=== PATIENT | female | born 1935 | race Caucasian/White ===

== ENCOUNTER → 2016-04-09 | Outpatient (CLI) | payer BC ==
[~2016-04-09] MED LIST: ACET-1487 PO; CHOL1CAP67 PO; CLOP1TAB5 PO; CYAN10005 PO; FOLI1TAB7 PO; FURO20TA PO; INSPMPNVLG; LISI10TA PO; PRED1SUS3; SERT25TA PO
[2016-04-09 13:29] LABS: ESTIMATED AVERAGE GLUCOSE 160 mg/dl; HA1C FLAG Normal (Normal)
== END | disposition home or self-care (01) ==
LOC: C.LABOAKS 12:27
PROVIDERS: ATTEND Internal Medicine Critical Care Medicine
DX: E11.9 Type 2 diabetes mellitus without complications (principal)

== ENCOUNTER → 2016-08-06 | Outpatient (CLI) | payer BC ==
[2016-08-06 10:46] LABS: ESTIMATED AVERAGE GLUCOSE 166 mg/dl; HA1C FLAG Normal (Normal)
== END | disposition home or self-care (01) ==
LOC: C.LABOAKS 09:48
PROVIDERS: ATTEND Internal Medicine Critical Care Medicine
DX: E11.9 Type 2 diabetes mellitus without complications (principal)

== ENCOUNTER → 2016-08-30 | Outpatient (CLI) | payer BC ==
[2016-08-30 09:58] LABS: BASO % 0.5 %; BASO ABS # 0.03 K/uL (0-0.2); COMPLETE YES; EOS % 1.5 %; HEMATOCRIT 36.5 % (37-47); IG% 0.2 %; LYMPH ABS # 1.86 K/uL (1.2-3.4); MEAN CELL VOLUME 96.1 fL (80-100); MEAN CORPUSCULAR HEMOGLOBIN 31.3 pg (25-34); MEAN CORPUSCULAR HGB CONC 32.6 g/dl (32-36); MEAN PLATELET VOLUME 10.3 fL (7.4-10.4); NEUT % 60.8 %; PLATELET COUNT 186 K/uL (130-400)
[2016-08-30 10:31] LABS: BLOOD UREA NITROGEN 20 mg/dl (7-18); BUN/CREATININE RATIO 19.7 (10-20); CALCIUM 8.9 mg/dl (8.5-10.1); CARBON DIOXIDE 29 mmol/L (21-32); CHLORIDE 111 mmol/L (98-107); GLUCOSE 170 mg/dl (70-99); MAGNESIUM 2.1 mg/dl (1.8-2.4); PHOSPHORUS 3.1 mg/dl (2.5-4.9); POTASSIUM 4.4 mmol/L (3.5-5.1); SODIUM 144 mmol/L (136-145)
[2016-08-30 10:41] LABS: URINE APPEARANCE CLOUDY (CLEAR); URINE BILIRUBIN NEG (NEG); URINE COLOR YELLOW; URINE EPITHELIAL CELL AUTO >30 /lpf (0-5); URINE NITRITE NEG (NEG); URINE SPECIFIC GRAVITY 1.024 (1.000-1.030); UROBILINOGEN NEG (NEG); ZZUR CULT IF INDIC CLEAN CATCH YES
[2016-08-30 10:43] LABS: MANUAL MICROSCOPIC REQUIRED? NO; REVIEW REQ? NO
[2016-08-30 11:10] LABS: URINE PROTIEN/CREAT RATIO 0.3 (0-0.2); URINE TOTAL PROTEIN 48.7 mg/dl (0-11.9)
--- NOTE | 2016-09-06 06:54 | CODING QUERY MEDICAL NECESSITY ---
CQSUPPORTING DIAGNOSIS NEEDED A supporting diagnosis is required for the test/procedure performed on this patient in order for us to be reimbursed by the patient's insurance. Please provide a supporting diagnosis for the following test/procedure listed below next to the test name along with your signature. *If there is no additional diagnosis for this patient that would support the following test/procedure please document that below next to the test/procedure. Test(s)/Procedure(s) that require a supporting diagnosis: EMERY 08/30/16 URINE CULTURE Provider Signature: Date: Thank you Janie Belle [facility] Information Management Once completed, please kindly fax back to [phone] For questions please call [phone]
== END | disposition home or self-care (01) ==
LOC: C.LAB1850 08:45
PROVIDERS: ATTEND Internal Medicine Nephrology
DX: N18.3 Chronic kidney disease, stage 3 (moderate) (principal); N39.0 Urinary tract infection, site not specified

== ENCOUNTER → 2016-11-05 | Outpatient (CLI) | payer BC ==
[2016-11-05 13:21] LABS: ESTIMATED AVERAGE GLUCOSE 169 mg/dl; HA1C FLAG Normal (Normal)
== END | disposition home or self-care (01) ==
LOC: C.LABOAKS 10:35
PROVIDERS: ATTEND Nurse Practitioner
DX: E11.9 Type 2 diabetes mellitus without complications (principal)

== ENCOUNTER → 2017-03-11 | Outpatient (CLI) | payer BC ==
[2017-03-11 13:11] LABS: ESTIMATED AVERAGE GLUCOSE 183 mg/dl; HA1C FLAG Normal (Normal)
== END | disposition home or self-care (01) ==
LOC: C.LABOAKS 15:33
PROVIDERS: ATTEND Nurse Practitioner
DX: E11.9 Type 2 diabetes mellitus without complications (principal)

== ENCOUNTER → 2017-07-08 | Outpatient (CLI) | payer BC ==
[~2017-07-08] MED LIST changes: -FOLI1TAB7 PO; +FOLI1TAB8 PO
[2017-07-08 12:20] LABS: HEMOGLOBIN A1C 7.4 % (4.5-5.6)
== END | disposition home or self-care (01) ==
LOC: C.LAB1850 11:07
PROVIDERS: ATTEND Nurse Practitioner Adult Health
DX: E11.49 Type 2 diabetes mellitus with other diabetic neurological complication (principal); E11.29 Type 2 diabetes mellitus with other diabetic kidney complication; Z79.4 Long term (current) use of insulin

== ENCOUNTER → 2017-11-21 | Day surgery (SDC) | payer BC ==
[2017-11-13 13:54] VITALS: Ht 167.6 cm; Wt 92.7 kg
[~2017-11-21] VITALS: Ht 167.6 cm; Wt 92.7 kg
[~2017-11-21] MED LIST changes: +ASCO10003 PO; +BIOT1CAP8 PO; +CHOL1000 PO; -CHOL1CAP67 PO; +CLOP1TAB15 PO; -CLOP1TAB5 PO; +CYAN100020 PO; -CYAN10005 PO; +FURO-85 PO; -FURO20TA PO; -INSPMPNVLG; +LIDOCAINE HCL 1% 20 ML VIAL ONE; -LISI10TA PO; +MAGNESIUM CHLORIDE PO; +MULT-1092 PO; +NVLG SC; -PRED1SUS3; +SODIUM CHLORIDE 0.9% 1000ML 1,000 ML IV SCH; +TRAM-10 PO; +TRAMADOL HCL 50 MG TAB PO PRN; +TURM1CAP4 PO
--- NOTE | 2017-11-21 08:08 | History & Physical Bridge - SC ---
H&P Re-Evaluation Bridge Note: I have examined the patient, reviewed the History & Physical and in the interval since the performance of the History & Physical I have noted the following changes of clinical significance: No changes noted asa 2
--- NOTE | 2017-11-21 08:52 | [facility] Operative Report ---
Operative Report Operative Date Nov 21, 2017. Pre-Operative Diagnosis Epidermal inclusion cyst Post-Operative Diagnosis same Procedure(s) Performed excision 2 cm epidermoid cyst Surgeon Dr. Giles Monsivais Brush Painter Surgeon(s) None Estimated Blood Loss 5 cc Specimens cyst Drains None Anesthesia Type Local Complication(s) none Disposition Recovery Room / PACU I attest to the content of the Intraoperative Record and any orders documented therein. Any exceptions are noted below.
--- NOTE | 2017-11-21 08:56 | Discharge Instructions-SurgCtr ---
Discharge Instructions Date of Service Nov 21, 2017. Visit Reason for Visit: Epidermoid Cyst, Upper Back Discharge Discharge Diagnosis / Problem: epidermoid cyst Discharge Goals Goal(s): Decrease discomfort, Improve function, Improve disease control Medications Stopped Medications Name(s): Plavix November 14 2017 Activity Recommendations Activity Limitations: as noted below Lifting Limitations: no more than 10 pounds (for 2 weeks) Exercise/Sports Limitations: until after follow-up appointment May Resume Sexual Activity: when tolerated Shower/Bathe: tomorrow Driving or Machine Use: resume 1 day after discharge Anesthesia . Post Anesthesia Instructions: If you have had General Anesthesia or IV Sedation: * Do not drive today. * Resume driving when surgeon permits. * Do not make important decisions or sign legal documents today. * Call surgeon for: 1. Temperature elevations greater than 101 degrees F. 2. Uncontrollable pain. 3. Excessive bleeding. 4. Persistent nausea and vomiting. 5. Medication intolerance (nausea, vomiting or rash). * For nausea and vomiting use only clear liquids such as: tea, soda, bouillon until nausea subsides, then gradually increase diet as tolerated. * If you have any concerns or questions, call your surgeon's office. If physician is unavailable and it is an emergency, call 911 or go to the nearest emergency room. . Instructions / Follow-Up Instructions / Follow-Up SPECIAL CARE INSTRUCTIONS: * Cover incisions and change daily for comfort/drainage * Expect some swelling and bruising. Call your doctor if: * Temperature above 101 degrees * Pain not relieved by pain medicine ordered * There is increased drainage or redness from any incision * You have any unanswered questions or concerns [phone]. FOLLOW UP VISIT: If not already scheduled, please call the office for a follow-up visit. for next week- some suture removal OFFICE PHONE NUMBER: Dr. Monsivais Office Diet Recommendations Home Diet: resume previous diet Procedures Procedures Performed: excision 2 cm epidermoid cyst Pending Studies Studies pending at discharge: no Medical Emergencies . Who to Call and When: Medical Emergencies: If at any time you feel your situation is an emergency, please call 911 immediately. . Non-Emergent Contact Non-Emergency issues call your: Primary Care Provider, Surgeon . . "Provider Documentation" section prepared by Giles Monsivais. .
[2017-11-21 09:00] VITALS: TEMP 36.6
[2017-11-21 09:37] VITALS: BP 169/86; PULSE 64; O2SAT 99
--- NOTE | 2017-11-21 10:55 | OPERATIVE REPORT ---
DATE OF OPERATION: 11/21/2017 NAME OF OPERATION: Excision of 2-cm epidermoid cyst from the back. PREOPERATIVE DIAGNOSIS: Epidermoid cyst. POSTOPERATIVE DIAGNOSIS: Epidermoid cyst. STAFF SURGEON: Giles Monsviais MD ANESTHESIA: 1% plain lidocaine. PROCEDURE: The patient was brought in the operating room and placed on the operating room table in the prone position. Her upper back was prepped and draped in usual fashion. 1% plain lidocaine was used to anesthetize the skin over the cyst. Elliptical incision was made approximately 2-3 cm in length, carrying dissection down excising the 2 cm cyst from the surrounding tissue, sent for routine pathology. The deep tissue was reapproximated using 3-0 Vicryl suture, then the skin reapproximated using 4-0 nylon suture. Dressing applied and patient transferred to recovery room in stable condition. I attest to the content of the Intraoperative Record and any orders documented therein. Any exception s are noted below.
== END | disposition home or self-care (01) ==
LOC: X.SURG 07:01
PROVIDERS: ATTEND Surgery
DX: L72.0 Epidermal cyst (principal); I10 Essential (primary) hypertension; I35.0 Nonrheumatic aortic (valve) stenosis; E11.21 Type 2 diabetes mellitus with diabetic nephropathy; E11.42 Type 2 diabetes mellitus with diabetic polyneuropathy; E78.5 Hyperlipidemia, unspecified; F32.9 Major depressive disorder, single episode, unspecified; E66.9 Obesity, unspecified; Z68.33 Body mass index [BMI] 33.0-33.9, adult; Z88.5 Allergy status to narcotic agent; Z87.891 Personal history of nicotine dependence

== ENCOUNTER 2019-11-09 11:22 | Observation (INO) ==
[2019-11-09 12:46] LABS: Partial Thromboplastin Ratio 0.9; Partial Thromboplastin Time 26.5 Seconds (21.0-31.0); Prothrombin Time 10.7 Seconds (9.0-12.0)
[2019-11-09 12:48] LABS: Albumin Level 3.4 gm/dl (3.4-5.0); BUN Creatinine Ratio 18.4 (10-20); Calcium 9.3 mg/dl (8.5-10.1); Creatinine Clr Calc Pharmacy 45.8 ml/min; Est GFR (African American) 57.4; Est GFR (Non-African American) 49.5; Potassium 4.6 mmol/L (3.5-5.1)
[2019-11-09 12:50] LABS: Hematocrit (blood only) 31.9 % (37-47); Hemoglobin 10.3 g/dL (12.0-16.0); Mean Corpuscular Hgb Conc 32.3 g/dL (32-36); Mean Corpuscular Volume 96.1 fL (80-100); Mean Platelet Volume 10.1 fL (7.4-10.4); Platelet Count 203 K/uL (130-400); RDW Coefficient of Variation 13.4 % (11.5-14.5); RDW Standard Deviation 46.6 fL (36.4-46.3); Red Blood Count 3.32 M/uL (4.2-5.4); White Blood Count 7.58 K/uL (4.8-10.8)
[2019-11-09 12:51] LABS: Albumin Globulin Ratio 0.9 (0.9-2); Bilirubin,Total 0.2 mg/dl (0.2-1); Globulin 3.8 gm/dl (2.5-4.0); Total Protein 7.2 gm/dl (6.4-8.2)
--- NOTE | 2019-11-09 16:31 | History & Physical Report ---
Date of Service November 09, 2019 Assessment & Plan (1) Lower GI bleed: Sounds lower GI to me without any melena. Likely either diverticular vs. hemorrhoidal. Last colonoscopy was 15 years ago at [facility] and was without any issues that the patient recalls. - Monitor stools for further bleeding. - Hold ASA; otherwise not on any anticoagulation - GI consulted - Monitor hgb closely; transfuse for hgb < 7. - Clear liquid diet for now in case need for procedure (2) Controlled type 2 diabetes mellitus with kidney complication, with long-term current use of insulin: Last A1c was 6.9% in 06/2019. Uses insulin pump. - Continue home pump - Blood sugar checks ACHS - Diabetic diet (3) Hypertension: BP presently 195/75 in the ED without symptoms. - Continue home meds: Lasix, beta-isatu (On Lasix for general HTN and leg swelling; no known hx of CHF) (4) Stage 3 chronic kidney disease: Baseline Cr ~1.0; eGFR 45. - Presently at baseline - Monitor (5) DVT prophylaxis: SCDs - Low DVT risk per admission calculator as well as current concern for bleeding History of Present Illness Primary Care Provider: Ovi Schaefer MD 84yo F w/ hx of HTN, DM who presents with rectal bleeding. Started 2 weeks ago with only 2 episodes of light bleeding with passing a BM. Stool was soft and brown without any straining. Discussed with PCP who felt this was likely hemorrhoidal. She used some Preparation H which seemed to help. No further bright red blood, no dark/tarry stools. Never any abdominal pain, nausea, vomiting, or other GI symptoms. This morning (Friday) at 3am, she was woken up by urge to pass BM. She describes it as a "pressure" in the bottom. She passed a large amount of bright red blood and some purple clots without a significant amount of stool. This happened again at 8am, and she decided to present to the ER. She reports that she felt somewhat dizzy with the passing of blood; however, she also has occasional syncopal episodes at home. This time she did not pass out. She continues to deny any abdominal pain, nausea, vomiting. At present, she is not dizzy. No chest pain, no chest pressure, no shortness of breath. No fevers or chills at home during all of this. Allergies Allergy/AdvReac Type Severity Reaction Status Date / Time exenatide Allergy Unknown MYALGIA Verified 11/09/19 14:02 hydrocodone Allergy Unknown vomiting Verified 11/09/19 14:02 phenol Allergy Unknown MYALGIA Verified 11/09/19 14:02 codeine AdvReac Unknown VOMMITING Verified 11/09/19 14:02 Lmfwogg-Jwi-Pcb Reductase AdvReac Unknown MYALGIA Verified 11/09/19 14:02 Inhibitor NSAIDS (Non-Steroidal AdvReac Verified 11/09/19 14:02 Anti-Inflamma Home Medications Home Medications Medication Instructions Recorded Confirmed Type acetaminophen 650 mg 1,300 mg PO TID PRN tab 11/19/18 11/09/19 History tablet,extended release aspirin 81 mg tablet,delayed 81 mg PO DAILY 11/19/18 11/09/19 History release cholecalciferol (vitamin D3) 50 2,000 units PO DAILY tab 11/19/18 11/09/19 History mcg (2,000 unit) tablet cyanocobalamin (vitamin B-12) 500 500 mcg PO DAILY tab 11/19/18 11/09/19 History mcg tablet folic acid 1 mg tablet 1 mg PO DAILY tab 11/19/18 11/09/19 History furosemide 40 mg tablet 40 mg PO DAILY 11/19/18 11/09/19 History fogymvmtdckg-yxgwqdcx-bcewuy 1 tab PO DAILY 11/19/18 11/09/19 History insulin aspart U-100 100 unit/mL 70 units SQ DIRECTED ml 03/09/19 11/09/19 History subcutaneous solution potassium chloride 20 mEq 40 meq PO DAILY tab 03/09/19 11/09/19 History tablet,extended release(part/cryst) sertraline 25 mg tablet 25 mg PO DAILY #90 tab 03/18/19 11/09/19 Rx magnesium oxide 400 mg (241.3 mg 400 mg PO BID tab 09/10/19 11/09/19 History magnesium) tablet metoprolol succinate 25 mg 25 mg PO DAILY #90 tab 09/14/19 11/09/19 Rx tablet,extended release 24 hr biotin 1 mg PO DAILY 11/09/19 11/09/19 History Past Med/Surg History Medical History Bilateral cataracts (Acute) Calcific aortic stenosis CVA (cerebral vascular accident) Epidermal inclusion cyst Insulin dependent diabetes mellitus (Acute) Sensorineural hearing loss (SNHL) of both ears SVT (supraventricular tachycardia) (Acute) Surgical History History of bilateral knee replacement (Acute) History of bunionectomy (Acute) History of bunionectomy of both great toes (Acute) S/P TAVR (transcatheter aortic valve replacement) (Acute) Family History Mother Diabetes Stroke Father Diabetes Sister Cancer Unknown Hypertension Social History Smoking Status: Never smoker Second Hand Exposure: No; Hx Alcohol Use: No Hx Substance Use: No Preferred Language: East Timorese Communication Ability: Effective marital status: / Current Living Situation: Alone current occupation: Retired Feels Safe at Home: Yes Review of Systems Review of Systems: All systems reviewed & are unremarkable except as noted in HPI & below Physical Exam Constitutional: WD/WN, vitals as above Eyes: EOM intact bilaterally; no conjunctival abnormality ENMT: external ear and nose normal, oropharynx normal Neck: trachea midline, no thyromegaly normal visual inspection Respiratory: normal respiratory effort, lungs clear to auscultation no respiratory distress Cardiovascular: RRR, no murmur, no edema Gastrointestinal (Abdomen): Inspection/Auscultation: abdomen normal to inspection and normal bowel sounds; abdomen not distended Percussion/Palpation: abdomen soft; abdomen nontender, no guarding and abdomen not rigid Musculoskeletal: no cyanosis or clubbing, extremities motor strength 5/5 Skin: no rashes, warm and dry Neurologic: moves all extremities and awake Psychiatric: Orientation: alert, oriented to person and cooperative Results & Data Results & Data ([facility]) Vital Signs (Past 12 Hours) Vital Signs Temp Pulse Pulse Resp BP BP Pulse Ox 11/09/19 16:00 68 21 193/73 H 98 11/09/19 15:30 65 12 196/115 H 98 11/09/19 15:00 62 14 209/75 H 97 11/09/19 14:35 71 20 181/70 H 99 11/09/19 14:33 67 21 181/70 H 97 11/09/19 14:00 66 10 L 191/79 H 98 11/09/19 13:30 65 14 188/84 H 96 11/09/19 13:24 66 16 184/75 H 96 11/09/19 13:01 68 11 L 96 11/09/19 13:00 65 10 L 184/75 H 97 11/09/19 12:30 62 69 10 L 176/77 H 176/77 H 97 11/09/19 12:24 70 24 162/93 H 99 11/09/19 12:18 69 16 97 11/09/19 11:44 36.6 C 68 18 190/77 H 98 PG Care Time/CCT Total # of Minutes Spent Total Time Spent with Patient: Total time spent is greater than 50% in coordination of care (as documented) at patient's floor/unit and/or counseling patient: Coding Level of Care Code 66521 Initial Inpt Care Lvl 3 Diagnoses Lower GI bleed K92.2 Controlled type 2 diabetes mellitus with kidney complication, with long-term current use of insulin E11.29; Z79.4 Hypertension I10 Stage 3 chronic kidney disease N18.3 DVT prophylaxis Z29.9
--- NOTE | 2019-11-09 16:40 | Electrocardiogram Report ---
Test Reason : Blood Pressure : / mmHG Vent. Rate : 067 BPM Atrial Rate : 067 BPM P-R Int : 218 ms QRS Dur : 090 ms QT Int : 410 ms P-R-T Axes : 079 -03 057 degrees QTc Int : 433 ms Sinus rhythm with 1st degree A-V block with occasional Premature ventricular complexes Inferior infarct , age undetermined Abnormal ECG When compared with ECG of 21-DEC-2015 12:59, Premature ventricular complexes are now Present Premature atrial complexes are no longer Present Inferior infarct is now Present Confirmed by Guillaume Barrientos ([id number]) on 11/09/2019 4:40:36 PM Referred By: Ovi Schaefer Confirmed By:Moiz Barrientos
[2019-11-09] MEDS ORDERED: HydrALAZINE HCL 20 MG/ML VIAL IV ONE (16:45)
[2019-11-09] MEDS ORDERED: DEXTROSE 50% 50 ML SYRINGE IV PRN (17:46)
[2019-11-09] MEDS ORDERED: ONDANSETRON INJ 2 MG/ML 2 ML VIAL IV PRN (17:46)
[2019-11-09] MEDS ORDERED: HydrALAZINE HCL 20 MG/ML VIAL IV PRN (17:46)
[2019-11-09] MEDS ORDERED: GLUCAGON FOR INJ 1 MG VIAL SQ PRN (17:46)
[2019-11-09] MEDS ORDERED: GLUCOSE 40% GEL 15 GM TUBE PO PRN (17:46)
[2019-11-09] MEDS ORDERED: GLUCOSE 10 TABS/TUBE PO PRN (17:46)
[2019-11-09] MEDS ORDERED: CARBOHYDRATES FOR HYPOGLYCEMIA PO PRN (17:46)
[2019-11-09] MEDS: NovoLOG INSULIN PUMP SCH (22:36)
[2019-11-09] MEDS: MAGNESIUM OXIDE 400 MG TAB PO SCH (22:38)
[2019-11-09] MEDS: ACETAMINOPHEN 325 MG TAB PO PRN (22:41)
[2019-11-09] MEDS ORDERED: Nursing to Pharmacy Communication SCH (23:45)
[2019-11-10 05:39] LABS: Hematocrit (blood only) 31.4 % (37-47); Mean Corpuscular Hemoglobin 30.4 pg (25-34); Mean Corpuscular Hgb Conc 31.8 g/dL (32-36); Mean Corpuscular Volume 95.4 fL (80-100); Platelet Count 195 K/uL (130-400); RDW Coefficient of Variation 13.5 % (11.5-14.5); RDW Standard Deviation 46.7 fL (36.4-46.3); Red Blood Count 3.29 M/uL (4.2-5.4); White Blood Count 7.19 K/uL (4.8-10.8)
[2019-11-10 06:06] LABS: BUN Creatinine Ratio 20.2 (10-20); Calcium 8.8 mg/dl (8.5-10.1); Creatinine Clr Calc Pharmacy 56.4 ml/min; Est GFR (African American) 74.5; Est GFR (Non-African American) 64.3; Magnesium 2.1 mg/dl (1.8-2.4); Potassium 4.4 mmol/L (3.5-5.1)
[2019-11-10] MEDS: NovoLOG INSULIN PUMP SCH ×4 (08:30→21:15)
[2019-11-10] MEDS ORDERED: NON-FORMULARY MEDICATION (Biotin 1 MG) PO SCH (09:00)
[2019-11-10] MEDS ORDERED: METOPROLOL SUCC 25MG EXT REL TAB PO SCH (09:00)
--- NOTE | 2019-11-10 09:05 | Gastrointestinal Consultation ---
Date of Consultation November 10, 2019 Assessment & Plan (1) Lower GI bleed: Differential includes hemorrhoidal vs diverticular vs other. -Continue to monitor H/H -Treat hemorrhoids with Anusol BID -Metamucil 1 tablespoon daily in 8 oz noncarbonated beverage -Obtain CT to exclude any obvious masses/abnormalities -Monitor symptoms--if worsening, consider endoscopic evaluation at that time Thank you for allowing us to participate in the care of this patient. If you should have any further questions or concerns, do not hesitate to contact us at extension [phone] or [phone]. Supervising Physician Co-Signing Physician Notes I personally evaluated the patient and agree with the findings as documented by Angelita Durham, PAC Exam: abd: soft, nt, nd can consider colonoscopy with banding of hemorrhoids if symptoms/anemia persist or worsen. History of Present Illness Reason for Consultation: Rectal bleedig Attending Physician: Janusz Seaman MD History of Present Illness 84yo F w/ hx of HTN, DM who presents with rectal bleeding that began 2 weeks ago with bright red blood occurring with a bowel movement. She denied constipation at that time. She saw a PCP and reportedly it was felt to be hemorrhoidal. She had been using Preparation H which seemed to help her symptoms. The blood stopped at that time.She never experienced any abdominal pain, nausea, vomiting, or other GI symptoms. Early yesterday morning, she woke up feeling as though she needed to have a bowel movement. She described it as a pressure in the bottom. She passed a large amount of bright red blood and some purple clots without a significant amount of stool. This occurred once more in the geriatric nurse, and she decided to present to the ER. She reports that she felt somewhat dizzy with the passing of blood. She continues to deny any abdominal pain, nausea, vomiting. At present, she is not dizzy. No chest pain, no chest pressure, no shortness of breath. No fevers or chills at home during all of this. Current H/H is 10.0/31.4. Last colonoscopy was reportedly >15 years ago at [facility]. I do not have records, however it was reportedly unremarkable for acute issues. She is not having further symptoms. No family history of colon cancer. Allergies Allergy/AdvReac Type Severity Reaction Status Date / Time exenatide Allergy Unknown MYALGIA Verified 11/09/19 14:02 hydrocodone Allergy Unknown vomiting Verified 11/09/19 14:02 phenol Allergy Unknown MYALGIA Verified 11/09/19 14:02 codeine AdvReac Unknown VOMMITING Verified 11/09/19 14:02 Ukhnedh-Cem-Gwm Reductase AdvReac Unknown MYALGIA Verified 11/09/19 14:02 Inhibitor NSAIDS (Non-Steroidal AdvReac Verified 11/09/19 14:02 Anti-Inflamma Home Medications Home Medications Medication Instructions Recorded Confirmed Type acetaminophen 650 mg 1,300 mg PO TID PRN tab 11/19/18 11/09/19 History tablet,extended release aspirin 81 mg tablet,delayed 81 mg PO DAILY 11/19/18 11/09/19 History release cholecalciferol (vitamin D3) 50 2,000 units PO DAILY tab 11/19/18 11/09/19 History mcg (2,000 unit) tablet cyanocobalamin (vitamin B-12) 500 500 mcg PO DAILY tab 11/19/18 11/09/19 History mcg tablet folic acid 1 mg tablet 1 mg PO DAILY tab 11/19/18 11/09/19 History furosemide 40 mg tablet 40 mg PO DAILY 11/19/18 11/09/19 History kbldhbnisqvd-xohxgifz-zmxgeb 1 tab PO DAILY 11/19/18 11/09/19 History insulin aspart U-100 100 unit/mL 70 units SQ DIRECTED ml 03/09/19 11/09/19 History subcutaneous solution potassium chloride 20 mEq 40 meq PO DAILY tab 03/09/19 11/09/19 History tablet,extended release(part/cryst) sertraline 25 mg tablet 25 mg PO DAILY #90 tab 03/18/19 11/09/19 Rx magnesium oxide 400 mg (241.3 mg 400 mg PO BID tab 09/10/19 11/09/19 History magnesium) tablet metoprolol succinate 25 mg 25 mg PO DAILY #90 tab 09/14/19 11/09/19 Rx tablet,extended release 24 hr biotin 1 mg PO DAILY 11/09/19 11/09/19 History Patient History Medical History Bilateral cataracts (Acute) Calcific aortic stenosis CVA (cerebral vascular accident) Epidermal inclusion cyst Insulin dependent diabetes mellitus (Acute) Sensorineural hearing loss (SNHL) of both ears SVT (supraventricular tachycardia) (Acute) Surgical History History of bilateral knee replacement (Acute) History of bunionectomy (Acute) History of bunionectomy of both great toes (Acute) S/P TAVR (transcatheter aortic valve replacement) (Acute) Family History Mother Diabetes Stroke Father Diabetes Sister Cancer Unknown Hypertension Social History Smoking Status: Former smoker Second Hand Exposure: No; Hx Alcohol Use: No Hx Substance Use: No Preferred Language: Frisian Communication Ability: Effective Beliefs That Will Affect Care: None marital status: / Current Living Situation: Alone Current Living Situation Comment: [facility] current occupation: Retired Feels Safe at Home: Yes Safety Concerns: Feels Safe At This Time Review of Systems Constitutional: no problem reported Eyes: no problem reported Respiratory: no cough and no dyspnea Cardiovascular: no chest pain Gastrointestinal: + blood in stools; no abdominal pain and no change in bowel habits Musculoskeletal: no problem reported Integumentary: no rash Psychiatric: no problem reported Physical Exam Constitutional: WD/WN, vitals as above Eyes: PERRL, conjunctivae normal, anicteric sclerae Neck: normal visual inspection Respiratory: normal respiratory effort Cardiovascular: Rate/Rhythm: + abnormal rate and + abnormal rhythm Gastrointestinal (Abdomen): Inspection/Auscultation: abdomen normal to inspection and normal bowel sounds Percussion/Palpation: abdomen soft; abdomen nontender Musculoskeletal: no cyanosis or clubbing, extremities motor strength 5/5 Skin: no rashes Psychiatric: A+Ox3, euthymic affect Results & Data ([facility]) Vital Signs (Past 12 Hours) Vital Signs Temp Pulse Resp BP Pulse Ox 11/10/19 07:39 36.7 C 70 16 152/77 H 95 11/09/19 23:07 37.2 C 71 14 152/79 H 95 PG Care Time/CCT Total # of Minutes Spent Total Time Spent with Patient: Total time spent is greater than 50% in coordination of care (as documented) at patient's floor/unit and/or counseling patient: Coding Level of Care Code 73681 Initial Inpt Care Lvl 3 Diagnoses Lower GI bleed K92.2
[2019-11-10] MEDS: FOLIC ACID 1 MG TAB PO SCH (09:14)
[2019-11-10] MEDS: CYANOCOBALAMIN 500 MCG TABLET (VITAMIN B-12) PO SCH (09:15)
[2019-11-10] MEDS: MAGNESIUM OXIDE 400 MG TAB PO SCH ×2 (09:15→21:13)
[2019-11-10] MEDS: POTASSIUM CHLORIDE 20 MEQ TABCR PO SCH (09:15)
[2019-11-10] MEDS: CHOLECALCIFEROL 1,000 UNITS 25 MCG TAB PO SCH (09:16)
[2019-11-10] MEDS: SERTRALINE HCL 50 MG TABLET PO SCH (09:16)
[2019-11-10] MEDS: FUROSEMIDE 40 MG TAB PO SCH (09:16)
[2019-11-10] MEDS: CEROVITE ADV FORMULA TAB PO SCH (09:16)
[2019-11-10] MEDS ORDERED: IOVERSOL 100ml IV ONE (12:19)
--- NOTE | 2019-11-10 12:56 | CT Scan Report ---
CT SCAN OF THE ABDOMEN AND PELVIS WITH IV CONTRAST CLINICAL HISTORY: Rectal bleeding. Clinical concern for colonic mass. COMPARISON STUDY: No priors. TECHNIQUE: Following the IV administration of 94 cc of Optiray 320, CT scan of the abdomen and pelvi s is performed from the lung bases to the proximal femora. Images are reviewed in the axial, sagittal , and coronal planes. IV contrast was administered without complication. Oral contrast was utilized. A dose lowering technique was utilized adhering to the principles of ALARA. CT DOSE: 716.23 mGy.cm FINDINGS: Lung bases: The heart is mildly enlarged and without pericardial effusion. Postoperative change is no judi involving the aortic valve on the body stylist tomogram. The lung bases are clear. There is a small hiat al hernia. Liver: The contrast-enhanced liver is normal in size, contour, and attenuation. There is no intrahepa tic biliary ductal dilatation. The hepatic veins and portal veins are patent. Gallbladder: The gallbladder is contracted and there are small calcified gallstones. Spleen: Normal in size and attenuation. Pancreas: Unremarkable. Adrenal glands: Unremarkable. Kidneys: The contrast enhanced kidneys demonstrate cortical atrophy and are without hydronephrosis. T he kidneys enhance symmetrically. Abdominal vasculature: The abdominal aorta is normal in course and caliber noting moderate to advance d atherosclerotic calcification. Bowel: There is no bowel obstruction. Enteric contrast reaches the distal colon. There are scattered colonic diverticula without CT evidence of acute diverticulitis. There is no CT evidence of colonic m ass. The appendix is well-visualized and normal. Peritoneum: There is no intraperitoneal free air or abdominal ascites. There is a small fat-containin g umbilical hernia. Lymphadenopathy: None. Pelvic viscera: The bladder is normal as visualized. The uterus is surgically absent. No adnexal lesi on is seen. Skeletal structures: The skeletal structures are osteopenic. There is a superior endplate compression deformity of L1. Moderate lumbosacral spondylosis is observed. No lytic or blastic lesions are seen. IMPRESSION: 1. There are no acute infectious or inflammatory findings in the abdomen or pelvis. 2. There is no CT evidence of colonic mass. Note that this is not well evaluated by CT, and if there strong clinical concern for colonic mass then endoscopy should be considered. 3. Cholelithiasis. 4. Mild cardiomegaly. 5. Additional findings as above. ACT 112: Negative or not required by law. Electronically signed by: Andres Beckham M.D. 11/10/2019 12:55 PM
--- NOTE | 2019-11-10 14:31 | Hospitalist Progress Note ---
Date of Service November 10, 2019 Assessment & Plan (1) Lower GI bleed: Sounds lower GI to me without any melena. Likely either diverticular vs. hemorrhoidal. Last colonoscopy was 15 years ago at [facility] and was without any issues that the patient recalls. - Monitor stools for further bleeding. - Hold ASA; otherwise not on any anticoagulation - GI consulted -> Plan for CT a/p - Monitor hgb closely; transfuse for hgb < 7. - Advance diet (2) Controlled type 2 diabetes mellitus with kidney complication, with long-term current use of insulin: Last A1c was 6.9% in 06/2019. Uses insulin pump. - Continue home pump - Blood sugar checks ACHS - Diabetic diet (3) Hypertension: BP presently 155/75 without symptoms. - Continue home meds: Lasix, beta-isatu (On Lasix for general HTN and leg swelling; no known hx of CHF) (4) Stage 3 chronic kidney disease: Baseline Cr ~1.0; eGFR 45. - Presently at baseline - Monitor (5) DVT prophylaxis: SCDs - Low DVT risk per admission calculator as well as current concern for bleeding Admission and Anticipated Discharge Date Admission Date: November 09, 2019 Subjective No complaints. No further bloody BMs at this point today. Reports no fevers/chills, chest pain, shortness of breath, abdominal pain, nausea, or vomiting. Physical Exam Constitutional: WD/WN, vitals as above Eyes: EOM intact bilaterally; no conjunctival abnormality ENMT: external ear and nose normal, oropharynx normal Neck: trachea midline, no thyromegaly normal visual inspection Respiratory: normal respiratory effort, lungs clear to auscultation no respiratory distress Cardiovascular: RRR, no murmur, no edema Gastrointestinal (Abdomen): Inspection/Auscultation: abdomen normal to inspection and normal bowel sounds; abdomen not distended Percussion/Palpation: abdomen soft; abdomen nontender, no guarding and abdomen not rigid Musculoskeletal: no cyanosis or clubbing, extremities motor strength 5/5 Skin: no rashes, warm and dry Neurologic: moves all extremities and awake Psychiatric: Orientation: alert, oriented to person and cooperative Results & Data Results & Data ([facility]) Vital Signs (Past 12 Hours) Vital Signs Temp Pulse Resp BP Pulse Ox 11/10/19 07:39 36.7 C 70 16 152/77 H 95 PG Care Time/CCT Total # of Minutes Spent Total Time Spent with Patient: Total time spent is greater than 50% in coordination of care (as documented) at patient's floor/unit and/or counseling patient: Coding Level of Care Code 57486 Subseq Hosp Care Lvl 2 Diagnoses Lower GI bleed K92.2 Controlled type 2 diabetes mellitus with kidney complication, with long-term current use of insulin E11.29; Z79.4 Hypertension I10 Stage 3 chronic kidney disease N18.3 DVT prophylaxis Z29.9
[2019-11-10] MEDS: ANUSOL SUPP 1 EA PR SCH (21:14)
[2019-11-10] MEDS: METOPROLOL SUCC 25MG EXT REL TAB PO SCH (21:14)
[2019-11-10] MEDS: ACETAMINOPHEN 325 MG TAB PO PRN (21:14)
--- NOTE | 2019-11-11 05:47 | Discharge Summary ---
Date of Service November 12, 2019 Admission HPI Per Admitting Provider 84yo F w/ hx of HTN, DM who presents with rectal bleeding. Started 2 weeks ago with only 2 episodes of light bleeding with passing a BM. Stool was soft and brown without any straining. Discussed with PCP who felt this was likely hemorrhoidal. She used some Preparation H which seemed to help. No further bright red blood, no dark/tarry stools. Never any abdominal pain, nausea, vomiting, or other GI symptoms. This morning (Friday) at 3am, she was woken up by urge to pass BM. She describes it as a "pressure" in the bottom. She passed a large amount of bright red blood and some purple clots without a significant amount of stool. This happened again at 8am, and she decided to present to the ER. She reports that she felt somewhat dizzy with the passing of blood; however, she also has occasional syncopal episodes at home. This time she did not pass out. She continues to deny any abdominal pain, nausea, vomiting. At present, she is not dizzy. No chest pain, no chest pressure, no shortness of breath. No fevers or chills at home during all of this. Principal Diagnosis Lower GI bleed - Likely colon cancer Discharge Exam Constitutional WD/WN, vitals as above Eyes EOM intact bilaterally; no conjunctival abnormality ENMT external ear and nose normal, oropharynx normal Neck trachea midline, no thyromegaly normal visual inspection Respiratory normal respiratory effort, lungs clear to auscultation no respiratory distress Cardiovascular RRR, no murmur, no edema Gastrointestinal (Abdomen) Inspection/Auscultation: abdomen normal to inspection and normal bowel sounds; abdomen not distended Percussion/Palpation: abdomen soft; abdomen nontender, no guarding and abdomen not rigid Musculoskeletal no cyanosis or clubbing, extremities motor strength 5/5 Skin no rashes, warm and dry Neurologic moves all extremities and awake Psychiatric Orientation: alert, oriented to person and cooperative Discharge Data Allergies Allergy/AdvReac Type Severity Reaction Status Date / Time exenatide Allergy Unknown MYALGIA Verified 11/09/19 14:02 hydrocodone Allergy Unknown vomiting Verified 11/09/19 14:02 phenol Allergy Unknown MYALGIA Verified 11/09/19 14:02 codeine AdvReac Unknown VOMMITING Verified 11/09/19 14:02 Oxgqzde-See-Mnw Reductase AdvReac Unknown MYALGIA Verified 11/09/19 14:02 Inhibitor NSAIDS (Non-Steroidal AdvReac Verified 11/09/19 14:02 Anti-Inflamma Consultations 11/09/19 13:38 ED Decision to Admit Stat 11/09/19 17:46 Consult Gastroenterology Routine Ordered Studies 11/10/19 12:15 CT Abd and Pelvis [CT abd pelvis oral and IV con] Routine Hospital Course (1) Lower GI bleed: Sounds lower GI to me without any melena. Last colonoscopy was 15 years ago at [facility] and was without any issues that the patient recalls. - No further bleeding inpatient. - Hold ASA for now. - CT a/p showed no masses, but did show diverticulosis w/o diverticulitis. - Hemoglobin remained > 7. Given IV iron on 11/10. - Colonoscopy on 11/11 showed fungating mass; likely cancerous. Biopsies taken. - Follow up with colorectal surgeon for surgical evaluation. Also given name/number of Dr. España at [facility] for oncology follow up. (2) Controlled type 2 diabetes mellitus with kidney complication, with long-term current use of insulin: Last A1c was 6.9% in 06/2019. Uses insulin pump. - Continued home pump - Blood sugar checks ACHS - Diabetic diet (3) Hypertension: BP presently 155/75 without symptoms. - Continue home meds: Lasix, beta-isatu (On Lasix for general HTN and leg swelling; no known hx of CHF) (4) Stage 3 chronic kidney disease: Baseline Cr ~1.0; eGFR 45. - At baseline during hospital stay (5) DVT prophylaxis: SCDs - Low DVT risk per admission calculator as well as current concern for bleeding Total Time Total Time Spent Total Time Spent (In Minutes): 35 Discharge Plan Discharge Items Patient Disposition: Home - Self-Care Reason For Visit: RECTAL BLEEDING Discharge Diagnosis: Rectal bleeding; concern for colon cancer Activity: Resume your previous activity Non-emergency contact: Primary Care Provider and Surgeon Call non-emergency contact if: your symptoms worsen Follow-up/Referrals: Marcelo España DO [Physician] - (If biopsy results are positive for cancer & you would like to speak with the oncologist at [facility], please give this number a call.) Ovi Smith MD [Primary Care Provider] - (DR SMITH"S OFFICE WILL CALL WITH APPOINTMENT) Diet: Regular Addtl Attending Provider Instructions: Ms. Singleton, You were admitted to the hospital with bleeding from the rectum. We had thought this may be due to hemorrhoids; however, the colonoscopy today showed a rectal mass that we are concerned is cancer. The biopsy reports will hopefully be back early to mid next week. I would recommend following up with the [facility] Colorectal team at [phone]. I know that at least one surgeon sees patients in [place], so hopefully they can help you get set up. Fortunately, none of the CT scans (including today's chest CT and the prior abdomen and pelvis CT scans) showed any sign of distant (metastatic) disease which is good news. Hopefully (if this is cancer), it is localized and can be resolved only with surgery, but we will not know until after surgery is done as the surgery is needed to really stage cancer. And again, we are not even sure this is cancer at this point. Please hold your aspirin for now. Since we feel the mass was the cause of the bleeding, it may cause you to bleed again if you restart aspirin. If you have further bleeding, please call your PCP's office. Your hemoglobin (red blood cells) dropped a little bit as a result of the bleeding, but not significantly. We did give you a dose of IV iron to help restore your red blood cells. If you have further bleeding and feel lightheaded, dizzy, pass out, or have other concerning symptoms, please go to the hospital. Pending Studies at Discharge: No Stand-Alone Forms: My [facility], Smoking Cessation Medications and DC Order Prescriptions: Continued sertraline 25 mg tablet 25 mg PO DAILY Qty: 90 RF: 3 metoprolol succinate 25 mg tablet extended release 24 hr 25 mg PO DAILY Qty: 90 RF: 3 Novolog U-100 Insulin aspart 100 unit/mL solution 70 units SQ DIRECTED RF: 0 xtgrxgsplecw-asecgiad-ecjtyg tablet 1 tab PO DAILY RF: 0 folic acid 1 mg tablet 1 mg PO DAILY RF: 0 furosemide 40 mg tablet 40 mg PO DAILY RF: 0 acetaminophen 650 mg tablet extended release 1,300 mg PO TID PRN (Reason: pain) RF: 0 cyanocobalamin (vitamin B-12) 500 mcg tablet 500 mcg PO DAILY RF: 0 cholecalciferol (vitamin D3) 2,000 unit tablet 2,000 units PO DAILY RF: 0 potassium chloride 20 mEq tablet,ER particles/crystals 40 meq PO DAILY RF: 0 magnesium oxide 400 mg (241.3 mg magnesium) tablet 400 mg PO BID RF: 0 biotin 1 mg Capsule 1 mg PO DAILY RF: 0 Discontinued aspirin [Aspirin Low Dose] 81 mg tablet,delayed release (DR/EC) 81 mg PO DAILY RF: 0 Discharge Orders: Discharge Order (Routine); Ordered 11/12/19 Ordered By: Janusz Rey/Other Patient Handouts: Controlling High Blood Pressure Admission Data Admit Date/Time: 11/09/19 16:28 Attending Provider: Janusz Seaman Admit Provider: Janusz Seaman Primary Care Provider: Ovi Smith Other Providers: Mal Sue ; Sukhwinder Perez Other Interventions: Discharge Summary Assessment (RN) Last Done: 11/12/19 15:37 DC Date/Time DO NOT enter until pt leaves facility: 11/12/19 16:13 Coding Level of Care Code D/C Day Management >30 mins Diagnoses Lower GI bleed K92.2 Controlled type 2 diabetes mellitus with kidney complication, with long-term current use of insulin E11.29; Z79.4 Hypertension I10 Stage 3 chronic kidney disease N18.3 DVT prophylaxis Z29.9
[2019-11-11 06:18] LABS: Hematocrit (blood only) 30.1 % (37-47); Hemoglobin 9.7 g/dL (12.0-16.0); Mean Corpuscular Hemoglobin 31.1 pg (25-34); Mean Corpuscular Hgb Conc 32.2 g/dL (32-36); Mean Corpuscular Volume 96.5 fL (80-100); Platelet Count 180 K/uL (130-400); RDW Coefficient of Variation 13.4 % (11.5-14.5); RDW Standard Deviation 46.3 fL (36.4-46.3); Red Blood Count 3.12 M/uL (4.2-5.4); White Blood Count 6.08 K/uL (4.8-10.8)
[2019-11-11 06:49] LABS: BUN Creatinine Ratio 14.4 (10-20); Calcium 8.4 mg/dl (8.5-10.1); Est GFR (African American) 56.7; Potassium 4.4 mmol/L (3.5-5.1)
[2019-11-11] MEDS ORDERED: IRON SUCROSE 300 MG in SODIUM CHLORIDE 0.9% 250 ML IV ONE (08:00)
[2019-11-11] MEDS: SERTRALINE HCL 50 MG TABLET PO SCH (08:31)
[2019-11-11] MEDS: CEROVITE ADV FORMULA TAB PO SCH (08:31)
[2019-11-11] MEDS: PSYLLIUM 58.6% POWDER PACKET PO SCH (08:31)
[2019-11-11] MEDS: POTASSIUM CHLORIDE 20 MEQ TABCR PO SCH (08:31)
[2019-11-11] MEDS: CYANOCOBALAMIN 500 MCG TABLET (VITAMIN B-12) PO SCH (08:32)
[2019-11-11] MEDS: CHOLECALCIFEROL 1,000 UNITS 25 MCG TAB PO SCH (08:32)
[2019-11-11] MEDS: FOLIC ACID 1 MG TAB PO SCH (08:32)
[2019-11-11] MEDS: ANUSOL SUPP 1 EA PR SCH ×2 (08:33→20:39)
[2019-11-11] MEDS: MAGNESIUM OXIDE 400 MG TAB PO SCH ×2 (08:33→20:38)
[2019-11-11] MEDS: FUROSEMIDE 40 MG TAB PO SCH (08:33)
[2019-11-11] MEDS: NovoLOG INSULIN PUMP SCH ×4 (08:48→20:42)
--- NOTE | 2019-11-11 10:05 | Emergency Department Note ---
History of Present Illness General Chief complaint: Rectal Bleed Stated complaint: RECTAL BLEEDING Time Seen by Provider: 11/09/19 12:14 Source: patient, family (daughter), RN notes reviewed and old records reviewed Mode of arrival: ambulatory Limitations: no limitations History of Present Illness Provider complaint: Rectal bleed Onset (ago): week(s) Exacerbated By: + other (bowel movement) Associated symptoms: + other (dizziness) Treatments prior to arrival: none This is an 84-year-old female who presents emergency department over concerns that she has had a rectal bleed for the past week. The patient went to her primary care physician and was prescribed Anusol which she has been taking along with suppositories. She reports the rectal bleeding has been getting gradually worse. She has not had a colonoscopy in at least 15 years but reports she is never had a problem with one previously. In addition to the rectal bleeding the patient reports she is passing blood and then large clots. The started originally with bowel movements however it has progressed to the point that she feels like she has to go the bathroom and then passes a large amount of blood. Home Medications Home Medications Medication Instructions Recorded Confirmed Type acetaminophen 650 mg 1,300 mg PO TID PRN tab 11/19/18 11/09/19 History tablet,extended release aspirin 81 mg tablet,delayed 81 mg PO DAILY 11/19/18 11/09/19 History release cholecalciferol (vitamin D3) 50 2,000 units PO DAILY tab 11/19/18 11/09/19 History mcg (2,000 unit) tablet cyanocobalamin (vitamin B-12) 500 500 mcg PO DAILY tab 11/19/18 11/09/19 History mcg tablet folic acid 1 mg tablet 1 mg PO DAILY tab 11/19/18 11/09/19 History furosemide 40 mg tablet 40 mg PO DAILY 11/19/18 11/09/19 History [id number]-[id number]-[id number] 1 tab PO DAILY 11/19/18 11/09/19 History insulin aspart U-100 100 unit/mL 70 units SQ DIRECTED ml 03/09/19 11/09/19 History subcutaneous solution potassium chloride 20 mEq 40 meq PO DAILY tab 03/09/19 11/09/19 History tablet,extended release(part/cryst) sertraline 25 mg tablet 25 mg PO DAILY #90 tab 12/12/19 08/04/20 Rx magnesium oxide 400 mg (241.3 mg 400 mg PO BID tab 09/10/19 11/09/19 History magnesium) tablet metoprolol succinate 25 mg 25 mg PO DAILY #90 tab 09/14/19 11/09/19 Rx tablet,extended release 24 hr biotin 1 mg PO DAILY 11/09/19 11/09/19 History Allergies Allergy/AdvReac Type Severity Reaction Status Date / Time exenatide Allergy Unknown MYALGIA Verified 11/09/19 14:02 hydrocodone Allergy Unknown vomiting Verified 11/09/19 14:02 phenol Allergy Unknown MYALGIA Verified 11/09/19 14:02 codeine AdvReac Unknown VOMMITING Verified 11/09/19 14:02 Ebldtna-Stp-Qvv Reductase AdvReac Unknown MYALGIA Verified 11/09/19 14:02 Inhibitor NSAIDS (Non-Steroidal AdvReac Verified 11/09/19 14:02 Anti-Inflamma Past Med/Surg History Medical History Bilateral cataracts (Acute) Calcific aortic stenosis CVA (cerebral vascular accident) Epidermal inclusion cyst Insulin dependent diabetes mellitus (Acute) Sensorineural hearing loss (SNHL) of both ears SVT (supraventricular tachycardia) (Acute) Surgical History History of bilateral knee replacement (Acute) History of bunionectomy (Acute) History of bunionectomy of both great toes (Acute) S/P TAVR (transcatheter aortic valve replacement) (Acute) Family History Mother Diabetes Stroke Father Diabetes Sister Cancer Unknown Hypertension Social History Smoking Status: Former smoker Second Hand Exposure: No; Hx Alcohol Use: No Hx Substance Use: No Preferred Language: Amharic Communication Ability: Effective Beliefs That Will Affect Care: None marital status: / Current Living Situation: Alone Current Living Situation Comment: [facility] current occupation: Retired Feels Safe at Home: Yes Safety Concerns: Feels Safe At This Time Review of Systems A total of 10 systems reviewed and were otherwise negative Physical Exam VITAL SIGNS - Vital signs and nursing notes were reviewed. GENERAL - 84-year-old female appearing stated age who is in no acute distress. Communicates well with provider and answers questions appropriately. SKIN - Without rashes. HEAD - NC/AT. EYES - PERRL with EOMI bilaterally. Sclera anicteric. Palpebral conjunctiva pink and moist with no injection noted. EARS - No deformities of external structures noted on gross examination bilaterally. No pain elicited with palpation of the tragus bilaterally. External auditory canals without discharge or otorrhea. Tympanic membranes pearly feldman without retraction or bulging. No fluid or purulent material visualized behind the TM. Handle of malleus, umbo, cone of light, pars tensa/flaccid all easily v isualized. NOSE - Midline and without cyanosis. No epistaxis or purulent drainage noted. Septum midline without deviation or septal hematoma noted. MOUTH/OROPHARYNX - Without perioral cyanosis. Buccal mucosa pink and moist and without leukoplakia. Tongue midline with equal elevation of palate bilaterally. No tonsillar hypertrophy, erythema, or exudates noted. dentition noted. NECK - Neck with FROM. Supple to palpation. lymphadenopathy noted. No nuchal rigidity. LUNGS - Chest wall symmetric without accessory muscle use, intercostals retractions, or central cyanosis. Normal vesicular breath sounds CTA B/L. No wheezes, rales, or rhonchi appreciated. CARDIAC - RRR with S1/S2. No murmur, rubs, or gallops appreciated. ABDOMEN - Abdominal contour without pulsations or visible masses. BS normoactive all four quadrants. No tenderness, palpable masses, hepatosplenomegaly, or ascites noted. RECTAL: BRBPR, scant amount, no hemorrhoids noted EXTREMITIES - No clubbing or peripheral cyanosis. No pretibial edema present. +3/5 radial, posterior tibial, and dorsalis pedis pulses palpated throughout. +5/5 strength noted in UE/LE bilaterally. NEUROLOGIC - Cranial nerves II through XII grossly intact. Sensory intact to light touch throughout. Patellar reflexes +2/4. PSYCH - A&Ox3 and cooperates fully with examiner. Pt is very pleasant and interacts well with examiner. Course Administered Medications Acetaminophen (Tylenol) 650 mg PO Q4H PRN PRN Reason: Pain Stop: 12/09/19 17:55 Last Admin: 11/10/19 21:14 Dose: 650 mg Documented by: [id number] Admin: 11/09/19 22:41 Dose: 650 mg Documented by: [id number] Cyanocobalamin (Vitamin B-12) 500 mcg PO DAILY [facility] Stop: 12/10/19 08:59 Last Admin: 11/11/19 08:32 Dose: 500 mcg Documented by: [id number] Admin: 11/10/19 09:15 Dose: 500 mcg Documented by: [id number] Folic Acid (Folvite) 1 mg PO DAILY [facility] Stop: 12/10/19 08:59 Last Admin: 11/11/19 08:32 Dose: 1 mg Documented by: [id number] Admin: 11/10/19 09:14 Dose: 1 mg Documented by: [id number] Furosemide (Lasix) 40 mg PO DAILY [facility] Stop: 12/10/19 08:59 Last Admin: 11/11/19 08:33 Dose: 40 mg Documented by: [id number] Admin: 11/10/19 09:16 Dose: 40 mg Documented by: [id number] Insulin Aspart (Novolog Insulin Pump) 1 ea N/A [facility]; Protocol Stop: 12/09/19 20:59 Last Admin: 11/11/19 08:48 Dose: 1 ea Documented by: [id number] Admin: 11/10/19 21:15 Dose: 1 ea Documented by: [id number] Admin: 11/10/19 18:24 Dose: 1 ea Documented by: [id number] Admin: 11/10/19 12:43 Dose: 1 ea Documented by: [id number] Admin: 11/10/19 08:30 Dose: 1 ea Documented by: [id number] Admin: 11/09/19 22:36 Dose: 1 ea Documented by: [id number] Magnesium Oxide (Mag-Ox) 400 mg PO BID [facility] Stop: 12/09/19 20:59 Last Admin: 11/11/19 08:33 Dose: 400 mg Documented by: [id number] Admin: 11/10/19 21:13 Dose: 400 mg Documented by: [id number] Admin: 11/10/19 09:15 Dose: 400 mg Documented by: [id number] Admin: 11/09/19 22:38 Dose: 400 mg Documented by: [id number] Metoprolol Succinate (Toprol Xl) 25 mg PO HS [facility] Stop: 12/10/19 20:59 Last Admin: 11/10/19 21:14 Dose: 25 mg Documented by: [id number] Multivitamins/Minerals (Multivitamin W/ Minerals Tab) 1 tab PO DAILY [facility] Stop: 12/10/19 08:59 Last Admin: 11/11/19 08:31 Dose: 1 tab Documented by: [id number] Admin: 11/10/19 09:16 Dose: 1 tab Documented by: [id number] Phenylephrine HCl (Anusol) 1 ea MT BID [facility] Stop: 12/10/19 20:59 Last Admin: 11/11/19 08:33 Dose: 1 ea Documented by: [id number] Admin: 11/10/19 21:14 Dose: Not Given Documented by: [id number] Potassium Chloride (Klor-Con M20) 40 meq PO DAILY [facility] Stop: 12/10/19 08:59 Last Admin: 11/11/19 08:31 Dose: 40 meq Documented by: [id number] Admin: 11/10/19 09:15 Dose: 40 meq Documented by: [id number] Psyllium Hydrophilic Mucilloid (Metamucil) 1 pkt PO QAM [facility] Stop: 12/11/19 08:59 Last Admin: 11/11/19 08:31 Dose: 1 pkt Documented by: [id number] Sertraline HCl (Zoloft) 25 mg PO DAILY [facility] Stop: 12/10/19 08:59 Last Admin: 11/11/19 08:31 Dose: 25 mg Documented by: [id number] Admin: 11/10/19 09:16 Dose: 25 mg Documented by: [id number] Vitamin D (Vitamin D3) 2,000 units PO DAILY [facility] Stop: 12/10/19 08:59 Last Admin: 11/11/19 08:32 Dose: 2,000 units Documented by: [id number] Admin: 11/10/19 09:16 Dose: 2,000 units Documented by: [id number] Discontinued Medications Hydralazine HCl (Hydralazine Hcl) 5 mg IV ONE ONE Stop: 11/09/19 16:46 Last Admin: 11/09/19 22:36 Dose: Not Given Documented by: [id number] Iron Sucrose 300 mg/ Sodium (Chloride) 265 mls @ 176.667 mls/hr IV TODAY ONE Stop: 11/11/19 09:29 Last Admin: 11/11/19 08:28 Dose: 176.7 mls/hr Documented by: [id number] Ioversol (Optiray 320 100ml) 94 ml IV ONCE ONE Stop: 11/10/19 12:20 Last Admin: 11/10/19 12:20 Dose: 94 ml Documented by: [id number] Metoprolol Succinate (Toprol Xl) 25 mg PO DAILY [facility] Stop: 12/10/19 08:59 Last Admin: 11/09/19 22:38 Dose: 25 mg Documented by: [id number] Medical Decision Making Differential Diagnosis Diverticulosis, AVM, coagulopathy, colitis, inflammatory bowel disease, malignancy, Brook-Arreguin tear, esophagitis, peptic ulcer disease, variceal bleed, gastritis, epistaxis, fissure, hemorrhoids, as well as other pathologies. Medical Records Attestation: I reviewed the patient's medical records. Home Medications Current Medication List: was personally reviewed by me Laboratory Data Attestation: I reviewed the patient's lab results. Result diagrams: 11/11/19 05:48 11/11/19 05:48 Lab Results 11/09/19 11/09/19 11/09/19 Range/Units 12:18 12:18 12:18 WBC 7.58 (4.8-10.8) K/uL RBC 3.32 L (4.2-5.4) M/uL Hgb 10.3 L (12.0-16.0) g/dL Hct 31.9 L (37-47) % MCV 96.1 (80-100) fL MCH 31.0 (25-34) pg MCHC 32.3 (32-36) g/dL RDW Std Deviation 46.6 H (36.4-46.3) fL RDW Coeff of Abimael 13.4 (11.5-14.5) % Plt Count 203 (130-400) K/uL MPV 10.1 (7.4-10.4) fL PT 10.7 (9.0-12.0) Seconds INR 1.0 (0.9-1.1) APTT 26.5 (21.0-31.0) Seconds PTT Ratio 0.9 Sodium (136-145) mmol/L Potassium (3.5-5.1) mmol/L Chloride (98-107) mmol/L Carbon Dioxide (21-32) mmol/L Anion Gap (3-11) BUN (7-18) mg/dl Creatinine (0.6-1.2) mg/dl Est Cr Clr Drug Dosing ml/min Est GFR ( Amer) Est GFR (Non-Af Amer) BUN/Creatinine Ratio (10-20) Glucose (70-99) mg/dl Calcium (8.5-10.1) mg/dl Total Bilirubin (0.2-1) mg/dl AST (15-37) U/L ALT (12-78) U/L Alkaline Phosphatase (45-117) U/L Total Protein (6.4-8.2) gm/dl Albumin (3.4-5.0) gm/dl Globulin (2.5-4.0) gm/dl Albumin/Globulin Ratio (0.9-2) POC Stool Occult Blood (Negative) Blood Type A Positive Antibody Screen NEGATIVE 11/09/19 11/09/19 Range/Units 12:18 12:48 WBC (4.8-10.8) K/uL RBC (4.2-5.4) M/uL Hgb (12.0-16.0) g/dL Hct (37-47) % MCV (80-100) fL MCH (25-34) pg MCHC (32-36) g/dL RDW Std Deviation (36.4-46.3) fL RDW Coeff of Abimael (11.5-14.5) % Plt Count (130-400) K/uL MPV (7.4-10.4) fL PT (9.0-12.0) Seconds INR (0.9-1.1) APTT (21.0-31.0) Seconds PTT Ratio Sodium 139 (136-145) mmol/L Potassium 4.6 (3.5-5.1) mmol/L Chloride 106 (98-107) mmol/L Carbon Dioxide 29 (21-32) mmol/L Anion Gap 4.0 (3-11) BUN 19 H (7-18) mg/dl Creatinine 1.03 (0.6-1.2) mg/dl Est Cr Clr Drug Dosing 45.8 ml/min Est GFR ( Amer) 57.4 Est GFR (Non-Af Amer) 49.5 BUN/Creatinine Ratio 18.4 (10-20) Glucose 167 H (70-99) mg/dl Calcium 9.3 (8.5-10.1) mg/dl Total Bilirubin 0.2 (0.2-1) mg/dl AST 16 (15-37) U/L ALT 21 (12-78) U/L Alkaline Phosphatase 71 (45-117) U/L Total Protein 7.2 (6.4-8.2) gm/dl Albumin 3.4 (3.4-5.0) gm/dl Globulin 3.8 (2.5-4.0) gm/dl Albumin/Globulin Ratio 0.9 (0.9-2) POC Stool Occult Blood Positive A (Negative) Blood Type Antibody Screen ECG Data Attestation: I personally reviewed and interpreted this ECG as follows: Indication: + other (dizziness) Rate (beats per minute): 67 Rhythm: + normal sinus ECG Intervals/blocks: + First degree AV block ECG [place]: + Normal ECG ST segments: no ST depression and no ST elevation ECG Findings: + PVCs Comparison ECG Date: from (12/21/2015) Change: the following changes noted (PVCs now present) MDM Narrative This is an 84-year-old female who presents emergency department complaining of bright red blood per rectum. Her hemoglobin has dropped several units. I did give the patient the option of going home for close follow-up with gastroenterology however she would like to be admitted. I did discuss the case with the hospitalist service who did agree to omit the patient. Patient was seen and evaluated as above in room C10. Review was performed of nursing notes and vital signs. I did review pertinent previous visits and patient history. After obtaining a thorough history and physical examination the above work up was performed. An order was placed for continuous cardiac monitoring. The monitor shows a rate of 64 with Normal SInus rhythm. The patient was evaluated during the global COVID-19 pandemic, and that diagnosis was suspected/considered upon their initial presentation. Their eval uation, treatment and testing was consistent with current guidelines for patients who present with complaints or symptoms that may be related to COVID- 19. Impression & Plan Lower GI bleed Discharge Plan Visit Data *Final* Discharge Date/Time: 11/09/19 17:29 Chief Complaint: Rectal Bleed Stated Complaint: RECTAL BLEEDING ED Provider: Tuan Andres Discharge Problem: Lower GI bleed Patient Disposition: Admitted As Inpatient Discharge Instructions Interventions: ED Discharge Assessment Last Done: 11/09/19 17:29
--- NOTE | 2019-11-11 11:09 | Gastroenterology Progress Note ---
Date of Service November 11, 2019 Assessment & Plan (1) Lower GI bleed: Differential includes hemorrhoidal vs diverticular vs other. -Continue to monitor H/H -Prep ordered and clear liquid diet today; Colonoscopy tomorrow for further evaluation of symptoms/anemia. Thank you for allowing us to participate in the care of this patient. If you should have any further questions or concerns, do not hesitate to contact us at [phone] or [phone]. Admission and Anticipated Discharge Date Admission Date: November 09, 2019 Supervising Physician Co-Signing Physician Notes I personally evaluated the patient and agree with the findings as documented by Angelita Durham, PAC Exam: abd: soft, nt, nd colonoscopy to further evaluate tomorrow. Subjective Patient is an 84 yo female admitted with rectal bleeding. She underwent a CT scan yesterday that was unremarkable for acute issues. She denies further bleeding since admission, but her H/H is lower than previously at 9.7/30.1. She is agreeable to undergoing endoscopic evaluation at this time. She denies other symptoms. Review of Systems Constitutional: no fever and no chills Respiratory: no cough Cardiovascular: no chest pain Gastrointestinal: + blood in stools; no abdominal pain and no change in bowel habits Physical Exam Constitutional: WD/WN, vitals as above Respiratory: normal respiratory effort Cardiovascular: Rate/Rhythm: + abnormal rate and + abnormal rhythm Gastrointestinal (Abdomen): Inspection/Auscultation: abdomen normal to inspection and normal bowel sounds Percussion/Palpation: abdomen soft; abdomen nontender Musculoskeletal: no cyanosis or clubbing, extremities motor strength 5/5 Skin: no rashes Psychiatric: A+Ox3, euthymic affect Results & Data Results & Data ([facility]) Vital Signs (Past 12 Hours) Vital Signs Temp Pulse Pulse Pulse Resp BP Pulse Ox 11/11/19 10:14 37.1 C 71 64 71 16 147/71 H 95 11/11/19 07:36 37.1 C 64 16 147/71 H 95 11/10/19 23:52 151/79 H PG Care Time/CCT Total # of Minutes Spent Total Time Spent with Patient: Total time spent is greater than 50% in coordination of care (as documented) at patient's floor/unit and/or counseling patient: Coding Level of Care Code 65524 Subseq Hosp Care Lvl 3 Diagnoses Lower GI bleed K92.2
[2019-11-11] MEDS: ACETAMINOPHEN 325 MG TAB PO PRN (16:47)
[2019-11-11] MEDS: LAVAGE SOLUTION 4000ML PO SCH (17:55)
--- NOTE | 2019-11-11 18:10 | Hospitalist Progress Note ---
Date of Service November 11, 2019 Assessment & Plan (1) Lower GI bleed: Sounds lower GI to me without any melena. Likely either diverticular vs. hemorrhoidal. Last colonoscopy was 15 years ago at [facility] and was without any issues that the patient recalls. - No further bleeding inpatient. - CT a/p showed no masses, but did show diverticulosis w/o diverticulitis. - Hemoglobin remained > 7. Given IV iron on 11/10. - Plan for colonoscopy tomorrow. (2) Controlled type 2 diabetes mellitus with kidney complication, with long-term current use of insulin: Last A1c was 6.9% in 06/2019. Uses insulin pump. - Continued home pump - Blood sugar checks ACHS - Diabetic diet (3) Hypertension: BP presently 155/75 without symptoms. - Continue home meds: Lasix, beta-isatu (On Lasix for general HTN and leg swelling; no known hx of CHF) (4) Stage 3 chronic kidney disease: Baseline Cr ~1.0; eGFR 45. - At baseline during hospital stay (5) DVT prophylaxis: SCDs - Low DVT risk per admission calculator as well as current concern for bleeding Admission and Anticipated Discharge Date Admission Date: November 09, 2019 Subjective No further blood in the BMs. Reports no fevers/chills, chest pain, shortness of breath, abdominal pain, nausea, or vomiting. Physical Exam Constitutional: WD/WN, vitals as above Eyes: EOM intact bilaterally; no conjunctival abnormality ENMT: external ear and nose normal, oropharynx normal Neck: trachea midline, no thyromegaly normal visual inspection Respiratory: normal respiratory effort, lungs clear to auscultation no respiratory distress Cardiovascular: RRR, no murmur, no edema Gastrointestinal (Abdomen): Inspection/Auscultation: abdomen normal to inspection and normal bowel sounds; abdomen not distended Percussion/Palpation: abdomen soft; abdomen nontender, no guarding and abdomen not rigid Musculoskeletal: no cyanosis or clubbing, extremities motor strength 5/5 Skin: no rashes, warm and dry Neurologic: moves all extremities and awake Psychiatric: Orientation: alert, oriented to person and cooperative Results & Data Results & Data ([facility]) Vital Signs (Past 12 Hours) Vital Signs Temp Pulse Pulse Pulse Resp BP Pulse Ox 11/11/19 15:16 36.6 C 61 18 182/68 H 97 11/11/19 10:14 37.1 C 71 64 71 16 147/71 H 95 11/11/19 07:36 37.1 C 64 16 147/71 H 95 PG Care Time/CCT Total # of Minutes Spent Total Time Spent with Patient: Total time spent is greater than 50% in coordination of care (as documented) at patient's floor/unit and/or counseling patient: Coding Level of Care Code 92214 Subseq Hosp Care Lvl 2 Diagnoses Lower GI bleed K92.2 Controlled type 2 diabetes mellitus with kidney complication, with long-term current use of insulin E11.29; Z79.4 Hypertension I10 Stage 3 chronic kidney disease N18.3 DVT prophylaxis Z29.9
[2019-11-11] MEDS: METOPROLOL SUCC 25MG EXT REL TAB PO SCH (20:38)
[2019-11-12] MEDS: LAVAGE SOLUTION 4000ML PO SCH (03:18)
[2019-11-12 05:58] LABS: Hematocrit (blood only) 32.2 % (37-47); Mean Corpuscular Hgb Conc 31.1 g/dL (32-36); Mean Corpuscular Volume 96.7 fL (80-100); Mean Platelet Volume 10.2 fL (7.4-10.4); Platelet Count 240 K/uL (130-400); RDW Coefficient of Variation 13.3 % (11.5-14.5); RDW Standard Deviation 46.2 fL (36.4-46.3); Red Blood Count 3.33 M/uL (4.2-5.4); White Blood Count 7.36 K/uL (4.8-10.8)
[2019-11-12] MEDS: NovoLOG INSULIN PUMP SCH ×2 (06:23→13:50)
[2019-11-12 06:43] LABS: BUN Creatinine Ratio 12.1 (10-20); Calcium 8.6 mg/dl (8.5-10.1); Creatinine Clr Calc Pharmacy 47.8 ml/min; Est GFR (Non-African American) 52.6; Potassium 3.9 mmol/L (3.5-5.1)
[2019-11-12] MEDS: CYANOCOBALAMIN 500 MCG TABLET (VITAMIN B-12) PO SCH (07:12)
[2019-11-12] MEDS: CEROVITE ADV FORMULA TAB PO SCH (07:12)
[2019-11-12] MEDS: CHOLECALCIFEROL 1,000 UNITS 25 MCG TAB PO SCH (07:12)
[2019-11-12] MEDS: PSYLLIUM 58.6% POWDER PACKET PO SCH (07:12)
[2019-11-12] MEDS: FOLIC ACID 1 MG TAB PO SCH (07:13)
[2019-11-12] MEDS: ANUSOL SUPP 1 EA PR SCH (08:00)
[2019-11-12] MEDS: POTASSIUM CHLORIDE 20 MEQ TABCR PO SCH (08:01)
[2019-11-12] MEDS: MAGNESIUM OXIDE 400 MG TAB PO SCH (08:02)
[2019-11-12] MEDS: FUROSEMIDE 40 MG TAB PO SCH (08:02)
[2019-11-12] MEDS: SERTRALINE HCL 50 MG TABLET PO SCH (08:02)
--- NOTE | 2019-11-12 08:04 | Anesthesiology Consultation ---
Date of Service November 12, 2019 Assessment & Plan (1) Encounter for pre-operative examination: Chart Review Chart Review: Acceptable Risk for Surgery History Surgery Operation Date: 11/12/19 11:30 Proposed Procedures p Colonoscopy Dr. Ana Perez MD Height/Weight Height: 5 ft 6 in Weight: 91.4 kg Allergies Allergy/AdvReac Type Severity Reaction Status Date / Time exenatide Allergy Unknown MYALGIA Verified 11/09/19 14:02 hydrocodone Allergy Unknown vomiting Verified 11/09/19 14:02 phenol Allergy Unknown MYALGIA Verified 11/09/19 14:02 codeine AdvReac Unknown VOMMITING Verified 11/09/19 14:02 Oycuenl-Pyz-Wkk Reductase AdvReac Unknown MYALGIA Verified 11/09/19 14:02 Inhibitor NSAIDS (Non-Steroidal AdvReac Verified 11/09/19 14:02 Anti-Inflamma Medications Home Medications Medication Instructions Recorded Confirmed Last Taken acetaminophen 650 mg 1,300 mg PO TID PRN tab 11/19/18 11/09/19 Unknown tablet,extended release aspirin 81 mg tablet,delayed 81 mg PO DAILY 11/19/18 11/09/19 11/09/19 release cholecalciferol (vitamin D3) 50 2,000 units PO DAILY tab 11/19/18 11/09/19 11/09/19 mcg (2,000 unit) tablet cyanocobalamin (vitamin B-12) 500 500 mcg PO DAILY tab 11/19/18 11/09/19 11/09/19 mcg tablet folic acid 1 mg tablet 1 mg PO DAILY tab 11/19/18 11/09/19 11/09/19 furosemide 40 mg tablet 40 mg PO DAILY 11/19/18 11/09/19 11/09/19 [id number]-ncrfaqzh-rgnqtx 1 tab PO DAILY 11/19/18 11/09/19 11/09/19 insulin aspart U-100 100 unit/mL 70 units SQ DIRECTED ml 03/09/19 11/09/19 11/09/19 subcutaneous solution potassium chloride 20 mEq 40 meq PO DAILY tab 03/09/19 11/09/19 11/09/19 tablet,extended release(part/cryst) sertraline 25 mg tablet 25 mg PO DAILY #90 tab 03/18/19 11/09/19 11/09/19 magnesium oxide 400 mg (241.3 mg 400 mg PO BID tab 09/10/19 11/09/19 11/09/19 magnesium) tablet metoprolol succinate 25 mg 25 mg PO DAILY #90 tab 09/14/19 11/09/19 11/09/19 tablet,extended release 24 hr biotin 1 mg PO DAILY 11/09/19 11/09/19 Unknown Active Medications Generic Name Dose Route Start Last Admin Trade Name Marcos PRN Reason Stop Dose Admin Acetaminophen 650 mg 11/09/19 17:56 11/11/19 16:47 Tylenol PO 12/09/19 17:55 650 mg Q4H PRN Administration Pain Cyanocobalamin 500 mcg 11/10/19 09:00 11/12/19 07:12 Vitamin B-12 PO 12/10/19 08:59 Not Given DAILY SUKUMAR Folic Acid 1 mg 11/10/19 09:00 11/12/19 07:13 Folvite PO 12/10/19 08:59 Not Given DAILY SUKUMAR Furosemide 40 mg 11/10/19 09:00 11/12/19 08:02 Lasix PO 12/10/19 08:59 Not Given DAILY SUKUMAR Insulin Aspart 1 ea 11/12/19 06:00 11/12/19 06:23 Novolog Insulin Pump N/A 12/12/19 05:59 1 ea Q6 SUKUMAR Administration Protocol Magnesium Oxide 400 mg 11/09/19 21:00 11/12/19 08:02 Mag-Ox PO 12/09/19 20:59 Not Given BID SUKUMAR Metoprolol Succinate 25 mg 11/10/19 21:00 11/11/19 20:38 Toprol Xl PO 12/10/19 20:59 25 mg HS SUKUMAR Administration Multivitamins/Minerals 1 tab 11/10/19 09:00 11/12/19 07:12 Multivitamin W/ Minerals Tab PO 12/10/19 08:59 Not Given DAILY SUKUMAR Phenylephrine HCl 1 ea 11/10/19 21:00 11/12/19 08:00 Anusol MT 12/10/19 20:59 Not Given BID SUKUMAR Potassium Chloride 40 meq 11/10/19 09:00 11/12/19 08:01 Klor-Con M20 PO 12/10/19 08:59 Not Given DAILY [facility] Psyllium Hydrophilic Mucilloid 1 pkt 11/11/19 09:00 08/07/20 07:12 Metamucil PO 12/11/19 08:59 Not Given QAM SUKUMAR Sertraline HCl 25 mg 11/10/19 09:00 11/12/19 08:02 Zoloft PO 12/10/19 08:59 25 mg DAILY SUKUMAR Administration Vitamin D 2,000 units 11/10/19 09:00 11/12/19 07:12 Vitamin D3 PO 12/10/19 08:59 Not Given DAILY SUKUMAR NPO Date Last Intake of Fluids: 11/11/19 Time Last Intake of Fluids: 23:59 Date Last Intake of Solids: 11/11/19 Time Last Intake of Solids: 23:59 Past Medical History Medical History (Updated 11/12/19 @ 08:04 by Sonido Villa MD) Bilateral cataracts (Acute) Calcific aortic stenosis now s/p TAVR CVA (cerebral vascular accident) Epidermal inclusion cyst Insulin dependent diabetes mellitus (Acute) Sensorineural hearing loss (SNHL) of both ears Stage 3 chronic kidney disease (Acute) SVT (supraventricular tachycardia) (Acute) Past Family History Family History Mother Diabetes Stroke Father Diabetes Sister Cancer Unknown Hypertension Past Surgical History Surgical History History of bilateral knee replacement (Acute) History of bunionectomy (Acute) History of bunionectomy of both great toes (Acute) S/P TAVR (transcatheter aortic valve replacement) (Acute) Social History Smoking Status: Former smoker Hx Alcohol Use: No Hx Substance Use: No Physical Exam Vital Signs Last Vital Signs Temp 36.4 C L 11/12/19 07:31 Pulse 93 H 11/12/19 07:31 Resp 18 11/12/19 07:31 BP 145/83 H 11/12/19 07:31 Pulse Ox 100 11/12/19 07:31 Testing Laboratory Results 11/12/19 05:32 11/12/19 05:32 PT 10.7 Seconds (9.0-12.0) 11/09/19 12:18 INR 1.0 (0.9-1.1) 11/09/19 12:18 APTT 26.5 Seconds (21.0-31.0) 11/09/19 12:18 Blood Type A Positive 11/09/19 12:18 Antibody Screen NEGATIVE 11/09/19 12:18 11/12/19 11/11/19 06:22 20:41 POC Glucose 127 H 162 H
--- NOTE | 2019-11-12 09:30 | History & Physical Bridge Note ---
Date of Service November 12, 2019 History & Physical Bridge Note I have examined the patient, reviewed the History & Physical and in the interval since the performance of the History & Physical I have noted the following changes of clinical significance: no changes noted. Patient has completed every ounce of her prep in hopes for a great prep so as to only have to undergo a colonoscopy once. She had no bleeding throughout the prep, but notes that yesterday afternoon she experienced rectal bleeding in large quantity. Her H/H is 10/32.2. Proceed with colonoscopy today.
[2019-11-12] MEDS ORDERED: PROPOFOL IV EMULSION 10 MG/ML 20 ML VIAL IV ONE ×2 (11:12→12:16)
[2019-11-12] MEDS ORDERED: LIDOCAINE HCL 2% 2 ML VIAL/AMP(20MG/ML) INFIL ONE (11:12)
--- NOTE | 2019-11-12 12:24 | GI REPORT ---
Patient Name: Desire Singleton Procedure Date: 11/12/2019 11:13 AM Date of : 1935 Admit Type: Inpatient Age: 84 Gender: Female Attending MD: Sukhwinder Perez MD Procedure: Colonoscopy Providers: Sukhwinder Perez MD Referring MD: Ovi Schaefer Indications: Hematochezia Medicines: Monitored Anesthesia Care Complications: No immediate complications. Estimated blood loss: None. Estimated Blood Loss: Estimated blood loss: none. Procedure: Pre-Anesthesia Assessment: - Prior Anticoagulants: The patient has taken no previous anticoagulant or antiplatelet agents. - After reviewing the risks and benefits, the patient was deemed in satisfactory condition to undergo the procedure. - ASA Grade Assessment: III - A patient with severe systemic disease. After I obtained informed consent, the scope was passed under direct vision. Throughout the procedure, the patient's blood pressure, pulse, and oxygen saturations were monitored continuously. The scope was introduced through the anus and advanced to the cecum, identified by appendiceal orifice and ileocecal valve. The colonoscopy was performed without difficulty. The patient tolerated the procedure well. The quality of the bowel preparation was fair. Findings: A 9 mm polyp was found in the cecum. The polyp was sessile. The polyp was removed with a hot snare. Resection and retrieval were complete. To repair the defect, the tissue edges were approximated and one hemostatic clip was successfully placed. Closure of the defect was successful. There was no bleeding at the end of the procedure. A 6 mm polyp was found in the ascending colon. The polyp was sessile. The polyp was removed with a cold snare. Resection and retrieval were complete. To prevent bleeding after the polypectomy, one hemostatic clip was successfully placed. There was no bleeding at the end of the procedure. A frond-like/villous, fungating, infiltrative and ulcerated non-obstructing large mass was found in the rectum 1-2 cm proximal to the dentate line. The mass was partially circumferential (involving one-third of the lumen circumference). Oozing was present. Biopsies were taken with a cold forceps for histology. Estimated blood loss: none. Impression: - Preparation of the colon was fair. - One 9 mm polyp in the cecum, removed with a hot snare. Resected and retrieved. Clip was placed. - One 6 mm polyp in the ascending colon, removed with a cold snare. Resected and retrieved. Clip was placed. 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 Biopsied. Recommendation: - [facility]. - Resume previous diet today. - Await pathology results. -general surgery consult for further evaluation -obtain CT Chest/abdomen/pelvis with contrast for further evaluation Sukhwinder Perez MD 11/12/2019 12:23:59 PM This report has been signed electronically. Note Initiated On: 11/12/2019 11:13 AM Number of Addenda: 0 I attest to the content of the Intraoperative Record and orders documented therein, exceptions below {[id number]}
--- NOTE | 2019-11-12 12:40 | Anesthesia Procedure Note ---
Date of Service November 12, 2019 Anesthesia Post Epidural Note Vital Signs Vital Signs: Temp Pulse Resp BP Pulse Ox 36.8 C 79 18 183/91 H 98 11/12/19 10:56 11/12/19 12:31 11/12/19 12:31 11/12/19 12:31 11/12/19 12:31 Pain Intensity Head: Pain Intensity: 0 Notes Mental Status: alert / awake / arousable and participated in evaluation Nausea / Vomiting: adequately controlled Pain: adequately controlled Airway Patency, RR, SpO2: stable & adequate BP & HR: stable & adequate Hydration State: stable & adequate Neuraxial Anesthesia: was administered and sensory block is resolving Anesthetic Complications: no major complications apparent Epidural: Removed without complications and With tip intact
[2019-11-12] MEDS ORDERED: Nursing to Pharmacy Communication SCH (14:00)
--- NOTE | 2019-11-12 14:41 | CT Scan Report ---
CT SCAN OF THE CHEST WITHOUT IV CONTRAST CLINICAL HISTORY: Colon cancer. COMPARISON STUDY: No priors. TECHNIQUE: CT scan of the thorax was performed from the thoracic inlet to the upper abdomen. Images are reviewed in the axial, sagittal, and coronal planes. IV contrast was not administered for this ex amination as per the referring clinician. A dose lowering technique was utilized adhering to the tanner Johnson. CT DOSE: 510.52 mGy.cm FINDINGS: Thyroid: Imaged portions of the thyroid gland are normal in size and heterogeneous in attenuation. Thoracic aorta: There is atherosclerotic calcification of the thoracic aorta, which is normal in alireza nisa and demonstrates standard 3-vessel arch anatomy. Heart: The heart is enlarged and without pericardial effusion. There is evidence of previous aortic v alve surgery. The coronary arteries are densely calcified. The pulmonary trunk is dilated, measuring 3.4 cm in diameter. This suggests pulmonary artery hypertension. Lungs and pleural spaces: There is bibasilar scarring/atelectasis. No airspace consolidation or pleur al effusion is identified. The trachea and central airways are clear. No concerning pulmonary lesion is seen. Mediastinum: There is no mediastinal lymphadenopathy. Jory: Not well assessed without IV contrast. Axillae: There is no axillary lymphadenopathy. Upper abdomen: Small gallstones are noted. A small hiatal hernia is identified. Skeletal structures: The skeletal structures are osteopenic. A superior endplate compression deformit y is noted in L1. Degenerative change and mild kyphoscoliosis is seen in the thoracic spine. No lytic or blastic bony lesions are seen. IMPRESSION: 1. There is no evidence of intrathoracic metastatic disease. 2. There is no airspace consolidation or pleural effusion. 3. Cardiomegaly. 4. Additional findings as above. ACT 112: Negative or not required by law. Electronically signed by: Andres Beckham M.D. 11/12/2019 2:40 PM
[2019-11-12] MEDS ORDERED: NovoLOG INSULIN PUMP SCH (16:30)
== END 2019-11-12 16:13 | disposition home or self-care (01) ==
LOC: ED 11:22 → INTOOBSV 16:28 → 3W 16:28

== ENCOUNTER 2020-03-28 11:30 | Inpatient (IN) ==
[2020-03-28 12:39] LABS: Basophils # (auto) 0.04 K/uL (0-0.2); Basophils % (auto) 0.7 %; Eosinophils # (auto) 0.06 K/uL (0-0.5); Hematocrit (blood only) 34.9 % (37-47); Hemoglobin 11.3 g/dL (12.0-16.0); Immature Granulocytes # (auto) 0.02 K/uL (0.00-0.02); Immature Granulocytes % (auto) 0.3 %; Lymphocytes % (auto) 23.6 %; Mean Corpuscular Hemoglobin 33.2 pg (25-34); Mean Corpuscular Hgb Conc 32.4 g/dL (32-36); Mean Corpuscular Volume 102.6 fL (80-100); Monocytes # (auto) 0.52 K/uL (0.11-0.59); Monocytes % (auto) 8.8 %; Neutrophils # (auto) 3.89 K/uL (1.4-6.5); Neutrophils % (auto) 65.6 %; Platelet Count 196 K/uL (130-400); RDW Coefficient of Variation 16.9 % (11.5-14.5); RDW Standard Deviation 63.1 fL (36.4-46.3); White Blood Count 5.93 K/uL (4.8-10.8)
[2020-03-28] MEDS ORDERED: METOPROLOL TARTRATE 1 MG/ML VIAL IV PRN (12:42)
[2020-03-28 12:45] LABS: Alanine Aminotransferase 24 U/L (12-78); Albumin Level 3.5 gm/dl (3.4-5.0); Aspartate Aminotransferase 19 U/L (15-37); BUN Creatinine Ratio 23.3 (10-20); Blood Urea Nitrogen 24 mg/dl (7-18); Carbon Dioxide 26 mmol/L (21-32); Chloride 108 mmol/L (98-107); Creatinine Clr Calc Pharmacy 43.4 ml/min; Est GFR (African American) 58.1; Est GFR (Non-African American) 50.1; Glucose 133 mg/dl (70-99); Lipase 101 U/L (73-393); Potassium 4.1 mmol/L (3.5-5.1); Sodium 140 mmol/L (136-145)
--- NOTE | 2020-03-28 12:47 | Emergency Department Note ---
History of Present Illness General Chief complaint: Hypertension Stated complaint: HIGH BP Time Seen by Provider: 03/28/20 12:06 Source: patient, family (daughter), RN notes reviewed and old records reviewed Mode of arrival: ambulatory Limitations: no limitations History of Present Illness Provider complaint: rapid heart rate Onset (ago): unknown Radiation: non-radiation Maximum Pain Intensity: 0 Current Pain Intensity: 0 Relieved By: + none Exacerbated By: + none Associated symptoms: + denies other symptoms Treatments prior to arrival: none This is an 84-year-old female with a history of rectal cancer who finished chemoradiation in February. The patient was to have a follow-up CAT scan of the abdomen and pelvis tomorrow for her surgeon in [place]. In the meanwhile the patient was at her primary care physician's office today and was found to have a rapid heart rate of approximately 160. The patient herself is asymptomatic and does not realize her heart is beating so quickly. She denies any chest pain or shortness of breath or dizziness. She was sent to the emergency department by the primary care physician. Home Medications Medication Instructions Recorded Confirmed Type acetaminophen 650 mg 1,300 mg PO TID PRN tab 11/19/18 03/28/20 History tablet,extended release cholecalciferol (vitamin D3) 50 2,000 units PO DAILY tab 11/19/18 03/28/20 History mcg (2,000 unit) tablet cyanocobalamin (vitamin B-12) 500 500 mcg PO DAILY tab 11/19/18 03/28/20 History mcg tablet folic acid 1 mg tablet 1 mg PO DAILY tab 11/19/18 03/28/20 History furosemide 40 mg tablet 40 mg PO DAILY 11/19/18 03/28/20 History mpdifzxsjuih-hfhyyncm-fcfyoh tablet 1 tab PO DAILY 11/19/18 03/28/20 History insulin aspart U-100 100 unit/mL 70 units SQ ACHS ml 03/09/19 03/28/20 History subcutaneous solution potassium chloride 20 mEq 40 meq PO DAILY tab 03/09/19 03/28/20 History tablet,extended release(part/cryst) magnesium oxide 400 mg (241.3 mg 400 mg PO BID tab 09/10/19 03/28/20 History magnesium) tablet metoprolol succinate 25 mg 25 mg PO DAILY #90 tab 09/14/19 03/28/20 Rx tablet,extended release 24 hr biotin 1 mg PO DAILY 11/09/19 03/28/20 History acetone (urine) test #25 ea 12/31/19 03/09/20 Rx silver sulfadiazine 1 % topical 1 applic TOPICAL BID #85 g 02/07/20 03/28/20 Rx cream sertraline 25 mg PO DAILY 03/28/20 03/28/20 History Allergies Allergy/AdvReac Type Severity Reaction Status Date / Time exenatide Allergy Unknown MYALGIA Verified 03/28/20 13:43 hydrocodone Allergy Unknown vomiting Verified 03/28/20 13:43 phenol Allergy Unknown MYALGIA Verified 03/28/20 13:43 codeine AdvReac Unknown VOMMITING Verified 03/28/20 13:43 Jtiiujf-Kbg-Bgp Reductase AdvReac Unknown MYALGIA Verified 03/28/20 13:43 Inhibitor NSAIDS (Non-Steroidal AdvReac Verified 03/28/20 13:43 Anti-Inflamma Past Med/Surg History Medical History Adult situational stress disorder Bilateral cataracts 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, with 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, with long-term current use of insulin Counseling for insulin pump Diabetic nephropathy Diabetic peripheral neuropathy DVT prophylaxis Dysesthesia Dyslipidemia Encounter for pre-operative examination Epidermal inclusion cyst Hypertension Insulin dependent diabetes mellitus Lower GI bleed Rectal cancer (11/12/19) Sensorineural hearing loss (SNHL) of both ears Stage 3 chronic kidney disease Supraventricular tachycardia TIA (transient ischemic attack) Surgical History H/O vaginal hysterectomy History of bilateral knee replacement History of bunionectomy History of bunionectomy of both great toes Hx of cholecystectomy S/P TAVR (transcatheter aortic valve replacement) Family History Mother , age 78 CHF Diabetes iet controlled Stroke Heart disease Father , age 83 ID Diabetes Heart disease Cancer type of blood cancer Sister , age 79 liver cancer Cancer Diabetes type 2 Unknown Hypertension Sister , age 54 ovarian cancer Cancer Sister No problems noted. Sister No problems noted. Sister No problems noted. Brother Cancer, Onset Age: 76 testicular Brother , unknown No problems noted. Son No problems noted. Son No problems noted. Son No problems noted. Daughter No problems noted. Daughter No problems noted. Social History Smoking Status: Former smoker Tobacco Type: Cigarettes Age Started Using Tobacco: 20; Age Quit Using Tobacco: 53; packs per day: 0.25; Years Smoked: 33; Number of Years Since Quit: 31; Second Hand Exposure: No; Hx Alcohol Use: No Hx Substance Use: No Preferred Language: Citizen Of [place] Communication Ability: Effective Hearing Ability: Normal Beliefs That Will Affect Care: None marital status: / Current Living Situation: Alone Current Living Situation Comment: [facility] current occupation: Retired How many Children do You have: 5 Feels Safe at Home: Yes Childhood Exposure to Second-Hand Smoke: No Diet Comment: low carbs low salt caffeine: Yes (coffee one cup per day ) during the past year weight has: remained stable Dental Care, Regularly: Yes Physical Activity Frequency: 3-4 Times per Week Seatbelt Use: always Sunscreen Use: Yes Assistive Devices: None Review of Systems A total of 10 systems reviewed and were otherwise negative Physical Exam Vital Signs Vital Signs - 24 hr 03/28/20 11:55 03/28/20 12:17 03/28/20 12:25 Temperature 36.6 C Temperature Source Temporal Artery Scan Pulse Rate 151 H 115 H 157 H Pulse Rate from SpO2 Sensor 156 H Respiratory Rate 18 11 L 11 L Respiratory Effort / Characteristics Short of Breath Blood Pressure 112/74 147/87 H Blood Pressure Mean 86 99 Blood Pressure Position Sitting Pulse Oximetry 97 99 Oxygen Delivery Method Room Air Sepsis Recent Fever Within 48 Hours No Sepsis New/Unexplained Change in Mental Status N/A Sepsis Action Taken by Nursing No Action Required 03/28/20 12:30 03/28/20 12:40 03/28/20 12:53 Temperature Temperature Source Pulse Rate 156 H 155 H Pulse Rate from SpO2 Sensor 157 H Respiratory Rate 13 Respiratory Effort / Characteristics Blood Pressure Blood Pressure Mean Blood Pressure Position Pulse Oximetry 97 98 Oxygen Delivery Method Room Air Sepsis Recent Fever Within 48 Hours Sepsis New/Unexplained Change in Mental Status Sepsis Action Taken by Nursing 03/28/20 13:00 03/28/20 13:30 03/28/20 14:00 Temperature Temperature Source Pulse Rate 77 76 Pulse Rate from SpO2 Sensor 77 76 118 H Respiratory Rate 11 L 11 L Respiratory Effort / Characteristics Blood Pressure Blood Pressure Mean Blood Pressure Position Pulse Oximetry 99 99 97 Oxygen Delivery Method Sepsis Recent Fever Within 48 Hours Sepsis New/Unexplained Change in Mental Status Sepsis Action Taken by Nursing 03/28/20 14:42 03/28/20 15:00 03/28/20 15:30 Temperature Temperature Source Pulse Rate 105 H 82 72 Pulse Rate from SpO2 Sensor Respiratory Rate 16 14 12 Respiratory Effort / Characteristics Blood Pressure Blood Pressure Mean Blood Pressure Position Pulse Oximetry Oxygen Delivery Method Sepsis Recent Fever Within 48 Hours Sepsis New/Unexplained Change in Mental Status Sepsis Action Taken by Nursing 03/28/20 16:00 03/28/20 16:10 03/28/20 16:20 Temperature Temperature Source Pulse Rate 72 79 72 Pulse Rate from SpO2 Sensor Respiratory Rate 18 9 L 11 L Respiratory Effort / Characteristics Blood Pressure Blood Pressure Mean Blood Pressure Position Pulse Oximetry Oxygen Delivery Method Sepsis Recent Fever Within 48 Hours Sepsis New/Unexplained Change in Mental Status Sepsis Action Taken by Nursing VITAL SIGNS - Vital signs and nursing notes were reviewed. GENERAL - 84-year-old female appearing stated age who is in no acute distress. Communicates well with provider and answers questions appropriately. SKIN - Without rashes. HEAD - NC/AT. EYES - PERRL with EOMI bilaterally. Sclera anicteric. Palpebral conjunctiva pink and moist with no injection noted. EARS - No deformities of external structures noted on gross examination bilaterally. No pain elicited with palpation of the tragus bilaterally. External auditory canals without discharge or otorrhea. Tympanic membranes pearly feldman without retraction or bulging. No fluid or purulent material visualized behind the TM. Handle of malleus, umbo, cone of light, pars tensa/flaccid all easily vi sualized. NOSE - Midline and without cyanosis. No epistaxis or purulent drainage noted. Septum midline without deviation or septal hematoma noted. MOUTH/OROPHARYNX - Without perioral cyanosis. Buccal mucosa pink and moist and without leukoplakia. Tongue midline with equal elevation of palate bilaterally. No tonsillar hypertrophy, erythema, or exudates noted. dentition noted. NECK - Neck with FROM. Supple to palpation. lymphadenopathy noted. No nuchal rigidity. LUNGS - Chest wall symmetric without accessory muscle use, intercostals retractions, or central cyanosis. Normal vesicular breath sounds CTA B/L. No wheezes, rales, or rhonchi appreciated. CARDIAC - RRR with S1/S2. No murmur, rubs, or gallops appreciated. ABDOMEN - Abdominal contour without pulsations or visible masses. BS normoactive all four quadrants. No tenderness, palpable masses, hepatosplenomegaly, or ascites noted. EXTREMITIES - No clubbing or peripheral cyanosis. No pretibial edema present. +3/5 radial, posterior tibial, and dorsalis pedis pulses palpated throughout. +5/5 strength noted in UE/LE bilaterally. NEUROLOGIC - Cranial nerves II through XII grossly intact. Sensory intact to light touch throughout. Patellar reflexes +2/4. PSYCH - A&Ox3 and cooperates fully with examiner. Pt is very pleasant and interacts well with examiner. Course Administered Medications Metoprolol Tartrate (Metoprolol Tartrate 1 Mg/Ml Vial) 5 mg IV Q5M PRN PRN Reason: Tachycardia Stop: 04/27/20 12:41 Last Admin: 03/28/20 12:53 Dose: 5 mg Documented by: [id number] Discontinued Medications Apixaban (Apixaban 5 Mg Tablet) 5 mg PO NOW [facility] Stop: 03/28/20 14:29 Last Admin: 03/28/20 15:11 Dose: 5 mg Documented by: [id number] Magnesium Sulfate/Dextrose (Magnesium Sulfate / D5w) 1 gm in 100 mls @ 200 mls/hr IV Q30M [facility] Stop: 03/28/20 14:00 Last Infusion: 03/28/20 16:03 Dose: 0 mls/hr Documented by: [id number] Admin: 03/28/20 15:29 Dose: 200 mls/hr Documented by: [id number] Infusion: 03/28/20 13:58 Dose: 0 mls/hr Documented by: [id number] Admin: 03/28/20 13:21 Dose: 200 mls/hr Documented by: [id number] Magnesium Sulfate/Dextrose (Magnesium Sulfate / D5w) 1 gm in 100 mls @ 200 mls/hr IV Q30M [facility] Stop: 03/28/20 14:01 Last Infusion: 03/28/20 15:20 Dose: 0 mls/hr Documented by: [id number] Admin: 03/28/20 14:50 Dose: 200 mls/hr Documented by: [id number] Infusion: 03/28/20 14:50 Dose: 0 mls/hr Documented by: [id number] Admin: 03/28/20 13:58 Dose: 200 mls/hr Documented by: [id number] Ioversol (Optiray 320 125ml) 120 ml IV ONCE ONE Stop: 03/28/20 13:39 Last Admin: 03/28/20 13:38 Dose: 120 ml Documented by: [id number] Medical Decision Making Differential Diagnosis Reactive airway disease, pneumonia, pneumothorax, COPD, CHF, infections, cardiac ischemia, pulmonary embolism, musculoskeletal, gastrointestinal, as well as other pathologies. Medical Records Attestation: I reviewed the patient's medical records. Home Medications Current Medication List: was personally reviewed by me Laboratory Data Attestation: I reviewed the patient's lab results. Result diagrams: 03/28/20 12:17 03/28/20 12:17 Lab Results 03/28/20 03/28/20 03/28/20 Range/Units 12:17 12:17 12:17 WBC 5.93 (4.8-10.8) K/uL RBC 3.40 L (4.2-5.4) M/uL Hgb 11.3 L (12.0-16.0) g/dL Hct 34.9 L (37-47) % MCV 102.6 H (80-100) fL MCH 33.2 (25-34) pg MCHC 32.4 (32-36) g/dL RDW Std Deviation 63.1 H (36.4-46.3) fL RDW Coeff of Abimael 16.9 H (11.5-14.5) % Plt Count 196 (130-400) K/uL MPV 10.0 (7.4-10.4) fL Immature Gran % (Auto) 0.3 % Neut % (Auto) 65.6 % Lymph % (Auto) 23.6 % Pitkin % (Auto) 8.8 % Eos % (Auto) 1.0 % Baso % (Auto) 0.7 % Neut # (Auto) 3.89 (1.4-6.5) K/uL Lymph # (Auto) 1.40 (1.2-3.4) K/uL Pitkin # (Auto) 0.52 (0.11-0.59) K/uL Eos # (Auto) 0.06 (0-0.5) K/uL Baso # (Auto) 0.04 (0-0.2) K/uL Immature Gran # (Auto) 0.02 (0.00-0.02) K/uL ESR (0-21) mm/hr PT 10.9 (9.0-12.0) Seconds INR 1.0 (0.9-1.1) APTT 25.7 (21.0-31.0) Seconds PTT Ratio 0.9 Sodium 140 (136-145) mmol/L Potassium 4.1 (3.5-5.1) mmol/L Chloride 108 H (98-107) mmol/L Carbon Dioxide 26 (21-32) mmol/L Anion Gap 6.0 (3-11) BUN 24 H (7-18) mg/dl Creatinine 1.02 (0.6-1.2) mg/dl Est Cr Clr Drug Dosing 43.4 ml/min Est GFR ( Amer) 58.1 Est GFR (Non-Af Amer) 50.1 BUN/Creatinine Ratio 23.3 H (10-20) Glucose 133 H (70-99) mg/dl Calcium 9.0 (8.5-10.1) mg/dl Magnesium (1.8-2.4) mg/dl Ferritin (8-388) ng/ml Total Bilirubin 0.3 (0.2-1) mg/dl AST 19 (15-37) U/L ALT 24 (12-78) U/L Alkaline Phosphatase 81 (45-117) U/L Lactate Dehydrogenase (84-246) U/L Total Creatine Kinase 54 (26-192) U/L CK-MB (CK-2) 1.1 (0.5-3.6) ng/ml CK/CKMB % Calc 2.0 (0-3.0) Troponin I < 0.015 (0-0.045) ng/ml C-Reactive Protein (0-0.29) mg/dl Total Protein 7.6 (6.4-8.2) gm/dl Albumin 3.5 (3.4-5.0) gm/dl Globulin 4.1 H (2.5-4.0) gm/dl Albumin/Globulin Ratio 0.9 (0.9-2) Lipase 101 (73-393) U/L COVID-19 Eval Order SARS-CoV-2, RNA, NAAT (NEGATIVE) Blood Type Antibody Screen 03/28/20 03/28/20 03/28/20 Range/Units 12:17 12:17 12:17 WBC (4.8-10.8) K/uL RBC (4.2-5.4) M/uL Hgb (12.0-16.0) g/dL Hct (37-47) % MCV (80-100) fL MCH (25-34) pg MCHC (32-36) g/dL RDW Std Deviation (36.4-46.3) fL RDW Coeff of Abimael (11.5-14.5) % Plt Count (130-400) K/uL MPV (7.4-10.4) fL Immature Gran % (Auto) % Neut % (Auto) % Lymph % (Auto) % Pitkin % (Auto) % Eos % (Auto) % Baso % (Auto) % Neut # (Auto) (1.4-6.5) K/uL Lymph # (Auto) (1.2-3.4) K/uL Pitkin # (Auto) (0.11-0.59) K/uL Eos # (Auto) (0-0.5) K/uL Baso # (Auto) (0-0.2) K/uL Immature Gran # (Auto) (0.00-0.02) K/uL ESR 50 H (0-21) mm/hr PT (9.0-12.0) Seconds INR (0.9-1.1) APTT (21.0-31.0) Seconds PTT Ratio Sodium (136-145) mmol/L Potassium (3.5-5.1) mmol/L Chloride (98-107) mmol/L Carbon Dioxide (21-32) mmol/L Anion Gap (3-11) BUN (7-18) mg/dl Creatinine (0.6-1.2) mg/dl Est Cr Clr Drug Dosing ml/min Est GFR ( Amer) Est GFR (Non-Af Amer) BUN/Creatinine Ratio (10-20) Glucose (70-99) mg/dl Calcium (8.5-10.1) mg/dl Magnesium (1.8-2.4) mg/dl Ferritin 100.1 (8-388) ng/ml Total Bilirubin (0.2-1) mg/dl AST (15-37) U/L ALT (12-78) U/L Alkaline Phosphatase (45-117) U/L Lactate Dehydrogenase 215 (84-246) U/L Total Creatine Kinase (26-192) U/L CK-MB (CK-2) (0.5-3.6) ng/ml CK/CKMB % Calc (0-3.0) Troponin I (0-0.045) ng/ml C-Reactive Protein 0.69 H (0-0.29) mg/dl Total Protein (6.4-8.2) gm/dl Albumin (3.4-5.0) gm/dl Globulin (2.5-4.0) gm/dl Albumin/Globulin Ratio (0.9-2) Lipase (73-393) U/L COVID-19 Eval Order SARS-CoV-2, RNA, NAAT (NEGATIVE) Blood Type Antibody Screen 03/28/20 03/28/20 03/28/20 Range/Units 12:17 12:43 12:43 WBC (4.8-10.8) K/uL RBC (4.2-5.4) M/uL Hgb (12.0-16.0) g/dL Hct (37-47) % MCV (80-100) fL MCH (25-34) pg MCHC (32-36) g/dL RDW Std Deviation (36.4-46.3) fL RDW Coeff of Abimael (11.5-14.5) % Plt Count (130-400) K/uL MPV (7.4-10.4) fL Immature Gran % (Auto) % Neut % (Auto) % Lymph % (Auto) % Pitkin % (Auto) % Eos % (Auto) % Baso % (Auto) % Neut # (Auto) (1.4-6.5) K/uL Lymph # (Auto) (1.2-3.4) K/uL Pitkin # (Auto) (0.11-0.59) K/uL Eos # (Auto) (0-0.5) K/uL Baso # (Auto) (0-0.2) K/uL Immature Gran # (Auto) (0.00-0.02) K/uL ESR (0-21) mm/hr PT (9.0-12.0) Seconds INR (0.9-1.1) APTT (21.0-31.0) Seconds PTT Ratio Sodium (136-145) mmol/L Potassium (3.5-5.1) mmol/L Chloride (98-107) mmol/L Carbon Dioxide (21-32) mmol/L Anion Gap (3-11) BUN (7-18) mg/dl Creatinine (0.6-1.2) mg/dl Est Cr Clr Drug Dosing ml/min Est GFR ( Amer) Est GFR (Non-Af Amer) BUN/Creatinine Ratio (10-20) Glucose (70-99) mg/dl Calcium (8.5-10.1) mg/dl Magnesium 2.0 (1.8-2.4) mg/dl Ferritin (8-388) ng/ml Total Bilirubin (0.2-1) mg/dl AST (15-37) U/L ALT (12-78) U/L Alkaline Phosphatase (45-117) U/L Lactate Dehydrogenase (84-246) U/L Total Creatine Kinase (26-192) U/L CK-MB (CK-2) (0.5-3.6) ng/ml CK/CKMB % Calc (0-3.0) Troponin I (0-0.045) ng/ml C-Reactive Protein (0-0.29) mg/dl Total Protein (6.4-8.2) gm/dl Albumin (3.4-5.0) gm/dl Globulin (2.5-4.0) gm/dl Albumin/Globulin Ratio (0.9-2) Lipase (73-393) U/L COVID-19 Eval [facility] SARS-[facility]-2, RNA, NAAT NEGATIVE (NEGATIVE) Blood Type Antibody Screen 03/28/20 Range/Units 12:57 WBC (4.8-10.8) K/uL RBC (4.2-5.4) M/uL Hgb (12.0-16.0) g/dL Hct (37-47) % MCV (80-100) fL MCH (25-34) pg MCHC (32-36) g/dL RDW Std Deviation (36.4-46.3) fL RDW Coeff of Abimael (11.5-14.5) % Plt Count (130-400) K/uL MPV (7.4-10.4) fL Immature Gran % (Auto) % Neut % (Auto) % Lymph % (Auto) % Pitkin % (Auto) % Eos % (Auto) % Baso % (Auto) % Neut # (Auto) (1.4-6.5) K/uL Lymph # (Auto) (1.2-3.4) K/uL Pitkin # (Auto) (0.11-0.59) K/uL Eos # (Auto) (0-0.5) K/uL Baso # (Auto) (0-0.2) K/uL Immature Gran # (Auto) (0.00-0.02) K/uL ESR (0-21) mm/hr PT (9.0-12.0) Seconds INR (0.9-1.1) APTT (21.0-31.0) Seconds PTT Ratio Sodium (136-145) mmol/L Potassium (3.5-5.1) mmol/L Chloride (98-107) mmol/L Carbon Dioxide (21-32) mmol/L Anion Gap (3-11) BUN (7-18) mg/dl Creatinine (0.6-1.2) mg/dl Est Cr Clr Drug Dosing ml/min Est GFR ( Amer) Est GFR (Non-Af Amer) BUN/Creatinine Ratio (10-20) Glucose (70-99) mg/dl Calcium (8.5-10.1) mg/dl Magnesium (1.8-2.4) mg/dl Ferritin (8-388) ng/ml Total Bilirubin (0.2-1) mg/dl AST (15-37) U/L ALT (12-78) U/L Alkaline Phosphatase (45-117) U/L Lactate Dehydrogenase (84-246) U/L Total Creatine Kinase (26-192) U/L CK-MB (CK-2) (0.5-3.6) ng/ml CK/CKMB % Calc (0-3.0) Troponin I (0-0.045) ng/ml C-Reactive Protein (0-0.29) mg/dl Total Protein (6.4-8.2) gm/dl Albumin (3.4-5.0) gm/dl Globulin (2.5-4.0) gm/dl Albumin/Globulin Ratio (0.9-2) Lipase (73-393) U/L COVID-19 Eval Order SARS-CoV-2, RNA, NAAT (NEGATIVE) Blood Type A Positive Antibody Screen NEGATIVE Imaging Data Attestation: I personally reviewed and interpreted this imaging study as follows: Radiologist's Impression: [facility], [phone] CT Scan Report Patient: KADI SANTIAGO Date: 03/28/20MR#: [id number]: [facility] ID:[id number]: [address]: [facility] Zip: [place], [place] [address]Ybd: [id number]: EDSex: FRoom/Bed:Att Phy:Diagnosis: HIGH BPPri Phy: Ovi Schaefer M.D.Service Date: 03/28/20Fa Phy:Interpreting Phy: Andres Beckham MDAdmit Phy: Ordering Phy: Tuan Andres MD cc: ~ CT ANGIOGRAM OF THE CHEST; CT SCAN OF THE ABDOMEN AND PELVIS WITH IV CONTRAST CLINICAL HISTORY: Atypical chest pain. Rectal carcinoma. COMPARISON STUDY: Chest CT dated 11/12/2019. Abdominal CT dated 11/10/2019. TECHNIQUE: Following the IV administration of 120 of Optiray 320, CT angiogram of the chest is performed from the upper abdomen to the thoracic inlet utilizing the pulmonary embolus protocol. Images are reviewed in the axial, sagittal, coronal planes. 3-D MIPS images are created and assessed. Subsequently, CT scan of the abdomen and pelvis was performed from the lung bases to the proximal femora. Images are reviewed in the axial, sagittal, and coronal planes. IV contrast was administered without complication. A dose lowering technique was utilized adhering to the principles of ALARA. CT DOSE: 1098.00 mGy.cm FINDINGS: CHEST: Thyroid: Imaged portions of the thyroid gland are normal in size and attenuation. Thoracic aorta: There is atherosclerotic calcification of the thoracic aorta, which is normal in caliber and demonstrates standard 3-vessel arch anatomy. The thoracic aorta is not well opacified. Pulmonary vasculature: The pulmonary trunk is normal in caliber. There are no filling defects identified in the main, lobar, or segmental pulmonary arteries to indicate pulmonary embolus. Heart: The heart is enlarged and without pericardial effusion. Postoperative change is noted involving the aortic valve. Lungs and pleural spaces: Evaluation of the lung parenchyma is modestly degraded by motion artifact. There is no airspace consolidation or pleural effusion. The trachea and central airways are clear. Minimal atelectasis is seen at the lung bases. Mediastinum: There is no mediastinal lymphadenopathy. Jory: Clear. Axillae: There is no axillary lymphadenopathy. Bony thorax: The skeletal structures are osteopenic. Degenerative change is noted in the shoulders and thoracic spine. No lytic or blastic lesions are identified. ABDOMEN AND PELVIS: Liver: The contrast-enhanced liver is normal in size, contour, and attenuation. There is minimal central intrahepatic biliary ductal dilatation. The hepatic veins and portal veins are patent. Gallbladder: The gallbladder is surgically absent. A 5 mm stone is seen within a cystic duct remnant on image #117. Spleen: Normal in size and attenuation. Pancreas: The pancreas is moderately atrophic. There are 2 subcentimeter cystic lesions seen on image #92 measuring up to 7 mm. These likely represent small sidebranch IPMN's intra-abdominal significance. The pancreatic duct is normal in caliber. Adrenal glands: Unremarkable. Kidneys: The contrast enhanced kidneys demonstrate cortical atrophy and are without hydronephrosis. The kidneys enhance symmetrically. Abdominal vasculature: The abdominal aorta is normal in course and caliber noting moderate atherosclerotic calcification. Bowel: There is no bowel obstruction. There is mild wall thickening of the lower rectum with associated perirectal infiltration. The appendix is well-visualized and normal. Peritoneum: There is no intraperitoneal free air or abdominal ascites. Lymphadenopathy: None. Pelvic viscera: The bladder is normal as visualized. The uterus is surgically absent. No adnexal lesion is seen. Skeletal structures: The skeletal structures are osteopenic. A chronic superior endplate compression deformity of L1 is unchanged. There is moderate lumbosacral spondylosis. No lytic or blastic lesions are seen. IMPRESSION: 1. There is no evidence of pulmonary embolus in the main, lobar, or segmental pulmonary arteries. 2. Cardiomegaly. 3. There is no airspace consolidation or pleural effusion. 4. There are no acute infectious or inflammatory findings in the abdomen or pelvis. 5. Wall thickening of the lower rectum with associated perirectal inflammation is likely related to the reported history of rectal carcinoma. Correlation the patient's clinical findings and oncological history will be required. 6. There is no evidence of metastatic disease in the abdomen or pelvis. 7. Additional findings as above. ACT 112: Negative or not required by law. Electronically signed by: Andres Beckham M.D. 03/28/2020 1:58 PM Dictated: 03/28/20 1345Transcribed: 03/28/20 1345 [facility], [phone] CT Scan Report Patient: KADI SANTIAGO Date: 03/28/20MR#: [id number]: [id number]: [address]: [facility] Zip: [place], [place] [address]Hjt: [id number]: EDSex: FRoom/Bed:Att Phy:Diagnosis: HIGH BPPri Phy: Ovi Schaefer M.D.Service Date: 03/28/20Fam Phy:Interpreting Phy: Andres Beckham MDAdmit Phy: Ordering Phy: Tuan Andres MD cc: ~ CT ANGIOGRAM OF THE CHEST; CT SCAN OF THE ABDOMEN AND PELVIS WITH IV CONTRAST CLINICAL HISTORY: Atypical chest pain. Rectal carcinoma. COMPARISON STUDY: Chest CT dated 11/12/2019. Abdominal CT dated 11/10/2019. TECHNIQUE: Following the IV administration of 120 of Optiray 320, CT angiogram of the chest is performed from the upper abdomen to the thoracic inlet utilizing the pulmonary embolus protocol. Images are reviewed in the axial, sagittal, coronal planes. 3-D MIPS images are created and assessed. Subsequently, CT scan of the abdomen and pelvis was performed from the lung bases to the proximal femora. Images are reviewed in the axial, sagittal, and coronal planes. IV contrast was administered without complication. A dose lowering technique was utilized adhering to the principles of ALARA. CT DOSE: 1098.00 mGy.cm FINDINGS: CHEST: Thyroid: Imaged portions of the thyroid gland are normal in size and attenuation. Thoracic aorta: There is atherosclerotic calcification of the thoracic aorta, which is normal in caliber and demonstrates standard 3-vessel arch anatomy. The thoracic aorta is not well opacified. Pulmonary vasculature: The pulmonary trunk is normal in caliber. There are no filling defects identified in the main, lobar, or segmental pulmonary arteries to indicate pulmonary embolus. Heart: The heart is enlarged and without pericardial effusion. Postoperative change is noted involving the aortic valve. Lungs and pleural spaces: Evaluation of the lung parenchyma is modestly degraded by motion artifact. There is no airspace consolidation or pleural effusion. The trachea and central airways are clear. Minimal atelectasis is seen at the lung bases. Mediastinum: There is no mediastinal lymphadenopathy. Jory: Clear. Axillae: There is no axillary lymphadenopathy. Bony thorax: The skeletal structures are osteopenic. Degenerative change is noted in the shoulders and thoracic spine. No lytic or blastic lesions are identified. ABDOMEN AND PELVIS: Liver: The contrast-enhanced liver is normal in size, contour, and attenuation. There is minimal central intrahepatic biliary ductal dilatation. The hepatic veins and portal veins are patent. Gallbladder: The gallbladder is surgically absent. A 5 mm stone is seen within a cystic duct remnant on image #117. Spleen: Normal in size and attenuation. Pancreas: The pancreas is moderately atrophic. There are 2 subcentimeter cystic lesions seen on image #92 measuring up to 7 mm. These likely represent small sidebranch IPMN's intra-abdominal significance. The pancreatic duct is normal in caliber. Adrenal glands: Unremarkable. Kidneys: The contrast enhanced kidneys demonstrate cortical atrophy and are without hydronephrosis. The kidneys enhance symmetrically. Abdominal vasculature: The abdominal aorta is normal in course and caliber noting moderate atherosclerotic calcification. Bowel: There is no bowel obstruction. There is mild wall thickening of the lower rectum with associated perirectal infiltration. The appendix is well-visualized and normal. Peritoneum: There is no intraperitoneal free air or abdominal ascites. Lymphadenopathy: None. Pelvic viscera: The bladder is normal as visualized. The uterus is surgically absent. No adnexal lesion is seen. Skeletal structures: The skeletal structures are osteopenic. A chronic superior endplate compression deformity of L1 is unchanged. There is moderate lumbosacral spondylosis. No lytic or blastic lesions are seen. IMPRESSION: 1. There is no evidence of pulmonary embolus in the main, lobar, or segmental pulmonary arteries. 2. Cardiomegaly. 3. There is no airspace consolidation or pleural effusion. 4. There are no acute infectious or inflammatory findings in the abdomen or pelvis. 5. Wall thickening of the lower rectum with associated perirectal inflammation is likely related to the reported history of rectal carcinoma. Correlation the patient's clinical findings and oncological history will be required. 6. There is no evidence of metastatic disease in the abdomen or pelvis. 7. Additional findings as above. ACT 112: Negative or not required by law. Electronically signed by: Andres Beckham M.D. 03/28/2020 1:58 PM Dictated: 03/28/20 1345Transcribed: 03/28/20 134 ECG Data Attestation: I personally reviewed and interpreted this ECG as follows: Indication: + tachycardia Rate (beats per minute): 159 ECG Intervals/blocks: + Normal QT-c (527) ECG [place]: + Left axis deviation ECG ST segments: + ST depression, + ST elevation and + T-wave inversions (Lateral) ECG Findings: + Q waves (Inferior, anterior) Comparison ECG Date: from (11/09/2019) Change: the following changes noted (New Inferior and anterior infarct, new t wave inversion) Additional Comments: Repeat EKG at 1210 shows A. fib with RVR left axis deviation old anterior infarct T wave inversions in the lateral leads. Compared to the previous the rate has decreased by 58. Repeat EKG at 1307 shows atrial fibrillation left axis deviation left bundle branch block no ST elevation or depression QTC is 352 rate is 101 compared to previous EKG ventricular rate is in couplets Repeat EKG at 1441 shows atrial fibrillation with RVR left axis deviation left bundle branch block QTC is 510 ventricular rate is 105. MDM Narrative Patient was seen and evaluated as above in room B4. Review was performed of nursing notes and vital signs. I did review pertinent previous visits and patient history. After obtaining a thorough history and physical examination the above work up was performed. This is an 84-year-old female who presents emergency department complaining of rapid heart rate. Despite the rapid heart rate the patient is asymptomatic she denies being short of breath or has any chest pain. She was given 4 g of magnesium here in the emergency department. Due to the fact that the patient is on extended release beta-isatu she was given 5 mg of Lopressor here in the emergency department. Repeat examination revealed improvement in the patient's symptoms. I did discuss the case with the steam and power supervisor on-call. The patient was sent for CAT scan of the abdomen pelvis as well as a chest due to her previous cancer history. She does not show any evidence of a PE. We decided to place the patient on Eliquis 5 mg. I did discuss the case with the hospitalist who did agree to admit the patient. Patient and daughter in agreement with the treatment plan. An order was placed for continuous cardiac monitoring. The monitor shows a rate of 72 with afib rhythm. The patient was evaluated during a period of high volume and high acuity while the hospital was at overcapacity during the global COVID-19 pandemic, and that diagnosis was suspected/considered upon their initial presentation. Their evaluation, treatment and testing was consistent with current guidelines for patients who present with complaints or symptoms that may be related to COVID- 19. Impression & Plan Atrial flutter with rapid ventricular response, S/P TAVR (transcatheter aortic valve replacement), Rectal cancer, Hypertension, essential Discharge Plan Visit Data Chief Complaint: Hypertension Stated Complaint: HIGH BP ED Provider: Tuan Andres Discharge Problem: Atrial flutter with rapid ventricular response, S/P TAVR (transcatheter aortic valve replacement), Rectal cancer, Hypertension, essential Discharge Instructions Interventions: ED Discharge Assessment Last Done: 03/28/20 17:43 Forms Stand Alone Forms: My [employer] Prescriptions Prescriptions: No Action metoprolol succinate 25 mg tablet extended release 24 hr 25 mg PO DAILY Qty: 90 RF: 3 silver sulfadiazine [Silvadene] 1 % cream 1 applic topical BID Qty: 85 RF: 3 (DME) Ketostix Strip See Rx Instructions .ROUTE .MEDSUPPLY Qty: 25 RF: 3 Novolog U-100 Insulin aspart 100 unit/mL solution 70 units SQ ACHS RF: 0 uahxulvlgyyy-yvepwimg-onisza tablet 1 tab PO DAILY RF: 0 folic acid 1 mg tablet 1 mg PO DAILY RF: 0 furosemide 40 mg tablet 40 mg PO DAILY RF: 0 acetaminophen 650 mg tablet extended release 1,300 mg PO TID PRN (Reason: pain) RF: 0 cyanocobalamin (vitamin B-12) 500 mcg tablet 500 mcg PO DAILY RF: 0 cholecalciferol (vitamin D3) 2,000 unit tablet 2,000 units PO DAILY RF: 0 potassium chloride 20 mEq tablet,ER particles/crystals 40 meq PO DAILY RF: 0 magnesium oxide 400 mg (241.3 mg magnesium) tablet 400 mg PO BID RF: 0 biotin 1 mg Capsule 1 mg PO DAILY RF: 0 sertraline 25 mg tablet 25 mg PO DAILY RF: 0 Referrals Referrals: Ovi Schaefer MD [Primary Care Provider] -
[2020-03-28 12:50] LABS: Albumin Globulin Ratio 0.9 (0.9-2); Alkaline Phosphatase 81 U/L (45-117); Bilirubin,Total 0.3 mg/dl (0.2-1); Creatine Kinase 54 U/L (26-192); Creatine Kinase MB 1.1 ng/ml (0.5-3.6); Globulin 4.1 gm/dl (2.5-4.0); Total Protein 7.6 gm/dl (6.4-8.2); Troponin I < 0.015 ng/ml (0-0.045)
[2020-03-28 12:57] LABS: Partial Thromboplastin Ratio 0.9; Partial Thromboplastin Time 25.7 Seconds (21.0-31.0); Prothrombin Time 10.9 Seconds (9.0-12.0)
[2020-03-28 13:01] LABS: C Reactive Protein 0.69 mg/dl (0-0.29); Ferritin 100.1 ng/ml (8-388)
[2020-03-28] MEDS: MAGNESIUM SULFATE / D5W 1 GM/100 ML BAG IV SCH ×4 (13:21→15:29)
[2020-03-28] MEDS ORDERED: OPTIRAY 320 125ml IV ONE (13:38)
--- NOTE | 2020-03-28 14:00 | CT Scan Report ---
CT ANGIOGRAM OF THE CHEST; CT SCAN OF THE ABDOMEN AND PELVIS WITH IV CONTRAST CLINICAL HISTORY: Atypical chest pain. Rectal carcinoma. COMPARISON STUDY: Chest CT dated 11/12/2019. Abdominal CT dated 11/10/2019. TECHNIQUE: Following the IV administration of 120 of Optiray 320, CT angiogram of the chest is perfor med from the upper abdomen to the thoracic inlet utilizing the pulmonary embolus protocol. Images are reviewed in the axial, sagittal, coronal planes. 3-D MIPS images are created and assessed. Subsequen tly, CT scan of the abdomen and pelvis was performed from the lung bases to the proximal femora. Imag es are reviewed in the axial, sagittal, and coronal planes. IV contrast was administered without comp lication. A dose lowering technique was utilized adhering to the principles of ALARA. CT DOSE: 1098.00 mGy.cm FINDINGS: CHEST: Thyroid: Imaged portions of the thyroid gland are normal in size and attenuation. Thoracic aorta: There is atherosclerotic calcification of the thoracic aorta, which is normal in alireza nisa and demonstrates standard 3-vessel arch anatomy. The thoracic aorta is not well opacified. Pulmonary vasculature: The pulmonary trunk is normal in caliber. There are no filling defects identif ied in the main, lobar, or segmental pulmonary arteries to indicate pulmonary embolus. Heart: The heart is enlarged and without pericardial effusion. Postoperative change is noted involvin g the aortic valve. Lungs and pleural spaces: Evaluation of the lung parenchyma is modestly degraded by motion artifact. There is no airspace consolidation or pleural effusion. The trachea and central airways are clear. Mi nimal atelectasis is seen at the lung bases. Mediastinum: There is no mediastinal lymphadenopathy. Jory: Clear. Axillae: There is no axillary lymphadenopathy. Bony thorax: The skeletal structures are osteopenic. Degenerative change is noted in the shoulders an d thoracic spine. No lytic or blastic lesions are identified. ABDOMEN AND PELVIS: Liver: The contrast-enhanced liver is normal in size, contour, and attenuation. There is minimal cent ral intrahepatic biliary ductal dilatation. The hepatic veins and portal veins are patent. Gallbladder: The gallbladder is surgically absent. A 5 mm stone is seen within a cystic duct remnant on image #117. Spleen: Normal in size and attenuation. Pancreas: The pancreas is moderately atrophic. There are 2 subcentimeter cystic lesions seen on image #92 measuring up to 7 mm. These likely represent small sidebranch IPMN's intra-abdominal significanc e. The pancreatic duct is normal in caliber. Adrenal glands: Unremarkable. Kidneys: The contrast enhanced kidneys demonstrate cortical atrophy and are without hydronephrosis. T he kidneys enhance symmetrically. Abdominal vasculature: The abdominal aorta is normal in course and caliber noting moderate atheroscle rotic calcification. Bowel: There is no bowel obstruction. There is mild wall thickening of the lower rectum with associat ed perirectal infiltration. The appendix is well-visualized and normal. Peritoneum: There is no intraperitoneal free air or abdominal ascites. Lymphadenopathy: None. Pelvic viscera: The bladder is normal as visualized. The uterus is surgically absent. No adnexal lesi on is seen. Skeletal structures: The skeletal structures are osteopenic. A chronic superior endplate compression deformity of L1 is unchanged. There is moderate lumbosacral spondylosis. No lytic or blastic lesions are seen. IMPRESSION: 1. There is no evidence of pulmonary embolus in the main, lobar, or segmental pulmonary arteries. 2. Cardiomegaly. 3. There is no airspace consolidation or pleural effusion. 4. There are no acute infectious or inflammatory findings in the abdomen or pelvis. 5. Wall thickening of the lower rectum with associated perirectal inflammation is likely related to t he reported history of rectal carcinoma. Correlation the patient's clinical findings and oncological history will be required. 6. There is no evidence of metastatic disease in the abdomen or pelvis. 7. Additional findings as above. ACT 112: Negative or not required by law. Electronically signed by: Andres Beckham M.D. 03/28/2020 1:58 PM
[2020-03-28] MEDS ORDERED: APIXABAN 5 MG TABLET PO STA (14:28)
--- NOTE | 2020-03-28 15:44 | History & Physical Report ---
Date of Service March 28, 2020 History of Present Illness Primary Care Provider: Ovi Schaefer MD HISTORICAL BACKGROUND: Episode of Syncope in December 2015 after standing for 20 minutes. She developed sensation of diaphoresis and nausea. She then had a loss of consciousness for approximately 10 minutes. She denied any associated chest pain or dyspnea with the episode. She was able to sit down prior to losing consciousness. She did not fall to the floor or injure herself. She did not seek any medical attention for this at that time. She did subsequently tell Dr. Schaefer's staff about this episode. An EKG 12/21/2015 revealed sinus rhythm with PACs. Poor R-wave progression V1-V3. Minor nonspecific ST abnormalities. A Holter monitor performed the same day revealed sinus rhythm. Occasional non complex ventricular ectopy. Frequent premature supraventricular beats. Eight runs of supraventricular tachycardia. Longest episode 41 beats. Fastest episode was 161 beats per minute. That episode lasted 14 beats. No significant pauses or abnormal bradyarrhythmias. No symptoms were reported during the Holter recording. The patient states that she has a longstanding history of lightheadedness and prior episodes of syncope. Five years prior stated she had recurrent postural lightheadedness. She had a syncopal event and stated her blood pressure was low. In December and early January 2016 she had recurrent episodes of light headedness after prolonged standing. This occurred at least 3 times. She was usually standing for at least 10 minutes. She had no further syncope. Medical records show that she was admitted in July [address] [facility] in [facility] for syncope and chest pain. Her electrocardiogram did not reveal any acute changes. Cardiac enzymes were negative for myocardial injury. A nuclear myocardial exercise scan was negative for ischemia. 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 It was recommended by the network engineer that beta-blockers be held. Patient was originally seen by Dr. Mota 01/08/2016 for episodes of syncope and postural lightheadedness. These were felt to be related to postural hypotension. Improvement and resolution of her symptoms with decrease and then complete discontinuation of lisinopril therapy. History of dyslipidemia. Intolerant of statins. Severe myalgias on statins. Echocardiogram January 24, 2016 performed for episode of syncope and recurrent postural lightheadedness revealed normal biventricular systolic function, mild concentric LVH, left ventricular diastolic dysfunction, mild left atrial dilatation, moderate calcific aortic stenosis, trace to mild mitral regurgitation, trace tricuspid regurgitation. Calculated aortic valve area 1.1 square centimeters. Mean aortic valve gradient 19 millimeters Hg. Echocardiogram 03/2017 with normal left ventricular size. Low normal LV ejection fraction 50-55%. Mild LVH. Type 1 LV diastolic dysfunction. Mild mitral regurgitation. Mild to moderate aortic stenosis. Calculated aortic valve area 1.5 square centimeters. Mean gradient across the aortic valve 20.7 millimeters Hg. Patient was seen by Dr. Mota for an acute visit March 16, 2018. She complained of increasing dyspnea on exertion for the prior 2-3 months. This was occurring after walking only 50-70 feet. A repeat echocardiogram was performed on March 17, 2018 to assess for worsening of her aortic stenosis. It revealed low normal LV ejection fraction 50-55%. Mild concentric LVH. Grade 2 LV diastolic dysfunction. Trileaflet aortic valve. Moderate to severe aortic calcification. Moderate to severe valvular aortic stenosis. Calculated aortic valve area 0.94 cm sq. Mean gradient across aortic valve 38.2 mm Hg. Dimensionless valve index 0.25. Trace aortic and mild mitral regurgitation. Compared to an echocardiogram of March 18, 2017 the aortic valve velocity ratio and calculated aortic valve area had decreased. The mean gradient had increased. Based on her symptoms it was recommended to her that she be referred to a center which could perform a TAVR procedure. She chose the [facility]. The [facility] was contacted. The response from The [facility] was that she did not require a valve replacement. She was again referred back to the [facility] to be seen in Cardiology. She was evaluated there August 03, 2018. Her evaluation at that time agreed that valve replacement was indicated. She is underwent testing at the [facility] from October 28-October 30. S/P TAVR on 11/09/18 with #26 mm Velazquez Jorge S3. Echo post TAVR: LVEF 35%-45%, normal LV and RV size, normal RV systolic function, no AR, PG AV 13 mm Hg, mean gradient AV 7 mm Hg. No complications. Right femoral and right radial arteries used for access. Echo 03/17/2019 with normal biventricular systolic function, LVEF 50%-55%, mild LA dilatation, properly functioning bioprosthetic AV with PG 14.2 mmHg, PV 1.9 m/s, and MG 8.3 mm Hg. Admission November 09, 2019 with 2 week history of lower GI bleeding. Colonoscopy revealed rectal cancer. Allergies Allergy/AdvReac Type Severity Reaction Status Date / Time exenatide Allergy Unknown MYALGIA Verified 03/28/20 13:43 hydrocodone Allergy Unknown vomiting Verified 03/28/20 13:43 phenol Allergy Unknown MYALGIA Verified 03/28/20 13:43 codeine AdvReac Unknown VOMMITING Verified 03/28/20 13:43 Mymqkqe-Uoa-Vex Reductase AdvReac Unknown MYALGIA Verified 03/28/20 13:43 Inhibitor NSAIDS (Non-Steroidal AdvReac Verified 03/28/20 13:43 Anti-Inflamma Home Medications Medication Instructions Recorded Confirmed Type acetaminophen 650 mg 1,300 mg PO TID PRN tab 11/19/18 03/28/20 History tablet,extended release cholecalciferol (vitamin D3) 50 2,000 units PO DAILY tab 11/19/18 03/28/20 History mcg (2,000 unit) tablet cyanocobalamin (vitamin B-12) 500 500 mcg PO DAILY tab 11/19/18 03/28/20 History mcg tablet folic acid 1 mg tablet 1 mg PO DAILY tab 11/19/18 03/28/20 History furosemide 40 mg tablet 40 mg PO DAILY 11/19/18 03/28/20 History bzmtvaarxzrf-ifdkdcxu-fysatd tablet 1 tab PO DAILY 11/19/18 03/28/20 History insulin aspart U-100 100 unit/mL 70 units SQ ACHS ml 03/09/19 03/28/20 History subcutaneous solution potassium chloride 20 mEq 40 meq PO DAILY tab 03/09/19 03/28/20 History tablet,extended release(part/cryst) magnesium oxide 400 mg (241.3 mg 400 mg PO BID tab 09/10/19 03/28/20 History magnesium) tablet metoprolol succinate 25 mg 25 mg PO DAILY #90 tab 09/14/19 03/28/20 Rx tablet,extended release 24 hr biotin 1 mg PO DAILY 11/09/19 03/28/20 History acetone (urine) test #25 ea 12/31/19 03/09/20 Rx silver sulfadiazine 1 % topical 1 applic TOPICAL BID #85 g 02/07/20 03/28/20 Rx cream sertraline 25 mg PO DAILY 03/28/20 03/28/20 History Past Med/Surg History Medical History Adult situational stress disorder Bilateral cataracts Calcific aortic stenosis Controlled diabetes mellitus with neurologic complication, with 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, with long-term current use of insulin Counseling for insulin pump Diabetic nephropathy Diabetic peripheral neuropathy DVT prophylaxis Dysesthesia Dyslipidemia Encounter for pre-operative examination Epidermal inclusion cyst Hypertension Insulin dependent diabetes mellitus Lower GI bleed Rectal cancer (11/12/19) Sensorineural hearing loss (SNHL) of both ears Stage 3 chronic kidney disease Supraventricular tachycardia TIA (transient ischemic attack) Surgical History H/O vaginal hysterectomy History of bilateral knee replacement History of bunionectomy History of bunionectomy of both great toes Hx of cholecystectomy S/P TAVR (transcatheter aortic valve replacement) Family History Mother , age 78 CHF Diabetes iet controlled Stroke Heart disease Father , age 83 AL Diabetes Heart disease Cancer type of blood cancer Sister , age 79 liver cancer Cancer Diabetes type 2 Unknown Hypertension Sister , age 54 ovarian cancer Cancer Sister No problems noted. Sister No problems noted. Sister No problems noted. Brother Cancer, Onset Age: 76 testicular Brother , unknown No problems noted. Son No problems noted. Son No problems noted. Son No problems noted. Daughter No problems noted. Daughter No problems noted. Social History Smoking Status: Former smoker Tobacco Type: Cigarettes Age Started Using Tobacco: 20; Age Quit Using Tobacco: 53; packs per day: 0.25; Years Smoked: 33; Number of Years Since Quit: 31; Second Hand Exposure: No; Hx Alcohol Use: No Hx Substance Use: No Preferred Language: Upper Sorbian Communication Ability: Effective Hearing Ability: Normal Beliefs That Will Affect Care: None marital status: / Current Living Situation: Alone Current Living Situation Comment: [place] current occupation: Retired How many Children do You have: 5 Feels Safe at Home: Yes Childhood Exposure to Second-Hand Smoke: No Diet Comment: low carbs low salt caffeine: Yes (coffee one cup per day ) during the past year weight has: remained stable Dental Care, Regularly: Yes Physical Activity Frequency: 3-4 Times per Week Seatbelt Use: always Sunscreen Use: Yes Assistive Devices: None Results & Data Results & Data ([facility]) Vital Signs (Past 12 Hours) Vital Signs Temp Pulse Resp BP Pulse Ox 03/28/20 13:00 77 11 L 99 03/28/20 12:53 155 H 03/28/20 12:40 98 03/28/20 12:30 156 H 13 97 03/28/20 12:25 157 H 11 L 147/87 H 99 03/28/20 12:17 115 H 11 L 03/28/20 11:55 36.6 C 151 H 18 112/74 97 Supervising Physician Co-Signing Physician Notes Patient was seen and examined independently I discussed the case with Ruiz NICHOLS I reviewed pertinent past medical social family history and also the plan of care and agree with the plan of care. Patient presented from her primary care doctor's office with a heart rate of 160 it appears she was in atrial flutter. She is history of a TAVR and also recently finished her treatment for rectal carcinoma. Emergency department she was ruled out for pulmonary embolism and was given metoprolol and magnesium. She looks that she is trying to convert to sinus rhythm with runs of sinus versus runs of supraventricular tachycardia. She herself is in no distress from this and had no symptomatology. Physical exam finds her vital signs to be stable blood pressure 147/87 heart rate at my evaluation was 72 her cardiac exam is regular with a systolic murmur at the left upper sternal border her lungs are completely clear. New onset atrial flutter according to emergency room physician speaking with Dr. Ko he wishes her to be started on Eliquis continuing metoprolol medication at this time following and repeating her electrolytes as appropriate Of note her Covid test was negative Incidentally the patient had CT scan of her chest abdomen pelvis with no PE, cardiomegaly, wall thickening of the lower rectum associated perirectal inflammation is related to reportedly history of rectal carcinoma but no evidence of metastatic disease in the abdomen or pelvis. Any exceptions will be noted below PG Care Time/CCT Total # of Minutes Spent Total Time Spent with Patient: Total time spent is greater than 50% in coordination of care (as documented) at patient's floor/unit and/or counseling patient: Coding Level of Care Code 75663 Initial Inpt Care Lvl 3
--- NOTE | 2020-03-28 16:37 | Electrocardiogram Report ---
Test Reason : Blood Pressure : / mmHG Vent. Rate : 159 BPM Atrial Rate : 078 BPM P-R Int : 000 ms QRS Dur : 118 ms QT Int : 324 ms P-R-T Axes : 000 -44 099 degrees QTc Int : 527 ms Atrial flutter with 2 to 1 block Left axis deviation Inferior infarct (cited on or before 09-NOV-2019) Anterior infarct , age undetermined Abnormal ECG When compared with ECG of 09-NOV-2019 12:17, Atrial flutter is now Present Confirmed by Zaki Thakur ([id number]) on 03/28/2020 4:37:42 PM Referred By: REFERRED SELF Confirmed By:Zaki Thakur
--- NOTE | 2020-03-28 16:38 | Electrocardiogram Report ---
Test Reason : Blood Pressure : / mmHG Vent. Rate : 101 BPM Atrial Rate : 104 BPM P-R Int : 000 ms QRS Dur : 120 ms QT Int : 318 ms P-R-T Axes : 000 -35 100 degrees QTc Int : 412 ms Atrial flutter with variable A-V block Left axis deviation Anterior infarct (cited on or before 21-DEC-2015) Abnormal ECG When compared with ECG of 28-MAR-2020 12:08, (unconfirmed) Vent. rate has decreased BY 58 BPM Confirmed by Zaki Thakur ([id number]) on 03/28/2020 4:38:52 PM Referred By: REFERRED SELF Confirmed By:Zaki Thakur
--- NOTE | 2020-03-28 16:41 | Electrocardiogram Report ---
Test Reason : Blood Pressure : / mmHG Vent. Rate : 101 BPM Atrial Rate : 101 BPM P-R Int : 000 ms QRS Dur : 122 ms QT Int : 272 ms P-R-T Axes : 000 -41 113 degrees QTc Int : 352 ms Atrial flutter Left axis deviation Left bundle branch block Abnormal ECG When compared with ECG of 28-MAR-2020 12:10, (unconfirmed) HR has decreased Confirmed by Zaki Thakur ([id number]) on 03/28/2020 4:41:13 PM Referred By: REFERRED SELF Confirmed By:Zaki Thakur
--- NOTE | 2020-03-28 16:41 | History & Physical Report ---
Date of Service March 28, 2020 Assessment & Plan (1) Atrial flutter with rapid ventricular response: Mrs. Singleton is an 84-year-old female with a history of Severe Aortic Stenosis s/p TAVR #26 mm Velazquez Jorge S3 (11/09/[address] 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 Overall, the patient has been feeling well although she admits to occasionally experiencing exertional dyspnea which may related to A-Flutter -- as she has had some of this lately. Despite being quite tachycardic at times she is not particularly symptomatic with Rapid A-Flutter. Specifically, the patient does not have any sensation of palpitations, tachy-palpitations, or that her heart is racing. Patient has not experienced any angina pectoris or anginal equivalent symptoms, overt signs or symptoms of heart failure, nor has she had any signs or symptoms suggestive of stroke or mini stroke. Please note that the patient has not had any GI bleeding related to her rectal cancer following her chemo and radiation treatments. EKG's in the ER have shown A-Flutter with variable AV conduction and an IVCD, A- Flutter with 2-1 AV conduction and an IVCD. Initial Troponin I is undetectable. Electrolytes are within normal limits, and she is mildly anemic with a hemoglobin of 11.3 grams/deciliter with a normal platelet count. ESR is elevated at 50 mm/Hr. Patient has already been given 1 dose of Eliquis 5 mg, she received IV Lopressor, and IV magnesium sulfate. At this point, she is having brief periods of sinus rhythm and then converts back to atrial flutter -- strongly suspect that she will convert back to a normal sinus rhythm on her own. Recommend the followin. Admit to telemetry bed. 2. Increase Toprol XL to 50 mg b.i.d.. 3. Continue Eliquis 5 mg b.i.d.. -- her [id number] is 8. 4. Echocardiogram has been ordered. 5. Monitor daily labs. 6. Cardiology consultation has been ordered. 7. Continue Magnesium Oxide 400 mg b.i.d.. 8. Continue Potassium Chloride 40 mEq daily. (2) Hypertension, essential: -- Increase Toprol XL to 50 mg b.i.d.. -- Continue Lasix 40 mg daily. -- Low sodium diet. (3) Dyslipidemia: -- Severe statin intolerance. -- Heart healthy diet. -- Continue to control DM. (4) S/P TAVR (transcatheter aortic valve replacement): -- Echocardiogram 03/17/2019 with normal biventricular systolic function, LVEF 50%-55%, mild LA dilatation, properly functioning bioprosthetic AV with PG 14.2 mmHg, PV 1.9 m/s, and MG 8.3 mmHg. History of Present Illness Primary Care Provider: Ovi Schaefer MD Mrs. Singleton is an 84-year-old female with a history of Severe Aortic Stenosis s/p TAVR #26 mm Velazquez Jorge S3 (11/09/[address] 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 Overall, the patient has been feeling well although she admits to occasionally experiencing exertional dyspnea which may related to A-Flutter -- as she has had some of this lately. Patient was being seen by her PCP today for a wellness checkup, and was noted to be quite tachycardic but she was not particularly symptomatic with it. Specifically, the patient does not have any sensation of palpitations, tachy-palpitations, or that her heart is racing. Patient further denies any chest pain, heaviness, tightness, pressure, or discomfort. She has not noticed any neck, jaw, back, or arm pain. She has not had any diaphoresis, nausea, vomiting, or any shortness of breath at rest. She denies any orthopnea or PND. Patient has not had any signs or symptoms suggestive of stroke or mini stroke. EKG's in the ER have shown A-Flutter with variable AV conduction and an IVCD, A- Flutter with 2-1 AV conduction and an IVCD. Initial Troponin I is undetectable. Electrolytes are within normal limits, and she is mildly anemic with a hemoglobin of 11.3 grams/deciliter with a normal platelet count. ESR is elevated at 50 mm/Hr. Patient has already been given 1 dose of Eliquis 5 mg, she received IV Lopressor, and IV magnesium sulfate. At this point, she is having brief periods of sinus rhythm and then converts back to atrial flutter. Please note that the patient has not had any GI bleeding related to her rectal cancer following her chemo and radiation treatments. HISTORICAL BACKGROUND: Episode of Syncope in December 2015 after standing for 20 minutes. She developed sensation of diaphoresis and nausea. She then had a loss of consciousness for approximately 10 minutes. She denied any associated chest pain or dyspnea with the episode. She was able to sit down prior to losing consciousness. She did not fall to the floor or injure herself. She did not seek any medical attention for this at that time. She did subsequently tell Dr. Schaefer's staff about this episode. An EKG 12/21/2015 revealed sinus rhythm with PACs. Poor R-wave progression V1-V3. Minor nonspecific ST abnormalities. A Holter monitor performed the same day revealed sinus rhythm. Occasional non complex ventricular ectopy. Frequent premature supraventricular beats. Eight runs of supraventricular tachycardia. Longest episode 41 beats. Fastest episode was 161 beats per minute. That episode lasted 14 beats. No significant pauses or abnormal bradyarrhythmias. No symptoms were reported during the Holter recording. The patient states that she has a longstanding history of lightheadedness and prior episodes of syncope. Five years prior stated she had recurrent postural lightheadedness. She had a syncopal event and stated her blood pressure was low. In December and early January 2016 she had recurrent episodes of lightheadedness after prolonged standing. This occurred at least 3 times. She was usually standing for at least 10 minutes. She had no further syncope. Medical records show that she was admitted in July 2014 to [facility] in [facility] for syncope and chest pain. Her electrocardiogram did not reveal any acute changes. Cardiac enzymes were negative for myocardial injury. A nuclear myocardial exercise scan was negative for ischemia. 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 It was recommended by the spreader operator automatic that beta-blockers be held. Patient was originally seen by Dr. Mota 01/08/2016 for episodes of syncope and postural lightheadedness. These were felt to be related to postural hypotension. Improvement and resolution of her symptoms with decrease and then complete discontinuation of lisinopril therapy. History of dyslipidemia. Intolerant of statins. Severe myalgias on statins. Echocardiogram January 24, 2016 performed for episode of syncope and recurrent postural lightheadedness revealed normal biventricular systolic function, mild concentric LVH, left ventricular diastolic dysfunction, mild left atrial dilatation, moderate calcific aortic stenosis, trace to mild mitral regurgitation, trace tricuspid regurgitation. Calculated aortic valve area 1.1 square centimeters. Mean aortic valve gradient 19 millimeters Hg. Echocardiogram 03/2017 with normal left ventricular size. Low normal LV ejection fraction 50-55%. Mild LVH. Type 1 LV diastolic dysfunction. Mild mitral regurgitation. Mild to moderate aortic stenosis. Calculated aortic valve area 1.5 square centimeters. Mean gradient across the aortic valve 20.7 millimeters Hg. Patient was seen by Dr. Mota for an acute visit March 16, 2018. She complained of increasing dyspnea on exertion for the prior 2-3 months. This was occurring after walking only 50-70 feet. A repeat echocardiogram was performed on March 17, 2018 to assess for worsening of her aortic stenosis. It revealed low normal LV ejection fraction 50-55%. Mild concentric LVH. Grade 2 LV diastolic dysfunction. Trileaflet aortic valve. Moderate to severe aortic calcification. Moderate to severe valvular aortic stenosis. Calculated aortic valve area 0.94 cm sq. Mean gradient across aortic valve 38.2 mm Hg. Dimensionless valve index 0.25. Trace aortic and mild mitral regurgitation. Compared to an echocardiogram of March 18, 2017 the aortic valve velocity ratio and calculated aortic valve area had decreased. The mean gradient had increased. Based on her symptoms it was recommended to her that she be referred to a center which could perform a TAVR procedure. She chose the [facility]. The [facility] was contacted. The response from The [facility] was that she did not require a valve replacement. She was again referred back to the [facility] to be seen in Cardiology. She was evaluated there August 03, 2018. Her evaluation at that time agreed that valve replacement was indicated. She is underwent testing at the [facility] from October 28-October 30. S/P TAVR on 11/09/18 with #26 mm Velazquez Jorge S3. Echo post TAVR: LVEF 35%-45%, normal LV and RV size, normal RV systolic function, no AR, PG AV 13 mm Hg, mean gradient AV 7 mm Hg. No complications. Right femoral and right radial arteries used for access. Echo 03/17/2019 with normal biventricular systolic function, LVEF 50%-55%, mild LA dilatation, properly functioning bioprosthetic AV with PG 14.2 mmHg, PV 1.9 m/s, and MG 8.3 mm Hg. Admission November 09, 2019 with 2 week history of lower GI bleeding. Colonoscopy revealed rectal cancer. Allergies Allergy/AdvReac Type Severity Reaction Status Date / Time exenatide Allergy Unknown MYALGIA Verified 03/28/20 13:43 hydrocodone Allergy Unknown vomiting Verified 03/28/20 13:43 phenol Allergy Unknown MYALGIA Verified 03/28/20 13:43 codeine AdvReac Unknown VOMMITING Verified 03/28/20 13:43 Cfxqeza-Mrk-Imk Reductase AdvReac Unknown MYALGIA Verified 03/28/20 13:43 Inhibitor NSAIDS (Non-Steroidal AdvReac Verified 03/28/20 13:43 Anti-Inflamma Home Medications Medication Instructions Recorded Confirmed Type acetaminophen 650 mg 1,300 mg PO TID PRN tab 11/19/18 03/28/20 History tablet,extended release cholecalciferol (vitamin D3) 50 2,000 units PO DAILY tab 11/19/18 03/28/20 History mcg (2,000 unit) tablet cyanocobalamin (vitamin B-12) 500 500 mcg PO DAILY tab 11/19/18 03/28/20 History mcg tablet folic acid 1 mg tablet 1 mg PO DAILY tab 11/19/18 03/28/20 History furosemide 40 mg tablet 40 mg PO DAILY 11/19/18 03/28/20 History ewefuovweerj-yyzovrbi-knovea tablet 1 tab PO DAILY 11/19/18 03/28/20 History insulin aspart U-100 100 unit/mL 70 units SQ ACHS ml 03/09/19 03/28/20 History subcutaneous solution potassium chloride 20 mEq 40 meq PO DAILY tab 03/09/19 03/28/20 History tablet,extended release(part/cryst) magnesium oxide 400 mg (241.3 mg 400 mg PO BID tab 09/10/19 03/28/20 History magnesium) tablet metoprolol succinate 25 mg 25 mg PO DAILY #90 tab 09/14/19 03/28/20 Rx tablet,extended release 24 hr biotin 1 mg PO DAILY 11/09/19 03/28/20 History acetone (urine) test #25 ea 12/31/19 03/09/20 Rx silver sulfadiazine 1 % topical 1 applic TOPICAL BID #85 g 02/07/20 03/28/20 Rx cream sertraline 25 mg PO DAILY 03/28/20 03/28/20 History Past Med/Surg History Medical History Adult situational stress disorder Bilateral cataracts Calcific aortic stenosis Controlled diabetes mellitus with neurologic complication, with 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, with long-term current use of insulin Counseling for insulin pump Diabetic nephropathy Diabetic peripheral neuropathy DVT prophylaxis Dysesthesia Dyslipidemia Encounter for pre-operative examination Epidermal inclusion cyst Hypertension Insulin dependent diabetes mellitus Lower GI bleed Rectal cancer (11/12/19) Sensorineural hearing loss (SNHL) of both ears Stage 3 chronic kidney disease Supraventricular tachycardia TIA (transient ischemic attack) Surgical History H/O vaginal hysterectomy History of bilateral knee replacement History of bunionectomy History of bunionectomy of both great toes Hx of cholecystectomy S/P TAVR (transcatheter aortic valve replacement) Family History Mother , age 78 CHF Diabetes iet controlled Stroke Heart disease Father , age 83 DE Diabetes Heart disease Cancer type of blood cancer Sister , age 79 liver cancer Cancer Diabetes type 2 Unknown Hypertension Sister , age 54 ovarian cancer Cancer Sister No problems noted. Sister No problems noted. Sister No problems noted. Brother Cancer, Onset Age: 76 testicular Brother , unknown No problems noted. Son No problems noted. Son No problems noted. Son No problems noted. Daughter No problems noted. Daughter No problems noted. Social History Smoking Status: Former smoker Tobacco Type: Cigarettes Age Started Using Tobacco: 20; Age Quit Using Tobacco: 53; packs per day: 0.25; Years Smoked: 33; Number of Years Since Quit: 31; Second Hand Exposure: No; Hx Alcohol Use: No Hx Substance Use: No Preferred Language: Nepali Communication Ability: Effective Hearing Ability: Normal Beliefs That Will Affect Care: None marital status: / Current Living Situation: Alone Current Living Situation Comment: [place] [facility] current occupation: Retired How many Children do You have: 5 Feels Safe at Home: Yes Childhood Exposure to Second-Hand Smoke: No Diet Comment: low carbs low salt caffeine: Yes (coffee one cup per day ) during the past year weight has: remained stable Dental Care, Regularly: Yes Physical Activity Frequency: 3-4 Times per Week Seatbelt Use: always Sunscreen Use: Yes Assistive Devices: None Physical Exam Physical Exam: GENERAL: Patient in no acute distress. HEENT: Head is atraumatic, normocephalic. EOM's intact. Facies symmetric. No perioral cyanosis. NECK: No JVD. JVP is at the level of the clavicle sitting upright. Carotid upstrokes are + 2 bilaterally. No bruits are noted. CHEST/LUNGS: Clear to auscultation throughout all lung rowe. No wheezes, rales, or crackles. CVS: S1 and S2 are regular, borderline tachycardic with a grade 1/6 basal systolic murmur. No diastolic murmurs. No gallops or rubs. PMI is nondisplaced. No lifts, heaves, or thrills. No abdominal aortic or renal bruits. ABDOMINAL EXAM: Bowel sounds are present. No masses, organomegaly, or tenderness. EXTREMITIES: No clubbing or cyanosis. No edema. Intact posterior tibial and radial pulses bilaterally. NEUROLOGIC EXAM: Patient is awake, alert, and oriented. Pleasant and cooperative. Answers questions appropriately. Speech is clear. Normal movement in all 4 extremities. GARMENT FOLDER: -- A-Flutter with variable AV conduction, rates in the mid to upper 90s, also having brief periods of sinus rhythm. Results & Data Results & Data ([facility]) Vital Signs (Past 12 Hours) Vital Signs Temp Pulse Resp BP Pulse Ox 03/28/20 16:20 72 11 L 03/28/20 16:10 79 9 L 03/28/20 16:00 72 18 03/28/20 15:30 72 12 03/28/20 15:00 82 14 03/28/20 14:42 105 H 16 03/28/20 14:00 97 03/28/20 13:30 76 11 L 99 03/28/20 13:00 77 11 L 99 03/28/20 12:53 155 H 03/28/20 12:40 98 03/28/20 12:30 156 H 13 97 03/28/20 12:25 157 H 11 L 147/87 H 99 03/28/20 12:17 115 H 11 L 03/28/20 11:55 36.6 C 151 H 18 112/74 97 Laboratory Results Laboratory Results - last 24 hr 03/28/20 03/28/20 03/28/20 12:17 12:17 12:17 WBC 5.93 RBC 3.40 L Hgb 11.3 L Hct 34.9 L MCV 102.6 H MCH 33.2 MCHC 32.4 RDW Std Deviation 63.1 H RDW Coeff of Abimael 16.9 H Plt Count 196 MPV 10.0 Immature Gran % (Auto) 0.3 Neut % (Auto) 65.6 Lymph % (Auto) 23.6 Vermilion % (Auto) 8.8 Eos % (Auto) 1.0 Baso % (Auto) 0.7 Neut # (Auto) 3.89 Lymph # (Auto) 1.40 Vermilion # (Auto) 0.52 Eos # (Auto) 0.06 Baso # (Auto) 0.04 Immature Gran # (Auto) 0.02 ESR PT 10.9 INR 1.0 APTT 25.7 PTT Ratio 0.9 Sodium 140 Potassium 4.1 Chloride 108 H Carbon Dioxide 26 Anion Gap 6.0 BUN 24 H Creatinine 1.02 Est Cr Clr Drug Dosing 43.4 Est GFR ( Amer) 58.1 Est GFR (Non-Af Amer) 50.1 BUN/Creatinine Ratio 23.3 H Glucose 133 H Calcium 9.0 Magnesium Ferritin Total Bilirubin 0.3 AST 19 ALT 24 Alkaline Phosphatase 81 Lactate Dehydrogenase Total Creatine Kinase 54 CK-MB (CK-2) 1.1 CK/CKMB % Calc 2.0 Troponin I < 0.015 C-Reactive Protein Total Protein 7.6 Albumin 3.5 Globulin 4.1 H Albumin/Globulin Ratio 0.9 Lipase 101 COVID-19 Eval Order SARS-CoV-2, RNA, NAAT Blood Type Antibody Screen 12/03/28/20 03/28/20 12:17 12:17 12:17 WBC RBC Hgb Hct MCV MCH MCHC RDW Std Deviation RDW Coeff of Abimael Plt Count MPV Immature Gran % (Auto) Neut % (Auto) Lymph % (Auto) Vermilion % (Auto) Eos % (Auto) Baso % (Auto) Neut # (Auto) Lymph # (Auto) Vermilion # (Auto) Eos # (Auto) Baso # (Auto) Immature Gran # (Auto) ESR 50 H PT INR APTT PTT Ratio Sodium Potassium Chloride Carbon Dioxide Anion Gap BUN Creatinine Est Cr Clr Drug Dosing Est GFR ( Amer) Est GFR (Non-Af Amer) BUN/Creatinine Ratio Glucose Calcium Magnesium Ferritin 100.1 Total Bilirubin AST ALT Alkaline Phosphatase Lactate Dehydrogenase 215 Total Creatine Kinase CK-MB (CK-2) CK/CKMB % Calc Troponin I C-Reactive Protein 0.69 H Total Protein Albumin Globulin Albumin/Globulin Ratio Lipase COVID-19 Eval Order SARS-CoV-2, RNA, NAAT Blood Type Antibody Screen 03/28/20 03/28/20 03/28/20 12:17 12:43 12:43 WBC RBC Hgb Hct MCV MCH MCHC RDW Std Deviation RDW Coeff of Abimael Plt Count MPV Immature Gran % (Auto) Neut % (Auto) Lymph % (Auto) Vermilion % (Auto) Eos % (Auto) Baso % (Auto) Neut # (Auto) Lymph # (Auto) Vermilion # (Auto) Eos # (Auto) Baso # (Auto) Immature Gran # (Auto) ESR PT INR APTT PTT Ratio Sodium Potassium Chloride Carbon Dioxide Anion Gap BUN Creatinine Est Cr Clr Drug Dosing Est GFR ( Amer) Est GFR (Non-Af Amer) BUN/Creatinine Ratio Glucose Calcium Magnesium 2.0 Ferritin Total Bilirubin AST ALT Alkaline Phosphatase Lactate Dehydrogenase Total Creatine Kinase CK-MB (CK-2) CK/CKMB % Calc Troponin I C-Reactive Protein Total Protein Albumin Globulin Albumin/Globulin Ratio Lipase COVID-19 Eval [facility] SARS-CoV-2, RNA, NAAT NEGATIVE Blood Type Antibody Screen 03/28/20 12:57 WBC RBC Hgb Hct MCV MCH MCHC RDW Std Deviation RDW Coeff of Abimael Plt Count MPV Immature Gran % (Auto) Neut % (Auto) Lymph % (Auto) Vermilion % (Auto) Eos % (Auto) Baso % (Auto) Neut # (Auto) Lymph # (Auto) [place] # (Auto) Eos # (Auto) Baso # (Auto) Immature Gran # (Auto) ESR PT INR APTT PTT Ratio Sodium Potassium Chloride Carbon Dioxide Anion Gap BUN Creatinine Est Cr Clr Drug Dosing Est GFR ( Amer) Est GFR (Non-Af Amer) BUN/Creatinine Ratio Glucose Calcium Magnesium Ferritin Total Bilirubin AST ALT Alkaline Phosphatase Lactate Dehydrogenase Total Creatine Kinase CK-MB (CK-2) CK/CKMB % Calc Troponin I C-Reactive Protein Total Protein Albumin Globulin Albumin/Globulin Ratio Lipase COVID-19 Eval Order SARS-CoV-2, RNA, NAAT Blood Type A Positive Antibody Screen NEGATIVE Medications Administered Active Medications Generic Name Dose Route Start Last Admin Trade Name Freq PRN Reason Stop Dose Admin Apixaban 5 mg 03/28/20 21:00 Apixaban 5 Mg Tablet PO 04/27/20 20:59 BID SUKUMAR Metoprolol Succinate 50 mg 03/28/20 21:00 Metoprolol Succ 50mg Ext Rel Tab PO 04/27/20 20:59 BID SUKUMAR Metoprolol Tartrate 5 mg 03/28/20 12:42 03/28/20 12:53 Metoprolol Tartrate 1 Mg/Ml Vial IV 04/27/20 12:41 5 mg Q5M PRN Administration Tachycardia Code Status & VTE Plan VTE Prophylaxis Plan VTE Prophylaxis will be ordered: Yes Supervising Physician Co-Signing Physician Notes Patient was seen and examined independently I discussed the case with Ruiz NICHOLS I reviewed pertinent past medical social family history and also the plan of care and agree with the plan of care. I saw the patient after she achieved rate control and possible almost conversion to sinus rhythm after extra beta-isatu and magnesium. Patient's heart was irregularly irregular but rate controlled her lungs were clear Patient was started on Eliquis in the ER Any exceptions will be noted below PG Care Time/CCT Total # of Minutes Spent Total Time Spent with Patient: Total time spent is greater than 50% in coordination of care (as documented) at patient's floor/unit and/or counseling patient: 40 Coding Level of Care Code 33357 Initial Inpt Care Lvl 3 Diagnoses Atrial flutter with rapid ventricular response I48.92 Hypertension, essential I10 Dyslipidemia E78.5 S/P TAVR (transcatheter aortic valve replacement) Z95.2 Time Spent (min) 55
--- NOTE | 2020-03-28 16:48 | Electrocardiogram Report ---
Test Reason : Blood Pressure : / mmHG Vent. Rate : 105 BPM Atrial Rate : 050 BPM P-R Int : 000 ms QRS Dur : 124 ms QT Int : 386 ms P-R-T Axes : 000 -35 100 degrees QTc Int : 510 ms Atrial flutter with rapid ventricular response Left axis deviation Left bundle branch block Abnormal ECG When compared with ECG of 28-MAR-2020 13:07, (unconfirmed) No significant change Confirmed by Zaki Thakur ([id number]) on 03/28/2020 4:48:12 PM Referred By: REFERRED SELF Confirmed By:Zaki Thakur
[2020-03-28] MEDS ORDERED: INSULIN ASPART PER UNIT SQ SCH (18:20)
[2020-03-28] MEDS ORDERED: GLUCOSE 40% GEL 15 GM TUBE PO PRN (19:15)
[2020-03-28] MEDS ORDERED: INSULIN ASPART 100 UNITS/ML VIAL SC PRN (19:15)
[2020-03-28] MEDS ORDERED: GLUCOSE 10 TABS/TUBE PO PRN (19:15)
[2020-03-28] MEDS ORDERED: CARBOHYDRATES FOR HYPOGLYCEMIA PO PRN (19:15)
[2020-03-28] MEDS ORDERED: GLUCAGON FOR INJ 1 MG VIAL SQ PRN (19:15)
[2020-03-28] MEDS ORDERED: DEXTROSE 50% 50 ML SYRINGE IV PRN (19:15)
[2020-03-28 19:46] LABS: Basophils # (auto) 0.03 K/uL (0-0.2); Basophils % (auto) 0.5 %; Eosinophils # (auto) 0.07 K/uL (0-0.5); Eosinophils % (auto) 1.2 %; Hematocrit (blood only) 35.1 % (37-47); Hemoglobin 11.5 g/dL (12.0-16.0); Immature Granulocytes # (auto) 0.02 K/uL (0.00-0.02); Immature Granulocytes % (auto) 0.3 %; Lymphocytes # (auto) 1.39 K/uL (1.2-3.4); Lymphocytes % (auto) 22.9 %; Mean Corpuscular Hemoglobin 33.2 pg (25-34); Mean Corpuscular Hgb Conc 32.8 g/dL (32-36); Mean Corpuscular Volume 101.4 fL (80-100); Mean Platelet Volume 9.8 fL (7.4-10.4); Monocytes # (auto) 0.52 K/uL (0.11-0.59); Monocytes % (auto) 8.6 %; Neutrophils # (auto) 4.03 K/uL (1.4-6.5); Neutrophils % (auto) 66.5 %; Platelet Count 185 K/uL (130-400); RDW Coefficient of Variation 16.9 % (11.5-14.5); RDW Standard Deviation 62.9 fL (36.4-46.3); Red Blood Count 3.46 M/uL (4.2-5.4); White Blood Count 6.06 K/uL (4.8-10.8)
[2020-03-28] MEDS: APIXABAN 5 MG TABLET PO SCH (19:58)
[2020-03-28] MEDS: MAGNESIUM OXIDE 400 MG TAB PO SCH (19:58)
[2020-03-28] MEDS: METOPROLOL SUCC 50MG EXT REL TAB PO SCH (19:58)
[2020-03-28] MEDS: SILVER SULFADIAZINE 1% CR 50 GM JAR TOP SCH (19:59)
[2020-03-28 20:02] LABS: BUN Creatinine Ratio 18.3 (10-20); Creatinine Clr Calc Pharmacy 36.9 ml/min; Est GFR (African American) 47.7; Est GFR (Non-African American) 41.2; Magnesium 2.9 mg/dl (1.8-2.4); Potassium 4.1 mmol/L (3.5-5.1)
[2020-03-28] MEDS: NovoLOG INSULIN PUMP SCH (21:05)
[2020-03-28 22:44] LABS: Appearance Urine Clear (Clear); Bacteria Urine Automated Negative (Negative); Bilirubin Urine Negative (Negative); Blood Urine Negative (Negative); Color Urine Yellow; Epithelial Cell Urine Auto 20-30 /lpf (0-5); Glucose Urine UA Negative (Negative); Ketones Urine Negative (Negative); Leukocyte Esterase Urine 2+ (Negative); Nitrite Urine Negative (Negative); Protein Urine Negative (Negative); RBC Urine Automated 0-4 /hpf (0-4); Specific Gravity Urine 1.031 (1.000-1.030); Urobilinogen Urine Negative (Negative)
[2020-03-28] MEDS: ACETAMINOPHEN 325 MG TAB PO PRN (23:31)
[2020-03-29 06:39] LABS: Basophils # (auto) 0.01 K/uL (0-0.2); Basophils % (auto) 0.2 %; Eosinophils # (auto) 0.04 K/uL (0-0.5); Eosinophils % (auto) 0.6 %; Hematocrit (blood only) 34.8 % (37-47); Hemoglobin 11.4 g/dL (12.0-16.0); Immature Granulocytes # (auto) 0.02 K/uL (0.00-0.02); Immature Granulocytes % (auto) 0.3 %; Lymphocytes # (auto) 1.07 K/uL (1.2-3.4); Lymphocytes % (auto) 16.4 %; Mean Corpuscular Hemoglobin 33.5 pg (25-34); Mean Corpuscular Hgb Conc 32.8 g/dL (32-36); Mean Corpuscular Volume 102.4 fL (80-100); Mean Platelet Volume 10.5 fL (7.4-10.4); Monocytes # (auto) 0.43 K/uL (0.11-0.59); Monocytes % (auto) 6.6 %; Neutrophils # (auto) 4.96 K/uL (1.4-6.5); Neutrophils % (auto) 75.9 %; Platelet Count 192 K/uL (130-400); RDW Coefficient of Variation 16.8 % (11.5-14.5); RDW Standard Deviation 63.1 fL (36.4-46.3); White Blood Count 6.53 K/uL (4.8-10.8)
[2020-03-29 07:14] LABS: BUN Creatinine Ratio 20.1 (10-20); Est GFR (African American) 57.4; Est GFR (Non-African American) 49.5
[2020-03-29] MEDS: CHOLECALCIFEROL 1,000 UNITS 25 MCG TAB PO SCH (07:53)
[2020-03-29] MEDS: SILVER SULFADIAZINE 1% CR 50 GM JAR TOP SCH ×2 (07:53→20:28)
[2020-03-29] MEDS: SERTRALINE HCL 50 MG TABLET PO SCH (07:53)
[2020-03-29] MEDS: CEROVITE ADV FORMULA TAB PO SCH (07:54)
[2020-03-29] MEDS: POTASSIUM CHLORIDE CRTAB 20 MEQ TABCR PO SCH (07:54)
[2020-03-29] MEDS: APIXABAN 5 MG TABLET PO SCH ×2 (07:54→20:26)
[2020-03-29] MEDS: CYANOCOBALAMIN 500 MCG TABLET (VITAMIN B-12) PO SCH (07:54)
[2020-03-29] MEDS: FOLIC ACID 1 MG TAB PO SCH (07:54)
[2020-03-29] MEDS: FUROSEMIDE 40 MG TAB PO SCH (07:54)
[2020-03-29] MEDS: METOPROLOL SUCC 50MG EXT REL TAB PO SCH ×2 (07:54→20:28)
[2020-03-29] MEDS: MAGNESIUM OXIDE 400 MG TAB PO SCH ×2 (07:54→20:26)
[2020-03-29] MEDS: NovoLOG INSULIN PUMP SCH ×2 (07:55→11:40)
[2020-03-29 08:14] LABS: Potassium 3.9 mmol/L (3.5-5.1)
[2020-03-29 08:15] LABS: Magnesium 2.4 mg/dl (1.8-2.4)
[2020-03-29] MEDS ORDERED: NON-FORMULARY MEDICATION (Biotin 1 mg Capsule) PO SCH (09:00)
[2020-03-29] MEDS: METOPROLOL TARTRATE 1 MG/ML VIAL IV SCH ×5 (10:04→23:56)
--- NOTE | 2020-03-29 10:42 | Cardiology Consultation ---
Date of Consultation March 29, 2020 Assessment & Plan (1) Atrial flutter with rapid ventricular response: Patient with longstanding history of PSVT now with atrial flutter with suboptimally controlled ventricular response and variable BP with orthostatic symptoms and signs. Due to her orthostasis, unlikely she will tolerate adequate dose of negative chronotropic vasoactive medications such as metoprolol or calcium channel isatu. Also, she apparently had brief periods of sinus rhythm noted on monitor (although these are questionable since her atrial flutter can be similar in appearance). Given low likelihood rate control will be achieved without excess hypotension with the usual agents, recommend initiation of amiodarone. Initial dose 200 mg 3 times daily, upon discharge decreased to 200 mg twice daily for 2 weeks, then 200 mg daily. Would discontinue metoprolol once amiodarone initiated. She was appropriately placed on full dose apixaban for anticoagulation. (2) Orthostatic hypotension: As noted above. (3) S/P TAVR (transcatheter aortic valve replacement): TAVR functioning appropriately on echocardiogram last year and on exam currently. (4) Hypertension, essential: Although she has a history of hypertension, currently she has borderline low BP with orthostasis. Recorded blood pressures were variable as well, with mild hypertension at times and borderline hypotension also noted (112 mmHg yesterday). As noted, would discontinue beta-isatu and amiodarone initiated. She appears euvolemic on furosemide 40 mg daily, but if she has persistent orthostasis could reduce this to 40 mg every other day while monitoring weight and volume status. (5) Rectal cancer: Despite her recent recent treatment for rectal cancer with radiation and chemotherapy, her hemoglobin and platelet counts are both adequate for her to tolerate anticoagulation. (6) Controlled type 2 diabetes mellitus with kidney complication, with long-term current use of insulin: History of Present Illness Reason for Consultation: Atrial flutter with rapid ventricular response Requesting Physician: Tuan Andres MD Attending Physician: Mal Sue MD History of Present Illness 85-year-old woman with history of TAVR, diabetes mellitus (on insulin), PSVT, prior TIA, and chronic kidney disease (mild, creatinine 1.01.5 range) who recently completed a course of chemotherapy and radiation therapy for rectal cancer, admitted after incidentally discovered by PCP to have atrial flutter with rapid ventricular response (150 bpm). She denies any subjective palpitations, chest pain, or dyspnea on exertion, but does note orthostatic lightheadedness upon standing and generalized feelings of weakness (particularly hips and legs). She denies any orthopnea, PND, or current leg edema (she has had leg edema in the past and is on a chronic diuretic). She denies any focal neurologic symptoms recently. ECGs since admission and cleaner overnight have shown atrial flutter with variable ventricular response (ranging from 75 bpm to 150 bpm). Her only complaint this morning was lightheadedness when she stood up. Allergies Allergy/AdvReac Type Severity Reaction Status Date / Time exenatide Allergy Unknown MYALGIA Verified 03/28/20 13:43 hydrocodone Allergy Unknown vomiting Verified 03/28/20 13:43 phenol Allergy Unknown MYALGIA Verified 03/28/20 13:43 codeine AdvReac Unknown VOMMITING Verified 03/28/20 13:43 Grnadjp-Wbx-Awe Reductase AdvReac Unknown MYALGIA Verified 03/28/20 13:43 Inhibitor NSAIDS (Non-Steroidal AdvReac Verified 03/28/20 13:43 Anti-Inflamma Home Medications Medication Instructions Recorded Confirmed Type acetaminophen 650 mg 1,300 mg PO TID PRN tab 11/19/18 03/28/20 History tablet,extended release cholecalciferol (vitamin D3) 50 2,000 units PO DAILY tab 11/19/18 03/28/20 History mcg (2,000 unit) tablet cyanocobalamin (vitamin B-12) 500 500 mcg PO DAILY tab 11/19/18 03/28/20 History mcg tablet folic acid 1 mg tablet 1 mg PO DAILY tab 11/19/18 03/28/20 History furosemide 40 mg tablet 40 mg PO DAILY 11/19/18 03/28/20 History wlysnzsqytyp-cfeakoiv-gvirmj tablet 1 tab PO DAILY 11/19/18 03/28/20 History insulin aspart U-100 100 unit/mL 70 units SQ ACHS ml 03/09/19 03/28/20 History subcutaneous solution potassium chloride 20 mEq 40 meq PO DAILY tab 03/09/19 03/28/20 History tablet,extended release(part/cryst) magnesium oxide 400 mg (241.3 mg 400 mg PO BID tab 09/10/19 03/28/20 History magnesium) tablet metoprolol succinate 25 mg 25 mg PO DAILY #90 tab 09/14/19 03/28/20 Rx tablet,extended release 24 hr biotin 1 mg PO DAILY 11/09/19 03/28/20 History acetone (urine) test #25 ea 12/31/19 03/09/20 Rx silver sulfadiazine 1 % topical 1 applic TOPICAL BID #85 g 02/07/20 03/28/20 Rx cream sertraline 25 mg PO DAILY 03/28/20 03/28/20 History Patient History Medical History (Updated 03/29/20 @ 10:56 by Braden Olsen MD) Adult situational stress disorder Anemia Arthritis Bilateral cataracts Controlled diabetes mellitus with neurologic complication, with 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, with long-term current use of insulin Counseling for insulin pump Depression Diabetic nephropathy Diabetic peripheral neuropathy Dysesthesia Dyslipidemia Encounter for pre-operative examination Epidermal inclusion cyst Hypertension Insulin dependent diabetes mellitus Lower GI bleed (11/2019) Rectal cancer (11/12/19) Sensorineural hearing loss (SNHL) of both ears Stage 3 chronic kidney disease Supraventricular tachycardia TIA (transient ischemic attack) Surgical History (Updated 03/29/20 @ 10:50 by Braden Olsen MD) H/O vaginal hysterectomy History of bilateral knee replacement History of bunionectomy History of bunionectomy of both great toes Hx of cholecystectomy S/P TAVR (transcatheter aortic valve replacement) (2018) Family History Brother, unknown Father, age 83 [place] Mother, age 78 CHF Sister, age 54 ovarian cancer Sister, age 79 liver cancer Diabetes Mother iet controlled Father Sister type 2 Heart disease Mother Father Cancer Father type of blood cancer Sister Sister Brother, Onset Age: 76 testicular Hypertension Unknown Stroke Mother Social History Smoking Status: Never smoker Tobacco Type: Cigarettes Age Started Using Tobacco: 20; Age Quit Using Tobacco: 53; packs per day: 0.25; Years Smoked: 33; Number of Years Since Quit: 31; Second Hand Exposure: No; Do You Dip or Chew Tobacco: No; Tobacco Cessation Education Requested by Patient: No Hx Alcohol Use: No Hx Substance Use: No Preferred Language: Argentine Communication Ability: Effective Hearing Ability: Normal Beliefs That Will Affect Care: None marital status: / Current Living Situation: Alone Current Living Situation Comment: [facility] current occupation: Retired How many Children do You have: 5 Other Information That Helps Us Care for You: No Feels Safe at Home: Yes Safety Concerns: Feels Safe At This Time Childhood Exposure to Second-Hand Smoke: No Diet Comment: low carbs low salt caffeine: Yes (coffee one cup per day ) during the past year weight has: remained stable Dental Care, Regularly: Yes Physical Activity Frequency: 3-4 Times per Week Seatbelt Use: always Sunscreen Use: Yes Assistive Devices: Glasses Review of Systems Constitutional: + fatigue; no fever, no chills, no weight loss and no weight gain Eyes: no problem reported Ear, Nose, Mouth, Throat: no problem reported Respiratory: no cough and no dyspnea Cardiovascular: as per Subjective / HPI Gastrointestinal: no abdominal pain and no change in stools Genitourinary: no problem reported Musculoskeletal: no myalgia Integumentary: no rash and no new lesions Neurologic: no falls and no syncope Psychiatric: no problem reported Hematologic / Lymphatic: no easy bleeding and no easy bruising Physical Exam Physical Exam: Elderly white female sitting comfortably, no distress. BP by MD 120/60 mmHg seated, dropped to 100/60 mmHg upon standing (patient felt lightheaded). Recorded pulse 72-104 bpm, monitor shows rates 70-150 bpm Skin: no ecchymoses or generalized lesions. HEENT: unremarkable. Neck: Jugular venous pulse at the clavicle at 90 degrees, no carotid bruits. Lungs: clear. Cardiac: irregular tachycardic rhythm, intact aortic closure sound, no obvious murmur (difficult exam due to tachycardia) Abdomen: benign. Extremities: no edema, pulses intact. Neurologic: normal affect, nonfocal. Results & Data ([facility]) Vital Signs (Past 12 Hours) Vital Signs Temp Pulse Resp BP Pulse Ox 03/29/20 08:00 98.2 F 104 H 18 164/97 H 94 03/29/20 04:15 97.9 F 85 20 165/82 H 96 Diagnostic Findings 2019 echocardiogram showed normal systolic function, appropriately functioning bioprosthetic aortic valve, mild mitral regurgitation. Compared to 2018 study, bioprosthetic valve replaced aortic stenosis. PG Care Time/CCT Total # of Minutes Spent Total Time Spent with Patient: Total time spent is greater than 50% in coordination of care (as documented) at patient's floor/unit and/or counseling patient: Coding Level of Care Code 10443 Initial Inpt Care Lvl 3 Diagnoses Atrial flutter with rapid ventricular response I48.92 Orthostatic hypotension I95.1 S/P TAVR (transcatheter aortic valve replacement) Z95.2 Hypertension, essential I10 Rectal cancer C20 Controlled type 2 diabetes mellitus with kidney complication, with long-term current use of insulin E11.29; Z79.4
--- NOTE | 2020-03-29 12:12 | XCELERA ---
[id number] \\[id number]}___[id number]
[2020-03-29] MEDS ORDERED: GLUCOSE 40% GEL 15 GM TUBE PO PRN (12:39)
[2020-03-29] MEDS ORDERED: CARBOHYDRATES FOR HYPOGLYCEMIA PO PRN (12:39)
[2020-03-29] MEDS ORDERED: GLUCAGON FOR INJ 1 MG VIAL SQ PRN (12:39)
[2020-03-29] MEDS ORDERED: DEXTROSE 50% 50 ML SYRINGE IV PRN (12:39)
[2020-03-29] MEDS ORDERED: GLUCOSE 10 TABS/TUBE PO PRN (12:39)
[2020-03-29] MEDS: INSULIN GLARGINE SOLOSTAR 100 UNITS/ML 3 ML PEN SC SCH ×2 (13:45→20:26)
--- NOTE | 2020-03-29 13:49 | Hospitalist Progress Note ---
Date of Service March 29, 2020 Assessment & Plan (1) Atrial flutter with rapid ventricular response: Appreciate management per cardiology with starting on amiodarone. Continue on increased Toprol XL to 50 mg b.i.d.. Continue Eliquis 5 mg b.i.d.. -- her [id number] is 8. TTE pending Continue Magnesium Oxide 400 mg b.i.d.. Continue Potassium Chloride 40 mEq daily. (2) Hypertension, essential: Continue metoprolol lasix. Monitor closely with orthostatics with addition of amiodarone. (3) Dyslipidemia: Severe statin intolerance. Heart healthy diet. (4) S/P TAVR (transcatheter aortic valve replacement): Echocardiogram 03/17/2019 with normal biventricular systolic function, LVEF 50%-55%, mild LA dilatation, properly functioning bioprosthetic AV with PG 14.2 mmHg, PV 1.9 m/s, and MG 8.3 mmHg. Admission and Anticipated Discharge Date Admission Date: March 28, 2020 Subjective No chest pain, shortness of breath, leg swelling, palpitations, orthopnea or paroxysmal nocturnal dyspnea. She notes ongoing lightheadedness on standing up but this is longstanding. She is most concerned regarding her insulin pump has run out of insulin. Reveals Dr. Olsen which she has had to stay overnight with initiation of amiodarone to make sure she is not overly orthostatic with the addition of this. Review of Systems Review of Systems: All systems reviewed & are unremarkable except as noted in HPI & below Physical Exam Constitutional: well developed and well nourished; no acute distress Eyes: PERRL, conjunctivae normal, anicteric sclerae ENMT: external ear and nose normal, oropharynx normal Neck: trachea midline, no thyromegaly Respiratory: normal respiratory effort, lungs clear to auscultation Cardiovascular: Rate/Rhythm: + tachycardic and + irregularly irregular Heart Sounds: no murmur Extremities: normal capillary refill and + pedal edema (1+ to mid shins bilaterally equal); no calf tenderness Gastrointestinal (Abdomen): normal bowel sounds, soft, nontender, no hepa tosplenomegaly Musculoskeletal: no cyanosis or clubbing, extremities motor strength 5/5 Skin: no rashes, warm and dry Neurologic: moves all extremities and awake; not confused Psychiatric: A+Ox3, euthymic affect Results & Data Results & Data ([facility]) Vital Signs (Past 12 Hours) Vital Signs Temp Pulse Resp BP Pulse Ox 03/29/20 12:00 36.8 C 147 H 18 128/87 97 03/29/20 08:00 36.8 C 104 H 18 164/97 H 94 03/29/20 04:15 36.6 C 85 20 165/82 H 96 PG Care Time/CCT Total # of Minutes Spent Total Time Spent with Patient: Total time spent is greater than 50% in coordination of care (as documented) at patient's floor/unit and/or counseling patient: Coding Level of Care Code 19263 Subseq Hosp Care Lvl 2 Diagnoses Atrial flutter with rapid ventricular response I48.92 Hypertension, essential I10 Dyslipidemia E78.5 S/P TAVR (transcatheter aortic valve replacement) Z95.2
[2020-03-29] MEDS: ACETAMINOPHEN 325 MG TAB PO PRN (13:50)
[2020-03-29] MEDS ORDERED: AMIODARONE 200 MG TAB PO STA (13:50)
[2020-03-29] MEDS: INSULIN ASPART 100 UNITS/ML 3 ML PEN SC SCH ×2 (17:23→20:27)
[2020-03-29] MEDS: AMIODARONE 200 MG TAB PO SCH (17:26)
[2020-03-30] MEDS: METOPROLOL TARTRATE 1 MG/ML VIAL IV SCH ×6 (03:14→23:48)
[2020-03-30 06:31] LABS: Basophils # (auto) 0.01 K/uL (0-0.2); Basophils % (auto) 0.1 %; Eosinophils # (auto) 0.04 K/uL (0-0.5); Eosinophils % (auto) 0.6 %; Hematocrit (blood only) 33.4 % (37-47); Hemoglobin 10.9 g/dL (12.0-16.0); Immature Granulocytes # (auto) 0.02 K/uL (0.00-0.02); Immature Granulocytes % (auto) 0.3 %; Lymphocytes # (auto) 1.27 K/uL (1.2-3.4); Mean Corpuscular Hemoglobin 33.4 pg (25-34); Mean Corpuscular Hgb Conc 32.6 g/dL (32-36); Mean Corpuscular Volume 102.5 fL (80-100); Mean Platelet Volume 10.8 fL (7.4-10.4); Monocytes # (auto) 0.55 K/uL (0.11-0.59); Monocytes % (auto) 7.8 %; Neutrophils # (auto) 5.16 K/uL (1.4-6.5); Neutrophils % (auto) 73.2 %; Platelet Count 171 K/uL (130-400); RDW Coefficient of Variation 16.8 % (11.5-14.5); Red Blood Count 3.26 M/uL (4.2-5.4); White Blood Count 7.05 K/uL (4.8-10.8)
[2020-03-30 07:29] LABS: BUN Creatinine Ratio 24.5 (10-20); Calcium 8.7 mg/dl (8.5-10.1); Creatinine Clr Calc Pharmacy 41.6 ml/min; Est GFR (African American) 54.8; Est GFR (Non-African American) 47.3
[2020-03-30] MEDS: CEROVITE ADV FORMULA TAB PO SCH (08:02)
[2020-03-30] MEDS: FUROSEMIDE 40 MG TAB PO SCH (08:02)
[2020-03-30] MEDS: CYANOCOBALAMIN 500 MCG TABLET (VITAMIN B-12) PO SCH (08:02)
[2020-03-30] MEDS: METOPROLOL SUCC 50MG EXT REL TAB PO SCH ×2 (08:02→21:07)
[2020-03-30] MEDS: FOLIC ACID 1 MG TAB PO SCH (08:02)
[2020-03-30] MEDS: APIXABAN 5 MG TABLET PO SCH ×2 (08:02→20:34)
[2020-03-30] MEDS: CHOLECALCIFEROL 1,000 UNITS 25 MCG TAB PO SCH (08:02)
[2020-03-30] MEDS: MAGNESIUM OXIDE 400 MG TAB PO SCH ×2 (08:02→20:34)
[2020-03-30] MEDS: POTASSIUM CHLORIDE CRTAB 20 MEQ TABCR PO SCH (08:02)
[2020-03-30] MEDS: SERTRALINE HCL 50 MG TABLET PO SCH (08:02)
[2020-03-30] MEDS: AMIODARONE 200 MG TAB PO SCH ×3 (08:03→17:20)
[2020-03-30] MEDS: SILVER SULFADIAZINE 1% CR 50 GM JAR TOP SCH ×2 (08:03→21:07)
[2020-03-30] MEDS: INSULIN ASPART 100 UNITS/ML 3 ML PEN SC SCH ×4 (08:05→21:05)
[2020-03-30] MEDS: INSULIN GLARGINE SOLOSTAR 100 UNITS/ML 3 ML PEN SC SCH ×2 (08:06→21:04)
[2020-03-30 09:22] LABS: Magnesium 2.3 mg/dl (1.8-2.4)
--- NOTE | 2020-03-30 11:21 | Cardiology Progress Note ---
Date of Service March 30, 2020 Assessment & Plan (1) Atrial flutter with rapid ventricular response: Would continue with amiodarone 200 mg 3 times daily until heart rate consistently less than 100 bpm, upon discharge can decrease to 200 mg twice daily for 2 weeks, then 200 mg daily. Would discontinue metoprolol if she tends toward bradycardia. She was appropriately placed on full dose apixaban for anticoagulation. Since she is currently asymptomatic, reasonable for discharge once her heart rate is consistently in the 100 bpm range or lower. (2) Orthostatic hypotension: As noted above. (3) S/P TAVR (transcatheter aortic valve replacement): TAVR functioning appropriately on current echocardiogram. (4) Hypertension, essential: She appears euvolemic on furosemide 40 mg daily, but if she notes recurrent orthostasis or hypotension could reduce dose to 40 mg every other day while monitoring weight and volume status. (5) Rectal cancer: Despite her recent recent treatment for rectal cancer with radiation and chemotherapy, her hemoglobin and platelet counts are both adequate for her to tolerate anticoagulation. (6) Controlled type 2 diabetes mellitus with kidney complication, with long-term current use of insulin: Admission and Anticipated Discharge Date Admission Date: March 28, 2020 Subjective Uneventful night. Patient denies chest pain, dyspnea, presyncope, or syncope. She does note some subjective palpitations, particularly overnight. Monitor shows some improvement in ventricular response, currently 90-100 bpm range. Physical Exam Physical Exam: Elderly white female sitting comfortably, no distress. BP normotensive to mildly hypertensive today. Pulse currently in the 100 bpm range. Skin: no ecchymoses or generalized lesions. HEENT: unremarkable. Neck: Jugular venous pulse at the clavicle at 90 degrees, no carotid bruits. Lungs: clear. Cardiac: irregular tachycardic rhythm, intact aortic closure sound, no obvious murmur Abdomen: benign. Extremities: no edema, pulses intact. Neurologic: normal affect, nonfocal. Results & Data ([facility]) Vital Signs (Past 12 Hours) Vital Signs Temp Pulse Pulse Resp BP BP Pulse Ox 03/30/20 07:28 97.7 F 120 H 18 131/78 97 03/30/20 03:58 98.2 F 76 18 124/76 97 03/30/20 03:14 140 H 167/106 H 03/29/20 23:56 79 03/29/20 23:49 97.9 F 73 18 125/77 94 Diagnostic Findings Echocardiogram showed EF 45 to 50%, septal motion consistent with conduction abnormality (left bundle branch block), bioprosthetic aortic valve functioning appropriately, moderate mitral regurgitation, moderate tricuspid vegetation with mild pulmonary hypertension. Compared to 2019 study, mild decline in LV systolic function (possibly rate related, tachycardic at the time of echo), moderate mitral and tricuspid regurgitation mild pulmonary hypertension now seen. PG Care Time/CCT Total # of Minutes Spent Total Time Spent with Patient: Total time spent is greater than 50% in coordination of care (as documented) at patient's floor/unit and/or counseling patient: Coding Level of Care Code 43899 Subseq Hosp Care Lvl 3 Diagnoses Atrial flutter with rapid ventricular response I48.92 Orthostatic hypotension I95.1 S/P TAVR (transcatheter aortic valve replacement) Z95.2 Hypertension, essential I10 Rectal cancer C20 Controlled type 2 diabetes mellitus with kidney complication, with long-term current use of insulin E11.29; Z79.4
[2020-03-30 11:57] LABS: Potassium 4.5 mmol/L (3.5-5.1)
--- NOTE | 2020-03-30 17:36 | Hospitalist Progress Note ---
Date of Service March 30, 2020 Assessment & Plan (1) Atrial flutter with rapid ventricular response: New onset Appreciate management per cardiology with starting on amiodarone - no change in rates currently Continue on increased Toprol XL to 50 mg b.i.d.. Continue Eliquis 5 mg b.i.d.. -- her [id number] is 8. TTE - LVEF 45-50%, moderate mitral regurgitation, moderate tricuspid regurgitation Continue Magnesium Oxide 400 mg b.i.d.. Continue Potassium Chloride 40 mEq daily. (2) Hypertension, essential: Continue metoprolol lasix. Ongoing longstanding dizziness, will need orthostatics prior to discharge. (3) Dyslipidemia: Severe statin intolerance. Heart healthy diet. (4) S/P TAVR (transcatheter aortic valve replacement): Echocardiogram 03/17/2019 with normal biventricular systolic function, LVEF 50%-55%, mild LA dilatation, properly functioning bioprosthetic AV with PG 14.2 mmHg, PV 1.9 m/s, and MG 8.3 mmHg. (5) Controlled type 2 diabetes mellitus with kidney complication, with long-term current use of insulin: HbA1C 6.9 in June Usual well controlled with insuin pump however ran out of insulin. Switched to her usual settings with basal 15 units/day and bolus correction 120- 140, correction 35 and carb coverage 1:7.5. Admission and Anticipated Discharge Date Admission Date: March 28, 2020 Subjective Patient remains asymptomatic. No lightheadedness on standing. No change in a. flutter rates on telemetry with starting amiodarone. Review of Systems Review of Systems: All systems reviewed & are unremarkable except as noted in HPI & below Physical Exam Constitutional: well developed and well nourished; no acute distress Eyes: PERRL, conjunctivae normal, anicteric sclerae ENMT: external ear and nose normal, oropharynx normal Neck: trachea midline, no thyromegaly Respiratory: normal respiratory effort, lungs clear to auscultation Cardiovascular: Rate/Rhythm: regular rhythm and + tachycardic Heart Sounds: no murmur Extremities: normal capillary refill and + pedal edema (trace to mid shins bilaterally equal); no calf tenderness Gastrointestinal (Abdomen): normal bowel sounds, soft, nontender, no hepatosp lenomegaly Musculoskeletal: no cyanosis or clubbing, extremities motor strength 5/5 Skin: no rashes, warm and dry Neurologic: moves all extremities and awake; not confused Psychiatric: A+Ox3, euthymic affect Results & Data Results & Data ([facility]) Vital Signs (Past 12 Hours) Vital Signs Temp Pulse Pulse Resp BP BP Pulse Ox 03/30/20 16:00 111 H 133/89 03/30/20 15:59 111 H 133/89 03/30/20 15:56 36.9 C 109 H 18 133/89 96 03/30/20 14:20 141 H 03/30/20 11:21 36.6 C 97 H 18 158/86 H 97 03/30/20 07:28 36.5 C 120 H 18 131/78 97 PG Care Time/CCT Total # of Minutes Spent Total Time Spent with Patient: Total time spent is greater than 50% in coordination of care (as documented) at patient's floor/unit and/or counseling patient: Coding Level of Care Code 86647 Subseq Hosp Care Lvl 2 Diagnoses Atrial flutter with rapid ventricular response I48.92 Hypertension, essential I10 Dyslipidemia E78.5 S/P TAVR (transcatheter aortic valve replacement) Z95.2 Controlled type 2 diabetes mellitus with kidney complication, with long-term current use of insulin E11.29; Z79.4
[2020-03-30] MEDS: ACETAMINOPHEN 325 MG TAB PO PRN (18:56)
[2020-03-31] MEDS: ACETAMINOPHEN 325 MG TAB PO PRN (02:14)
[2020-03-31] MEDS: METOPROLOL TARTRATE 1 MG/ML VIAL IV SCH ×5 (03:56→21:15)
[2020-03-31 05:52] LABS: Mean Corpuscular Hgb Conc 32.3 g/dL (32-36); Mean Platelet Volume 10.6 fL (7.4-10.4); Platelet Count 192 K/uL (130-400)
[2020-03-31 06:16] LABS: Hematocrit (blood only) 32.8 % (37-47); Hemoglobin 10.6 g/dL (12.0-16.0); Mean Corpuscular Hemoglobin 33.2 pg (25-34); Mean Corpuscular Volume 102.8 fL (80-100); RDW Coefficient of Variation 16.3 % (11.5-14.5); Red Blood Count 3.19 M/uL (4.2-5.4); White Blood Count 7.83 K/uL (4.8-10.8)
[2020-03-31 06:17] LABS: Basophils # (auto) 0.02 K/uL (0-0.2); Basophils % (auto) 0.3 %; Eosinophils # (auto) 0.01 K/uL (0-0.5); Eosinophils % (auto) 0.1 %; Immature Granulocytes # (auto) 0.02 K/uL (0.00-0.02); Immature Granulocytes % (auto) 0.3 %; Lymphocytes # (auto) 1.08 K/uL (1.2-3.4); Lymphocytes % (auto) 13.8 %; Monocytes # (auto) 0.53 K/uL (0.11-0.59); Monocytes % (auto) 6.8 %; Neutrophils # (auto) 6.17 K/uL (1.4-6.5); Neutrophils % (auto) 78.7 %; Polychromasia 1+
[2020-03-31 06:37] LABS: BUN Creatinine Ratio 23.5 (10-20); Calcium 8.9 mg/dl (8.5-10.1); Creatinine Clr Calc Pharmacy 38.4 ml/min; Est GFR (African American) 49.7; Est GFR (Non-African American) 42.9; Magnesium 2.1 mg/dl (1.8-2.4); Potassium 4.7 mmol/L (3.5-5.1)
[2020-03-31] MEDS: INSULIN ASPART 100 UNITS/ML 3 ML PEN SC SCH ×4 (08:29→21:13)
[2020-03-31] MEDS: INSULIN GLARGINE SOLOSTAR 100 UNITS/ML 3 ML PEN SC SCH ×2 (08:29→21:12)
[2020-03-31] MEDS: FUROSEMIDE 40 MG TAB PO SCH (08:30)
[2020-03-31] MEDS: CYANOCOBALAMIN 500 MCG TABLET (VITAMIN B-12) PO SCH (08:30)
[2020-03-31] MEDS: SERTRALINE HCL 50 MG TABLET PO SCH (08:30)
[2020-03-31] MEDS: CEROVITE ADV FORMULA TAB PO SCH (08:30)
[2020-03-31] MEDS: FOLIC ACID 1 MG TAB PO SCH (08:30)
[2020-03-31] MEDS: METOPROLOL SUCC 50MG EXT REL TAB PO SCH ×2 (08:30→21:16)
[2020-03-31] MEDS: CHOLECALCIFEROL 1,000 UNITS 25 MCG TAB PO SCH (08:30)
[2020-03-31] MEDS: POTASSIUM CHLORIDE CRTAB 20 MEQ TABCR PO SCH (08:30)
[2020-03-31] MEDS: APIXABAN 5 MG TABLET PO SCH ×2 (08:31→21:14)
[2020-03-31] MEDS: MAGNESIUM OXIDE 400 MG TAB PO SCH ×2 (08:31→21:15)
[2020-03-31] MEDS: AMIODARONE 200 MG TAB PO SCH (08:31)
[2020-03-31] MEDS: SILVER SULFADIAZINE 1% CR 50 GM JAR TOP SCH ×2 (08:31→21:16)
--- NOTE | 2020-03-31 12:00 | Cardiology Progress Note ---
Date of Service She did have some palpitations last evening from midnight to 3 AM. It was also associated with some chest discomfort. She has no chest discomfort currently s he is unaware of any palpitations. She has no lightheadedness or dizziness. She has no shortness of breath currently. She has a lower extremity edema. She is not short of breath talking in sentences. March 31, 2020 Assessment & Plan Admission and Anticipated Discharge Date Admission Date: March 28, 2020 Results & Data ([facility]) Vital Signs (Past 12 Hours) Vital Signs Temp Pulse Pulse Resp BP BP Pulse Ox 03/31/20 07:41 36.6 C 91 H 18 124/80 98 03/31/20 03:56 108 H 140/87 03/31/20 02:49 37.1 C 114 H 18 154/97 H 93 03/31/20 02:17 36.6 C 117 H 20 140/92 92 03/31/20 00:33 36.6 C 109 H 15 145/88 H 95 Assessment & Plan (1) Atrial flutter with rapid ventricular response: Oral amiodarone does not appear to be controlling her rates. She is relatively asymptomatic unless her heart rates are fast. I therefore would add digoxin 0.25 mg x 3 doses today and then 0.125 mg daily. Her renal function during this admission is stable.She should remain on beta-blockers.She does have a left bundle branch block we will have to watch for evidence of high degree AV block with 2 AV tu blockers. I believe the risk of Needing a pacemaker Is not significantly different with the use of digoxin versus amiodarone. She should remain on full dose anticoagulation. She also has a history of mild LV dysfunction. At this point there is no indication for defibrillator or pacemaker as I discussed with her All this was discussed with Dr. Sue at the bedside (2) Orthostatic hypotension: (3) S/P TAVR (transcatheter aortic valve replacement): TAVR functioning appropriately on current echocardiogram. (4) Hypertension, essential: She appears euvolemic on furosemide 40 mg daily, but if she notes recurrent orthostasis or hypotension could reduce dose to 40 mg every other day while monitoring weight and volume status. (5) Rectal cancer: Despite her recent recent treatment for rectal cancer with radiation and chemotherapy, her hemoglobin and platelet counts are both adequate for her to tolerate anticoagulation. (6) Controlled type 2 diabetes mellitus with kidney complication, with long-term current use of insulin: Physical Exam: Elderly white female sitting comfortably, no distress. Lungs: clear.No rales rhonchi or wheezing Cardiac: irregular tachycardic rhythm, intact aortic closure sound, no obvious murmur Abdomen: benign.Soft nontender nondistended positive bowel sounds Extremities: no edema, pulses intact. Neurologic: normal affect, nonfocal. Psychiatric: Her affect appeared appropriate
--- NOTE | 2020-03-31 13:23 | Hospitalist Progress Note ---
Date of Service March 31, 2020 Assessment & Plan (1) Atrial flutter with rapid ventricular response: New onset Appreciate management per cardiology. Dr Saul planning on loading with digoxin today. TSH with AM labs Continue on increased Toprol XL to 50 mg b.i.d. Continue Eliquis 5 mg b.i.d.. -- her [id number] is 8 (started this admission) TTE - LVEF 45-50%, moderate mitral regurgitation, moderate tricuspid regurgitation Continue Magnesium Oxide 400 mg b.i.d.. Continue Potassium Chloride 40 mEq daily. (2) Hypertension, essential: Continue metoprolol lasix. Ongoing longstanding dizziness, will need orthostatics prior to discharge. (3) Dyslipidemia: Severe statin intolerance. Heart healthy diet. (4) S/P TAVR (transcatheter aortic valve replacement): Echocardiogram 03/17/2019 with normal biventricular systolic function, LVEF 50%-55%, mild LA dilatation, properly functioning bioprosthetic AV with PG 14.2 mmHg, PV 1.9 m/s, and MG 8.3 mmHg. (5) Controlled type 2 diabetes mellitus with kidney complication, with long-term current use of insulin: HbA1C 6.9 in June Usual well controlled with insuin pump however ran out of insulin. Switched to her usual settings with basal 15 units/day and bolus correction 120- 140, correction 35 and carb coverage 1:7.5. Given elevated glucose measurements will increase lantus to 10 units BID and decrease carb ratio to 1:6 and correction 18. Resume her usual insulin on discharge. Admission and Anticipated Discharge Date Admission Date: March 28, 2020 Subjective Patient remains asymptomatic. No lightheadedness on standing. No change in a. flutter rates on telemetry with starting amiodarone. Elevated glucose after converting from her pump to basal bolus regimen with same parameters Amiodarone appears to not be making a difference - discussed with Dr Saul who will review patient. Review of Systems Review of Systems: All systems reviewed & are unremarkable except as noted in HPI & below Physical Exam Constitutional: well developed and well nourished; no acute distress Respiratory: normal respiratory effort, lungs clear to auscultation Cardiovascular: Rate/Rhythm: regular rhythm and + tachycardic Heart Sounds: no murmur Extremities: normal capillary refill and + pedal edema (trace to mid shins bilaterally equal); no calf tenderness Neurologic: moves all extremities and awake; not confused Psychiatric: A+Ox3, euthymic affect Results & Data Results & Data ([facility]) Vital Signs (Past 12 Hours) Vital Signs Temp Pulse Pulse Resp BP BP Pulse Ox 03/31/20 07:41 36.6 C 91 H 18 124/80 98 03/31/20 03:56 108 H 140/87 03/31/20 02:49 37.1 C 114 H 18 154/97 H 93 03/31/20 02:17 36.6 C 117 H 20 140/92 92 PG Care Time/CCT Total # of Minutes Spent Total Time Spent with Patient: Total time spent is greater than 50% in coordination of care (as documented) at patient's floor/unit and/or counseling patient: Coding Level of Care Code 93553 Subseq Hosp Care Lvl 2 Diagnoses Atrial flutter with rapid ventricular response I48.92 Hypertension, essential I10 Dyslipidemia E78.5 S/P TAVR (transcatheter aortic valve replacement) Z95.2 Controlled type 2 diabetes mellitus with kidney complication, with long-term current use of insulin E11.29; Z79.4
[2020-03-31] MEDS: DIGOXIN 0.25 MG TAB PO SCH ×2 (13:27→21:14)
[2020-03-31] MEDS ORDERED: ACETAMINOPHEN 500 MG TAB PO PRN (21:25)
[2020-04-01] MEDS: METOPROLOL TARTRATE 1 MG/ML VIAL IV SCH ×6 (00:11→20:38)
[2020-04-01 08:41] LABS: Hematocrit (blood only) 33.4 % (37-47); Hemoglobin 10.8 g/dL (12.0-16.0); Mean Corpuscular Hemoglobin 33.4 pg (25-34); Mean Corpuscular Hgb Conc 32.3 g/dL (32-36); Mean Corpuscular Volume 103.4 fL (80-100); Mean Platelet Volume 10.7 fL (7.4-10.4); Platelet Count 218 K/uL (130-400); RDW Standard Deviation 61.4 fL (36.4-46.3); Red Blood Count 3.23 M/uL (4.2-5.4); White Blood Count 6.02 K/uL (4.8-10.8)
[2020-04-01] MEDS: DIGOXIN 0.25 MG TAB PO SCH (09:05)
[2020-04-01] MEDS: SERTRALINE HCL 50 MG TABLET PO SCH (09:05)
[2020-04-01] MEDS: MAGNESIUM OXIDE 400 MG TAB PO SCH ×2 (09:07→20:37)
[2020-04-01] MEDS: METOPROLOL SUCC 50MG EXT REL TAB PO SCH (09:08)
[2020-04-01] MEDS: FUROSEMIDE 40 MG TAB PO SCH (09:08)
[2020-04-01] MEDS: CEROVITE ADV FORMULA TAB PO SCH (09:08)
[2020-04-01] MEDS: FOLIC ACID 1 MG TAB PO SCH (09:08)
[2020-04-01] MEDS: POTASSIUM CHLORIDE CRTAB 20 MEQ TABCR PO SCH (09:09)
[2020-04-01] MEDS: CYANOCOBALAMIN 500 MCG TABLET (VITAMIN B-12) PO SCH (09:09)
[2020-04-01] MEDS: INSULIN GLARGINE SOLOSTAR 100 UNITS/ML 3 ML PEN SC SCH ×2 (09:09→20:39)
[2020-04-01] MEDS: APIXABAN 5 MG TABLET PO SCH ×2 (09:09→20:37)
[2020-04-01 09:10] LABS: BUN Creatinine Ratio 21.9 (10-20); Calcium 8.8 mg/dl (8.5-10.1); Creatinine Clr Calc Pharmacy 39.1 ml/min; Est GFR (African American) 48.7
[2020-04-01] MEDS: INSULIN ASPART 100 UNITS/ML 3 ML PEN SC SCH ×4 (09:10→20:17)
[2020-04-01 09:21] LABS: Thyroid Stimulating Hormone 2.41 uIu/ml (0.300-4.500)
[2020-04-01] MEDS: CHOLECALCIFEROL 1,000 UNITS 25 MCG TAB PO SCH (09:24)
[2020-04-01] MEDS: SILVER SULFADIAZINE 1% CR 50 GM JAR TOP SCH ×2 (09:24→20:38)
[2020-04-01 09:25] LABS: Folate (Folic Acid) > 20.00 ng/ml (>5.38); Vitamin B12 845 pg/ml (193-986)
--- NOTE | 2020-04-01 09:34 | Hospitalist Progress Note ---
Date of Service April 01, 2020 Assessment & Plan (1) Atrial flutter with rapid ventricular response: New onset * Appreciate management per cardiology with starting on amiodarone - no change in rates currently * Continue on increased Toprol XL to 50 mg b.i.d.. * Continue Eliquis 5 mg b.i.d.. -- her [id number] is 8. * TTE - LVEF 45-50%, moderate mitral regurgitation, moderate tricuspid regurgitation * Continue Magnesium Oxide 400 mg b.i.d.. * Continue Potassium Chloride 40 mEq daily. * Switched from amiodarone to digoxin on 03/31 -- to get third dose loading today, then .125mcg daily * --> Will discuss with cardiology about increasing metoprolol further to gain better control as HR up to 150s today, improved to 90s with Lopressor push. BPs stable 118/84 * TSH wnl. Will obtain trop given reported CP -- trend if elevated although suspect would be due to demand. No EKG changes noted (2) Hypertension, essential: * BP stable 118/84 * Continue metoprolol, lasix, potassium * Ongoing longstanding dizziness, will need orthostatics prior to discharge -- POSITIVE. Will give NSS @ 80cc/hr x 500cc. Repeat in AM (3) Dyslipidemia: * Severe statin intolerance. * Heart healthy diet. (4) S/P TAVR (transcatheter aortic valve replacement): * Echocardiogram 03/17/2019 with normal biventricular systolic function, LVEF 50%-55%, mild LA dilatation, properly functioning bioprosthetic AV with PG 14.2 mmHg, PV 1.9 m/s, and MG 8.3 mmHg. (5) Controlled type 2 diabetes mellitus with kidney complication, with long-term current use of insulin: * HbA1C 6.9 in June * Usual well controlled with insulin pump however ran out of insulin. * Switched to her usual settings with basal 15 units/day and bolus correction 120-140, correction 35 and carb coverage 1:7.5. * BSGs acceptable Depression * Continue sertraline daily Dispo: continued inpatient stay for HR control. possible d/c tomorrow on increased metoprolol, digoxin, and Eliquis given CHADsVASc Admission and Anticipated Discharge Date Admission Date: March 28, 2020 Subjective Patient evaluated this morning. Heart rates had been up to the 150s, aflutter rvr, and nursing administered Lopressor push, with resulting HR in the 90s. She states she had some palpitations and chest tightness, but no nausea, vomiting, shortness of breath reported. She notes they don't get better or worse with activity, but that they actually seem to occur right after medication administration. No fever, chills, although did wake up last night with wet gown/sheets. Blood sugar elevated at that time per her account. Plans to discuss with cardiology about altering her beta isatu if digoxin unsuccessful at keeping rates controlled throughout the day and possible d/c tomorrow if these are obtained. Patient conveys she would like to remain inpatient until issues are resolved. Review of Systems Review of Systems: All systems reviewed & are unremarkable except as noted in HPI & below Physical Exam Constitutional: well developed, well nourished and + obese; no acute distress Eyes: + anicteric sclerae and PERRL ENMT: hearing impairment b/l Neck: normal visual inspection and trachea midline Respiratory: normal respiratory effort, lungs clear to auscultation Cardiovascular: Rate/Rhythm: + tachycardic and + irregularly irregular Vessels: no JVD Extremities: + edema (trace non-pitting) Gastrointestinal (Abdomen): normal bowel sounds, soft, nontender, no hepatosplenomegaly Musculoskeletal: no cyanosis or clubbing, extremities motor strength 5/5 Skin: warm, dry Neurologic: PERRL, EOMI, accommodation nl, no face palsy, no dysarthria Psychiatric: A+Ox3, euthymic affect Lymphatic: no cervical or axillary lymphadenopathy Results & Data Results & Data ([facility]) Vital Signs (Past 12 Hours) Vital Signs Temp Pulse Pulse Resp BP BP Pulse Ox 04/01/20 09:12 128 H 118/84 04/01/20 09:05 128 H 04/01/20 08:09 36.4 C L 153 H 17 118/84 96 04/01/20 07:29 90 04/01/20 03:54 93 H 115/75 04/01/20 03:05 36.3 C L 93 H 18 115/75 98 04/01/20 00:34 120 H 04/01/20 00:11 120 H 132/87 03/31/20 23:14 36.6 C 72 16 132/87 95 Laboratory Results 04/01/20 04/01/2004/01/20 Range/Units 08:03 08:03 08:03 WBC 6.02 (4.8-10.8) K/uL RBC 3.23 L (4.2-5.4) M/uL Hgb 10.8 L (12.0-16.0) g/dL Hct 33.4 L (37-47) % MCV 103.4 H (80-100) fL MCH 33.4 (25-34) pg MCHC 32.3 (32-36) g/dL RDW Std Deviation 61.4 H (36.4-46.3) fL RDW Coeff of Abimael 16.0 H (11.5-14.5) % Plt Count 218 (130-400) K/uL MPV 10.7 H (7.4-10.4) fL Sodium 138 (136-145) mmol/L Potassium 4.0 (3.5-5.1) mmol/L Chloride 103 (98-107) mmol/L Carbon Dioxide 27 (21-32) mmol/L Anion Gap 8.0 (3-11) BUN 26 H (7-18) mg/dl Creatinine 1.18 (0.6-1.2) mg/dl Est Cr Clr Drug Dosing 39.1 ml/min Est GFR ( Amer) 48.7 Est GFR (Non-Af Amer) 42.0 BUN/Creatinine Ratio 21.9 H (10-20) Glucose 154 H (70-99) mg/dl POC Glucose (70-99) mg/dl Calcium 8.8 (8.5-10.1) mg/dl Vitamin B12 845 (193-986) pg/ml Folate > 20.00 (>5.38) ng/ml TSH 2.410 (0.300-4.500) uIu/ml 04/01/20 03/31/20 03/31/20 Range/Units 07:39 21:00 16:35 WBC (4.8-10.8) K/uL RBC (4.2-5.4) M/uL Hgb (12.0-16.0) g/dL Hct (37-47) % MCV (80-100) fL MCH (25-34) pg MCHC (32-36) g/dL RDW Std Deviation (36.4-46.3) fL RDW Coeff of Abimael (11.5-14.5) % Plt Count (130-400) K/uL MPV (7.4-10.4) fL Sodium (136-145) mmol/L Potassium (3.5-5.1) mmol/L Chloride (98-107) mmol/L Carbon Dioxide (21-32) mmol/L Anion Gap (3-11) BUN (7-18) mg/dl Creatinine (0.6-1.2) mg/dl Est Cr Clr Drug Dosing ml/min Est GFR ( Amer) Est GFR (Non-Af Amer) BUN/Creatinine Ratio (10-20) Glucose (70-99) mg/dl POC Glucose 168 H 165 H 132 H (70-99) mg/dl Calcium (8.5-10.1) mg/dl Vitamin B12 (193-986) pg/ml Folate (>5.38) ng/ml TSH (0.300-4.500) uIu/ml 03/31/ Range/Units 11:31 WBC (4.8-10.8) K/uL RBC (4.2-5.4) M/uL Hgb (12.0-16.0) g/dL Hct (37-47) % MCV (80-100) fL MCH (25-34) pg MCHC (32-36) g/dL RDW Std Deviation (36.4-46.3) fL RDW Coeff of Abimael (11.5-14.5) % Plt Count (130-400) K/uL MPV (7.4-10.4) fL Sodium (136-145) mmol/L Potassium (3.5-5.1) mmol/L Chloride (98-107) mmol/L Carbon Dioxide (21-32) mmol/L Anion Gap (3-11) BUN (7-18) mg/dl Creatinine (0.6-1.2) mg/dl Est Cr Clr Drug Dosing ml/min Est GFR ( Amer) Est GFR (Non-Af Amer) BUN/Creatinine Ratio (10-20) Glucose (70-99) mg/dl POC Glucose 249 H (70-99) mg/dl Calcium (8.5-10.1) mg/dl Vitamin B12 (193-986) pg/ml Folate (>5.38) ng/ml TSH (0.300-4.500) uIu/ml PG Care Time/CCT Total # of Minutes Spent Total Time Spent with Patient: Total time spent is greater than 50% in coordination of care (as documented) at patient's floor/unit and/or counseling patient: Coding Level of Care Code 60944 Subseq Hosp Care Lvl 2 Diagnoses Atrial flutter with rapid ventricular response I48.92 Hypertension, essential I10 Dyslipidemia E78.5 S/P TAVR (transcatheter aortic valve replacement) Z95.2 Controlled type 2 diabetes mellitus with kidney complication, with long-term current use of insulin E11.29; Z79.4
[2020-04-01] MEDS ORDERED: SODIUM CHLORIDE 0.9% 500 ML IV SCH (11:00)
[2020-04-01] MEDS ORDERED: METOPROLOL TARTRATE 25 MG TAB PO ONE (11:41)
[2020-04-01] MEDS ORDERED: DIGOXIN 0.125 MG TAB PO SCH (16:00)
[2020-04-01] MEDS: METOPROLOL SUCC 25MG EXT REL TAB PO SCH (20:37)
[2020-04-02] MEDS: METOPROLOL TARTRATE 1 MG/ML VIAL IV SCH ×4 (00:17→12:27)
[2020-04-02 07:15] VITALS: O2SAT 96
[2020-04-02 08:58] LABS: Basophils # (auto) 0.03 K/uL (0-0.2); Basophils % (auto) 0.5 %; Eosinophils # (auto) 0.08 K/uL (0-0.5); Eosinophils % (auto) 1.3 %; Hematocrit (blood only) 33.3 % (37-47); Hemoglobin 10.8 g/dL (12.0-16.0); Immature Granulocytes # (auto) 0.03 K/uL (0.00-0.02); Immature Granulocytes % (auto) 0.5 %; Lymphocytes # (auto) 1.07 K/uL (1.2-3.4); Lymphocytes % (auto) 16.9 %; Mean Corpuscular Hemoglobin 33.6 pg (25-34); Mean Corpuscular Hgb Conc 32.4 g/dL (32-36); Mean Corpuscular Volume 103.7 fL (80-100); Mean Platelet Volume 10.6 fL (7.4-10.4); Monocytes # (auto) 0.38 K/uL (0.11-0.59); Neutrophils # (auto) 4.76 K/uL (1.4-6.5); Neutrophils % (auto) 74.8 %; Platelet Count 224 K/uL (130-400); RDW Coefficient of Variation 15.8 % (11.5-14.5); RDW Standard Deviation 59.6 fL (36.4-46.3); Red Blood Count 3.21 M/uL (4.2-5.4); White Blood Count 6.35 K/uL (4.8-10.8)
[2020-04-02] MEDS: METOPROLOL SUCC 25MG EXT REL TAB PO SCH (09:07)
[2020-04-02] MEDS: MAGNESIUM OXIDE 400 MG TAB PO SCH (09:07)
[2020-04-02] MEDS: APIXABAN 5 MG TABLET PO SCH (09:07)
[2020-04-02] MEDS: FOLIC ACID 1 MG TAB PO SCH (09:08)
[2020-04-02] MEDS: CEROVITE ADV FORMULA TAB PO SCH (09:08)
[2020-04-02] MEDS: SERTRALINE HCL 50 MG TABLET PO SCH (09:09)
[2020-04-02] MEDS: CHOLECALCIFEROL 1,000 UNITS 25 MCG TAB PO SCH (09:09)
[2020-04-02] MEDS: CYANOCOBALAMIN 500 MCG TABLET (VITAMIN B-12) PO SCH (09:09)
[2020-04-02] MEDS: FUROSEMIDE 40 MG TAB PO SCH (09:09)
[2020-04-02] MEDS: POTASSIUM CHLORIDE CRTAB 20 MEQ TABCR PO SCH (09:10)
[2020-04-02] MEDS: INSULIN ASPART 100 UNITS/ML 3 ML PEN SC SCH ×2 (09:10→13:16)
[2020-04-02] MEDS: SILVER SULFADIAZINE 1% CR 50 GM JAR TOP SCH (09:11)
[2020-04-02] MEDS: INSULIN GLARGINE SOLOSTAR 100 UNITS/ML 3 ML PEN SC SCH (09:11)
[2020-04-02 09:17] LABS: BUN Creatinine Ratio 25.6 (10-20); Calcium 9.1 mg/dl (8.5-10.1); Creatinine Clr Calc Pharmacy 38.4 ml/min; Est GFR (African American) 47.7; Est GFR (Non-African American) 41.2; Potassium 4.5 mmol/L (3.5-5.1)
[2020-04-02 09:28] LABS: Thyroid Stimulating Hormone 2.25 uIu/ml (0.300-4.500)
[2020-04-02 12:03] VITALS: BP 147/86; TEMP 98.1
[2020-04-02] MEDS ORDERED: LOPERAMIDE HCL 2 MG CAP PO STA (13:01)
--- NOTE | 2020-04-02 13:01 | Discharge Summary ---
Date of Service April 02, 2020 Admission HPI Per Admitting Provider Mrs. 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 Overall, the patient has been feeling well although she admits to occasionally experiencing exertional dyspnea which may related to A-Flutter -- as she has had some of this lately. Patient was being seen by her PCP today for a wellness checkup, and was noted to be quite tachycardic but she was not particularly symptomatic with it. Specifically, the patient does not have any sensation of palpitations, tachy-palpitations, or that her heart is racing. Patient further denies any chest pain, heaviness, tightness, pressure, or discomfort. She has not noticed any neck, jaw, back, or arm pain. She has not had any diaphoresis, nausea, vomiting, or any shortness of breath at rest. She denies any orthopnea or PND. Patient has not had any signs or symptoms suggestive of stroke or mini stroke. EKG's in the ER have shown A-Flutter with variable AV conduction and an IVCD, A- Flutter with 2-1 AV conduction and an IVCD. Initial Troponin I is undetectable. Electrolytes are within normal limits, and she is mildly anemic with a hemoglobin of 11.3 grams/deciliter with a normal platelet count. ESR is elevated at 50 mm/Hr. Patient has already been given 1 dose of Eliquis 5 mg, she received IV Lopressor, and IV magnesium sulfate. At this point, she is having brief periods of sinus rhythm and then converts back to atrial flutter. Please note that the patient has not had any GI bleeding related to her rectal cancer following her chemo and radiation treatments. HISTORICAL BACKGROUND: Episode of Syncope in December 2015 after standing for 20 minutes. She developed sensation of diaphoresis and nausea. She then had a loss of consciousness for approximately 10 minutes. She denied any associated chest pain or dyspnea with the episode. She was able to sit down prior to losing consciousness. She did not fall to the floor or injure herself. She did not seek any medical attention for this at that time. She did subsequently tell Dr. Schaefer's staff about this episode. An EKG 12/21/2015 revealed sinus rhythm with PACs. Poor R-wave progression V1-V3. Minor nonspecific ST abnormalities. A Holter monitor performed the same day revealed sinus rhythm. Occasional non complex ventricular ectopy. Frequent premature supraventricular beats. Eight runs of supraventricular tachycardia. Longest episode 41 beats. Fastest episode was 161 beats per minute. That episode lasted 14 beats. No significant pauses or abnormal bradyarrhythmias. No symptoms were reported during the Holter recording. The patient states that she has a longstanding history of lightheadedness and prior episodes of syncope. Five years prior stated she had recurrent postural lightheadedness. She had a syncopal event and stated her blood pressure was low. In December and early January 2016 she had recurrent episodes of lightheadedness after prolonged standing. This occurred at least 3 times. She was usually standing for at least 10 minutes. She had no further syncope. Medical records show that she was admitted in July 2014 to [facility] in [facility] for syncope and chest pain. Her electrocardiogram did not reveal any acute changes. Cardiac enzymes were negative for myocardial injury. A nuclear myocardial exercise scan was negative for ischemia. 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 It was recommended by the extender that beta-blockers be held. Patient was originally seen by Dr. Mota 01/08/2016 for episodes of syncope and postural lightheadedness. These were felt to be related to postural hypotension. Improvement and resolution of her symptoms with decrease and then complete discontinuation of lisinopril therapy. History of dyslipidemia. Intolerant of statins. Severe myalgias on statins. Echocardiogram January 24, 2016 performed for episode of syncope and recurrent postural lightheadedness revealed normal biventricular systolic function, mild concentric LVH, left ventricular diastolic dysfunction, mild left atrial dilatation, moderate calcific aortic stenosis, trace to mild mitral regurgitation, trace tricuspid regurgitation. Calculated aortic valve area 1.1 square centimeters. Mean aortic valve gradient 19 millimeters Hg. Echocardiogram 03/2017 with normal left ventricular size. Low normal LV ejection fraction 50-55%. Mild LVH. Type 1 LV diastolic dysfunction. Mild mitral regurgitation. Mild to moderate aortic stenosis. Calculated aortic valve area 1.5 square centimeters. Mean gradient across the aortic valve 20.7 millimeters Hg. Patient was seen by Dr. Mota for an acute visit March 16, 2018. She complained of increasing dyspnea on exertion for the prior 2-3 months. This was occurring after walking only 50-70 feet. A repeat echocardiogram was performed on March 17, 2018 to assess for worsening of her aortic stenosis. It revealed low normal LV ejection fraction 50-55%. Mild concentric LVH. Grade 2 LV diastolic dysfunction. Trileaflet aortic valve. Moderate to severe aortic calcification. Moderate to severe valvular aortic stenosis. Calculated aortic valve area 0.94 cm sq. Mean gradient across aortic valve 38.2 mm Hg. Dimensionless valve index 0.25. Trace aortic and mild mitral regurgitation. Compared to an echocardiogram of March 18, 2017 the aortic valve velocity ratio and calculated aortic valve area had decreased. The mean gradient had increased. Based on her symptoms it was recommended to her that she be referred to a center which could perform a TAVR procedure. She chose the [facility]. The [facility] was contacted. The response from [facility] was that she did not require a valve replacement. She was again referred back to the [facility] to be seen in Cardiology. She was evaluated there August 03, 2018. Her evaluation at that time agreed that valve replacement was indicated. She is underwent testing at the [facility] from October 28-October 30. S/P TAVR on 11/09/18 with #26 mm Velazquez Jorge S3. Echo post TAVR: LVEF 35%-45%, normal LV and RV size, normal RV systolic function, no AR, PG AV 13 mm Hg, mean gradient AV 7 mm Hg. No complications. Right femoral and right radial arteries used for access. Echo 03/17/2019 with normal biventricular systolic function, LVEF 50%-55%, mild LA dilatation, properly functioning bioprosthetic AV with PG 14.2 mmHg, PV 1.9 m/s, and MG 8.3 mm Hg. Admission November 09, 2019 with 2 week history of lower GI bleeding. Colonoscopy revealed rectal cancer. Admission Exam Per Admitting Provider Constitutional: WD/WN, vitals as above Eyes: EOM intact bilaterally; no conjunctival abnormality ENMT: external ear and nose normal, oropharynx normal Neck: trachea midline, no thyromegaly normal visual inspection Respiratory: normal respiratory effort, lungs clear to auscultation no respiratory distress Cardiovascular: RRR, no murmur, no edema Gastrointestinal (Abdomen): Inspection/Auscultation: abdomen normal to inspection and normal bowel sounds; abdomen not distended Percussion/Palpation: abdomen soft; abdomen nontender, no guarding and abdomen not rigid Musculoskeletal: no cyanosis or clubbing, extremities motor strength 5/5 Skin: no rashes, warm and dry Neurologic: moves all extremities and awake Psychiatric: Orientation: alert, oriented to person and cooperative Principal Diagnosis Atrial Flutter with RVR Discharge Exam Temp Pulse Resp BP Pulse Ox 36.7 C 94 H 16 147/86 H 96 04/02/20 12:02 04/02/20 12:27 04/02/20 12:02 04/02/20 12:02 04/02/20 12:02 Patient is afebrile. BP elevated at 147/86, but the patient is asymptomatic. Pulse averaging in the 70s today, but has been as high as 102. Last was 94. Constitutional + overweight; no acute distress ENMT Ears: no hearing impairment Neck normal visual inspection Respiratory normal respiratory effort, lungs clear to auscultation Cardiovascular Rate/Rhythm: regular rate and + irregularly irregular Vessels: no JVD Extremities: + edema (non-pitting ) Gastrointestinal (Abdomen) Inspection/Auscultation: normal bowel sounds Percussion/Palpation: abdomen soft; abdomen nontender Psychiatric A+Ox3, euthymic affect Discharge Data Allergies Allergy/AdvReac Type Severity Reaction Status Date / Time exenatide Allergy Unknown MYALGIA Verified 03/28/20 13:43 hydrocodone Allergy Unknown vomiting Verified 03/28/20 13:43 phenol Allergy Unknown MYALGIA Verified 03/28/20 13:43 codeine AdvReac Unknown VOMMITING Verified 03/28/20 13:43 Yxwygvv-Ifb-Hwi Reductase AdvReac Unknown MYALGIA Verified 03/28/20 13:43 Inhibitor NSAIDS (Non-Steroidal AdvReac Verified 03/28/20 13:43 Anti-Inflamma Consultations 03/28/20 14:26 Consult Cardiology Stat 03/28/20 15:30 ED Decision to Admit Stat Ordered Studies 03/28/20 12:25 CT angio chest PE protocol Stat 03/28/20 12:41 CT abd pelvis IV con only Stat Hospital Course (1) Atrial flutter with rapid ventricular response: New onset * Rate improved on Metoprolol 75mg BID. * Continue Eliquis 5 mg b.i.d.. -- her [id number] is 8. * TTE - LVEF 45-50%, moderate mitral regurgitation, moderate tricuspid regurgitation * Continue Magnesium Oxide 400 mg b.i.d.. * Continue Potassium Chloride 40 mEq daily. * Switched from amiodarone to digoxin on 03/31 -- Had 3rd loading dose and now on 125mcg daily * TSH wnl. Normal troponin. No EKG changes noted * No cardiac interventions planned at this time. OK for d/c home from cardiac standpoint. (2) Hypertension, essential: * BP stable at 147/86 * Continue metoprolol, lasix, potassium * Ongoing longstanding dizziness secondary to orthostatic hypotension. NSS @ 80cc/hr x 500cc given. (3) Dyslipidemia: * Severe statin intolerance. * Heart healthy diet. (4) S/P TAVR (transcatheter aortic valve replacement): * Echocardiogram 03/17/2019 with normal biventricular systolic function, LVEF 50%-55%, mild LA dilatation, properly functioning bioprosthetic AV with PG 14.2 mmHg, PV 1.9 m/s, and MG 8.3 mmHg. (5) Controlled type 2 diabetes mellitus with kidney complication, with long-term current use of insulin: * HbA1C 6.9 in June * Usual well controlled with insulin pump however ran out of insulin. * Switched to her usual settings with basal 15 units/day and bolus correction 120-140, correction 35 and carb coverage 1:7.5. * BSGs acceptable Depression * Continue sertraline daily Dispo: D/c home today on increased metoprolol, digoxin, and Eliquis given CHADsVASc. Patient lives in an independent apartment at the [place]. Follow-up with cardiology in 1-2 weeks. PCP in 1 week. Total Time Total Time Spent Total Time Spent (In Minutes): 45 Total Time Includes: Examination of the Patient, Discharge Planning, Medication Reconciliation and Communication With Other Providers Discharge Plan Discharge Items Patient Disposition: Home - Self-Care Reason For Visit: NEW ONSET RAPID A-FLUTTER Discharge Diagnosis: A-flutter with RVR. Activity: As commented below Activity Comment: Gradually increase as tolerated. Lifting: Gradually increase as tolerated Bathing: No limitations Sexual Activity: Wait until after follow-up appointment Exercise/Sports: Gradually increase as tolerated Driving/Machine Use: Resume 3 days after discharge Weightbearing: Full weightbearing Non-emergency contact: Primary Care Provider and Manager Medical Call non-emergency contact if: you have any medication questions, your symptoms worsen and you have a fever Follow-up/Referrals: Ovi Schaefer MD [Primary Care Provider] - Diet: Carb Consistent or DM2 and Heart Healthy Addtl Attending Provider Instructions: Follow-up with cardiology in 1-2 weeks. Follow-up with primary care in 1 week. Pending Studies at Discharge: No Stand-Alone Forms: My [facility] Medications and DC Order Prescriptions: New digoxin [Digitek] 125 mcg (0.125 mg) Tablet 125 mcg PO DAILY@1600 30 Days Qty: 30 RF: 0 metoprolol succinate 25 mg Tablet Extended Release 24 Hr 75 mg PO BID 30 Days Qty: 180 RF: 0 Eliquis 5 mg Tablet 5 mg PO BID 30 Days Qty: 60 RF: 0 Continued (DME) Ketostix Strip See Rx Instructions .ROUTE .MEDSUPPLY Qty: 25 RF: 3 Novolog U-100 Insulin aspart 100 unit/mL solution 70 units SQ ACHS RF: 0 czqiseuhcqms-rghpumic-otrzmg tablet 1 tab PO DAILY RF: 0 folic acid 1 mg tablet 1 mg PO DAILY RF: 0 furosemide 40 mg tablet 40 mg PO DAILY RF: 0 acetaminophen 650 mg tablet extended release 1,300 mg PO TID PRN (Reason: pain) RF: 0 cyanocobalamin (vitamin B-12) 500 mcg tablet 500 mcg PO DAILY RF: 0 cholecalciferol (vitamin D3) 2,000 unit tablet 2,000 units PO DAILY RF: 0 potassium chloride 20 mEq tablet,ER particles/crystals 40 meq PO DAILY RF: 0 magnesium oxide 400 mg (241.3 mg magnesium) tablet 400 mg PO BID RF: 0 biotin 1 mg Capsule 1 mg PO DAILY RF: 0 sertraline 25 mg tablet 25 mg PO DAILY RF: 0 Discontinued metoprolol succinate 25 mg tablet extended release 24 hr 25 mg PO DAILY Qty: 90 RF: 3 silver sulfadiazine [Silvadene] 1 % cream 1 applic topical BID Qty: 85 RF: 3 Discharge Orders: Discharge Order (Routine); Ordered 04/02/20 Ordered By: Trinity Darby Admission Data Admit Date/Time: 03/28/20 16:17 Attending Provider: Danis Meyer Admit Provider: Danis Meyer Primary Care Provider: Ovi Schaefer Other Providers: Zaki Thakur ; Danis Meyer Coding Level of Care Code D/C Day Management >30 mins Diagnoses Atrial flutter with rapid ventricular response I48.92 Hypertension, essential I10 Dyslipidemia E78.5 S/P TAVR (transcatheter aortic valve replacement) Z95.2 Controlled type 2 diabetes mellitus with kidney complication, with long-term current use of insulin E11.29; Z79.4
[2020-04-02 13:46] VITALS: PULSE 75
[2020-04-03 06:06] LABS: Estimated Average Glucose 134 mg/dl; Hemoglobin A1C 6.3 % (4.5-5.6)
== END 2020-04-02 14:40 | disposition home or self-care (01) | DRG 309 ==
LOC: ED 11:30 → 2N 16:17 → SUATTDRO 16:17 → 2N 17:43

== ENCOUNTER 2021-06-29 15:49 | Observation (INO) ==
--- NOTE | 2021-06-29 16:14 | Emergency Department Note ---
History of Present Illness General Chief complaint: Shortness of Breath/Dyspnea Stated complaint: POSSIBLE ALLERGIC REATION, VOMITING Time Seen by Provider: 06/29/21 15:57 Source: patient Mode of arrival: ambulatory Limitations: no limitations History of Present Illness Provider complaint: possible allergic reaction Onset (ago): hour(s) This is an 85-year-old female presents emergency department via EMS due to concern for possible allergic reaction while receiving an iron transfusion at an outpatient clinic. Patient received Benadryl, Solu-Medrol, and IM epi prior to arrival. She was also given a 500 mL fluid bolus. Patient states when she started the infusion she began feeling weak, cold, and slightly dizzy. She states then she began to feel short of breath. Patient denies any prior similar reactions with any medications. Patient is uncertain if she was receiving this treatment because of anemia. She denies noting any blood with her bowel movements recently. Patient states she still feels cold but her breathing feels improved. She denies any sense of itching or rash. She denies chest pain, abdominal pain, nausea or vomiting. Patient states she also recently started a new antibiotic for a UTI. The [employer] was able to confirm that patient was recently started on cephalexin 500 mg twice daily which was started on June 25, 2021. Patient just finished a course of nitrofurantoin for 7 days also. Home Medications Medication Instructions Recorded Confirmed Type folic acid 1 mg tablet 1 mg PO DAILY tab 11/19/18 06/29/21 History wczeflrtehry-xbaidyof-jpxovw tablet 1 tab PO DAILY 11/19/18 06/29/21 History acetone (urine) test (Ketostix) #25 ea 12/31/19 06/23/21 Rx furosemide 40 mg tablet 40 mg PO BID 06/09/20 06/29/21 History cholecalciferol (vitamin D3) 50 2,000 unit PO DAILY tab 01/15/21 06/29/21 History mcg (2,000 unit) tablet digoxin 125 mcg (0.125 mg) tablet 125 mcg PO DAILY@1600 90 Days #90 04/15/21 06/29/21 Rx (Digitek) tab potassium chloride 20 mEq 40 meq PO QAM 04/27/21 06/29/21 History tablet,extended release(part/cryst) sertraline 25 mg tablet 25 mg PO QAM 04/27/21 06/29/21 History apixaban 5 mg tablet (Eliquis) 5 mg PO BID #180 tab 05/02/21 06/29/21 Rx metoprolol succinate 25 mg 75 mg PO Q12H #540 tab 06/19/21 06/29/21 Rx tablet,extended release 24 hr gabapentin 300 mg capsule 300 mg PO TID 06/23/21 06/29/21 History acetaminophen 650 mg 1,300 mg PO TID 06/29/21 06/29/21 History tablet,extended release ascorbic acid (vitamin C) 500 mg 1,000 mg PO DAILY 06/29/21 06/29/21 History tablet (Vitamin C) biotin 5,000 mcg sublingual tablet 5,000 mcg SUBLINGUAL DAILY 06/29/21 06/29/21 History cephalexin 500 mg capsule 500 mg PO BID 06/29/21 06/29/21 History cyanocobalamin (vitamin B-12) 1,000 mcg PO DAILY 06/29/21 06/29/21 History 1,000 mcg tablet (Vitamin B-12) insulin aspart U-100 100 unit/mL 80 unit CONTINUOUS SUBCUTANEOUS 06/29/21 06/29/21 History subcutaneous solution (Novolog INFUSION CONTINOUS U-100 Insulin aspart) magnesium chloride 64 mg 64 mg PO DAILY 06/29/21 06/29/21 History tablet,extended release tramadol 50 mg tablet 50 mg PO Q6H PRN 06/29/21 06/29/21 History Allergies Allergy/AdvReac Type Severity Reaction Status Date / Time exenatide Allergy Intermediate MYALGIA Verified 06/29/21 16:28 phenol Allergy Intermediate MYALGIA Verified 06/29/21 16:28 Qwqyqjk-IEL-TqE Reductase Allergy Intermediate MYALGIA Verified 06/29/21 16:28 Inhibitor [Ixzdnex-Qzb-Hii Reductase Inhibitor] codeine AdvReac Mild Vomiting Verified 06/29/21 16:28 hydrocodone AdvReac Mild vomiting Verified 06/29/21 16:28 NSAIDS (Non-Steroidal AdvReac Mild TOLD NOT Verified 06/29/21 16:28 Anti-Inflamma TO TAKE Past Med/Surg History Medical History Adult situational stress disorder Anemia FOLLOWS WITH DR. MORA Arthritis Atrial flutter with rapid ventricular response Controlled type 2 diabetes mellitus with kidney complication, with long-term current use of insulin Depression Diabetic peripheral neuropathy Dysesthesia Dyslipidemia Epidermal inclusion cyst Hypertension Insulin dependent diabetes mellitus Insulin pump in place Rectal cancer CURRENT DX (RADIATION AND CHEMO>LAST CHEMO SEPTEMBER 2020) Sensorineural hearing loss (SNHL) of both ears Spinal stenosis Stage 3 chronic kidney disease Supraventricular tachycardia TIA (transient ischemic attack) OVER 10 YEARS AGO>NO CURRENT PROBLEMS Surgical History H/O blepharoplasty H/O vaginal hysterectomy History of bilateral knee replacement History of bunionectomy RT/LEFT FOOT History of cardiac cath BEFORE HEART SURGERY/NO STENTS History of cataract surgery RT/LEFT History of surgical procedure on eye proper using laser History of tooth extraction Hx of cholecystectomy S/P TAVR (transcatheter aortic valve replacement) (2018) 2017 AT [facility]>FOLLOWS WITH DR. MADSEN Family History Mother , age 78 CHF Diabetes iet controlled Heart disease Stroke Father , age 83 PR Diabetes Heart disease Cancer type of blood cancer Sister , age 79 liver cancer Diabetes type 2 Cancer Unknown Hypertension Sister , age 54 ovarian cancer Cancer Sister No problems noted. Sister No problems noted. Sister No problems noted. Brother Cancer, Onset Age: 76 testicular Brother , unknown No problems noted. Son No problems noted. Son No problems noted. Son No problems noted. Daughter No problems noted. Daughter No problems noted. Other No family history of adverse response to anesthesia Social History Smoking Status: Never smoker Tobacco Type: Cigarettes Age Started Using Tobacco: 20; Age Quit Using Tobacco: 53; packs per day: 0.25; Years Smoked: 33; Number of Years Since Quit: 31; Second Hand Exposure: Yes ( A CHILD/FATHER SMOKED); Hx Alcohol Use: No Hx Substance Use: No Preferred Language: Romanian Communication Ability: Effective Hearing Ability: Normal Software Validation Technician Required: No Beliefs That Will Affect Care: None marital status: / Current Living Situation: Other Current Living Situation Comment: LIVES INDEPENDENTLY AT [facility] current occupation: Retired How many Children do You have: 5 Feels Safe at Home: Yes Childhood Exposure to Second-Hand Smoke: No Diet Comment: low carbs low salt caffeine: Yes (coffee one cup per day ) during the past year weight has: remained stable Dental Care, Regularly: Yes Physical Activity Frequency: 3-4 Times per Week Seatbelt Use: always Sunscreen Use: Yes Assistive Devices: Glasses, Hearing Aid - Bilateral and Walker Review of Systems A total of 10 systems reviewed and were otherwise negative All systems reviewed & are unremarkable except as noted in HPI & below Physical Exam Vital Signs Vital Signs - 24 hr 06/29/21 16:00 06/29/21 16:58 06/29/21 17:00 Temperature 36.5 C Temperature Source Oral Pulse Rate 115 H 100 H 110 H Pulse Rate [Apical] Pulse Rate from SpO2 Sensor Pulse Rhythm Regular Pulse Strength Normal Respiratory Rate 22 20 20 Respiratory Effort / Characteristics Labored Respiratory Depth Normal Respiratory Pattern Regular Blood Pressure 139/102 H 122/72 143/111 H Blood Pressure [Left Arm] Blood Pressure Mean 114 88 121 Blood Pressure Mean [Left Arm] Blood Pressure Position Lying Blood Pressure Position [Left Arm] Pulse Oximetry 98 96 98 Oxygen Delivery Method Room Air Sepsis Recent Fever Within 48 Hours No Sepsis New/Unexplained Change in Mental Status No Sepsis Action Taken by Nursing No Action Required 06/29/21 17:12 06/29/21 17:30 06/29/21 18:00 Temperature Temperature Source Pulse Rate 125 H 100 H 100 H Pulse Rate [Apical] Pulse Rate from SpO2 Sensor 125 H Pulse Rhythm Pulse Strength Respiratory Rate 17 16 22 Respiratory Effort / Characteristics Respiratory Depth Respiratory Pattern Blood Pressure 131/81 143/102 H Blood Pressure [Left Arm] Blood Pressure Mean 97 115 Blood Pressure Mean [Left Arm] Blood Pressure Position Blood Pressure Position [Left Arm] Pulse Oximetry 96 94 96 Oxygen Delivery Method Sepsis Recent Fever Within 48 Hours Sepsis New/Unexplained Change in Mental Status Sepsis Action Taken by Nursing 06/29/21 18:24 06/29/21 18:40 06/29/21 19:00 Temperature Temperature Source Pulse Rate 88 113 H Pulse Rate [Apical] 95 H Pulse Rate from SpO2 Sensor 100 H Pulse Rhythm Pulse Strength Respiratory Rate 20 20 Respiratory Effort / Characteristics Non-Labored Spontaneous Respiratory Depth Normal Respiratory Pattern Regular Blood Pressure 134/78 Blood Pressure [Left Arm] 142/62 H Blood Pressure Mean Blood Pressure Mean [Left Arm] 88 Blood Pressure Position Blood Pressure Position [Left Arm] Semi-fowlers Pulse Oximetry 93 94 Oxygen Delivery Method Room Air Sepsis Recent Fever Within 48 Hours Sepsis New/Unexplained Change in Mental Status Sepsis Action Taken by Nursing GENERAL: alert, unwell appearing, well nourished, no distress, non-toxic EYE EXAM: normal conjunctiva, PERRL and EOM's grossly intact OROPHARYNX: no exudate, no erythema, lips, buccal mucosa, and tongue normal and mucous membranes are moist, no facial or lip swelling, no mucocutaneous lesions NECK: supple, no nuchal rigidity, no adenopathy, non-tender, no stridor LUNGS: Clear to auscultation. Normal chest wall mechanics, no w/r/r, no tachypnea, no retractions HEART: no murmurs, S1 normal and S2 normal ABDOMEN: abdomen soft, non-tender, normo-active bowel sounds, no masses, no rebound or guarding. BACK: Back is symmetrical on inspection and there is no deformity, no midline tenderness, no CVA tenderness. SKIN: no bruising, no urticaria or diffuse erythroderma, no petechiae UPPER EXTREMITIES: upper extremities are grossly normal. FROM, nml pulses b/l. LOWER EXTREMITIES: No pitting edema. FROM, nml pulses b/l. NEURO EXAM: Normal sensorium, cranial nerves II-XII grossly intact, normal speech, no gross weakness of arms, no gross weakness of legs. Gross sensation intact. Course Course 1699: Discussed events today with daughter now bedside. Patient has had prior iron infusions however this was a different type as it was only supposed to be given once instead of weekly infusions. Daughter states her atrial fibrillation is typically well controlled. Patient just had a resection of her rectal cancer on May 24 and is still adjusting to the colostomy bag and some of the discomfort in the area of her surgery. They did have their follow-up/postop appointment this morning with the surgeon who thought everything was well- appearing. Administered Medications Sodium Chloride (Nss 1000ml) 1,000 mls @ 125 mls/hr IV .Q8H SUKUMAR Stop: 07/29/21 16:29 Last Infusion: 06/29/21 21:16 Dose: 0 mls/hr Documented by: [id number] Admin: 06/29/21 16:29 Dose: 125 mls/hr Documented by: [id number] Magnesium Sulfate/Dextrose (Magnesium Sulfate / D5w) 1 gm in 100 mls @ 50 mls/hr IV Q2H SUKUMAR Stop: 06/29/21 23:42 Last Admin: 06/29/21 20:20 Dose: 50 mls/hr Documented by: [id number] Lactated Ringer's (Lr) 1,000 mls @ 100 mls/hr IV .Q10H SUKUMAR Stop: 07/29/21 21:02 Last Admin: 06/29/21 21:23 Dose: 100 mls/hr Documented by: [id number] Discontinued Medications Magnesium Sulfate/Dextrose (Magnesium Sulfate / D5w) 1 gm in 100 mls @ 100 mls/hr IV Q1H SUKUMAR Stop: 06/29/21 19:38 Last Infusion: 06/29/21 20:04 Dose: 0 mls/hr Documented by: [id number] Admin: 06/29/21 19:04 Dose: 100 mls/hr Documented by: [id number] Infusion: 06/29/21 18:52 Dose: 0 mls/hr Documented by: [id number] Admin: 06/29/21 17:52 Dose: 100 mls/hr Documented by: [id number] Metoprolol Tartrate (Metoprolol Tartrate 1 Mg/Ml Vial) 5 mg IV NOW STA; Pr otocol Stop: 06/29/21 18:23 Last Admin: 06/29/21 18:40 Dose: 5 mg Documented by: [id number] Medical Decision Making Differential Diagnosis Differential diagnoses includes but is not limited to pneumonia, bronchitis, COPD/Asthma exacerbation, pneumothorax, pulmonary embolism, congestive heart failure, acute coronary syndrome Medical Records Attestation: I reviewed the patient's medical records. Home Medications Current Medication List: was personally reviewed by [place] Laboratory Data Attestation: I reviewed the patient's lab results. Result diagrams: 06/29/21 16:19 06/29/21 16:19 Lab Results 06/29/21 06/29/21 06/29/21 Range/Units 16:10 16:19 16:19 WBC 14.33 H (4.8-10.8) K/uL RBC 3.85 L (4.2-5.4) M/uL Hgb 11.6 L (12.0-16.0) g/dL Hct 37.9 (37-47) % MCV 98.4 (80-100) fL MCH 30.1 (25-34) pg MCHC 30.6 L (32-36) g/dL RDW Std Deviation 52.6 H (36.4-46.3) fL RDW Coeff of Abimael 14.7 H (11.5-14.5) % Plt Count 315 (130-400) K/uL MPV 10.0 (7.4-10.4) fL Absolute Nucleated RBC 0.07 H (0-0) K/uL Nucleated RBC % (auto) 0.5 % Neutrophils % (Manual) 70.1 % Lymphocytes % (Manual) 5.1 % Eosinophils % (Manual) 0.9 % Metamyelocytes % (Man) 6.8 % Myelocytes % (Man) 1.7 % Neutrophils # (Manual) 10.05 H (1.4-6.5) K/uL Total Absolute Neuts 10.05 H (1.4-6.5) K/uL Lymphocytes # (Manual) 0.73 L (1.2-3.4) K/uL Total Abs Lymphocytes 2.94 (1.2-3.4) K/uL Eosinophils # (Manual) 0.13 (0-0.5) K/uL Metamyelocytes # (Man) 0.97 H (0-0) K/uL Myelocytes # (Manual) 0.24 H (0-0) K/uL Large Granular Lymphs 15.4 % # Lrg Granular Lymphs 2.21 K/uL RBC Morphology Unremarkable Sodium 139 (136-145) mmol/L Potassium 4.2 (3.5-5.1) mmol/L Chloride 104 (98-107) mmol/L Carbon Dioxide 21 (21-32) mmol/L Anion Gap 14 H (3-11) BUN 27 H (6-23) mg/dl Creatinine 1.24 H (0.6-1.2) mg/dl Est Cr Clr Drug Dosing 35.0 ml/min Est GFR ( Amer) 45.5 ml/min Est GFR (Non-Af Amer) 39.3 ml/min BUN/Creatinine Ratio 21.8 H (10-20) Glucose 122 H (70-99(Fasting)) mg/dl POC Glucose 135 H (70-99) mg/dl Calcium 8.8 (8.5-10.1) mg/dl Phosphorus (2.5-4.9) mg/dl Magnesium 1.5 L (1.7-2.4) mg/dl Total Bilirubin 0.3 (0.2-1.0) mg/dl AST 24 (13-39) U/L ALT 12 (7-52) U/L Alkaline Phosphatase 76 (34-104) U/L Troponin I 0.04 (0-0.04) ng/ml Total Protein 6.6 (6.0-8.3) gm/dl Albumin 3.4 (3.4-5.0) gm/dl Globulin 3.2 (2.5-4.0) gm/dl Albumin/Globulin Ratio 1.1 (0.9-2) Lipase 33 (11-82) U/L // Range/Units 16:19 WBC (4.8-10.8) K/uL RBC (4.2-5.4) M/uL Hgb (12.0-16.0) g/dL Hct (37-47) % MCV (80-100) fL MCH (25-34) pg MCHC (32-36) g/dL RDW Std Deviation (36.4-46.3) fL RDW Coeff of Abimael (11.5-14.5) % Plt Count (130-400) K/uL MPV (7.4-10.4) fL Absolute Nucleated RBC (0-0) K/uL Nucleated RBC % (auto) % Neutrophils % (Manual) % Lymphocytes % (Manual) % Eosinophils % (Manual) % Metamyelocytes % (Man) % Myelocytes % (Man) % Neutrophils # (Manual) (1.4-6.5) K/uL Total Absolute Neuts (1.4-6.5) K/uL Lymphocytes # (Manual) (1.2-3.4) K/uL Total Abs Lymphocytes (1.2-3.4) K/uL Eosinophils # (Manual) (0-0.5) K/uL Metamyelocytes # (Man) (0-0) K/uL Myelocytes # (Manual) (0-0) K/uL Large Granular Lymphs % # Lrg Granular Lymphs K/uL RBC Morphology Sodium (136-145) mmol/L Potassium (3.5-5.1) mmol/L Chloride (98-107) mmol/L Carbon Dioxide (21-32) mmol/L Anion Gap (3-11) BUN (6-23) mg/dl Creatinine (0.6-1.2) mg/dl Est Cr Clr Drug Dosing ml/min Est GFR ( Amer) ml/min Est GFR (Non-Af Amer) ml/min BUN/Creatinine Ratio (10-20) Glucose (70-99(Fasting)) mg/dl POC Glucose (70-99) mg/dl Calcium (8.5-10.1) mg/dl Phosphorus 5.2 H (2.5-4.9) mg/dl Magnesium (1.7-2.4) mg/dl Total Bilirubin (0.2-1.0) mg/dl AST (13-39) U/L ALT (7-52) U/L Alkaline Phosphatase (34-104) U/L Troponin I (0-0.04) ng/ml Total Protein (6.0-8.3) gm/dl Albumin (3.4-5.0) gm/dl Globulin (2.5-4.0) gm/dl Albumin/Globulin Ratio (0.9-2) Lipase (11-82) U/L Imaging Data Radiologist's Impression: Chest X-Ray 06/29/21 16:52 XR chest 1V portable CLINICAL HISTORY: sob TECHNIQUE: Single frontal radiograph of the chest was obtained. Comparison: Comparison is made to chest one view 06/23/2021 FINDINGS: No lines and tubes are seen. Calcified aortic knob is seen. The lungs are clear. No evidence of pleural effusion or pneumothorax. IMPRESSION: No acute chest disease. ACT 112: Negative or not required by law. Electronically signed by: Josue Stuart M.D. 06/29/2021 5:25 PM MDM Narrative This is an 85-year-old female presents the emergency department with concern for allergic reaction after receiving an outpatient iron infusion. Patient received IV Benadryl, Solu-Medrol, and epi IM prior to arrival. Patient did have improvement in her work of breathing prior to arrival and she was not hypoxic. Vital signs otherwise stable although patient was tachycardic in a atrial fibrillation which she does have history of. Patient's heart rate did slowly improve with additional IV fluids and treatment here. Labs were drawn and sent and chest x-ray performed as a precaution. No evidence of diffuse urticaria or angioedema. Patient given additional metoprolol which she does typically take for her atrial fibrillation in addition to digoxin. Patient is chronically anticoagulated. Patient has previously had iron infusions although they were of a different kind. Patient continued to have generalized weakness and was unable to ambulate here without significant assistance which is unusual for her. Given she resides in a personal care facility, I have concerns about her safety in returning home. Case discussed with hospitalist for additional evaluation and monitoring. Hypomagnesemia was repleted while in the ER. An order was placed for continuous cardiac monitoring. The monitor shows a rate of _114_ with _a.fib_ rhythm. Impression & Plan Generalized weakness, Leukocytosis, Allergic reaction Discharge Plan Visit Data Chief Complaint: Shortness of Breath/Dyspnea Stated Complaint: POSSIBLE ALLERGIC REATION, VOMITING ED Provider: Lakesha Black Discharge Problem: Generalized weakness, Leukocytosis, Allergic reaction Patient Disposition: Admitted As Inpatient Discharge Instructions Interventions: ED Discharge Assessment Last Done: 06/29/21 21:45 Discharge Problem: Leukocytosis Qualifiers: Leukocytosis type: unspecified Qualified Code(s): D72.829 - Elevated white blood cell count, unspecified Allergic reaction Qualifiers: Encounter type: initial encounter Qualified Code(s): T78.40XA - Allergy, unspecified, initial encounter
[2021-06-29] MEDS ORDERED: SODIUM CHLORIDE 0.9% 1000ML 1,000 ML IV SCH (16:30)
[2021-06-29 17:17] LABS: Mean Corpuscular Hgb Conc 30.6 g/dL (32-36); Nucleated RBC # (auto) 0.07 K/uL (0-0); Nucleated RBC % (auto) 0.5 %; Platelet Count 315 K/uL (130-400)
--- NOTE | 2021-06-29 17:27 | XRay Report ---
XR chest 1V portable CLINICAL HISTORY: sob TECHNIQUE: Single frontal radiograph of the chest was obtained. Comparison: Comparison is made to chest one view 06/23/2021 FINDINGS: No lines and tubes are seen. Calcified aortic knob is seen. The lungs are clear. No evidence of pleur al effusion or pneumothorax. IMPRESSION: No acute chest disease. ACT 112: Negative or not required by law. Electronically signed by: Josue Stuart M.D. 06/29/2021 5:25 PM
[2021-06-29 17:37] LABS: Albumin Globulin Ratio 1.1 (0.9-2); Albumin Level 3.4 gm/dl (3.4-5.0); BUN Creatinine Ratio 21.8 (10-20); Bilirubin,Total 0.3 mg/dl (0.2-1.0); Calcium 8.8 mg/dl (8.5-10.1); Est GFR (African American) 45.5 ml/min; Est GFR (Non-African American) 39.3 ml/min; Globulin 3.2 gm/dl (2.5-4.0); Magnesium 1.5 mg/dl (1.7-2.4); Potassium 4.2 mmol/L (3.5-5.1); Total Protein 6.6 gm/dl (6.0-8.3)
[2021-06-29 17:38] LABS: Troponin I 0.04 ng/ml (0-0.04)
[2021-06-29 17:51] LABS: Hematocrit (blood only) 37.9 % (37-47); Hemoglobin 11.6 g/dL (12.0-16.0); Mean Corpuscular Hemoglobin 30.1 pg (25-34); Mean Corpuscular Volume 98.4 fL (80-100); RDW Coefficient of Variation 14.7 % (11.5-14.5); RDW Standard Deviation 52.6 fL (36.4-46.3); Red Blood Count 3.85 M/uL (4.2-5.4); White Blood Count 14.33 K/uL (4.8-10.8)
[2021-06-29 17:52] LABS: ALC (manual) 2.94 K/uL (1.2-3.4); ANC (manual) 10.05 K/uL (1.4-6.5); Eosinophils # (manual) 0.13 K/uL (0-0.5); Eosinophils % (manual) 0.9 %; Large Granular Lymph # (manua 2.21 K/uL; Large Granular Lymph % (manual) 15.4 %; Lymphocytes # (manual) 0.73 K/uL (1.2-3.4); Lymphocytes % (manual) 5.1 %; Metamyelocytes # (manual) 0.97 K/uL (0-0); Metamyelocytes % (manual) 6.8 %; Myelocytes # (manual) 0.24 K/uL (0-0); Myelocytes % (manual) 1.7 %; Neutrophils # (manual) 10.05 K/uL (1.4-6.5); Neutrophils % (manual) 70.1 %; RBC Morphology Unremarkable
[2021-06-29] MEDS: MAGNESIUM SULFATE / D5W 1 GM/100 ML BAG IV SCH ×3 (17:52→20:20)
[2021-06-29] MEDS ORDERED: METOPROLOL TARTRATE 1 MG/ML VIAL IV STA (18:22)
--- NOTE | 2021-06-29 20:21 | History & Physical Report ---
Date of Service June 29, 2021 Assessment & Plan (1) Anaphylactic reaction: Plan: Consistent with reaction to her iron- FERRIC DERSOMALTOSE - Nausea vomiting, dyspnea- hemodynamic stability demonstrated at this time - Continue with IVF for supportive PO intake - T1/2 of ferric dersomaltose 27 hours - Check phos- 5.2 follow in am - lungs without wheezing and on room air (2) Hypomagnesemia: Plan: liley secondary to vomiting and loss- patient does not report any increase output from her ostomy - she is on mag replacement as outpatient as well - mag 1.5--- replete 5 GM MG (3) Leukocytosis: Plan: WBC 14 with NLR 5:1- likley related to stress response from events of today - follow CBC in morning - does not appear toxic at this time- CXR clear and on ABX for UTI that is appropriate (4) S/P TAVR (transcatheter aortic valve replacement): Plan: Done at 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 - No acute needs at this time, follow output (8) Hypertension, essential: Plan: As above- controlled (9) Dyslipidemia: Plan: Continue statin (10) Cardiomyopathy: Plan: Chronic issue not acute - ECHO- 03/26 with EF 45-50%, with elevated RVSP normal aortic gradient reported, mild MR - Hold oral Lasix for now- restart in morning once Euvolemia achieved (11) Stage 3 chronic kidney disease: Plan: CKD III stable - DRY ROASTER 1.24 - baseline 1.0-1.2 (12) Controlled type 2 diabetes mellitus with kidney complication, with long- term current use of insulin: Plan: With insulin pump- she is able to use this and is comfortable with her glucose - will continue her home insulin pump with AC/HS checks - 80 unit basal with CF 35 and 1:8 carb ratio- her normal carb ratio appears to be 7- follow with her oral intake - If sugars become uncontrolled or low- discontinue pump and transition to basal bolus insulin subq dosing (13) UTI (urinary tract infection): Plan: As per HPI - Continue Cephalexin 500mg PO BID- Klebsiella pneumonia from urine culture 06/23- sensitive to ancef History of Present Illness Primary Care Provider: KHOI aLne 85 YOF with past medical history of: CVA, Afib (Apixaban), HTN, Cardiomyopathy, TAVR, CKD, chronic fatigue, rectal adenocarcinoma [id number] s/p colostomy, DM II (with insulin pump), HLD. Patient was brought into the EMD today via EMS from her [employer]/Oncologist office where the patient was undergoing iron transfusion with FERRIC DERSOMALTOSE, patient is unsure if she has ever gotten this before. It is believed that she had an allergic response to this as she had dyspnea, nausea with vomiting, and alteration in her mentation. She was given 0.3mg of Epinephrine and Solumedrol. In the EMD the patient remains fatigued and tachycardic. She had routine labs drawn to include Troponin I. She received 1 liter of crystalloid, magnesium 3 gram for a magnesium level of 1.5, ECG was performed without dynamic changes. Patient will be brought in to continue to monitor her HR and rythm, supportive care for fatigue, and continued hydration with electrolyte replacements. Will check Digoxin level as well and will add PO4 level as this iron combination reaction is noted to cause hypophosphatemia. Patient is on Cephalexin 500mg PO BID for Klebsiella pneumoniae this was started on , will continue her Insulin pump and follow her glucose levels with her basal rate of 80 and bolus dosing based off CF 35 and ration 1:8. Allergies Allergy/AdvReac Type Severity Reaction Status Date / Time exenatide Allergy Intermediate MYALGIA Verified 06/29/21 16:28 phenol Allergy Intermediate MYALGIA Verified 06/29/21 16:28 Ejzdtaf-KXK-AiS Reductase Allergy Intermediate MYALGIA Verified 06/29/21 16:28 Inhibitor [Ypijlfg-Syc-Ivo Reductase Inhibitor] codeine AdvReac Mild Vomiting Verified 06/29/21 16:28 hydrocodone AdvReac Mild vomiting Verified 06/29/21 16:28 NSAIDS (Non-Steroidal AdvReac Mild TOLD NOT Verified 06/29/21 16:28 Anti-Inflamma TO TAKE Home Medications Medication Instructions Recorded Confirmed Type folic acid 1 mg tablet 1 mg PO DAILY tab 11/19/18 06/29/21 History ghqrabvoyejy-dvngdnlu-twzevg tablet 1 tab PO DAILY 11/19/18 06/29/21 History acetone (urine) test (Ketostix) #25 ea 12/31/19 06/23/21 Rx furosemide 40 mg tablet 40 mg PO BID 06/09/20 06/29/21 History cholecalciferol (vitamin D3) 50 2,000 unit PO DAILY tab 01/15/21 06/29/21 History mcg (2,000 unit) tablet digoxin 125 mcg (0.125 mg) tablet 125 mcg PO DAILY@1600 90 Days #90 04/15/21 06/29/21 Rx (Digitek) tab potassium chloride 20 mEq 40 meq PO QAM 04/27/21 06/29/21 History tablet,extended release(part/cryst) sertraline 25 mg tablet 25 mg PO QAM 04/27/21 06/29/21 History apixaban 5 mg tablet (Eliquis) 5 mg PO BID #180 tab 05/02/21 06/29/21 Rx metoprolol succinate 25 mg 75 mg PO Q12H #540 tab 06/19/21 06/29/21 Rx tablet,extended release 24 hr gabapentin 300 mg capsule 300 mg PO TID 06/23/21 06/29/21 History acetaminophen 650 mg 1,300 mg PO TID 06/29/21 06/29/21 History tablet,extended release ascorbic acid (vitamin C) 500 mg 1,000 mg PO DAILY 06/29/21 06/29/21 History tablet (Vitamin C) biotin 5,000 mcg sublingual tablet 5,000 mcg SUBLINGUAL DAILY 06/29/21 06/29/21 History cephalexin 500 mg capsule 500 mg PO BID 06/29/21 06/29/21 History cyanocobalamin (vitamin B-12) 1,000 mcg PO DAILY 06/29/21 06/29/21 History 1,000 mcg tablet (Vitamin B-12) insulin aspart U-100 100 unit/mL 80 unit CONTINUOUS SUBCUTANEOUS 06/29/21 06/29/21 History subcutaneous solution (Novolog INFUSION CONTINOUS U-100 Insulin aspart) magnesium chloride 64 mg 64 mg PO DAILY 06/29/21 06/29/21 History tablet,extended release tramadol 50 mg tablet 50 mg PO Q6H PRN 06/29/21 06/29/21 History Past Med/Surg History Medical History Adult situational stress disorder Anemia FOLLOWS WITH DR. MORA Arthritis Atrial flutter with rapid ventricular response Controlled type 2 diabetes mellitus with kidney complication, with long-term current use of insulin Depression Diabetic peripheral neuropathy Dysesthesia Dyslipidemia Epidermal inclusion cyst Hypertension Insulin dependent diabetes mellitus Insulin pump in place Rectal cancer CURRENT DX (RADIATION AND CHEMO>LAST CHEMO SEPTEMBER 2020) Sensorineural hearing loss (SNHL) of both ears Spinal stenosis Stage 3 chronic kidney disease Supraventricular tachycardia TIA (transient ischemic attack) OVER 10 YEARS AGO>NO CURRENT PROBLEMS Surgical History H/O blepharoplasty H/O vaginal hysterectomy History of bilateral knee replacement History of bunionectomy RT/LEFT FOOT History of cardiac cath BEFORE HEART SURGERY/NO STENTS History of cataract surgery RT/LEFT History of surgical procedure on eye proper using laser History of tooth extraction Hx of cholecystectomy S/P TAVR (transcatheter aortic valve replacement) (2018) 2018 AT [facility]>FOLLOWS WITH DR. MADSEN Family History Mother , age 78 CHF Diabetes iet controlled Heart disease Stroke Father , age 83 NM Diabetes Heart disease Cancer type of blood cancer Sister , age 79 liver cancer Diabetes type 2 Cancer Unknown Hypertension Sister , age 54 ovarian cancer Cancer Sister No problems noted. Sister No problems noted. Sister No problems noted. Brother Cancer, Onset Age: 76 testicular Brother , unknown No problems noted. Son No problems noted. Son No problems noted. Son No problems noted. Daughter No problems noted. Daughter No problems noted. Other No family history of adverse response to anesthesia Social History Smoking Status: Former smoker Tobacco Type: Cigarettes Age Started Using Tobacco: 20; Age Quit Using Tobacco: 53; packs per day: 0.25; Years Smoked: 33; Number of Years Since Quit: 31; Second Hand Exposure: Yes ( A CHILD/FATHER SMOKED); Hx Alcohol Use: No Hx Substance Use: No Preferred Language: Cypriot Communication Ability: Effective Hearing Ability: Normal Cork Insulator Required: No Beliefs That Will Affect Care: None marital status: / Current Living Situation: Other Current Living Situation Comment: Assisted living at [facility]. current occupation: Retired How many Children do You have: 5 Feels Safe at Home: Yes Safety Concerns: Feels Safe At This Time Childhood Exposure to Second-Hand Smoke: No Diet Comment: low carbs low salt caffeine: Yes (coffee one cup per day ) during the past year weight has: remained stable Dental Care, Regularly: Yes Physical Activity Frequency: 3-4 Times per Week Seatbelt Use: always Sunscreen Use: Yes Assistive Devices: Hearing Aid - Bilateral and Walker Review of Systems Review of Systems: REVIEW OF SYSTEMS: Constitutional: No fever, sweats or chills Eyes: No diplopia, no worsening or blurred vision ENT: normal hearing, no trouble swallowing Respiratory: No cough, sputum, dyspnea at rest or on exertion Cardiovascular: No chest pain, tightness or palpitations Abdomen: (+) N/V, colostomy, No pain, nausea, vomiting, diarrhea or constipation Musculoskeletal: (+) joint pain, calf pain, swelling Neurologic: (+) fatigue weakness, numbness/tingling, or balance problems Psychiatric: No anxiety or depression Skin: No rash or itch Physical Exam Physical Exam: PHYSICAL EXAM: General: tired appearing, awakens to voice, no apparent distress Head: Normocephalic, atraumatic ENT: PERRL, EOMI, no pharyngeal exudate, mucous membranes moist Neuro: AAO x 3, speech clear and appropriate, strength intact bilaterally 5/5, sensation intact and equal all extremities and dermatomes, no pronator drift Chest: equal rise and fall of the chest, no accessory muscle use, no heaves or thrills, Clear to auscultation, on room air, Cardiac: Irreg rate and rhythm, skin warm dry, cap refill <3 seconds, peripheral pulses +2 no JVD, no murmur, no edema GI: Colostomy, NABS x 4 quadrants, soft, nontender to palpation, no rebound, guarding or tenderness : Spontaneously voiding, no pain, no CVA tenderness, Extremities: Normal inspection, no peripheral edema or erythema, calfs nontender to palpation Skin: no rash or erythema Results & Data Results & Data ([facility]) Vital Signs (Past 12 Hours) Vital Signs Temp Pulse Pulse Resp BP BP Pulse Ox 06/29/21 19:00 95 H 20 142/62 H 94 06/29/21 18:40 113 H 134/78 06/29/21 18:24 88 20 93 06/29/21 18:00 100 H 22 143/102 H 96 06/29/21 17:30 100 H 16 131/81 94 06/29/21 17:12 125 H 17 96 06/29/21 17:00 110 H 20 143/111 H 98 06/29/21 16:58 100 H 20 122/72 96 06/29/21 16:00 36.5 C 115 H 22 139/102 H 98 Laboratory Results Abnormal lab results 06/29/21 06/29/21 06/29/21 Range/Units 16:10 16:19 16:19 WBC 14.33 H (4.8-10.8) K/uL RBC 3.85 L (4.2-5.4) M/uL Hgb 11.6 L (12.0-16.0) g/dL MCHC 30.6 L (32-36) g/dL RDW Std Deviation 52.6 H (36.4-46.3) fL RDW Coeff of Abimael 14.7 H (11.5-14.5) % Absolute Nucleated RBC 0.07 H (0-0) K/uL Neutrophils # (Manual) 10.05 H (1.4-6.5) K/uL Total Absolute Neuts 10.05 H (1.4-6.5) K/uL Lymphocytes # (Manual) 0.73 L (1.2-3.4) K/uL Metamyelocytes # (Man) 0.97 H (0-0) K/uL Myelocytes # (Manual) 0.24 H (0-0) K/uL Anion Gap 14 H (3-11) BUN 27 H (6-23) mg/dl Creatinine 1.24 H (0.6-1.2) mg/dl BUN/Creatinine Ratio 21.8 H (10-20) Glucose 122 H (70-99(Fasting)) mg/dl POC Glucose 135 H (70-99) mg/dl Magnesium 1.5 L (1.7-2.4) mg/dl Diagnostic Findings Chest X-Ray 06/29/21 16:52 XR chest 1V portable CLINICAL HISTORY: sob TECHNIQUE: Single frontal radiograph of the chest was obtained. Comparison: Comparison is made to chest one view 06/23/2021 FINDINGS: No lines and tubes are seen. Calcified aortic knob is seen. The lungs are clear. No evidence of pleural effusion or pneumothorax. IMPRESSION: No acute chest disease. ACT 112: Negative or not required by law. Electronically signed by: Josue Stuart M.D. 06/29/2021 5:25 PM Medications Administered Sodium Chloride (Nss 1000ml) 1,000 mls @ 125 mls/hr IV .Q8H SUKUMAR Stop: 07/29/21 16:29 Last Admin: 06/29/21 16:29 Dose: 125 mls/hr Documented by: [id number] Magnesium Sulfate/Dextrose (Magnesium Sulfate / D5w) 1 gm in 100 mls @ 50 mls/hr IV Q2H SUKUMAR Stop: 06/29/21 23:42 Last Admin: 06/29/21 20:20 Dose: 50 mls/hr Documented by: [id number] Discontinued Medications Magnesium Sulfate/Dextrose (Magnesium Sulfate / D5w) 1 gm in 100 mls @ 100 mls/hr IV Q1H SUKUMAR Stop: 06/29/21 19:38 Last Admin: 06/29/21 19:04 Dose: 100 mls/hr Documented by: [id number] Infusion: 06/29/21 18:52 Dose: 0 mls/hr Documented by: [id number] Admin: 06/29/21 17:52 Dose: 100 mls/hr Documented by: [id number] Metoprolol Tartrate (Metoprolol Tartrate 1 Mg/Ml Vial) 5 mg IV NOW STA; Protocol Stop: 06/29/21 18:23 Last Admin: 06/29/21 18:40 Dose: 5 mg Documented by: [id number] ECG Additional Comments: Atrial fibrillation with premature ventricular or aberrantly conducted complexes Left axis deviation Inferior infarct , age undetermined Anterior infarct , age undetermined Abnormal ECG When compared with ECG of 29-JUN-2021 16:01, (unconfirmed) QRS duration has increased Anterior infarct is now Present ST no longer depressed in Inferior leads ST no longer depressed in Anterolateral leads Code Status & VTE Plan Code Status CODE: FULL VTE: SCDS, Apixaban 5 VTE Prophylaxis Plan VTE Prophylaxis will be ordered: Yes Supervising Physician Co-Signing Physician Notes Patient seen and examined, chart reviewed, case discussed with KHOI Dawn and I agree with the assessment and plan as documented above. In brief, patient is an 85yo female with history of anemia, AF, DM with insulin pump in place, HTN, Rectal CA and CKD-III. Patient was receiving an infusion of ferric dersomaltose today when she developed nausea/vomiting, dyspnea and AMS. Concern for allergic reaction. Patient was administered Epinephrine and Solumerol and transferred to the ER. Prsently with no complaints. She is sleepy but arousable. Answers questions appropriately and follows commands Received IVF x 1L Mg On exam she is hard of hearing, sleepy but arousable. Answers questions appropriately and follows commands Skin - intact HEENT - MMM, Neck supple, no oropharyngeal edema Heart - +S1/S2, regular, 3/6 VANNESSA at LUSB Lungs - CTA, no stridor, no wheeze Abd - +BS, soft, NT/ND Ext - no edema Labs and images reviewed. Significant for WBC=14.33, Hg=11.6 BUN=27, Cr=1.24 - mildly increased from 1 Mg=1.5 PO4=5.2 Assessment/Plan Presumed reaction to ferric dersmaltose infusion - nausea/vomiting/dyspnea occurring with infusion. Afebrile, HD stable, NAD. No oropharyngeal swelling. No stridor or wheeze. Patient continues to be somnolent - uncertain if this is secondary to medication infusion, stress response. Elevated WBC - ?acute stress response, consider infection. Patient presently being treated for UTI with Keflex -Continue supportive care with IVF -Mg repletion -Remainder as above PG Care Time/CCT Total # of Minutes Spent Total Time Spent with Patient: Total time spent is greater than 50% in coordination of care (as documented) at patient's floor/unit and/or counseling patient: Coding Level of Care Code INT OBSERVATION CARE 70M LVL 3 Diagnoses Anaphylactic reaction T78.2XXA Anemia D64.9 Anemia type: unspecified type Rectal cancer C20 Hypertension, essential I10 Dyslipidemia E78.5 S/P TAVR (transcatheter aortic valve replacement) Z95.2 Atrial fibrillation, persistent I48.19 Cardiomyopathy I42.9 Stage 3 chronic kidney disease N18.3 Controlled type 2 diabetes mellitus with kidney complication, with long-term current use of insulin E11.29; Z79.4 Hypomagnesemia E83.42 UTI (urinary tract infection) N39.0 Leukocytosis D72.829 (1) Anemia Anemia type: unspecified type Qualified Code(s): D64.9 - Anemia, unspecified
[2021-06-29] MEDS: LACTATED RINGER'S 1,000 ML IV SCH (21:23)
[2021-06-29] MEDS ORDERED: ONDANSETRON INJ 2 MG/ML 2 ML VIAL IV PRN (22:33)
[2021-06-29] MEDS ORDERED: INSULIN ASPART PER UNIT SQ SCH (22:33)
[2021-06-29] MEDS ORDERED: GLUCOSE 10 TABS/TUBE PO PRN (22:33)
[2021-06-29] MEDS ORDERED: GLUCOSE 40% GEL 15 GM TUBE PO PRN (22:33)
[2021-06-29] MEDS ORDERED: Nursing to Pharmacy Communication SCH (22:33)
[2021-06-29] MEDS ORDERED: DEXTROSE 50% 50 ML SYRINGE IV PRN (22:33)
[2021-06-29] MEDS ORDERED: GLUCAGON FOR INJ 1 MG VIAL SQ PRN (22:33)
[2021-06-29] MEDS ORDERED: CARBOHYDRATES FOR HYPOGLYCEMIA PO PRN (22:33)
[2021-06-29] MEDS ORDERED: INSULIN ASPART 100 UNITS/ML VIAL SC PRN (23:00)
[2021-06-29] MEDS ORDERED: PHARMACY GLYCEMIC MGMT CONSULT PRN (23:28)
[2021-06-29] MEDS: GABAPENTIN 300 MG CAP PO SCH (23:39)
[2021-06-29] MEDS: METOPROLOL SUCC 25MG EXT REL TAB PO SCH (23:39)
[2021-06-29] MEDS: ACETAMINOPHEN 500 MG TAB PO SCH (23:39)
[2021-06-29] MEDS: cephALEXin 500 MG CAP PO SCH (23:40)
[2021-06-29] MEDS: APIXABAN 5 MG TABLET PO SCH (23:40)
[2021-06-30] MEDS ORDERED: INSULIN GLARGINE SOLOSTAR 100 UNITS/ML 3 ML PEN SC ONE (00:15)
[2021-06-30] MEDS: MAGNESIUM SULFATE / D5W 1 GM/100 ML BAG IV SCH (00:34)
[2021-06-30] MEDS: INSULIN ASPART PER UNIT SC SCH ×6 (00:38→21:15)
[2021-06-30 05:51] LABS: Hematocrit (blood only) 30.3 % (37-47); Hemoglobin 9.2 g/dL (12.0-16.0); Mean Corpuscular Hgb Conc 30.4 g/dL (32-36); Mean Corpuscular Volume 95.6 fL (80-100); Mean Platelet Volume 9.4 fL (7.4-10.4); Platelet Count 253 K/uL (130-400); RDW Coefficient of Variation 14.6 % (11.5-14.5); RDW Standard Deviation 51.6 fL (36.4-46.3); Red Blood Count 3.17 M/uL (4.2-5.4)
[2021-06-30 06:13] LABS: BUN Creatinine Ratio 28.9 (10-20); Calcium 8.2 mg/dl (8.5-10.1); Creatinine Clr Calc Pharmacy 34.2 ml/min; Est GFR (African American) 43.8 ml/min; Est GFR (Non-African American) 37.8 ml/min; Magnesium 2.6 mg/dl (1.7-2.4); Phosphorus 4.7 mg/dl (2.5-4.9); Potassium 5.3 mmol/L (3.5-5.1)
[2021-06-30 06:27] LABS: Immature Granulocytes # (auto) 0.06 K/uL (0.00-0.02); Immature Granulocytes % (auto) 0.4 %; Lymphocytes # (auto) 0.86 K/uL (1.2-3.4); Lymphocytes % (auto) 5.3 %; Monocytes # (auto) 0.63 K/uL (0.11-0.59); Monocytes % (auto) 3.9 %; Neutrophils # (auto) 14.65 K/uL (1.4-6.5); Neutrophils % (auto) 90.4 %
[2021-06-30] MEDS: LACTATED RINGER'S 1,000 ML IV SCH (06:36)
[2021-06-30] MEDS ORDERED: NovoLOG INSULIN PUMP SCH (07:30)
[2021-06-30] MEDS: ACETAMINOPHEN 500 MG TAB PO SCH ×3 (08:05→21:08)
[2021-06-30] MEDS: cephALEXin 500 MG CAP PO SCH ×2 (08:07→21:08)
[2021-06-30] MEDS: APIXABAN 5 MG TABLET PO SCH ×2 (08:07→21:10)
[2021-06-30] MEDS: CYANOCOBALAMIN (B-12) 500 MCG TABLET PO SCH (08:07)
[2021-06-30] MEDS: ASCORBIC ACID 500 MG TAB PO SCH (08:07)
[2021-06-30] MEDS: CHOLECALCIFEROL 1,000 UNITS 25 MCG TAB PO SCH (08:07)
[2021-06-30] MEDS: FOLIC ACID 1 MG TAB PO SCH (08:07)
[2021-06-30] MEDS: SERTRALINE HCL 50 MG TABLET PO SCH (08:08)
[2021-06-30] MEDS: CEROVITE ADV FORMULA TAB PO SCH (08:08)
[2021-06-30] MEDS: METOPROLOL SUCC 25MG EXT REL TAB PO SCH ×2 (08:08→21:10)
[2021-06-30] MEDS: GABAPENTIN 300 MG CAP PO SCH ×3 (08:08→21:10)
[2021-06-30] MEDS ORDERED: POTASSIUM CHLORIDE CRTAB 20 MEQ TABCR PO SCH (09:00)
--- NOTE | 2021-06-30 09:52 | Pharmacy Report ---
Pharmacy Glycemic Short Note 2 - Date of Service June 30, 2021 - Glycemic Short BSG Results (Last 24 hours): 06/29/21 06/29/21 06/29/21 16:10 16:19 20:29 Glucose 122 H POC Glucose 135 H 232 H 06/29/21 06/30/21 06/30/21 22:30 04:57 04:58 Glucose POC Glucose 284 H 307 H* 335 H* 06/30/21 06/30/21 05:33 07:40 Glucose 308 H* POC Glucose 262 H OUTPATIENT ANTIDIABETIC REGIMEN: * Novolog insulin pump, per last Endocrine note Apr 2021 * TDD ~41 units insulin * Basal 16 u/day * CF 30mg/dl/unit * CR 1: 5.5-6.5 ASSESSMENT: * 85 yo female, admitted after anaphylactic rxn to IV iron at outpt clinic, received IV Solu-Medrol + SQ Epi UNDER CUTTER * PMH colon cancer, colostomy 05/29, HTN, HL, Anemia, Afib, CKD stage III, on Keflex for UTI * Hyperglycemic, managed on insulin pump as above, managed by daughter, using SQ to manage inpatient * Pt given Basal of 16 units last night and correctional insulin overnight, BSG down to 262mg/dl today, continue to titrate doses to goal BSG PLAN FOR INPATIENT GLYCEMIC CONTROL: * Hold outpatient insulin pump * Basal insulin * Lantus 16 units SQ HS * Bolus insulin * NovoLog per scale ACHS or Q6hrs while NPO * Goal Range: Low 110 mg/dL - High 140 mg/dL * Correction Factor: 20 mg/dL/unit * Nutritional / Prandial insulin per carb ratio of 1 unit per 5 grams CHO consumed
[2021-06-30] MEDS ORDERED: traMADol HCL 50 MG TABLET PO PRN (10:44)
--- NOTE | 2021-06-30 10:46 | Hospitalist Progress Note ---
Date of Service June 30, 2021 Assessment & Plan (1) Anaphylactic reaction: Plan: Consistent with reaction to her iron- FERRIC DERISOMALTOSE - Nausea vomiting, dyspnea and shortness of breath as presenting symptoms along with severe fatigue -Received epinephrine, Solu-Medrol prior to arrival in the ER Much improved today, no further symptoms except some fatigue Need to have PT/OT see her Otherwise stable, no further steroids given here Continue to monitor through tomorrow as half-life of this type of IV iron is 27 hours (2) Hypomagnesemia: Plan: secondary to vomiting and GI losses- patient does not report any increase output from her ostomy Was replaced with IV magnesium now normalized - she is on mag replacement as outpatient as well-restart this for tomorrow Follow level in the morning (3) Leukocytosis: Plan: WBC 14 upon arrival related to stress response plus received IV steroids Now increased further from the steroids likely No further steroids being given - does not appear toxic at this time- CXR clear and on ABX for UTI that is appropriate (4) S/P TAVR (transcatheter aortic valve replacement): Plan: Done at [facility]- -11/09/18 with #26 mm (5) Atrial fibrillation, persistent: Plan: Rate controlled Digoxin level normal - Continue Apixaban - Continue with Metoprolol Continue on telemetry (6) Anemia: Plan: HGB 9.3 06/23--- was 11.6 on arrival likely hemoconcentrated from events on the day of admission-now hemoglobin back down to baseline at 9.2 - Avoid further iron replacement with ferric derisomaltose-added this to her list of allergies Follow-up with oncology after discharge (7) 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 twice daily (9) Dyslipidemia: Plan: Continue statin (10) Cardiomyopathy: Plan: Chronic issue not acute - ECHO- 03/26 with EF 45-50%, with elevated RVSP normal aortic gradient reported, mild MR Restart home Lasix which should also help her mild hyperkalemia Blood pressure control (11) Stage 3 chronic kidney disease: Plan: CKD III stable - LAST REPAIRER 1.24 - baseline 1.0-1.2 (12) Controlled type 2 diabetes mellitus with kidney complication, with long- term current use of insulin: Plan: With insulin pump-removed here With significant hyperglycemia here in the 300s Pharmacy is managing and has increased her basal bolus insulin (13) UTI (urinary tract infection): Plan: As per HPI - Continue Cephalexin 500mg PO BID- Klebsiella pneumonia from urine culture 06/23- sensitive to ancef Would complete 7-day course Plan: ordered PT/OT Disposition-continued stay but hopeful for discharge back to the [facility] tomorrow Full code Admission and Anticipated Discharge Date Admission Date: June 29, 2021 Subjective Patient feeling better today but still fatigued. No further nausea and is tolerating breakfast. No chest pains or shortness of breath, no abdominal pains. Has not yet been out of bed. Telemetry with atrial fibrillation with rates in the 80s. Review of Systems Review of Systems: All systems reviewed & are unremarkable except as noted in HPI & below Physical Exam Constitutional: WD/WN, vitals as above Eyes: + anicteric sclerae ENMT: external ear and nose normal, oropharynx normal Neck: trachea midline, no thyromegaly Respiratory: normal respiratory effort; no cough Auscultation: + crackles (bibasilar); no wheezes Cardiovascular: Rate/Rhythm: regular rate and + irregularly irregular Heart Sounds: no murmur Extremities: no edema Chest (Breasts): Chest: normal inspection of chest Gastrointestinal (Abdomen): normal bowel sounds, soft, nontender, no hepatosplenomegaly Musculoskeletal: Extremities: extremities normal to inspection; no cyanosis and no clubbing Skin: no rashes, warm and dry Neurologic: moves all extremities and awake; no focal motor deficits Psychiatric: A+Ox3, euthymic affect Lymphatic: no lymphedema Results & Data Results & Data ([facility]) Vital Signs (Past 12 Hours) Vital Signs Temp Pulse Pulse Resp BP Pulse Ox 06/30/21 07:30 36.3 C L 66 16 123/71 97 06/30/21 06:16 80 06/30/21 04:01 36.5 C 84 16 145/76 H 96 Laboratory Results 06/30/21 06/30/21 06/30/21 Range/Units 07:40 05:33 05:33 WBC 16.20 H (4.8-10.8) K/uL RBC 3.17 L (4.2-5.4) M/uL Hgb 9.2 L (12.0-16.0) g/dL Hct 30.3 L (37-47) % MCV 95.6 (80-100) fL MCH 29.0 (25-34) pg MCHC 30.4 L (32-36) g/dL RDW Std Deviation 51.6 H (36.4-46.3) fL RDW Coeff of Abimael 14.6 H (11.5-14.5) % Plt Count 253 (130-400) K/uL MPV 9.4 (7.4-10.4) fL Immature Gran % (Auto) 0.4 % Neut % (Auto) 90.4 % Lymph % (Auto) 5.3 % Henry % (Auto) 3.9 % Eos % (Auto) 0.0 % Baso % (Auto) 0.0 % Neut # (Auto) 14.65 H (1.4-6.5) K/uL Lymph # (Auto) 0.86 L (1.2-3.4) K/uL Henry # (Auto) 0.63 H (0.11-0.59) K/uL Eos # (Auto) 0.00 (0-0.5) K/uL Baso # (Auto) 0.00 (0-0.2) K/uL Immature Gran # (Auto) 0.06 H (0.00-0.02) K/uL Absolute Nucleated RBC (0-0) K/uL Nucleated RBC % (auto) % Neutrophils % (Manual) % Lymphocytes % (Manual) % Eosinophils % (Manual) % Metamyelocytes % (Man) % Myelocytes % (Man) % Neutrophils # (Manual) (1.4-6.5) K/uL Total Absolute Neuts (1.4-6.5) K/uL Lymphocytes # (Manual) (1.2-3.4) K/uL Total Abs Lymphocytes (1.2-3.4) K/uL Eosinophils # (Manual) (0-0.5) K/uL Metamyelocytes # (Man) (0-0) K/uL Myelocytes # (Manual) (0-0) K/uL Large Granular Lymphs % # Lrg Granular Lymphs K/uL RBC Morphology Sodium 133 L (136-145) mmol/L Potassium 5.3 H D (3.5-5.1) mmol/L Chloride 102 (98-107) mmol/L Carbon Dioxide 22 (21-32) mmol/L Anion Gap 9 (3-11) BUN 37 H (6-23) mg/dl Creatinine 1.28 H (0.6-1.2) mg/dl Est Cr Clr Drug Dosing 34.2 ml/min Est GFR ( Amer) 43.8 ml/min Est GFR (Non-Af Amer) 37.8 ml/min BUN/Creatinine Ratio 28.9 H (10-20) Glucose 308 H* (70-99(Fasting)) mg/dl POC Glucose 262 H (70-99) mg/dl Calcium 8.2 L (8.5-10.1) mg/dl Phosphorus 4.7 (2.5-4.9) mg/dl Magnesium 2.6 H (1.7-2.4) mg/dl Total Bilirubin (0.2-1.0) mg/dl AST (13-39) U/L ALT (7-52) U/L Alkaline Phosphatase (34-104) U/L Troponin I (0-0.04) ng/ml Total Protein (6.0-8.3) gm/dl Albumin (3.4-5.0) gm/dl Globulin (2.5-4.0) gm/dl Albumin/Globulin Ratio (0.9-2) Lipase (11-82) U/L Digoxin (0.8-2.0) ng/ml SARS-CoV-2, RNA, NAAT (NEGATIVE) 06/30/21 06/30/21 06/29/21 Range/Units 04:58 04:57 22:50 WBC (4.8-10.8) K/uL RBC (4.2-5.4) M/uL Hgb (12.0-16.0) g/dL Hct (37-47) % MCV (80-100) fL MCH (25-34) pg MCHC (32-36) g/dL RDW Std Deviation (36.4-46.3) fL RDW Coeff of Abimael (11.5-14.5) % Plt Count (130-400) K/uL MPV (7.4-10.4) fL Immature Gran % (Auto) % Neut % (Auto) % Lymph % (Auto) % Henry % (Auto) % Eos % (Auto) % Baso % (Auto) % Neut # (Auto) (1.4-6.5) K/uL Lymph # (Auto) (1.2-3.4) K/uL Henry # (Auto) (0.11-0.59) K/uL Eos # (Auto) (0-0.5) K/uL Baso # (Auto) (0-0.2) K/uL Immature Gran # (Auto) (0.00-0.02) K/uL Absolute Nucleated RBC (0-0) K/uL Nucleated RBC % (auto) % Neutrophils % (Manual) % Lymphocytes % (Manual) % Eosinophils % (Manual) % Metamyelocytes % (Man) % Myelocytes % (Man) % Neutrophils # (Manual) (1.4-6.5) K/uL Total Absolute Neuts (1.4-6.5) K/uL Lymphocytes # (Manual) (1.2-3.4) K/uL Total Abs Lymphocytes (1.2-3.4) K/uL Eosinophils # (Manual) (0-0.5) K/uL Metamyelocytes # (Man) (0-0) K/uL Myelocytes # (Manual) (0-0) K/uL Large Granular Lymphs % # Lrg Granular Lymphs K/uL RBC Morphology Sodium (136-145) mmol/L Potassium (3.5-5.1) mmol/L Chloride (98-107) mmol/L Carbon Dioxide (21-32) mmol/L Anion Gap (3-11) BUN (6-23) mg/dl Creatinine (0.6-1.2) mg/dl Est Cr Clr Drug Dosing ml/min Est GFR ( Amer) ml/min Est GFR (Non-Af Amer) ml/min BUN/Creatinine Ratio (10-20) Glucose (70-99(Fasting)) mg/dl POC Glucose 335 H* 307 H* (70-99) mg/dl Calcium (8.5-10.1) mg/dl Phosphorus (2.5-4.9) mg/dl Magnesium (1.7-2.4) mg/dl Total Bilirubin (0.2-1.0) mg/dl AST (13-39) U/L ALT (7-52) U/L Alkaline Phosphatase (34-104) U/L Troponin I (0-0.04) ng/ml Total Protein (6.0-8.3) gm/dl Albumin (3.4-5.0) gm/dl Globulin (2.5-4.0) gm/dl Albumin/Globulin Ratio (0.9-2) Lipase (11-82) U/L Digoxin 0.8 (0.8-2.0) ng/ml SARS-CoV-2, RNA, NAAT (NEGATIVE) 06/29/21 06/29/21 06/29/21 Range/Units 22:30 20:29 20:27 WBC (4.8-10.8) K/uL RBC (4.2-5.4) M/uL Hgb (12.0-16.0) g/dL Hct (37-47) % MCV (80-100) fL MCH (25-34) pg MCHC (32-36) g/dL RDW Std Deviation (36.4-46.3) fL RDW Coeff of Abimael (11.5-14.5) % Plt Count (130-400) K/uL MPV (7.4-10.4) fL Immature Gran % (Auto) % Neut % (Auto) % Lymph % (Auto) % Henry % (Auto) % Eos % (Auto) % Baso % (Auto) % Neut # (Auto) (1.4-6.5) K/uL Lymph # (Auto) (1.2-3.4) K/uL Henry # (Auto) (0.11-0.59) K/uL Eos # (Auto) (0-0.5) K/uL Baso # (Auto) (0-0.2) K/uL Immature Gran # (Auto) (0.00-0.02) K/uL Absolute Nucleated RBC (0-0) K/uL Nucleated RBC % (auto) % Neutrophils % (Manual) % Lymphocytes % (Manual) % Eosinophils % (Manual) % Metamyelocytes % (Man) % Myelocytes % (Man) % Neutrophils # (Manual) (1.4-6.5) K/uL Total Absolute Neuts (1.4-6.5) K/uL Lymphocytes # (Manual) (1.2-3.4) K/uL Total Abs Lymphocytes (1.2-3.4) K/uL Eosinophils # (Manual) (0-0.5) K/uL Metamyelocytes # (Man) (0-0) K/uL Myelocytes # (Manual) (0-0) K/uL Large Granular Lymphs % # Lrg Granular Lymphs K/uL RBC Morphology Sodium (136-145) mmol/L Potassium (3.5-5.1) mmol/L Chloride (98-107) mmol/L Carbon Dioxide (21-32) mmol/L Anion Gap (3-11) BUN (6-23) mg/dl Creatinine (0.6-1.2) mg/dl Est Cr Clr Drug Dosing ml/min Est GFR ( Amer) ml/min Est GFR (Non-Af Amer) ml/min BUN/Creatinine Ratio (10-20) Glucose (70-99(Fasting)) mg/dl POC Glucose 284 H 232 H (70-99) mg/dl Calcium (8.5-10.1) mg/dl Phosphorus (2.5-4.9) mg/dl Magnesium (1.7-2.4) mg/dl Total Bilirubin (0.2-1.0) mg/dl AST (13-39) U/L ALT (7-52) U/L Alkaline Phosphatase (34-104) U/L Troponin I (0-0.04) ng/ml Total Protein (6.0-8.3) gm/dl Albumin (3.4-5.0) gm/dl Globulin (2.5-4.0) gm/dl Albumin/Globulin Ratio (0.9-2) Lipase (11-82) U/L Digoxin (0.8-2.0) ng/ml SARS-CoV-2, RNA, NAAT NEGATIVE (NEGATIVE) 06/29/21 06/29/21 06/29/21 Range/Units 16:19 16:19 16:19 WBC 14.33 H (4.8-10.8) K/uL RBC 3.85 L (4.2-5.4) M/uL Hgb 11.6 L (12.0-16.0) g/dL Hct 37.9 (37-47) % MCV 98.4 (80-100) fL MCH 30.1 (25-34) pg MCHC 30.6 L (32-36) g/dL RDW Std Deviation 52.6 H (36.4-46.3) fL RDW Coeff of Abimael 14.7 H (11.5-14.5) % Plt Count 315 (130-400) K/uL MPV 10.0 (7.4-10.4) fL Immature Gran % (Auto) % Neut % (Auto) % Lymph % (Auto) % Henry % (Auto) % Eos % (Auto) % Baso % (Auto) % Neut # (Auto) (1.4-6.5) K/uL Lymph # (Auto) (1.2-3.4) K/uL Henry # (Auto) (0.11-0.59) K/uL Eos # (Auto) (0-0.5) K/uL Baso # (Auto) (0-0.2) K/uL Immature Gran # (Auto) (0.00-0.02) K/uL Absolute Nucleated RBC 0.07 H (0-0) K/uL Nucleated RBC % (auto) 0.5 % Neutrophils % (Manual) 70.1 % Lymphocytes % (Manual) 5.1 % Eosinophils % (Manual) 0.9 % Metamyelocytes % (Man) 6.8 % Myelocytes % (Man) 1.7 % Neutrophils # (Manual) 10.05 H (1.4-6.5) K/uL Total Absolute Neuts 10.05 H (1.4-6.5) K/uL Lymphocytes # (Manual) 0.73 L (1.2-3.4) K/uL Total Abs Lymphocytes 2.94 (1.2-3.4) K/uL Eosinophils # (Manual) 0.13 (0-0.5) K/uL Metamyelocytes # (Man) 0.97 H (0-0) K/uL Myelocytes # (Manual) 0.24 H (0-0) K/uL Large Granular Lymphs 15.4 % # Lrg Granular Lymphs 2.21 K/uL RBC Morphology Unremarkable Sodium 139 (136-145) mmol/L Potassium 4.2 (3.5-5.1) mmol/L Chloride 104 (98-107) mmol/L Carbon Dioxide 21 (21-32) mmol/L Anion Gap 14 H (3-11) BUN 27 H (6-23) mg/dl Creatinine 1.24 H (0.6-1.2) mg/dl Est Cr Clr Drug Dosing 35.0 ml/min Est GFR ( Amer) 45.5 ml/min Est GFR (Non-Af Amer) 39.3 ml/min BUN/Creatinine Ratio 21.8 H (10-20) Glucose 122 H (70-99(Fasting)) mg/dl POC Glucose (70-99) mg/dl Calcium 8.8 (8.5-10.1) mg/dl Phosphorus 5.2 H (2.5-4.9) mg/dl Magnesium 1.5 L (1.7-2.4) mg/dl Total Bilirubin 0.3 (0.2-1.0) mg/dl AST 24 (13-39) U/L ALT 12 (7-52) U/L Alkaline Phosphatase 76 (34-104) U/L Troponin I 0.04 (0-0.04) ng/ml Total Protein 6.6 (6.0-8.3) gm/dl Albumin 3.4 (3.4-5.0) gm/dl Globulin 3.2 (2.5-4.0) gm/dl Albumin/Globulin Ratio 1.1 (0.9-2) Lipase 33 (11-82) U/L Digoxin (0.8-2.0) ng/ml SARS-CoV-2, RNA, NAAT (NEGATIVE) 06/29/21 Range/Units 16:10 WBC (4.8-10.8) K/uL RBC (4.2-5.4) M/uL Hgb (12.0-16.0) g/dL Hct (37-47) % MCV (80-100) fL MCH (25-34) pg MCHC (32-36) g/dL RDW Std Deviation (36.4-46.3) fL RDW Coeff of Abimael (11.5-14.5) % Plt Count (130-400) K/uL MPV (7.4-10.4) fL Immature Gran % (Auto) % Neut % (Auto) % Lymph % (Auto) % Henry % (Auto) % Eos % (Auto) % Baso % (Auto) % Neut # (Auto) (1.4-6.5) K/uL Lymph # (Auto) (1.2-3.4) K/uL Henry # (Auto) (0.11-0.59) K/uL Eos # (Auto) (0-0.5) K/uL Baso # (Auto) (0-0.2) K/uL Immature Gran # (Auto) (0.00-0.02) K/uL Absolute Nucleated RBC (0-0) K/uL Nucleated RBC % (auto) % Neutrophils % (Manual) % Lymphocytes % (Manual) % Eosinophils % (Manual) % Metamyelocytes % (Man) % Myelocytes % (Man) % Neutrophils # (Manual) (1.4-6.5) K/uL Total Absolute Neuts (1.4-6.5) K/uL Lymphocytes # (Manual) (1.2-3.4) K/uL Total Abs Lymphocytes (1.2-3.4) K/uL Eosinophils # (Manual) (0-0.5) K/uL Metamyelocytes # (Man) (0-0) K/uL Myelocytes # (Manual) (0-0) K/uL Large Granular Lymphs % # Lrg Granular Lymphs K/uL RBC Morphology Sodium (136-145) mmol/L Potassium (3.5-5.1) mmol/L Chloride (98-107) mmol/L Carbon Dioxide (21-32) mmol/L Anion Gap (3-11) BUN (6-23) mg/dl Creatinine (0.6-1.2) mg/dl Est Cr Clr Drug Dosing ml/min Est GFR ( Amer) ml/min Est GFR (Non-Af Amer) ml/min BUN/Creatinine Ratio (10-20) Glucose (70-99(Fasting)) mg/dl POC Glucose 135 H (70-99) mg/dl Calcium (8.5-10.1) mg/dl Phosphorus (2.5-4.9) mg/dl Magnesium (1.7-2.4) mg/dl Total Bilirubin (0.2-1.0) mg/dl AST (13-39) U/L ALT (7-52) U/L Alkaline Phosphatase (34-104) U/L Troponin I (0-0.04) ng/ml Total Protein (6.0-8.3) gm/dl Albumin (3.4-5.0) gm/dl Globulin (2.5-4.0) gm/dl Albumin/Globulin Ratio (0.9-2) Lipase (11-82) U/L Digoxin (0.8-2.0) ng/ml SARS-CoV-2, RNA, NAAT (NEGATIVE) PG Care Time/CCT Total # of Minutes Spent Total Time Spent with Patient: Total time spent is greater than 50% in coordination of care (as documented) at patient's floor/unit and/or counseling patient: Coding Level of Care Code 80997 Subseq Hosp Care Lvl 2 Diagnoses Anaphylactic reaction T78.2XXA Hypomagnesemia E83.42 Leukocytosis D72.829 S/P TAVR (transcatheter aortic valve replacement) Z95.2 Atrial fibrillation, persistent I48.19 Anemia D64.9 Anemia type: unspecified type Rectal cancer C20 Hypertension, essential I10 Dyslipidemia E78.5 Cardiomyopathy I42.9 Stage 3 chronic kidney disease N18.3 Controlled type 2 diabetes mellitus with kidney complication, with long-term current use of insulin E11.29; Z79.4 UTI (urinary tract infection) N39.0 (1) Anemia Anemia type: unspecified type Qualified Code(s): D64.9 - Anemia, unspecified
[2021-06-30] MEDS: FUROSEMIDE 40 MG TAB PO SCH (12:01)
--- NOTE | 2021-06-30 12:10 | Electrocardiogram Report ---
Test Reason : Blood Pressure : / mmHG Vent. Rate : 133 BPM Atrial Rate : 129 BPM P-R Int : 000 ms QRS Dur : 100 ms QT Int : 332 ms P-R-T Axes : 000 -74 098 degrees QTc Int : 494 ms Poor data quality, interpretation may be adversely affected Atrial fibrillation with rapid ventricular response with premature ventricular or aberrantly conducte d complexes Left axis deviation Abnormal ECG When compared with ECG of 23-JUN-2021 16:54, Significant changes have occurred Confirmed by Ignacio Fu ([id number]) on 06/30/2021 12:10:29 PM Referred By: Provider Outside Confirmed By:Ignacio Fu
--- NOTE | 2021-06-30 12:15 | Electrocardiogram Report ---
Test Reason : Blood Pressure : / mmHG Vent. Rate : 096 BPM Atrial Rate : 119 BPM P-R Int : 000 ms QRS Dur : 118 ms QT Int : 356 ms P-R-T Axes : 000 -39 089 degrees QTc Int : 449 ms Atrial fibrillation with premature ventricular or aberrantly conducted complexes Left axis deviation Inferior infarct , age undetermined Poor R wave progression, consider anterior KS vs. lead placement vs. LVH Abnormal ECG When compared with ECG of 29-JUN-2021 16:01, (unconfirmed) QRS duration has increased ST no longer depressed in Inferior leads ST no longer depressed in Anterolateral leads Confirmed by Ignacio Fu ([id number]) on 06/30/2021 12:15:12 PM Referred By: Provider Outside Confirmed By:Ignacio Fu
[2021-06-30] MEDS ORDERED: DIGOXIN 0.125 MG TAB PO SCH (16:00)
[2021-06-30] MEDS ORDERED: INSULIN GLARGINE SOLOSTAR 100 UNITS/ML 3 ML PEN SC SCH (21:00)
[2021-07-01 03:25] VITALS: O2SAT 95
[2021-07-01 05:54] LABS: Basophils # (auto) 0.01 K/uL (0-0.2); Basophils % (auto) 0.1 %; Eosinophils # (auto) 0.14 K/uL (0-0.5); Hematocrit (blood only) 29.2 % (37-47); Hemoglobin 8.8 g/dL (12.0-16.0); Immature Granulocytes # (auto) 0.07 K/uL (0.00-0.02); Immature Granulocytes % (auto) 0.5 %; Lymphocytes % (auto) 11.8 %; Mean Corpuscular Hgb Conc 30.1 g/dL (32-36); Mean Corpuscular Volume 96.4 fL (80-100); Mean Platelet Volume 9.5 fL (7.4-10.4); Monocytes # (auto) 1.03 K/uL (0.11-0.59); Monocytes % (auto) 7.6 %; Neutrophils # (auto) 10.68 K/uL (1.4-6.5); Platelet Count 248 K/uL (130-400); RDW Coefficient of Variation 14.9 % (11.5-14.5); RDW Standard Deviation 52.6 fL (36.4-46.3); Red Blood Count 3.03 M/uL (4.2-5.4); White Blood Count 13.53 K/uL (4.8-10.8)
[2021-07-01 06:31] LABS: BUN Creatinine Ratio 44.4 (10-20); Calcium 8.6 mg/dl (8.5-10.1); Creatinine Clr Calc Pharmacy 35.5 ml/min; Est GFR (African American) 45.5 ml/min; Est GFR (Non-African American) 39.3 ml/min; Magnesium 2.4 mg/dl (1.7-2.4); Potassium 5.2 mmol/L (3.5-5.1)
[2021-07-01 07:26] VITALS: PULSE 84; TEMP 98.6
[2021-07-01] MEDS: ACETAMINOPHEN 500 MG TAB PO SCH (08:16)
[2021-07-01] MEDS: FUROSEMIDE 40 MG TAB PO SCH (08:17)
[2021-07-01] MEDS: cephALEXin 500 MG CAP PO SCH (08:17)
[2021-07-01] MEDS: METOPROLOL SUCC 25MG EXT REL TAB PO SCH (08:17)
[2021-07-01] MEDS: GABAPENTIN 300 MG CAP PO SCH (08:17)
[2021-07-01] MEDS: APIXABAN 5 MG TABLET PO SCH (08:18)
[2021-07-01] MEDS: CEROVITE ADV FORMULA TAB PO SCH (08:18)
[2021-07-01] MEDS: SERTRALINE HCL 50 MG TABLET PO SCH (08:18)
[2021-07-01] MEDS: CYANOCOBALAMIN (B-12) 500 MCG TABLET PO SCH (08:26)
[2021-07-01] MEDS: CHOLECALCIFEROL 1,000 UNITS 25 MCG TAB PO SCH (08:26)
[2021-07-01] MEDS: ASCORBIC ACID 500 MG TAB PO SCH (08:26)
[2021-07-01] MEDS: FOLIC ACID 1 MG TAB PO SCH (08:28)
[2021-07-01] MEDS: INSULIN ASPART PER UNIT SC SCH ×2 (08:31→12:31)
[2021-07-01] MEDS ORDERED: MAGNESIUM CHLORIDE 64MG DELAYED REL TAB PO SCH (09:00)
--- NOTE | 2021-07-01 09:16 | Pharmacy Report ---
Pharmacy Glycemic Short Note 2 - Date of Service July 01, 2021 - Glycemic Short BSG Results (Last 24 hours): 06/30/21 06/30/21 06/30/21 11:37 16:34 20:10 Glucose POC Glucose 241 H 178 H 194 H 07/01/21 07/01/21 07/01/21 00:52 01:20 05:34 Glucose 195 H POC Glucose 159 H 157 H 07/01/21 07:27 Glucose POC Glucose 201 H OUTPATIENT ANTIDIABETIC REGIMEN: * Novolog insulin pump, per last Endocrine note Apr 2021 * TDD ~41 units insulin * Basal 16 u/day * CF 30mg/dl/unit * CR 1: 5.5-6.5 ASSESSMENT: 07/01/21 * Blood sugars better controlled after changes yesterday, fasting elevated this morning but likely due to snack pt had at 0200 when her Dexcom alerted her that BSG was 81mg/dl and dropping. Pt asymptomatic, BSG 156mg/dl on our meter, was treated w/ 10g PO crackers and PB. * Pt not using CGM in hospital but does still have it attached. * No changes in insulin orders at this time. 06/30/21 * 85 yo female, admitted after anaphylactic rxn to IV iron at outpt clinic, received IV Solu-Medrol + SQ Epi LIVE IN C[facility]GIVER * PMH colon cancer, colostomy 05/29, HTN, HL, Anemia, Afib, CKD stage III, on Keflex for UTI * Hyperglycemic, managed on insulin pump as above, managed by daughter, using SQ to manage inpatient * Pt given Basal of 16 units last night and correctional insulin overnight, BSG down to 262mg/dl today, continue to titrate doses to goal BSG PLAN FOR INPATIENT GLYCEMIC CONTROL: * Hold outpatient insulin pump * Basal insulin * Lantus 16 units SQ HS * Bolus insulin * NovoLog per scale ACHS or Q6hrs while NPO * Goal Range: Low 110 mg/dL - High 140 mg/dL * Correction Factor: 15 mg/dL/unit * Nutritional / Prandial insulin per carb ratio of 1 unit per 4.5 grams CHO consumed
--- NOTE | 2021-07-01 10:31 | Discharge Summary ---
Date of Service July 01, 2021 Admission HPI Per Admitting Provider [id number] YOF with past medical history of: CVA, Afib (Apixaban), HTN, Cardiomyopathy, TAVR, CKD, chronic fatigue, rectal adenocarcinoma [id number] s/p colostomy, DM II (with insulin pump), HLD. 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 It is believed that she had an allergic response to this as she had dyspnea, nausea with vomiting, and alteration in her mentation. She was given 0.3mg of Epinephrine and Solumedrol. In the EMD the patient remains fatigued and tachycardic. She had routine labs drawn to include Troponin I. She received 1 liter of crystalloid, magnesium 3 gram for a magnesium level of 1.5, ECG was performed without dynamic changes. Patient will be brought in to continue to monitor her HR and rythm, supportive care for fatigue, and continued hydration with electrolyte replacements. Will check Digoxin level as well and will add PO4 level as this iron combination reaction is noted to cause hypophosphatemia. Patient is on Cephalexin 500mg PO BID for Klebsiella pneumoniae this was started on , will continue her Insulin pump and follow her glucose levels with her basal rate of 80 and bolus dosing based off CF 35 and ration 1:8. Discharge Exam Constitutional WD/WN, vitals as above Eyes PERRL, conjunctivae normal, anicteric sclerae + anicteric sclerae ENMT external ear and nose normal, oropharynx normal Neck trachea midline, no thyromegaly Respiratory normal respiratory effort; no cough Auscultation: + crackles (bibasilar); no wheezes Cardiovascular Rate/Rhythm: regular rate and + irregularly irregular Heart Sounds: no murmur Extremities: no edema Chest (Breasts) Chest: normal inspection of chest Gastrointestinal (Abdomen) normal bowel sounds, soft, nontender, no hepatosplenomegaly Musculoskeletal Extremities: extremities normal to inspection; no cyanosis and no clubbing Skin no rashes, warm and dry Neurologic moves all extremities and awake; no focal motor deficits Psychiatric A+Ox3, euthymic affect Lymphatic no lymphedema Discharge Data Allergies Allergy/AdvReac Type Severity Reaction Status Date / Time ferric derisomaltose Allergy Severe Shortness Verified 06/30/21 14:18 [From Monoferric] of breath,Nausea/vomiting,Fatigue exenatide Allergy Intermediate MYALGIA Verified 06/29/21 16:28 phenol Allergy Intermediate MYALGIA Verified 06/29/21 16:28 Bcsdkfs-CKY-GtH Reductase Allergy Intermediate MYALGIA Verified 06/29/21 16:28 Inhibitor [Zspbmfy-Ldv-Bab Reductase Inhibitor] codeine AdvReac Mild Vomiting Verified 06/29/21 16:28 hydrocodone AdvReac Mild vomiting Verified 06/29/21 16:28 NSAIDS (Non-Steroidal AdvReac Mild TOLD NOT Verified 06/29/21 16:28 Anti-Inflamma TO TAKE Consultations 06/29/21 19:27 ED Decision to Admit Stat Hospital Course (1) Anaphylactic reaction: Consistent with reaction to her iron- FERRIC DERISOMALTOSE - Nausea vomiting, dyspnea and shortness of breath as presenting symptoms along with severe fatigue -Received epinephrine, Solu-Medrol prior to arrival in the ER Much improved today, no further symptoms except some fatigue Need to have PT/OT see her Otherwise stable, no further steroids given here Continue to monitor through tomorrow as half-life of this type of IV iron is 27 hours (2) Hypomagnesemia: secondary to vomiting and GI losses- patient does not report any increase output from her ostomy Was replaced with IV magnesium now normalized - she is on mag replacement as outpatient as well-restart this for tomorrow Follow level in the morning (3) Leukocytosis: WBC 14 upon arrival related to stress response plus received IV steroids Now increased further from the steroids likely No further steroids being given - does not appear toxic at this time- CXR clear and on ABX for UTI that is appropriate (4) S/P TAVR (transcatheter aortic valve replacement): Done at [facility]- -11/09/18 with #26 mm (5) Atrial fibrillation, persistent: Rate controlled Digoxin level normal - Continue Apixaban - Continue with Metoprolol Continue on telemetry (6) Anemia: HGB 9.3 06/23--- was 11.6 on arrival likely hemoconcentrated from events on the day of admission-now hemoglobin back down to baseline at 9.2 - Avoid further iron replacement with ferric derisomaltose-added this to her list of allergies Follow-up with oncology after discharge (7) Rectal cancer: Adenocarcionma of the rectum- with colostomy 05/29 - No acute needs at this time, follow output (8) Hypertension, essential: As above- controlled Restart home Lasix and stop IV fluids Continue metoprolol 75 mg p.o. 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 - baseline 1.0-1.2 (12) Controlled type 2 diabetes mellitus with kidney complication, with long- term current use of insulin: With insulin pump-removed here With significant hyperglycemia here in the 300s Pharmacy is managing and has increased her basal bolus insulin (13) UTI (urinary tract infection): As per HPI - Continue Cephalexin 500mg PO BID- Klebsiella pneumonia from urine culture 06/23- sensitive to ancef Would complete 7-day course ordered PT/OT Disposition-continued stay but hopeful for discharge back to the [facility] tomorrow Full code Discharge Plan Discharge Items Patient Disposition: Personal [facility] Reason For Visit: ANAPHYLAXIS REACTION - TACHYCARDIA FATIGUE Discharge Diagnosis: Anaphylaxis Condition on Discharge: Good Activity: As commented below Lifting: Gradually increase as tolerated Bathing: No limitations Exercise/Sports: Gradually increase as tolerated Non-emergency contact: Primary Care Provider and Oncologist Call non-emergency contact if: you have any medication questions and your symptoms worsen Follow-up/Referrals: Katja Clarke CRNP [Primary Care Provider] - (Follow up within 1 week.) Vito Ramirez MD [Surgeon] - (Follow up within 2 weeks) Diet: Carb Consistent or DM2 Addtl Attending Provider Instructions: You were admitted after having an allergic reaction to the IV iron you received. You recovered and are well enough to return home. Your potassium levels remained mildly elevated and you should HOLD on taking your home potassium tablet for now. Please have your PCP check your potassium levels with blood work in the next 2-3 days. Follow up with Dr. Ramirez regarding your anemia and iron deficiency. When you return home, please replace your insulin pump and DEXCOM right away. Pending Studies at Discharge: No Stand-Alone Forms: My [facility] Skilled Items Patient informed of condition?: Yes DNR: No Discharge Level of Care: Other Communicable Disease: No Discharge Prognosis: Improving Lines: None Urinary Catheter: No Medications and DC Order Prescriptions: Continued digoxin [Digitek] 125 mcg (0.125 mg) tablet 125 mcg PO DAILY@1600 90 Days Qty: 90 RF: 3 Eliquis 5 mg tablet 5 mg PO BID Qty: 180 RF: 3 metoprolol succinate 25 mg tablet extended release 24 hr 75 mg PO Q12H Qty: 540 RF: 3 (DME) Ketostix Strip See Rx Instructions .ROUTE .MEDSUPPLY Qty: 25 RF: 3 gxmtkwezwuuw-rdnbfrzo-ujifhn tablet 1 tab PO DAILY RF: 0 folic acid 1 mg tablet 1 mg PO DAILY RF: 0 cholecalciferol (vitamin D3) 50 mcg (2,000 unit) tablet 2,000 unit PO DAILY RF: 0 sertraline 25 mg tablet 25 mg PO QAM RF: 0 gabapentin 300 mg capsule 300 mg PO TID RF: 0 cyanocobalamin (vitamin B-12) [Vitamin B-12] 1,000 mcg Tablet 1,000 mcg PO DAILY RF: 0 tramadol 50 mg Tablet 50 mg PO Q6H PRN (Reason: Pain) RF: 0 magnesium chloride 64 mg Tablet Extended Release 64 mg PO DAILY RF: 0 acetaminophen [Tylenol Arthritis] 650 mg Tablet Extended Release 1,300 mg PO TID RF: 0 ascorbic acid (vitamin C) [Vitamin C] 500 mg Tablet 1,000 mg PO DAILY RF: 0 biotin 5,000 mcg Tablet, Sublingual 5,000 mcg SUBLINGUAL DAILY RF: 0 insulin aspart U-100 [Novolog U-100 Insulin aspart] 100 unit/mL solution 80 unit continuous subcutaneous infusion CONTINOUS RF: 0 furosemide 40 mg tablet 40 mg PO BID Qty: 0 RF: 0 Discontinued potassium chloride 20 mEq tablet,ER particles/crystals 40 meq PO QAM RF: 0 cephalexin 500 mg Capsule 500 mg PO BID RF: 0 Admission Data Admit Date/Time: 06/29/21 19:59 Attending Provider: Yamile Méndez Admit Provider: Shara Wilson Primary Care Provider: Katja Clarke Other Providers: Shara Wilson Coding Diagnoses Anaphylactic reaction T78.2XXA Hypomagnesemia E83.42 Leukocytosis D72.829 S/P TAVR (transcatheter aortic valve replacement) Z95.2 Atrial fibrillation, persistent I48.19 Anemia D64.9 Anemia type: unspecified type Rectal cancer C20 Hypertension, essential I10 Dyslipidemia E78.5 Cardiomyopathy I42.9 Stage 3 chronic kidney disease N18.3 Controlled type 2 diabetes mellitus with kidney complication, with long-term current use of insulin E11.29; Z79.4 UTI (urinary tract infection) N39.0
[2021-07-01 12:35] LABS: BUN Creatinine Ratio 45.2 (10-20); Calcium 8.7 mg/dl (8.5-10.1); Creatinine Clr Calc Pharmacy 38.3 ml/min; Est GFR (African American) 49.9 ml/min; Potassium 4.9 mmol/L (3.5-5.1)
[2021-07-01 13:06] VITALS: BP 151/77
== END 2021-07-01 14:45 | disposition home or self-care (01) ==
LOC: ED 15:49 → 2N 15:49 → SUATTDRO 19:59 → 2N 21:45

== ENCOUNTER 2021-07-13 21:06 | Inpatient (IN) ==
[2021-07-13] MEDS ORDERED: ONDANSETRON INJ 2 MG/ML 2 ML VIAL IV STA (21:32)
[2021-07-13 21:44] LABS: Basophils # (auto) 0.02 K/uL (0-0.2); Basophils % (auto) 0.2 %; Eosinophils # (auto) 0.13 K/uL (0-0.5); Eosinophils % (auto) 1.3 %; Hematocrit (blood only) 27.7 % (37-47); Hemoglobin 8.5 g/dL (12.0-16.0); Immature Granulocytes # (auto) 0.02 K/uL (0.00-0.02); Immature Granulocytes % (auto) 0.2 %; Lymphocytes # (auto) 1.48 K/uL (1.2-3.4); Lymphocytes % (auto) 15.2 %; Mean Corpuscular Hemoglobin 29.2 pg (25-34); Mean Corpuscular Hgb Conc 30.7 g/dL (32-36); Mean Corpuscular Volume 95.2 fL (80-100); Monocytes # (auto) 0.79 K/uL (0.11-0.59); Monocytes % (auto) 8.1 %; Neutrophils # (auto) 7.29 K/uL (1.4-6.5); Platelet Count 292 K/uL (130-400); RDW Standard Deviation 54.9 fL (36.4-46.3); Red Blood Count 2.91 M/uL (4.2-5.4); White Blood Count 9.73 K/uL (4.8-10.8)
[2021-07-13 22:06] LABS: Troponin I < 0.03 ng/ml (0-0.04)
--- NOTE | 2021-07-13 22:07 | Emergency Department Note ---
Impression & Plan Abdominal pain, Rectal cancer, Constipation, Abdominal ascites ED Provider Note Provider: Merrill Chery MD DATE OF SERVICE: 07/13/2021 CHIEF COMPLAINT: Nausea, abdominal pain, no ostomy output HISTORY OF PRESENT ILLNESS: Patient is a 85-year-old female history of atrial fibrillation, CKD, TAVR, UTIs, and rectal cancer status post ostomy placement in the middle of May this year at [facility] presenting today from her facility with no ostomy output for 3 days with some increased abdominal distention and abdominal pain with some mild nausea. Patient denies any fever or chills. Patient has been eating today and states she now has just minimal nausea. No vomiting reported. Patient states that she has had no significant ostomy output or gas and feels distended and some lower abdominal discomfort is noted. Patient denies a history of similar. Not currently on chemotherapy. Patient states her pain is fairly well-controlled with her home oxycodone and tramadol which are chronic. Patient reports she just finished antibiotic yesterday for a urinary infection. REVIEW OF SYSTEMS: A total of 10 review of systems was obtained and negative except as stated above in the HPI. PAST MEDICAL HISTORY: As noted above MEDICATIONS: Reviewed home medication list SOCIAL HISTORY: Resides at [facility] PHYSICAL EXAM: GENERAL: alert and oriented in no acute distress on stretcher however fatigued in appearance Head: normocephalic and atraumatic EYES: No injection, discharge or icterus. NECK: Trachea midline. Supple. ENT: Mucous membranes pink and moist. LUNGS: Airway patent. No retractions. Breath sounds clear HEART: Irregular rate and rhythm. No chest wall tenderness ABDOMEN: Soft mildly distended with some diffuse abdominal tenderness during the lower quadrant with the left lower quadrant ostomy (pink in color) SKIN: Acyanotic, warm, dry, without rashes EXTREMITIES: Without swelling, tenderness or deformity NEUROLOGICAL: No focal deficits. No aphasia. No facial droop or slurred speech. EK bpm atrial fibrillation. No acute ST segment elevation is noted. QTc 389. Normal axis. CONTINUOUS CARDIAC MONITORING: was ordered and showed a heart rate of 70s-90s bpm in atrial fibrillation Patient's laboratory studies and imaging reviewed. Differential includes Appendicitis, ovarian cyst, ovarian torsion, ectopic , TOA, PID, infections, diverticulitis, UTI, obstruction, mesenteric ischemia, aortic pathology, inflammatory bowel disease, renal colic, PUD, pancreatitis, biliary pathology, hernia, volvulus, constipation, as well as other pathologies. IMPRESSION/MEDICAL DECISION MAKING: Patient with history of abdominal surgery and rectal cancer with no ostomy output for 3 days with some abdominal pain and mild nausea. Question possible obstruction. CT scan abd/pelvis was ordered. Basic laboratory studies were ordered. EKG and troponin sent although lower likelihood this is cardiac in relation. Given some Zofran for nausea. Patient initially declined pain medication. Blood without significant leukocytosis and stable mild anemia. Some slightly worsened hyponatremia of 134 is noted. Renal function appears stable. No concerning findings for acute hepatitis or pancreatitis with a normal bilirubin. Negative Covid test. Urinalysis not indicative of infection. CT report per radiology withOUT evidence obstruction and only noted mild fecal retention. There is a note of ascites questioning possible development of peritoneal carcinomatosis and new lesion on the liver as well as a new right inguinal lymph node. Informed the patient and daughter at bedside of these findings and question if there may be worsening of her oncological process. Urinalysis again without concerning findings for infection at this point. Patient with prior radiation more than a year ago with some nonspecific inflamma tory findings were noted small bowel as well as around the vaginal and bladder areas. Does see any acute indication for surgical intervention at this time or treatment for this. Patient and daughter states she is scheduled for PET scan on Friday. They have informed there were not other chemotherapeutic options available previously. Do believe a bowel regimen to promote stooling would help with her situation. Believe further observation here to help with her nausea and symptoms and for institution of the bowel regimen believe given her complicated case would be safer observed here than at her facility. Daughter and patient were in agreement. Hospitalist was contacted. Will defer bowel regimen choice to the inpatient team. DIAGNOSIS: Abdominal pain, constipation, abdominal ascites, rectal cancer DISPOSITION: Hospitalist will evaluate Patient was agreeable with this plan. Past Med/Surg History Medical History Adult situational stress disorder Anemia FOLLOWS WITH DR. MORA Arthritis Atrial flutter with rapid ventricular response Controlled type 2 diabetes mellitus with kidney complication, with long-term current use of insulin Depression Diabetic peripheral neuropathy Dysesthesia Dyslipidemia Epidermal inclusion cyst Hypertension Insulin dependent diabetes mellitus Insulin pump in place Rectal cancer CURRENT DX (RADIATION AND CHEMO>LAST CHEMO SEPTEMBER 2020) Sensorineural hearing loss (SNHL) of both ears Spinal stenosis Stage 3 chronic kidney disease Supraventricular tachycardia TIA (transient ischemic attack) OVER 10 YEARS AGO>NO CURRENT PROBLEMS Surgical History H/O blepharoplasty H/O vaginal hysterectomy History of bilateral knee replacement History of bunionectomy RT/LEFT FOOT History of cardiac cath BEFORE HEART SURGERY/NO STENTS History of cataract surgery RT/LEFT History of surgical procedure on eye proper using laser History of tooth extraction Hx of cholecystectomy S/P TAVR (transcatheter aortic valve replacement) (2018) 2018 AT [facility]>FOLLOWS WITH DR. MADSEN Family History Mother , age 78 CHF Diabetes iet controlled Heart disease Stroke Father , age 83 NH Diabetes Heart disease Cancer type of blood cancer Sister , age 79 liver cancer Diabetes type 2 Cancer Unknown Hypertension Sister , age 54 ovarian cancer Cancer Sister No problems noted. Sister No problems noted. Sister No problems noted. Brother Cancer, Onset Age: 76 testicular Brother , unknown No problems noted. Son No problems noted. Son No problems noted. Son No problems noted. Daughter No problems noted. Daughter No problems noted. Other No family history of adverse response to anesthesia Social History Smoking Status: Never smoker Tobacco Type: Cigarettes Age Started Using Tobacco: 20; Age Quit Using Tobacco: 53; packs per day: 0.25; Years Smoked: 33; Number of Years Since Quit: 31; Second Hand Exposure: Yes ( A CHILD/FATHER SMOKED); Hx Alcohol Use: No Hx Substance Use: No Preferred Language: Spanish Communication Ability: Effective Hearing Ability: Normal [employer] Required: No Beliefs That Will Affect Care: None marital status: / Current Living Situation: Other Current Living Situation Comment: Assisted living at [facility]. current occupation: Retired How many Children do You have: 5 Feels Safe at Home: Yes Childhood Exposure to Second-Hand Smoke: No Diet Comment: low carbs low salt caffeine: Yes (coffee one cup per day ) during the past year weight has: remained stable Dental Care, Regularly: Yes Physical Activity Frequency: 3-4 Times per Week Seatbelt Use: always Sunscreen Use: Yes Assistive Devices: Walker Allergies Allergies Allergy/AdvReac Type Severity Reaction Status Date / Time ferric derisomaltose Allergy Severe Shortness Verified 06/30/21 14:18 [From Monoferric] of breath,Nausea/vomiting,Fatigue exenatide Allergy Intermediate MYALGIA Verified 06/29/21 16:28 phenol Allergy Intermediate MYALGIA Verified 06/29/21 16:28 Zetkmfe-XPE-KtT Reductase Allergy Intermediate MYALGIA Verified 06/29/21 16:28 Inhibitor [Icfyibd-Bix-Dzc Reductase Inhibitor] codeine AdvReac Mild Vomiting Verified 06/29/21 16:28 hydrocodone AdvReac Mild vomiting Verified 06/29/21 16:28 NSAIDS (Non-Steroidal AdvReac Mild TOLD NOT Verified 06/29/21 16:28 Anti-Inflamma TO TAKE Home Meds Home Medications Medication Instructions Recorded Confirmed folic acid 1 mg tablet 1 mg PO DAILY tab 11/19/18 07/03/21 [id number] 1 tab PO DAILY 11/19/18 07/03/21 tablet (Multivitamin 50 Plus) cholecalciferol (vitamin D3) 50 2,000 unit PO DAILY tab 01/15/21 07/03/21 mcg (2,000 unit) tablet sertraline 25 mg tablet 25 mg PO QAM 04/27/21 07/03/21 gabapentin 300 mg capsule 300 mg PO TID 06/23/21 07/03/21 acetaminophen 650 mg 1,300 mg PO TID 06/29/21 07/03/21 tablet,extended release ascorbic acid (vitamin C) 500 mg 1,000 mg PO DAILY 06/29/21 07/03/21 tablet (Vitamin C) biotin 5,000 mcg sublingual tablet 5,000 mcg SUBLINGUAL DAILY 06/29/21 07/03/21 cyanocobalamin (vitamin B-12) 1,000 mcg PO DAILY 06/29/21 07/03/21 1,000 mcg tablet (Vitamin B-12) insulin aspart U-100 100 unit/mL 80 unit CONTINUOUS SUBCUTANEOUS 06/29/21 07/03/21 subcutaneous solution (Novolog INFUSION CONTINOUS U-100 Insulin aspart) tramadol 50 mg tablet 50 mg PO Q6H PRN 06/29/21 07/03/21 cholecalciferol (vitamin D3) 25 25 mcg PO DAILY 07/03/21 07/03/21 mcg (1,000 unit) tablet (Vitamin D3) magnesium chloride 64 mg 64 mg PO DAILY 07/03/21 07/03/21 (magnesium chloride) tablet,delayed release metoprolol succinate 25 mg 75 mg PO TID 07/03/21 07/03/21 tablet,extended release 24 hr Previous Rx's Medication Instructions Recorded acetone (urine) test (Ketostix) #25 ea 12/31/19 digoxin 125 mcg (0.125 mg) tablet 125 mcg PO DAILY@1600 90 Days #90 04/15/21 (Digitek) tab apixaban 5 mg tablet (Eliquis) 5 mg PO BID #180 tab 05/02/21 furosemide 40 mg tablet 40 mg PO BID #0 tab 07/01/21 Results & Data (ED) Vital Signs Vital Signs - 24 hr 07/13/21 21:08 07/13/21 21:54 07/13/21 22:11 Temperature 37.1 C Temperature Source Oral Pulse Rate 80 85 Pulse Rate [Finger] 81 Respiratory Rate 18 18 18 Respiratory Effort / Characteristics Non-Labored Respiratory Depth Normal Blood Pressure 145/66 H Blood Pressure [Left Arm] 136/63 Blood Pressure Mean 92 Blood Pressure Mean [Left Arm] 87 Blood Pressure Position [Left Arm] Lying Pulse Oximetry 95 94 94 Oxygen Delivery Method Room Air Room Air Room Air Sepsis Recent Fever Within 48 Hours No Sepsis New/Unexplained Change in Mental Status No Sepsis Action Taken by Nursing No Action Required 07/13/21 23:54 Temperature Temperature Source Pulse Rate Pulse Rate [Finger] 89 Respiratory Rate 18 Respiratory Effort / Characteristics Respiratory Depth Blood Pressure Blood Pressure [Left Arm] 133/57 L Blood Pressure Mean Blood Pressure Mean [Left Arm] 82 Blood Pressure Position [Left Arm] Pulse Oximetry Oxygen Delivery Method Sepsis Recent Fever Within 48 Hours Sepsis New/Unexplained Change in Mental Status Sepsis Action Taken by Nursing Laboratory Data Result diagrams: 07/13/21 21:25 07/13/21 21:25 Lab Results 07/13/21 07/13/21 07/13/21 Range/Units 21:25 21:25 21:57 WBC 9.73 (4.8-10.8) K/uL RBC 2.91 L (4.2-5.4) M/uL Hgb 8.5 L (12.0-16.0) g/dL Hct 27.7 L (37-47) % MCV 95.2 (80-100) fL MCH 29.2 (25-34) pg MCHC 30.7 L (32-36) g/dL RDW Std Deviation 54.9 H (36.4-46.3) fL RDW Coeff of Abimael 16.0 H (11.5-14.5) % Plt Count 292 (130-400) K/uL MPV 9.0 (7.4-10.4) fL Immature Gran % (Auto) 0.2 % Neut % (Auto) 75.0 % Lymph % (Auto) 15.2 % Caldwell % (Auto) 8.1 % Eos % (Auto) 1.3 % Baso % (Auto) 0.2 % Neut # (Auto) 7.29 H (1.4-6.5) K/uL Lymph # (Auto) 1.48 (1.2-3.4) K/uL Caldwell # (Auto) 0.79 H (0.11-0.59) K/uL Eos # (Auto) 0.13 (0-0.5) K/uL Baso # (Auto) 0.02 (0-0.2) K/uL Immature Gran # (Auto) 0.02 (0.00-0.02) K/uL Sodium 134 L (136-145) mmol/L Potassium (3.5-5.1) mmol/L Chloride 102 (98-107) mmol/L Carbon Dioxide 24 (21-32) mmol/L Anion Gap 8 (3-11) BUN 23 (6-23) mg/dl Creatinine 1.11 (0.6-1.2) mg/dl Est Cr Clr Drug Dosing 40.2 ml/min Est GFR ( Amer) 52.1 ml/min Est GFR (Non-Af Amer) 44.9 ml/min BUN/Creatinine Ratio 20.7 H (10-20) Glucose 192 H (70-99(Fasting)) mg/dl Calcium 8.5 (8.5-10.1) mg/dl Total Bilirubin 0.3 (0.2-1.0) mg/dl AST (13-39) U/L ALT 6 L (7-52) U/L Alkaline Phosphatase 55 (34-104) U/L Troponin I < 0.03 (0-0.04) ng/ml Total Protein 6.2 (6.0-8.3) gm/dl Albumin 3.2 L (3.4-5.0) gm/dl Globulin 3.0 (2.5-4.0) gm/dl Albumin/Globulin Ratio 1.1 (0.9-2) Lipase 9 L (11-82) U/L Urine Color Urine Appearance (Clear) Urine pH (4.5-7.5) Ur Specific [place] (1.000-1.030) Urine Protein (Negative) Urine Glucose (UA) (Negative) Urine Ketones (Negative) Urine Blood (Negative) Urine Nitrite (Negative) Urine Bilirubin (Negative) Urine Urobilinogen (Negative) Ur Leukocyte Esterase (Negative) Urine WBC (Auto) (0-5) /hpf Urine RBC (Auto) (0-4) /hpf U Hyaline Cast (Auto) (0-5) /lpf U Epithel Cells (Auto) (0-5) /lpf Urine Bacteria (Auto) (Negative) SARS-CoV-2, RNA, NAAT NEGATIVE (NEGATIVE) 07/13/21 Range/Units 23:01 WBC (4.8-10.8) K/uL RBC (4.2-5.4) M/uL Hgb (12.0-16.0) g/dL Hct (37-47) % MCV (80-100) fL MCH (25-34) pg MCHC (32-36) g/dL RDW Std Deviation (36.4-46.3) fL RDW Coeff of Abimael (11.5-14.5) % Plt Count (130-400) K/uL MPV (7.4-10.4) fL Immature Gran % (Auto) % Neut % (Auto) % Lymph % (Auto) % Caldwell % (Auto) % Eos % (Auto) % Baso % (Auto) % Neut # (Auto) (1.4-6.5) K/uL Lymph # (Auto) (1.2-3.4) K/uL Caldwell # (Auto) (0.11-0.59) K/uL Eos # (Auto) (0-0.5) K/uL Baso # (Auto) (0-0.2) K/uL Immature Gran # (Auto) (0.00-0.02) K/uL Sodium (136-145) mmol/L Potassium (3.5-5.1) mmol/L Chloride (98-107) mmol/L Carbon Dioxide (21-32) mmol/L Anion Gap (3-11) BUN (6-23) mg/dl Creatinine (0.6-1.2) mg/dl Est Cr Clr Drug Dosing ml/min Est GFR ( Amer) ml/min Est GFR (Non-Af Amer) ml/min BUN/Creatinine Ratio (10-20) Glucose (70-99(Fasting)) mg/dl Calcium (8.5-10.1) mg/dl Total Bilirubin (0.2-1.0) mg/dl AST (13-39) U/L ALT (7-52) U/L Alkaline Phosphatase (34-104) U/L Troponin I (0-0.04) ng/ml Total Protein (6.0-8.3) gm/dl Albumin (3.4-5.0) gm/dl Globulin (2.5-4.0) gm/dl Albumin/Globulin Ratio (0.9-2) Lipase (11-82) U/L Urine Color Yellow Urine Appearance Clear (Clear) Urine pH 5.0 (4.5-7.5) Ur Specific [place] 1.019 (1.000-1.030) Urine Protein Trace H (Negative) Urine Glucose (UA) Negative (Negative) Urine Ketones Negative (Negative) Urine Blood Negative (Negative) Urine Nitrite Negative (Negative) Urine Bilirubin Negative (Negative) Urine Urobilinogen Negative (Negative) Ur Leukocyte Esterase Negative (Negative) Urine WBC (Auto) 1-5 (0-5) /hpf Urine RBC (Auto) 0-4 (0-4) /hpf U Hyaline Cast (Auto) 10-30 H (0-5) /lpf U Epithel Cells (Auto) 20-30 H (0-5) /lpf Urine Bacteria (Auto) Negative (Negative) SARS-CoV-2, RNA, NAAT (NEGATIVE) Administered Medications Discontinued Medications Ioversol (Optiray 320 100ml) 94 ml IV ONCE ONE Stop: 07/13/21 23:19 Last Admin: 07/13/21 23:20 Dose: 94 ml Documented by: [id number] Ondansetron HCl (Ondansetron Inj 2 Mg/Ml 2 Ml Vial) 4 mg IV NOW STA Stop: 07/13/21 21:33 Last Admin: 07/13/21 21:45 Dose: 4 mg Documented by: [id number] Imaging Data Radiologist's Impression: Abdomen/Pelvis CT 07/13/21 21:32 CT SCAN OF THE ABDOMEN AND PELVIS WITH IV CONTRAST CLINICAL HISTORY: Nausea. Generalized abdominal pain. Distention. COMPARISON STUDY: Abdominal CT dated 04/12/2020. Pelvic MRI dated 03/20/2021. TECHNIQUE: Following the IV administration of 94 cc of Optiray 320, CT scan of the abdomen and pelvis is performed from the lung bases to the proximal femora. Images are reviewed in the axial, sagittal, and coronal planes. IV contrast was administered without complication. A dose lowering technique was utilized adhering to the principles of ALARA. CT DOSE: 580.52 mGy.cm FINDINGS: Lung bases: The heart is enlarged noting trace pericardial effusion. The coronary arteries are densely calcified. There is evidence of previous aortic valve surgery. There is a small right pleural effusion with dependent atelectasis. Liver: The contrast-enhanced liver is normal in size, contour, and attenuation. There is no intrahepatic biliary ductal dilatation. The hepatic veins and portal veins are patent. There is a new 1.3 cm low-attenuation lesion in the dome of the liver seen on image #66. A subcentimeter hypodensity in the inferior right lobe on image #200 is unchanged from prior examinations. Gallbladder: Surgically absent. Spleen: Normal in size and attenuation. Pancreas: Unremarkable. Adrenal glands: Unremarkable. Kidneys: The contrast enhanced kidneys demonstrate cortical atrophy and are without hydronephrosis. The kidneys enhance symmetrically. Abdominal vasculature: The abdominal aorta is normal in course and caliber. Bowel: There is postoperative change from left proctocolectomy with left lower quadrant colostomy. Moderate fecal retention is seen throughout the right colon. No bowel obstruction is identified. There are mildly thick-walled and hyperemic appearing loops of fluid-filled normal caliber small bowel in the pelvis. The appendix is well-visualized and normal. Peritoneum: There is a small to moderate volume of abdominopelvic ascites. No intraperitoneal free air is identified. There are fat and fluid containing subumbilical hernias. There is peritoneal thickening and enhancement identified in the left upper quadrant posteriorly on image #196. Additionally, omental caking is suggested. Findings are suspicious for peritoneal carcinomatosis. Lymphadenopathy: There is a 2.4 x 1.9 cm heterogeneously enhancing right inguinal lymph node seen on image #436. No additional enlarged lymph nodes are seen in the abdomen or pelvis. Pelvic viscera: The bladder is decompressed and appears circumferentially thick walled with surrounding inflammation. The uterus is surgically absent. No adnexal lesion is seen. The vagina appears markedly thick walled and hyperemic with surrounding inflammation as seen on image #419. Skeletal structures: The skeletal structures are osteopenic. Lumbosacral spondylosis is observed. There is a mild chronic superior endplate compression deformity of L1. No lytic or blastic lesions are seen. IMPRESSION: 1. There is postoperative change from left proctocolectomy with left lower quadr ant colostomy. 2. No bowel obstruction is identified. Moderate fecal retention is noted in the right colon. 3. There is a small to moderate volume of abdominopelvic ascites. This is new from previous, and there are foci of peritoneal thickening and enhancement with possible omental caking. Although nonspecific, the appearance is suspicious for developing peritoneal carcinomatosis. 4. There is a 13 mm low-attenuation lesion in the dome of the liver which is new from previous and suspicious for hepatic metastatic disease. 5. Small right pleural effusion. 6. The bladder wall is markedly thickened and hyperemic with surrounding inflammation. Additionally, the vagina appears markedly thick walled, hyperemic, and irregular. These findings may be related to pelvic radiation. Correlate with urinalysis and pelvic examination/direct visualization. 7. There are mildly thick-walled and hyperemic loops of normal caliber fluid- filled small bowel in the pelvis. This suggest a nonspecific enteritis which may also be radiation related. Again, clinical correlation will be required. 8. There is an enlarged and hyperemic right inguinal lymph node which is new from previous. This is pathologically indeterminant and attention at follow-up is recommended. 9. Additional findings as above. ACT 112: Negative or not required by law. Electronically signed by: Andres Beckham M.D. 07/13/2021 11:51 PM Discharge Plan Visit Data Chief Complaint: Abdominal Pain Stated Complaint: Abdominal Pain ED Provider: Merrill Chery Discharge Problem: Abdominal pain, Rectal cancer, Constipation, Abdominal ascites Patient Disposition: Being Evaluated by Hospitalist Forms Stand Alone Forms: My [facility] E-Box - [email or web address] Prescriptions Prescriptions: No Action digoxin [Digitek] 125 mcg (0.125 mg) tablet 125 mcg PO DAILY@1600 90 Days Qty: 90 RF: 3 Eliquis 5 mg tablet 5 mg PO BID Qty: 180 RF: 3 (DME) Ketostix Strip See Rx Instructions .ROUTE .MEDSUPPLY Qty: 25 RF: 3 Multivitamin 50 Plus tablet 1 tab PO DAILY RF: 0 folic acid 1 mg tablet 1 mg PO DAILY RF: 0 cholecalciferol (vitamin D3) 50 mcg (2,000 unit) tablet 2,000 unit PO DAILY RF: 0 sertraline 25 mg tablet 25 mg PO QAM RF: 0 gabapentin 300 mg capsule 300 mg PO TID RF: 0 cyanocobalamin (vitamin B-12) [Vitamin B-12] 1,000 mcg Tablet 1,000 mcg PO DAILY RF: 0 tramadol 50 mg Tablet 50 mg PO Q6H PRN (Reason: Pain) RF: 0 acetaminophen 650 mg Tablet Extended Release 1,300 mg PO TID RF: 0 ascorbic acid (vitamin C) [Vitamin C] 500 mg Tablet 1,000 mg PO DAILY RF: 0 biotin 5,000 mcg Tablet, Sublingual 5,000 mcg SUBLINGUAL DAILY RF: 0 insulin aspart U-100 [Novolog U-100 Insulin aspart] 100 unit/mL solution 80 unit continuous subcutaneous infusion CONTINOUS RF: 0 furosemide 40 mg tablet 40 mg PO BID Qty: 0 RF: 0 cholecalciferol (vitamin D3) [Vitamin D3] 25 mcg (1,000 unit) Tablet 25 mcg PO DAILY RF: 0 magnesium chloride 64 mg Tablet,Delayed Release (Dr/Ec) 64 mg PO DAILY RF: 0 metoprolol succinate 25 mg tablet extended release 24 hr 75 mg PO TID RF: 0 Referrals Referrals: Katja Clarke CRNP [Primary Care Provider] -
[2021-07-13 22:45] LABS: Alanine Aminotransferase 6 U/L (7-52); Albumin Globulin Ratio 1.1 (0.9-2); Albumin Level 3.2 gm/dl (3.4-5.0); Alkaline Phosphatase 55 U/L (34-104); Anion Gap 8 (3-11); BUN Creatinine Ratio 20.7 (10-20); Bilirubin,Total 0.3 mg/dl (0.2-1.0); Blood Urea Nitrogen 23 mg/dl (6-23); Calcium 8.5 mg/dl (8.5-10.1); Carbon Dioxide 24 mmol/L (21-32); Chloride 102 mmol/L (98-107); Creatinine Clr Calc Pharmacy 40.2 ml/min; Est GFR (African American) 52.1 ml/min; Est GFR (Non-African American) 44.9 ml/min; Glucose 192 mg/dl (70-99(Fasting)); Lipase 9 U/L (11-82); Sodium 134 mmol/L (136-145); Total Protein 6.2 gm/dl (6.0-8.3)
[2021-07-13] MEDS ORDERED: OPTIRAY 320 100ml IV ONE (23:18)
[2021-07-13 23:20] LABS: Appearance Urine Clear (Clear); Bacteria Urine Automated Negative (Negative); Bilirubin Urine Negative (Negative); Blood Urine Negative (Negative); Color Urine Yellow; Epithelial Cell Urine Auto 20-30 /lpf (0-5); Glucose Urine UA Negative (Negative); Ketones Urine Negative (Negative); Leukocyte Esterase Urine Negative (Negative); Nitrite Urine Negative (Negative); Protein Urine Trace (Negative); RBC Urine Automated 0-4 /hpf (0-4); Specific Gravity Urine 1.019 (1.000-1.030); Urobilinogen Urine Negative (Negative)
--- NOTE | 2021-07-13 23:53 | CT Scan Report ---
CT SCAN OF THE ABDOMEN AND PELVIS WITH IV CONTRAST CLINICAL HISTORY: Nausea. Generalized abdominal pain. Distention. COMPARISON STUDY: Abdominal CT dated 04/12/2020. Pelvic MRI dated 03/20/2021. TECHNIQUE: Following the IV administration of 94 cc of Optiray 320, CT scan of the abdomen and pelvi s is performed from the lung bases to the proximal femora. Images are reviewed in the axial, sagittal , and coronal planes. IV contrast was administered without complication. A dose lowering technique wa s utilized adhering to the principles of ALARA. CT DOSE: 580.52 mGy.cm FINDINGS: Lung bases: The heart is enlarged noting trace pericardial effusion. The coronary arteries are densel y calcified. There is evidence of previous aortic valve surgery. There is a small right pleural effus ion with dependent atelectasis. Liver: The contrast-enhanced liver is normal in size, contour, and attenuation. There is no intrahepa tic biliary ductal dilatation. The hepatic veins and portal veins are patent. There is a new 1.3 cm l ow-attenuation lesion in the dome of the liver seen on image #66. A subcentimeter hypodensity in the inferior right lobe on image #200 is unchanged from prior examinations. Gallbladder: Surgically absent. Spleen: Normal in size and attenuation. Pancreas: Unremarkable. Adrenal glands: Unremarkable. Kidneys: The contrast enhanced kidneys demonstrate cortical atrophy and are without hydronephrosis. T he kidneys enhance symmetrically. Abdominal vasculature: The abdominal aorta is normal in course and caliber. Bowel: There is postoperative change from left proctocolectomy with left lower quadrant colostomy. Mo derate fecal retention is seen throughout the right colon. No bowel obstruction is identified. There are mildly thick-walled and hyperemic appearing loops of fluid-filled normal caliber small bowel in t he pelvis. The appendix is well-visualized and normal. Peritoneum: There is a small to moderate volume of abdominopelvic ascites. No intraperitoneal free ai r is identified. There are fat and fluid containing subumbilical hernias. There is peritoneal thicken ing and enhancement identified in the left upper quadrant posteriorly on image #196. Additionally, om ental caking is suggested. Findings are suspicious for peritoneal carcinomatosis. Lymphadenopathy: There is a 2.4 x 1.9 cm heterogeneously enhancing right inguinal lymph node seen on image #436. No additional enlarged lymph nodes are seen in the abdomen or pelvis. Pelvic viscera: The bladder is decompressed and appears circumferentially thick walled with surroundi ng inflammation. The uterus is surgically absent. No adnexal lesion is seen. The vagina appears marke dly thick walled and hyperemic with surrounding inflammation as seen on image #419. Skeletal structures: The skeletal structures are osteopenic. Lumbosacral spondylosis is observed. The re is a mild chronic superior endplate compression deformity of L1. No lytic or blastic lesions are s een. IMPRESSION: 1. There is postoperative change from left proctocolectomy with left lower quadrant colostomy. 2. No bowel obstruction is identified. Moderate fecal retention is noted in the right colon. 3. There is a small to moderate volume of abdominopelvic ascites. This is new from previous, and ther e are foci of peritoneal thickening and enhancement with possible omental caking. Although nonspecifi c, the appearance is suspicious for developing peritoneal carcinomatosis. 4. There is a 13 mm low-attenuation lesion in the dome of the liver which is new from previous and mccall spicious for hepatic metastatic disease. 5. Small right pleural effusion. 6. The bladder wall is markedly thickened and hyperemic with surrounding inflammation. Additionally, the vagina appears markedly thick walled, hyperemic, and irregular. These findings may be related to pelvic radiation. Correlate with urinalysis and pelvic examination/direct visualization. 7. There are mildly thick-walled and hyperemic loops of normal caliber fluid-filled small bowel in th e pelvis. This suggest a nonspecific enteritis which may also be radiation related. Again, clinical c orrelation will be required. 8. There is an enlarged and hyperemic right inguinal lymph node which is new from previous. This is p athologically indeterminant and attention at follow-up is recommended. 9. Additional findings as above. ACT 112: Negative or not required by law. Electronically signed by: Andres Beckham M.D. 07/13/2021 11:51 PM
[2021-07-14 00:35] LABS: INR 1.2 (0.9-1.1); Prothrombin Time 12.4 Seconds (9.0-12.0)
--- NOTE | 2021-07-14 00:57 | History & Physical Report ---
Date of Service July 14, 2021 Assessment & Plan (1) Constipation: Plan: IVF, electrolyte repletion Colace BID Miralax PRN (2) Rectal cancer: Plan: Unfortunately imaging suggests new metastatic disease -Oncology followup. Patient is scheduled to see Dr. Ramirez on 07/25/21 (3) Hypertension, essential: Plan: Blood pressure well controlled -Continue Metoprolol -Monitor (4) Atrial fibrillation, persistent: Plan: Rate controlled. On anticoagulation -Continue Apixaban, Metoprolol, Digoxin (5) Stage 3 chronic kidney disease: Plan: Near baseline -Monitor -Avoid nephrotoxic agents (6) Controlled type 2 diabetes mellitus with kidney complication, with long-term current use of insulin: Plan: Chronic -Patient may use own insulin pump History of Present Illness Chief Complaint: decreased stool output from ostomy Primary Care Provider: KHOI Lane Desire Singleton is an 85yo female with multiple medical comorbidities to include AF on Apixaban, HTN, CKD, rectal adenocarcinoma [id number] s/p chemo/XRT and colostomy, DMII with insulin pump in place. Patient was recently admitted to [facility] 06/29 - 06/30/21 after an anaphylactic reaction to ferric derisomaltose i nfusion. Patient returns today with decreased stool output from her ostomy as well as decreased UOP. She reports diminished output since Friday with almost no output over the last two days. She has crampy lower abdominal pain as well. Reports she is unable to pass urine without pushing on her bladder and even then she produces only a small amount. She has persistent nausea Unfortunately, CT imaging obtained in the ER is suggestive of metastatic disease - liver lesion as well as possible carcinomatosis Allergies Allergy/AdvReac Type Severity Reaction Status Date / Time ferric derisomaltose Allergy Severe Shortness Verified 06/30/21 14:18 [From Monoferric] of breath,Nausea/vomiting,Fatigue exenatide Allergy Intermediate MYALGIA Verified 06/29/21 16:28 phenol Allergy Intermediate MYALGIA Verified 06/29/21 16:28 Grbbggo-SAH-RnL Reductase Allergy Intermediate MYALGIA Verified 06/29/21 16:28 Inhibitor [Zsxgtqg-Saj-Hgv Reductase Inhibitor] codeine AdvReac Mild Vomiting Verified 06/29/21 16:28 hydrocodone AdvReac Mild vomiting Verified 06/29/21 16:28 NSAIDS (Non-Steroidal AdvReac Mild TOLD NOT Verified 06/29/21 16:28 Anti-Inflamma TO TAKE Home Medications Medication Instructions Recorded Confirmed Type folic acid 1 mg tablet 1 mg PO DAILY tab 11/19/18 07/03/21 History ovvrmokppshj-cvrjikxe-hanqnd 1 tab PO DAILY 11/19/18 07/03/21 History tablet (Multivitamin 50 Plus) acetone (urine) test (Ketostix) #25 ea 12/31/19 06/23/21 Rx cholecalciferol (vitamin D3) 50 2,000 unit PO DAILY tab 01/15/21 07/03/21 History mcg (2,000 unit) tablet digoxin 125 mcg (0.125 mg) tablet 125 mcg PO DAILY@1600 90 Days #90 04/15/21 07/03/21 Rx (Digitek) tab sertraline 25 mg tablet 25 mg PO QAM 04/27/21 07/03/21 History apixaban 5 mg tablet (Eliquis) 5 mg PO BID #180 tab 05/02/21 07/03/21 Rx gabapentin 300 mg capsule 300 mg PO TID 06/23/21 07/03/21 History acetaminophen 650 mg 1,300 mg PO TID 06/29/21 07/03/21 History tablet,extended release ascorbic acid (vitamin C) 500 mg 1,000 mg PO DAILY 06/29/21 07/03/21 History tablet (Vitamin C) biotin 5,000 mcg sublingual tablet 5,000 mcg SUBLINGUAL DAILY 06/29/21 07/03/21 History cyanocobalamin (vitamin B-12) 1,000 mcg PO DAILY 06/29/21 07/03/21 History 1,000 mcg tablet (Vitamin B-12) insulin aspart U-100 100 unit/mL 80 unit CONTINUOUS SUBCUTANEOUS 06/29/21 07/03/21 History subcutaneous solution (Novolog INFUSION CONTINOUS U-100 Insulin aspart) tramadol 50 mg tablet 50 mg PO Q6H PRN 06/29/21 07/03/21 History furosemide 40 mg tablet 40 mg PO BID #0 tab 07/01/21 07/03/21 Rx cholecalciferol (vitamin D3) 25 25 mcg PO DAILY 07/03/21 07/03/21 History mcg (1,000 unit) tablet (Vitamin D3) magnesium chloride 64 mg 64 mg PO DAILY 07/03/21 07/03/21 History (magnesium chloride) tablet,delayed release metoprolol succinate 25 mg 75 mg PO TID 07/03/21 07/03/21 History tablet,extended release 24 hr Past Med/Surg History Medical History Adult situational stress disorder Anemia FOLLOWS WITH DR. RAMIREZ Arthritis Atrial flutter with rapid ventricular response Controlled type 2 diabetes mellitus with kidney complication, with long-term current use of insulin Depression Diabetic peripheral neuropathy Dysesthesia Dyslipidemia Epidermal inclusion cyst Hypertension Insulin dependent diabetes mellitus Insulin pump in place Rectal cancer CURRENT DX (RADIATION AND CHEMO>LAST CHEMO SEPTEMBER 2020) Sensorineural hearing loss (SNHL) of both ears Spinal stenosis Stage 3 chronic kidney disease Supraventricular tachycardia TIA (transient ischemic attack) OVER 10 YEARS AGO>NO CURRENT PROBLEMS Surgical History H/O blepharoplasty H/O vaginal hysterectomy History of bilateral knee replacement History of bunionectomy RT/LEFT FOOT History of cardiac cath BEFORE HEART SURGERY/NO STENTS History of cataract surgery RT/LEFT History of surgical procedure on eye proper using laser History of tooth extraction Hx of cholecystectomy S/P TAVR (transcatheter aortic valve replacement) (2018) 2017 AT [facility]>FOLLOWS WITH DR. MADSEN Family History Mother , age 78 CHF Diabetes iet controlled Heart disease Stroke Father , age 83 OK Diabetes Heart disease Cancer type of blood cancer Sister , age 79 liver cancer Diabetes type 2 Cancer Unknown Hypertension Sister , age 54 ovarian cancer Cancer Sister No problems noted. Sister No problems noted. Sister No problems noted. Brother Cancer, Onset Age: 76 testicular Brother , unknown No problems noted. Son No problems noted. Son No problems noted. Son No problems noted. Daughter No problems noted. Daughter No problems noted. Other No family history of adverse response to anesthesia Social History Smoking Status: Never smoker Tobacco Type: Cigarettes Age Started Using Tobacco: 20; Age Quit Using Tobacco: 53; packs per day: 0.25; Years Smoked: 33; Number of Years Since Quit: 31; Second Hand Exposure: Yes ( A CHILD/FATHER SMOKED); Hx Alcohol Use: No Hx Substance Use: No Preferred Language: Honduran Communication Ability: Effective Hearing Ability: Normal Water Meter Mechanic Required: No Beliefs That Will Affect Care: None marital status: / Current Living Situation: Other Current Living Situation Comment: Assisted living at [facility]. current occupation: Retired How many Children do You have: 5 Feels Safe at Home: Yes Childhood Exposure to Second-Hand Smoke: No Diet Comment: low carbs low salt caffeine: Yes (coffee one cup per day ) during the past year weight has: remained stable Dental Care, Regularly: Yes Physical Activity Frequency: 3-4 Times per Week Seatbelt Use: always Sunscreen Use: Yes Assistive Devices: Walker Review of Systems Review of Systems: All systems reviewed & are unremarkable except as noted in HPI & below +Nausea +abdominal distention No vomiting, fever, chills Physical Exam Physical Exam: General: patient resting comfortably, NAD, non-toxic in appearance, AA&O x 4 Skin: warm, dry, intact, no rashes or lesions HEENT: NC/AT, PERRL, EOMI, anicteric sclera, conjunctiva without injection, external ear normal to inspection and nontender, nares patent, moist mucus membranes, dentition intact, no oropharyngeal lesions, neck supple, trachea midline, no LAD, no thyromegaly, no JVD Heart: +S1/S2, regular, 3/6 VANNESSA across precordium Lungs: equal air entry bilaterally, no rales/rhonchi/wheezes Abd: +BS, soft, mild distention, tenderness to palpation in lower abdomen colostomy in place with pink stoma - no bleeding/drainage, no output Ext: warm, 2+ pulses in UE/LE bilaterally, no clubbing/cyanosis or edema Neuro: nonfocal, patient AA&O x 4, speech intact, no facial droop, moving all extremities on command with equal strength 5/5 Results & Data Results & Data ([facility]) Vital Signs (Past 12 Hours) Vital Signs Temp Pulse Pulse Resp BP BP Pulse Ox 07/13/21 23:54 89 18 133/57 L 07/13/21 22:11 85 18 94 07/13/21 21:54 81 18 136/63 94 07/13/21 21:08 37.1 C 80 18 145/66 H 95 Diagnostic Findings Laboratory Results WBC 9.73 K/uL (4.8-10.8) 07/13/21 21: RBC 2.91 M/uL (4.2-5.4) L 07/13/21 21: Hgb 8.5 g/dL (12.0-16.0) L 07/13/21: Hct 27.7 % (37-47) L 07/13/21: MCV 95.2 fL (80-100) 07/13/21 21: MCH 29.2 pg (25-34) 07/13/21: MCHC 30.7 g/dL (32-36) L 07/13/21: RDW Std Deviation 54.9 fL (36.4-46.3) H 07/13/21: RDW Coeff of Abimael 16.0 % (11.5-14.5) H 07/13/21: Plt Count 292 K/uL (130-400) 07/13/21: MPV 9.0 fL (7.4-10.4) 07/13/21: Immature Gran % (Auto) 0.2 % 07/13/21: Neut % (Auto) 75.0 % 07/13/21: Lymph % (Auto) 15.2 % 07/13/21: [place] % (Auto) 8.1 % 07/13/21: Eos % (Auto) 1.3 % 07/13/21: Baso % (Auto) 0.2 % 07/13/21: Neut # (Auto) 7.29 K/uL (1.4-6.5) H 07/13/21: Lymph # (Auto) 1.48 K/uL (1.2-3.4) 07/13/21: [place] # (Auto) 0.79 K/uL (0.11-0.59) H 07/13/21 21: Eos # (Auto) 0.13 K/uL (0-0.5) 07/13/21 21: Baso # (Auto) 0.02 K/uL (0-0.2) 04/08/22 21:25 Immature Gran # (Auto) 0.02 K/uL (0.00-0.02) 07/13/21 21:25 PT 12.4 Seconds (9.0-12.0) H 07/14/21 00:19 INR 1.2 (0.9-1.1) H 07/14/21 00:19 Sodium 134 mmol/L (136-145) L 07/13/21 21:25 Potassium 5.0 mmol/L (3.5-5.1) 07/14/21 00:19 Chloride 102 mmol/L (98-107) 07/13/21 21:25 Carbon Dioxide 24 mmol/L (21-32) 07/13/21 21:25 Anion Gap 8 (3-11) 07/13/21 21:25 BUN 23 mg/dl (6-23) 07/13/21 21:25 Creatinine 1.11 mg/dl (0.6-1.2) 07/13/21 21:25 Est Cr Clr Drug Dosing 40.2 ml/min 07/13/21 21:25 Est GFR ( Amer) 52.1 ml/min 07/13/21 21:25 Est GFR (Non-Af Amer) 44.9 ml/min 07/13/21 21:25 BUN/Creatinine Ratio 20.7 (10-20) H 07/13/21 21:25 Glucose 192 mg/dl (70-99(Fasting)) H 07/13/21 21:25 POC Glucose 137 mg/dl (70-99) H 07/14/21 02:43 Calcium 8.5 mg/dl (8.5-10.1) 07/13/21 21:25 Total Bilirubin 0.3 mg/dl (0.2-1.0) 07/13/21 21:25 AST 13 U/L (13-39) 07/14/21 00:19 ALT 6 U/L (7-52) L 07/13/21 21:25 Alkaline Phosphatase 55 U/L (34-104) 07/13/21 21:25 Troponin I < 0.03 ng/ml (0-0.04) 07/13/21 21:25 Total Protein 6.2 gm/dl (6.0-8.3) 04/08/22 21:25 Albumin 3.2 gm/dl (3.4-5.0) L 07/13/21 21:25 Globulin 3.0 gm/dl (2.5-4.0) 07/13/21 21:25 Albumin/Globulin Ratio 1.1 (0.9-2) 07/13/21 21:25 Lipase 9 U/L (11-82) L 07/13/21 21:25 Urine Color Yellow 07/13/21 23:01 Urine Appearance Clear (Clear) 07/13/21 23:01 Urine pH 5.0 (4.5-7.5) 07/13/21 23:01 Ur Specific [place] 1.019 (1.000-1.030) 07/13/21 23:01 Urine Protein Trace (Negative) H 07/13/21 23:01 Urine Glucose (UA) Negative (Negative) 07/13/21 23:01 Urine Ketones Negative (Negative) 07/13/21 23:01 Urine Blood Negative (Negative) 07/13/21 23:01 Urine Nitrite Negative (Negative) 07/13/21 23:01 Urine Bilirubin Negative (Negative) 07/13/21 23:01 Urine Urobilinogen Negative (Negative) 07/13/21 23:01 Ur Leukocyte Esterase Negative (Negative) 07/13/21 23:01 Urine WBC (Auto) 1-5 /hpf (0-5) 07/13/21 23:01 Urine RBC (Auto) 0-4 /hpf (0-4) 07/13/21 23:01 U Hyaline Cast (Auto) 10-30 /lpf (0-5) H 07/13/21 23:01 U Epithel Cells (Auto) 20-30 /lpf (0-5) H 07/13/21 23:01 Urine Bacteria (Auto) Negative (Negative) 07/13/21 23:01 SARS-CoV-2, RNA, NAAT NEGATIVE (NEGATIVE) 07/13/21 21:57 Impressions Abdomen/Pelvis CT 07/13/21 21:32 CT SCAN OF THE ABDOMEN AND PELVIS WITH IV CONTRAST CLINICAL HISTORY: Nausea. Generalized abdominal pain. Distention. COMPARISON STUDY: Abdominal CT dated 04/12/2020. Pelvic MRI dated 03/20/2021. TECHNIQUE: Following the IV administration of 94 cc of Optiray 320, CT scan of the abdomen and pelvis is performed from the lung bases to the proximal femora. Images are reviewed in the axial, sagittal, and coronal planes. IV contrast was administered without complication. A dose lowering technique was utilized adhering to the principles of ALARA. CT DOSE: 580.52 mGy.cm FINDINGS: Lung bases: The heart is enlarged noting trace pericardial effusion. The cor onary arteries are densely calcified. There is evidence of previous aortic valve surgery. There is a small right pleural effusion with dependent atelectasis. Liver: The contrast-enhanced liver is normal in size, contour, and attenuation. There is no intrahepatic biliary ductal dilatation. The hepatic veins and portal veins are patent. There is a new 1.3 cm low-attenuation lesion in the dome of t he liver seen on image #66. A subcentimeter hypodensity in the inferior right lobe on image #200 is unchanged from prior examinations. Gallbladder: Surgically absent. Spleen: Normal in size and attenuation. Pancreas: Unremarkable. Adrenal glands: Unremarkable. Kidneys: The contrast enhanced kidneys demonstrate cortical atrophy and are without hydronephrosis. The kidneys enhance symmetrically. Abdominal vasculature: The abdominal aorta is normal in course and caliber. Bowel: There is postoperative change from left proctocolectomy with left lower quadrant colostomy. Moderate fecal retention is seen throughout the right colon. No bowel obstruction is identified. There are mildly thick-walled and hyperemic appearing loops of fluid-filled normal caliber small bowel in the pelvis. The appendix is well-visualized and normal. Peritoneum: There is a small to moderate volume of abdominopelvic ascites. No intraperitoneal free air is identified. There are fat and fluid containing subumbilical hernias. There is peritoneal thickening and enhancement identified in the left upper quadrant posteriorly on image #196. Additionally, omental caking is suggested. Findings are suspicious for peritoneal carcinomatosis. Lymphadenopathy: There is a 2.4 x 1.9 cm heterogeneously enhancing right inguinal lymph node seen on image #436. No additional enlarged lymph nodes are seen in the abdomen or pelvis. Pelvic viscera: The bladder is decompressed and appears circumferentially thick walled with surrounding inflammation. The uterus is surgically absent. No adnexal lesion is seen. The vagina appears markedly thick walled and hyperemic with surrounding inflammation as seen on image #419. Skeletal structures: The skeletal structures are osteopenic. Lumbosacral spondylosis is observed. There is a mild chronic superior endplate compression deformity of L1. No lytic or blastic lesions are seen. IMPRESSION: 1. There is postoperative change from left proctocolectomy with left lower quadrant colostomy. 2. No bowel obstruction is identified. Moderate fecal retention is noted in the right colon. 3. There is a small to moderate volume of abdominopelvic ascites. This is new from previous, and there are foci of peritoneal thickening and enhancement with possible omental caking. Although nonspecific, the appearance is suspicious for developing peritoneal carcinomatosis. 4. There is a 13 mm low-attenuation lesion in the dome of the liver which is new from previous and suspicious for hepatic metastatic disease. 5. Small right pleural effusion. 6. The bladder wall is markedly thickened and hyperemic with surrounding inflammation. Additionally, the vagina appears markedly thick walled, hyperemic, and irregular. These findings may be related to pelvic radiation. Correlate with urinalysis and pelvic examination/direct visualization. 7. There are mildly thick-walled and hyperemic loops of normal caliber fluid- filled small bowel in the pelvis. This suggest a nonspecific enteritis which may also be radiation related. Again, clinical correlation will be required. 8. There is an enlarged and hyperemic right inguinal lymph node which is new from previous. This is pathologically indeterminant and attention at follow-up is recommended. 9. Additional findings as above. ACT 112: Negative or not required by law. Electronically signed by: Andres Beckham M.D. 07/13/2021 11:51 PM Code Status & VTE Plan VTE Prophylaxis Plan VTE Prophylaxis will be ordered: Yes PG Care Time/CCT Total # of Minutes Spent Total Time Spent with Patient: Total time spent is greater than 50% in coordination of care (as documented) at patient's floor/unit and/or counseling patient: Coding Level of Care Code INT OBSERVATION CARE 70M LVL 3 Diagnoses Constipation K59.00 Constipation type: unspecified constipation type Rectal cancer C20 Hypertension, essential I10 Atrial fibrillation, persistent I48.19 Stage 3 chronic kidney disease N18.3 Controlled type 2 diabetes mellitus with kidney complication, with long-term current use of insulin E11.29; Z79.4 (1) Constipation Constipation type: unspecified constipation type Qualified Code(s): K59.00 - Constipation, unspecified
[2021-07-14] MEDS ORDERED: GLUCOSE 40% GEL 15 GM TUBE PO PRN (02:29)
[2021-07-14] MEDS ORDERED: DEXTROSE 50% 50 ML SYRINGE IV PRN (02:29)
[2021-07-14] MEDS ORDERED: ONDANSETRON INJ 2 MG/ML 2 ML VIAL IV PRN (02:29)
[2021-07-14] MEDS ORDERED: GLUCOSE 10 TABS/TUBE PO PRN (02:29)
[2021-07-14] MEDS ORDERED: GLUCAGON FOR INJ 1 MG VIAL SQ PRN (02:29)
[2021-07-14] MEDS: POLYETHYLENE (MIRALAX) 17 GM PACK PO PRN (03:11)
[2021-07-14] MEDS: LACTATED RINGER'S 1,000 ML IV SCH ×2 (03:11→14:19)
[2021-07-14] MEDS ORDERED: bisacodyL 10 MG SUPP PR PRN (04:04)
[2021-07-14] MEDS ORDERED: traMADol HCL 50 MG TABLET PO PRN ×3 (04:04→18:30)
[2021-07-14] MEDS: INSULIN ASPART PER UNIT SQ SCH ×5 (04:31→21:16)
[2021-07-14] MEDS: METOPROLOL SUCC 25MG EXT REL TAB PO SCH (07:49)
[2021-07-14] MEDS: APIXABAN 5 MG TABLET PO SCH ×2 (07:50→21:24)
[2021-07-14] MEDS: SERTRALINE HCL 50 MG TABLET PO SCH (07:50)
[2021-07-14] MEDS: GABAPENTIN 300 MG CAP PO SCH ×3 (07:51→21:24)
[2021-07-14] MEDS: DOCUSATE SODIUM 100 MG CAP PO SCH ×2 (07:52→21:25)
[2021-07-14] MEDS ORDERED: POTASSIUM CHLORIDE CRTAB 20 MEQ TABCR PO SCH (09:00)
[2021-07-14] MEDS: POLYETHYLENE (MIRALAX) 17 GM PACK PO SCH (10:47)
[2021-07-14] MEDS ORDERED: PHENAZOPYRIDINE HCL 200 MG TAB PO STA (11:58)
[2021-07-14] MEDS ORDERED: PHENAZOPYRIDINE HCL 100 MG TAB PO PRN (11:58)
--- NOTE | 2021-07-14 12:08 | Hospitalist Progress Note ---
Date of Service July 14, 2021 Assessment & Plan (1) Abdominal pain: Plan: Presents with lower abdominal pain and constipation She was recently discharged from the hospital on 07/01 and had just completed a 7-day course of Keflex for a Klebsiella UTI at that time On 07/05 she complained of urinary symptoms and her PCP prescribed levofloxacin x7-day course, but there was no urine culture collected at that time She just finished the antibiotic the day of admission and reports ongoing urinary frequency and urgency and suprapubic pain. Urinalysis on arrival was negative and she is afebrile, no leukocytosis CT abdomen/pelvis on arrival negative for bowel obstruction, but shows moderate fecal retention in the right colon, possible developing peritoneal carcinomatosis, possible hepatic metastatic disease, markedly thickened bladder wall and hyperemia with surrounding inflammation as well as markedly thickened vaginal wall possibly related to previous pelvic radiation. Also with enlarged and hyperemic right inguinal lymph node new from previous Suspect some residual bladder spasm from previous UTI as well as possible radiation cystitis? Fortunately she does not have hematuria Doubt has persistent UTI based on current studies Certainly constipation is also playing a role in her acute abdominal pain -Add Pyridium as needed for bladder pain-this really seems to have helped thus far -Consult urology to see if needs cystoscopy -Continue bowel regimen for constipation as below -Increase tramadol dose to 100 mg as needed for more severe pain (2) Constipation: Plan: Only with small amount of stool starting to come into the ostomy bag on 07/14, but no bowel movement in 3 to 4 days now She just had her colostomy placed in May for rectal carcinoma Make MiraLAX scheduled daily Continue docusate 100 mg p.o. twice daily Add on senna 8.6 mg once daily Continue full liquids diet for now and advance diet as tolerated after bowels start moving again Add on IV fluids at 80 mL's per hour of LR until taking more adequate p.o. Continue to monitor (3) Rectal cancer: Plan: Unfortunately imaging suggests new metastatic disease She has had radiation and chemotherapy over the last 2 years and now has a colostomy as of 05/2021 -Oncology followup. Patient is scheduled to see Dr. Ramirez on 07/25/21 Was supposed to have a PET scan this coming Friday (4) Hypertension, essential: Plan: Blood pressure well controlled -Continue Metoprolol -Monitor (5) Atrial fibrillation, persistent: Plan: Rate controlled. On anticoagulation -Continue Apixaban, Metoprolol, Digoxin (6) Stage 3 chronic kidney disease: Plan: Near baseline -Monitor -Avoid nephrotoxic agents (7) Controlled type 2 diabetes mellitus with kidney complication, with long-term current use of insulin: Plan: Chronic With basal and bolus insulin here Blood sugars are well controlled (8) S/P TAVR (transcatheter aortic valve replacement): Plan: Noted Plan: DVT prophylaxis-Eliquis Disposition-continued stay, PT/OT ordered, she plans on going to [facility] facility after here for rehab Discussed all care with her daughter at the bedside Admission and Anticipated Discharge Date Admission Date: July 14, 2021 Subjective Patient still having pain right in the suprapubic region. There is a small amount of stool starting come out in her ostomy bag. She denies any nausea or vomiting. She still feels like she has to urinate frequently but a bladder scan reveals that her bladder is empty. Denies chest pain or shortness of breath Review of Systems Review of Systems: All systems reviewed & are unremarkable except as noted in HPI & below Physical Exam Constitutional: WD/WN, vitals as above Eyes: + anicteric sclerae ENMT: external ear and nose normal, oropharynx normal Neck: trachea midline, no thyromegaly Respiratory: normal respiratory effort, lungs clear to auscultation Cardiovascular: RRR, no murmur, no edema Chest (Breasts): Chest: normal inspection of chest Gastrointestinal (Abdomen): Inspection/Auscultation: + abdomen abnormal to inspection (Ostomy bag with no gas, small amount of green solid stool ) Percussion/Palpation: + abdomen tender (Suprapubic region without guarding or rebound) and abdomen soft; no guarding Musculoskeletal: Extremities: extremities normal to inspection; no cyanosis and no clubbing Skin: no rashes, warm and dry Neurologic: moves all extremities and awake; no focal motor deficits Psychiatric: A+Ox3, euthymic affect Lymphatic: no lymphedema Results & Data Results & Data ([facility]) Vital Signs (Past 12 Hours) Vital Signs Temp Pulse Pulse Resp BP BP BP 07/14/21 07:45 36.9 C 77 18 123/71 07/14/21 07:22 36.5 C 66 20 182/68 H 190/74 H 07/14/21 02:15 36.6 C 66 19 147/71 H 07/14/21 02:10 65 18 136/68 07/14/21 01:54 65 18 131/57 L Pulse Ox 07/14/21 07:45 90 07/14/21 07:22 92 07/14/21 02:15 99 07/14/21 02:10 94 07/14/21 01:54 Laboratory Results 07/14/21 07/14/21 07/14/21 Range/Units 17:02 12:18 08:25 WBC (4.8-10.8) K/uL RBC (4.2-5.4) M/uL Hgb (12.0-16.0) g/dL Hct (37-47) % MCV (80-100) fL MCH (25-34) pg MCHC (32-36) g/dL RDW Std Deviation (36.4-46.3) fL RDW Coeff of Abimael (11.5-14.5) % Plt Count (130-400) K/uL MPV (7.4-10.4) fL Immature Gran % (Auto) % Neut % (Auto) % Lymph % (Auto) % [place] % (Auto) % Eos % (Auto) % Baso % (Auto) % Neut # (Auto) (1.4-6.5) K/uL Lymph # (Auto) (1.2-3.4) K/uL [place] # (Auto) (0.11-0.59) K/uL Eos # (Auto) (0-0.5) K/uL Baso # (Auto) (0-0.2) K/uL Immature Gran # (Auto) (0.00-0.02) K/uL PT (9.0-12.0) Seconds INR (0.9-1.1) Sodium (136-145) mmol/L Potassium (3.5-5.1) mmol/L Chloride (98-107) mmol/L Carbon Dioxide (21-32) mmol/L Anion Gap (3-11) BUN (6-23) mg/dl Creatinine (0.6-1.2) mg/dl Est Cr Clr Drug Dosing ml/min Est GFR ( Amer) ml/min Est GFR (Non-Af Amer) ml/min BUN/Creatinine Ratio (10-20) Glucose (70-99(Fasting)) mg/dl POC Glucose 112 H 148 H 150 H (70-99) mg/dl Calcium (8.5-10.1) mg/dl Magnesium (1.7-2.4) mg/dl Total Bilirubin (0.2-1.0) mg/dl AST (13-39) U/L ALT (7-52) U/L Alkaline Phosphatase (34-104) U/L Troponin I (0-0.04) ng/ml Total Protein (6.0-8.3) gm/dl Albumin (3.4-5.0) gm/dl Globulin (2.5-4.0) gm/dl Albumin/Globulin Ratio (0.9-2) Lipase (11-82) U/L Urine Color Urine Appearance (Clear) Urine pH (4.5-7.5) Ur Specific [place] (1.000-1.030) Urine Protein (Negative) Urine Glucose (UA) (Negative) Urine Ketones (Negative) Urine Blood (Negative) Urine Nitrite (Negative) Urine Bilirubin (Negative) Urine Urobilinogen (Negative) Ur Leukocyte Esterase (Negative) Urine WBC (Auto) (0-5) /hpf Urine RBC (Auto) (0-4) /hpf U Hyaline Cast (Auto) (0-5) /lpf U Epithel Cells (Auto) (0-5) /lpf Urine Bacteria (Auto) (Negative) SARS-CoV-2, RNA, NAAT (NEGATIVE) 07/14/21 07/14/21 07/14/21 Range/Units 02:43 00:19 00:19 WBC (4.8-10.8) K/uL RBC (4.2-5.4) M/uL Hgb (12.0-16.0) g/dL Hct (37-47) % MCV (80-100) fL MCH (25-34) pg MCHC (32-36) g/dL RDW Std Deviation (36.4-46.3) fL RDW Coeff of [place] (11.5-14.5) % Plt Count (130-400) K/uL MPV (7.4-10.4) fL Immature Gran % (Auto) % Neut % (Auto) % Lymph % (Auto) % [place] % (Auto) % Eos % (Auto) % Baso % (Auto) % Neut # (Auto) (1.4-6.5) K/uL Lymph # (Auto) (1.2-3.4) K/uL [place] # (Auto) (0.11-0.59) K/uL Eos # (Auto) (0-0.5) K/uL Baso # (Auto) (0-0.2) K/uL Immature Gran # (Auto) (0.00-0.02) K/uL PT (9.0-12.0) Seconds INR (0.9-1.1) Sodium (136-145) mmol/L Potassium 5.0 (3.5-5.1) mmol/L Chloride (98-107) mmol/L Carbon Dioxide (21-32) mmol/L Anion Gap (3-11) BUN (6-23) mg/dl Creatinine (0.6-1.2) mg/dl Est Cr Clr Drug Dosing ml/min Est GFR ( Amer) ml/min Est GFR (Non-Af Amer) ml/min BUN/Creatinine Ratio (10-20) Glucose (70-99(Fasting)) mg/dl POC Glucose 137 H (70-99) mg/dl Calcium (8.5-10.1) mg/dl Magnesium 1.8 (1.7-2.4) mg/dl Total Bilirubin (0.2-1.0) mg/dl AST 13 (13-39) U/L ALT (7-52) U/L Alkaline Phosphatase (34-104) U/L Troponin I (0-0.04) ng/ml Total Protein (6.0-8.3) gm/dl Albumin (3.4-5.0) gm/dl Globulin (2.5-4.0) gm/dl Albumin/Globulin Ratio (0.9-2) Lipase (11-82) U/L Urine Color Urine Appearance (Clear) Urine pH (4.5-7.5) Ur Specific [place] (1.000-1.030) Urine Protein (Negative) Urine Glucose (UA) (Negative) Urine Ketones (Negative) Urine Blood (Negative) Urine Nitrite (Negative) Urine Bilirubin (Negative) Urine Urobilinogen (Negative) Ur Leukocyte Esterase (Negative) Urine WBC (Auto) (0-5) /hpf Urine RBC (Auto) (0-4) /hpf U Hyaline Cast (Auto) (0-5) /lpf U Epithel Cells (Auto) (0-5) /lpf Urine Bacteria (Auto) (Negative) SARS-CoV-2, RNA, NAAT (NEGATIVE) 07/14/21 07/13/21 07/13/21 Range/Units 00:19 23:01 21:57 WBC (4.8-10.8) K/uL RBC (4.2-5.4) M/uL Hgb (12.0-16.0) g/dL Hct (37-47) % MCV (80-100) fL MCH (25-34) pg MCHC (32-36) g/dL RDW Std Deviation (36.4-46.3) fL RDW Coeff of Abimael (11.5-14.5) % Plt Count (130-400) K/uL MPV (7.4-10.4) fL Immature Gran % (Auto) % Neut % (Auto) % Lymph % (Auto) % [place] % (Auto) % Eos % (Auto) % Baso % (Auto) % Neut # (Auto) (1.4-6.5) K/uL Lymph # (Auto) (1.2-3.4) K/uL [place] # (Auto) (0.11-0.59) K/uL Eos # (Auto) (0-0.5) K/uL Baso # (Auto) (0-0.2) K/uL Immature Gran # (Auto) (0.00-0.02) K/uL PT 12.4 H (9.0-12.0) Seconds INR 1.2 H (0.9-1.1) Sodium (136-145) mmol/L Potassium (3.5-5.1) mmol/L Chloride (98-107) mmol/L Carbon Dioxide (21-32) mmol/L Anion Gap (3-11) BUN (6-23) mg/dl Creatinine (0.6-1.2) mg/dl Est Cr Clr Drug Dosing ml/min Est GFR ( Amer) ml/min Est GFR (Non-Af Amer) ml/min BUN/Creatinine Ratio (10-20) Glucose (70-99(Fasting)) mg/dl POC Glucose (70-99) mg/dl Calcium (8.5-10.1) mg/dl Magnesium (1.7-2.4) mg/dl Total Bilirubin (0.2-1.0) mg/dl AST (13-39) U/L ALT (7-52) U/L Alkaline Phosphatase (34-104) U/L Troponin I (0-0.04) ng/ml Total Protein (6.0-8.3) gm/dl Albumin (3.4-5.0) gm/dl Globulin (2.5-4.0) gm/dl Albumin/Globulin Ratio (0.9-2) Lipase (11-82) U/L Urine Color Yellow Urine Appearance Clear (Clear) Urine pH 5.0 (4.5-7.5) Ur Specific [place] 1.019 (1.000-1.030) Urine Protein Trace H (Negative) Urine Glucose (UA) Negative (Negative) Urine Ketones Negative (Negative) Urine Blood Negative (Negative) Urine Nitrite Negative (Negative) Urine Bilirubin Negative (Negative) Urine Urobilinogen Negative (Negative) Ur Leukocyte Esterase Negative (Negative) Urine WBC (Auto) 1-5 (0-5) /hpf Urine RBC (Auto) 0-4 (0-4) /hpf U Hyaline Cast (Auto) 10-30 H (0-5) /lpf U Epithel Cells (Auto) 20-30 H (0-5) /lpf Urine Bacteria (Auto) Negative (Negative) SARS-CoV-2, RNA, NAAT NEGATIVE (NEGATIVE) 07/13/21 07/13/21 Range/Units 21:25 21:25 WBC 9.73 (4.8-10.8) K/uL RBC 2.91 L (4.2-5.4) M/uL Hgb 8.5 L (12.0-16.0) g/dL Hct 27.7 L (37-47) % MCV 95.2 (80-100) fL MCH 29.2 (25-34) pg MCHC 30.7 L (32-36) g/dL RDW Std Deviation 54.9 H (36.4-46.3) fL RDW Coeff of Abimael 16.0 H (11.5-14.5) % Plt Count 292 (130-400) K/uL MPV 9.0 (7.4-10.4) fL Immature Gran % (Auto) 0.2 % Neut % (Auto) 75.0 % Lymph % (Auto) 15.2 % [place] % (Auto) 8.1 % Eos % (Auto) 1.3 % Baso % (Auto) 0.2 % Neut # (Auto) 7.29 H (1.4-6.5) K/uL Lymph # (Auto) 1.48 (1.2-3.4) K/uL [place] # (Auto) 0.79 H (0.11-0.59) K/uL Eos # (Auto) 0.13 (0-0.5) K/uL Baso # (Auto) 0.02 (0-0.2) K/uL Immature Gran # (Auto) 0.02 (0.00-0.02) K/uL PT (9.0-12.0) Seconds INR (0.9-1.1) Sodium 134 L (136-145) mmol/L Potassium (3.5-5.1) mmol/L Chloride 102 (98-107) mmol/L Carbon Dioxide 24 (21-32) mmol/L Anion Gap 8 (3-11) BUN 23 (6-23) mg/dl Creatinine 1.11 (0.6-1.2) mg/dl Est Cr Clr Drug Dosing 40.2 ml/min Est GFR ( Amer) 52.1 ml/min Est GFR (Non-Af Amer) 44.9 ml/min BUN/Creatinine Ratio 20.7 H (10-20) Glucose 192 H (70-99(Fasting)) mg/dl POC Glucose (70-99) mg/dl Calcium 8.5 (8.5-10.1) mg/dl Magnesium (1.7-2.4) mg/dl Total Bilirubin 0.3 (0.2-1.0) mg/dl AST (13-39) U/L ALT 6 L (7-52) U/L Alkaline Phosphatase 55 (34-104) U/L Troponin I < 0.03 (0-0.04) ng/ml Total Protein 6.2 (6.0-8.3) gm/dl Albumin 3.2 L (3.4-5.0) gm/dl Globulin 3.0 (2.5-4.0) gm/dl Albumin/Globulin Ratio 1.1 (0.9-2) Lipase 9 L (11-82) U/L Urine Color Urine Appearance (Clear) Urine pH (4.5-7.5) Ur Specific [place] (1.000-1.030) Urine Protein (Negative) Urine Glucose (UA) (Negative) Urine Ketones (Negative) Urine Blood (Negative) Urine Nitrite (Negative) Urine Bilirubin (Negative) Urine Urobilinogen (Negative) Ur Leukocyte Esterase (Negative) Urine WBC (Auto) (0-5) /hpf Urine RBC (Auto) (0-4) /hpf U Hyaline Cast (Auto) (0-5) /lpf U Epithel Cells (Auto) (0-5) /lpf Urine Bacteria (Auto) (Negative) SARS-CoV-2, RNA, NAAT (NEGATIVE) PG Care Time/CCT Total # of Minutes Spent Total Time Spent with Patient: Total time spent is greater than 50% in coordination of care (as documented) at patient's floor/unit and/or counseling patient: Coding Level of Care Code 29714 Subseq Hosp Care Lvl 3 Diagnoses Constipation K59.00 Constipation type: unspecified constipation type Rectal cancer C20 Hypertension, essential I10 Atrial fibrillation, persistent I48.19 Stage 3 chronic kidney disease N18.3 Controlled type 2 diabetes mellitus with kidney complication, with long-term c urrent use of insulin E11.29; Z79.4 Abdominal pain R10.84 Abdominal location: generalized S/P TAVR (transcatheter aortic valve replacement) Z95.2 (1) Constipation Constipation type: unspecified constipation type Qualified Code(s): K59.00 - Constipation, unspecified (2) Abdominal pain Abdominal location: generalized Qualified Code(s): R10.84 - Generalized abdominal pain
[2021-07-14] MEDS: SENNA 8.6 MG TAB PO SCH (12:34)
--- NOTE | 2021-07-14 13:13 | Electrocardiogram Report ---
Test Reason : Blood Pressure : / mmHG Vent. Rate : 079 BPM Atrial Rate : 090 BPM P-R Int : 000 ms QRS Dur : 080 ms QT Int : 340 ms P-R-T Axes : 000 016 074 degrees QTc Int : 389 ms Atrial fibrillation Low voltage QRS Cannot rule out Anterior infarct (cited on or before 29-JUN-2021) Abnormal ECG When compared with ECG of 03-JUL-2021 15:40, No significant change was found Confirmed by Zaki Thakur ([id number]) on 07/14/2021 1:13:41 PM Referred By: REFERRED SELF Confirmed By:Zaki Thakur
[2021-07-14] MEDS: DIGOXIN 0.125 MG TAB PO SCH (16:13)
--- NOTE | 2021-07-14 20:47 | Urology Consultation ---
Date of Consultation July 14, 2021 Assessment & Plan (1) UTI (urinary tract infection): She has been admitted on the hospitalist service. Concerning her urinary symptoms recommend the following: I suspect the patient's symptoms may be residual symptoms from her recent urinary tract infection or even potentially radiation cystitis Continue Pyridium as ordered by the primary service Although her most recent urinalysis is negative for infection may be prudent to check another urine culture just to ensure that there is not underlying infection that is being overlooked Due to the patient's reported symptoms of incomplete bladder emptying bladder scan should be utilized to check a postvoid residual. If postvoid residuals are high patient may require straight catheterization We will continue monitor the patient's progress with the above modalities with further recommendations to follow History of Present Illness Reason for Consultation: Cystitis/urinary symptoms Attending Physician: Yamile Méndez MD History of Present Illness This is an 85-year-old female who presented to the [facility] emergency department secondary to decreased urinary output as well as decreased stool output from ostomy. Patient has noted some abdominal pain that she describes as crampy and having difficulty passing urine. Concerning patient's urinary symptoms she does note some intermittent dysuria. She also notes that she has difficulty emptying her bladder but when she pushes on her bladder she feels as though she can completely empty it. She denies any incontinence. She denies any hematuria. She does note that she was recently treated for urinary tract infection and had a urine culture which will be delineated below. Patient notes that she was treated as an outpatient with Keflex and again with Levaquin. Since admission the patient has had Pyridium ordered and this seems to have h elped her bladder symptoms. Should be noted that the patient does have a history of colorectal cancer for which patient has had surgical resection as well as chemotherapy. In addition she has had radiation. Patient's records were reviewed and she did have a urine culture on 06/23/2021 that was positive for Klebsiella. The Klebsiella was noted to be sensitive to all antibiotics tested except for Cipro which with had intermediate sensitivity and Macrobid for which it was resistant. Since arrival to the hospital the patient has had labs and imaging which I independent reviewed. A CT scan of the abdomen and pelvis did not identify any bowel obstruction. Fecal retention was noted in the right colon. There is moderate ascites noted which was new from previous exams. There is also periton eal thickening with omental caking concerning for peritoneal carcinomatosis. There is also concern for hepatic metastatic disease. The bladder was noted to be thickened and hyperemic with surrounding inflammation. Labs include a CBC her white blood cell count was normal hemoglobin and hematocrit were 8.5 and 27.7. Platelet count was noted to be normal. Chemistry profile showed sodium was 134 potassium, BUN, and creatinine were all noted to be within normal range. Urinalysis was not indicative of infection. A Covid test was noted be negative. At the time of my interview the patient was resting comfortably in bed. She notes her symptoms have improved since admission to the hospital and she was in no distress. Allergies Allergy/AdvReac Type Severity Reaction Status Date / Time ferric derisomaltose Allergy Severe Shortness Verified 06/30/21 14:18 [From Monoferric] of breath,Nausea/vomiting,Fatigue exenatide Allergy Intermediate MYALGIA Verified 06/29/21 16:28 phenol Allergy Intermediate MYALGIA Verified 06/29/21 16:28 Iuvxxoy-IVK-WgA Reductase Allergy Intermediate MYALGIA Verified 06/29/21 16:28 Inhibitor [Rzsfqfc-Lza-Trl Reductase Inhibitor] codeine AdvReac Mild Vomiting Verified 06/29/21 16:28 hydrocodone AdvReac Mild vomiting Verified 06/29/21 16:28 NSAIDS (Non-Steroidal AdvReac Mild TOLD NOT Verified 06/29/21 16:28 Anti-Inflamma TO TAKE Home Medications Medication Instructions Recorded Confirmed Type folic acid 1 mg tablet 1 mg PO DAILY tab 11/19/18 07/14/21 History ugmcujatoqbg-soinlsnk-fwxbbe 1 tab PO DAILY 11/19/18 07/14/21 History tablet (Multivitamin 50 Plus) acetone (urine) test (Ketostix) #25 ea 12/31/19 06/23/21 Rx cholecalciferol (vitamin D3) 50 3,000 unit PO DAILY tab 01/15/21 07/14/21 History mcg (2,000 unit) tablet digoxin 125 mcg (0.125 mg) tablet 125 mcg PO DAILY@1600 90 Days #90 04/15/21 07/14/21 Rx (Digitek) tab sertraline 25 mg tablet 25 mg PO QAM 04/27/21 07/14/21 History apixaban 5 mg tablet (Eliquis) 5 mg PO BID #180 tab 05/02/21 07/14/21 Rx gabapentin 300 mg capsule 300 mg PO TID 06/23/21 07/14/21 History acetaminophen 650 mg 650 mg PO TID 06/29/21 07/14/21 History tablet,extended release ascorbic acid (vitamin C) 500 mg 1,000 mg PO DAILY 06/29/21 07/14/21 History tablet (Vitamin C) cyanocobalamin (vitamin B-12) 1,000 mcg PO DAILY 06/29/21 07/14/21 History 1,000 mcg tablet (Vitamin B-12) insulin aspart U-100 100 unit/mL 6 unit SUBCUT TIDWMEAL 06/29/21 07/14/21 History subcutaneous solution (Novolog U-100 Insulin aspart) tramadol 50 mg tablet 50 mg PO TID PRN 06/29/21 07/14/21 History metoprolol succinate 25 mg 75 mg PO DAILY 07/03/21 07/14/21 History tablet,extended release 24 hr bisacodyl 10 mg rectal suppository 10 mg [place] DAILY PRN 07/14/21 07/14/21 History (Dulcolax (bisacodyl)) docusate sodium 100 mg capsule 100 mg PO DAILY 07/14/21 07/14/21 History (Colace) furosemide 40 mg tablet 40 mg PO DAILY 07/14/21 07/14/21 History insulin glargine 100 unit/mL (3 20 unit SUBCUT HS 07/14/21 07/14/21 History mL) subcutaneous pen (Lantus Solostar U-100 Insulin) polyethylene glycol 3350 17 gram 17 g PO DAILY 07/14/21 07/14/21 History oral powder packet (Miralax) potassium chloride 20 mEq 20 meq PO DAILY 07/14/21 07/14/21 History tablet,extended release Patient History Medical History Adult situational stress disorder Anemia FOLLOWS WITH DR. MORA Arthritis Atrial flutter with rapid ventricular response Controlled type 2 diabetes mellitus with kidney complication, with long-term current use of insulin Depression Diabetic peripheral neuropathy Dysesthesia Dyslipidemia Epidermal inclusion cyst Hypertension Insulin dependent diabetes mellitus Insulin pump in place Rectal cancer CURRENT DX (RADIATION AND CHEMO>LAST CHEMO SEPTEMBER 2020) Sensorineural hearing loss (SNHL) of both ears Spinal stenosis Stage 3 chronic kidney disease Supraventricular tachycardia TIA (transient ischemic attack) OVER 10 YEARS AGO>NO CURRENT PROBLEMS Surgical History H/O blepharoplasty H/O vaginal hysterectomy History of bilateral knee replacement History of bunionectomy RT/LEFT FOOT History of cardiac cath BEFORE HEART SURGERY/NO STENTS History of cataract surgery RT/LEFT History of surgical procedure on eye proper using laser History of tooth extraction Hx of cholecystectomy S/P TAVR (transcatheter aortic valve replacement) (2018) 2017 AT [facility]>FOLLOWS WITH DR. MADSEN Family History Mother , age 78 CHF Diabetes iet controlled Heart disease Stroke Father , age 83 NE Diabetes Heart disease Cancer type of blood cancer Sister , age 79 liver cancer Diabetes type 2 Cancer Unknown Hypertension Sister , age 54 ovarian cancer Cancer Sister No problems noted. Sister No problems noted. Sister No problems noted. Brother Cancer, Onset Age: 76 testicular Brother , unknown No problems noted. Son No problems noted. Son No problems noted. Son No problems noted. Daughter No problems noted. Daughter No problems noted. Other No family history of adverse response to anesthesia Social History Smoking Status: Former smoker Tobacco Type: Cigarettes Age Started Using Tobacco: 20; Age Quit Using Tobacco: 53; packs per day: 0.25; Years Smoked: 33; Number of Years Since Quit: 31; Second Hand Exposure: No; Do You Dip or Chew Tobacco: No; Tobacco Cessation Education Requested by Patient: No Hx Alcohol Use: No Hx Substance Use: No Preferred Language: Azerbaijani Communication Ability: Effective Hearing Ability: Normal Rn Child Required: No Beliefs That Will Affect Care: None marital status: / Current Living Situation: Long-Term Current Living Situation Comment: [place] current occupation: Retired How many Children do You have: 5 Other Information That Helps Us Care for You: No Feels Safe at Home: Yes Safety Concerns: Feels Safe At This Time Childhood Exposure to Second-Hand Smoke: No Diet Comment: low carbs low salt caffeine: Yes (coffee one cup per day ) during the past year weight has: remained stable Dental Care, Regularly: Yes Physical Activity Frequency: 3-4 Times per Week Seatbelt Use: always Sunscreen Use: Yes Assistive Devices: Walker Review of Systems Constitutional: no fever and no chills Eyes: no diplopia Ear, Nose, Mouth, Throat: no ear pain Respiratory: no cough and no dyspnea Cardiovascular: no chest pain Gastrointestinal: + abdominal pain and + constipation Genitourinary: + dysuria and + difficulty urinating; no urinary frequency, no hematuria and no flank pain Musculoskeletal: no back pain Integumentary: no rash Neurologic: no localized weakness Physical Exam Constitutional: WD/WN, vitals as above Eyes: no conjunctival abnormality ENMT: Ears: no hearing impairment Neck: trachea midline Respiratory: normal respiratory effort; no respiratory distress and no labored breathing Cardiovascular: Rate/Rhythm: regular rate and regular rhythm Gastrointestinal (Abdomen): Soft, nontender, nondistended Musculoskeletal: No calf tenderness Skin: no rashes Neurologic: moves all extremities Psychiatric: Orientation: alert and oriented x 3 Affect: + flat affect Genitourinary: no CVA tenderness Results & Data ([facility]) Vital Signs (Past 12 Hours) Vital Signs Temp Pulse Pulse Resp BP Pulse Ox 07/14/21 16:13 78 07/14/21 15:45 36.9 C 82 18 124/75 91 PG Care Time/CCT Total # of Minutes Spent Total Time Spent with Patient: Total time spent is greater than 50% in coordination of care (as documented) at patient's floor/unit and/or counseling patient: Coding Level of Care Code 24553 Inpt Consult Level 5 Diagnoses UTI (urinary tract infection) N39.0
[2021-07-14] MEDS: INSULIN GLARGINE SOLOSTAR 100 UNITS/ML 3 ML PEN SQ SCH (21:31)
[2021-07-15] MEDS: LACTATED RINGER'S 1,000 ML IV SCH ×2 (01:52→13:12)
[2021-07-15 06:46] LABS: Basophils # (auto) 0.02 K/uL (0-0.2); Basophils % (auto) 0.2 %; Eosinophils # (auto) 0.05 K/uL (0-0.5); Eosinophils % (auto) 0.5 %; Hematocrit (blood only) 27.9 % (37-47); Hemoglobin 8.3 g/dL (12.0-16.0); Immature Granulocytes # (auto) 0.05 K/uL (0.00-0.02); Immature Granulocytes % (auto) 0.5 %; Lymphocytes # (auto) 1.58 K/uL (1.2-3.4); Lymphocytes % (auto) 15.4 %; Mean Corpuscular Hemoglobin 28.7 pg (25-34); Mean Corpuscular Hgb Conc 29.7 g/dL (32-36); Mean Corpuscular Volume 96.5 fL (80-100); Mean Platelet Volume 8.7 fL (7.4-10.4); Monocytes # (auto) 0.89 K/uL (0.11-0.59); Monocytes % (auto) 8.7 %; Neutrophils # (auto) 7.69 K/uL (1.4-6.5); Neutrophils % (auto) 74.7 %; Platelet Count 282 K/uL (130-400); Red Blood Count 2.89 M/uL (4.2-5.4); White Blood Count 10.28 K/uL (4.8-10.8)
[2021-07-15 07:06] LABS: BUN Creatinine Ratio 21.1 (10-20); Bilirubin Direct 0.1 mg/dl (0-0.2); Bilirubin,Total 0.3 mg/dl (0.2-1.0); Calcium 8.1 mg/dl (8.5-10.1); Creatinine Clr Calc Pharmacy 39.2 ml/min; Est GFR (African American) 52.9 ml/min; Est GFR (Non-African American) 45.6 ml/min; Potassium 4.6 mmol/L (3.5-5.1); Total Protein 5.9 gm/dl (6.0-8.3)
[2021-07-15] MEDS: INSULIN ASPART PER UNIT SQ SCH ×4 (08:29→20:44)
[2021-07-15] MEDS: CARBOHYDRATES FOR HYPOGLYCEMIA PO PRN (08:30)
[2021-07-15] MEDS: DOCUSATE SODIUM 100 MG CAP PO SCH ×2 (08:44→20:35)
[2021-07-15] MEDS: SERTRALINE HCL 50 MG TABLET PO SCH (08:45)
[2021-07-15] MEDS: POLYETHYLENE (MIRALAX) 17 GM PACK PO SCH (08:45)
[2021-07-15] MEDS: GABAPENTIN 300 MG CAP PO SCH ×3 (08:45→20:35)
[2021-07-15] MEDS: SENNA 8.6 MG TAB PO SCH (08:45)
[2021-07-15] MEDS: APIXABAN 5 MG TABLET PO SCH ×2 (08:45→20:35)
[2021-07-15] MEDS: METOPROLOL SUCC 25MG EXT REL TAB PO SCH (08:46)
--- NOTE | 2021-07-15 16:36 | Hospitalist Progress Note ---
Date of Service July 15, 2021 Assessment & Plan (1) Abdominal pain: Plan: Has a history of metastatic rectal cancer, s/p radiation, chemo, now with colostomy Presents with lower abdominal pain and constipation and low output from colostomy She was recently discharged from the hospital on 07/01 and had just completed a 7-day course of Keflex for a Klebsiella UTI at that time CT abdomen/pelvis on arrival negative for bowel obstruction, but shows moderate fecal retention in the right colon, possible developing peritoneal carcinomatosis, possible hepatic metastatic disease, markedly thickened bladder wall and hyperemia with surrounding inflammation as well as markedly thickened vaginal wall possibly related to previous pelvic radiation. Also with enlarged and hyperemic right inguinal lymph node new from previous Abdominal pain better today after relief of constipation (2) Constipation: Plan: Now resolved after miralax (3) Rectal cancer: Plan: Unfortunately imaging suggests new metastatic disease She has had radiation and chemotherapy over the last 2 years and now has a colostomy as of 05/2021 -Oncology followup. Patient is scheduled to see Dr. Ramirez on 07/25/21 Was supposed to have a PET scan this coming Friday (4) Hypertension, essential: Plan: Blood pressure well controlled -Continue Metoprolol -Monitor (5) Atrial fibrillation, persistent: Plan: Rate controlled. On anticoagulation -Continue Apixaban, Metoprolol, Digoxin (6) Stage 3 chronic kidney disease: Plan: Near baseline -Monitor -Avoid nephrotoxic agents (7) Controlled type 2 diabetes mellitus with kidney complication, with long-term current use of insulin: Plan: Chronic With basal and bolus insulin here Blood sugars are well controlled (8) S/P TAVR (transcatheter aortic valve replacement): Plan: Noted Plan: DVT prophylaxis-Eliquis Disposition-continued stay, PT/OT ordered, she plans [facility] going to [facility] after here for [facility] Discussed all care with her daughter at the bedside Admission and Anticipated Discharge Date Admission Date: July 14, 2021 Subjective Patient seen and examined today, was participating in physical therapy Review of Systems Review of Systems: All systems reviewed are negative, apart from the ones contained in the history. Physical Exam Physical Exam: The patient is awake, alert and oriented 3, well developed and well nourished, normocephalic and atraumatic, lying in bed and in no acute distress. HEENT--PERRL, EOMI, mucous membranes and oropharynx mildly dry Neck--supple. No JVD. No bruits. Thyroid normal, trachea midline, no adenopathy. Heart--normal S1 and S2. No murmurs, rubs or gallops. Lungs--clear bilaterally, no respiratory distress, no accessory muscle use. Abdomen--normal bowel sounds and soft. ostomy with stool Extremities--no cyanosis or clubbing. No edema. Dermatologic--normal skin turgor, normal color, no abnormal lymph nodes, no rash. Neurologic--cranial nerves II through XII grossly intact. Rheumatologic--normal range of motion. Psychiatric--normal affect. Results & Data Results & Data ([facility]) Vital Signs (Past 12 Hours) Vital Signs Temp Pulse Resp BP Pulse Ox 07/15/21 15:53 99.5 F 88 18 155/79 H 93 07/15/21 07:38 97.7 F 81 18 132/74 95 PG Care Time/CCT Total # of Minutes Spent Total Time Spent with Patient: Total time spent is greater than 50% in coordination of care (as documented) at patient's floor/unit and/or counseling patient: Coding Level of Care Code 55198 Subseq Hosp Care Lvl 2 Diagnoses Abdominal pain R10.84 Abdominal location: generalized Constipation K59.00 Constipation type: unspecified constipation type Rectal cancer C20 Hypertension, essential I10 Atrial fibrillation, persistent I48.19 Stage 3 chronic kidney disease N18.3 Controlled type 2 diabetes mellitus with kidney complication, with long-term current use of insulin E11.29; Z79.4 S/P TAVR (transcatheter aortic valve replacement) Z95.2 Time Spent (min) 35 (1) Abdominal pain Abdominal location: generalized Qualified Code(s): R10.84 - Generalized abdominal pain (2) Constipation Constipation type: unspecified constipation type Qualified Code(s): K59.00 - Constipation, unspecified
[2021-07-15] MEDS: DIGOXIN 0.125 MG TAB PO SCH (17:00)
[2021-07-15] MEDS: traMADol HCL 50 MG TABLET PO PRN (20:35)
[2021-07-15] MEDS: INSULIN GLARGINE SOLOSTAR 100 UNITS/ML 3 ML PEN SQ SCH (20:45)
[2021-07-16] MEDS: LACTATED RINGER'S 1,000 ML IV SCH (01:57)
[2021-07-16] MEDS: ACETAMINOPHEN 325 MG TAB PO PRN ×2 (04:54→17:40)
[2021-07-16] MEDS: INSULIN ASPART PER UNIT SQ SCH ×4 (08:40→20:49)
[2021-07-16] MEDS: POLYETHYLENE (MIRALAX) 17 GM PACK PO SCH (08:41)
[2021-07-16] MEDS: GABAPENTIN 300 MG CAP PO SCH ×3 (08:41→20:49)
[2021-07-16] MEDS: METOPROLOL SUCC 25MG EXT REL TAB PO SCH (08:41)
[2021-07-16] MEDS: DOCUSATE SODIUM 100 MG CAP PO SCH ×2 (08:41→20:49)
[2021-07-16] MEDS: SENNA 8.6 MG TAB PO SCH (08:41)
[2021-07-16] MEDS: APIXABAN 5 MG TABLET PO SCH ×2 (08:42→20:49)
[2021-07-16] MEDS: SERTRALINE HCL 50 MG TABLET PO SCH (08:42)
[2021-07-16] MEDS: traMADol HCL 50 MG TABLET PO PRN ×2 (08:50→14:52)
--- NOTE | 2021-07-16 11:52 | Communication Note ---
Date of Service: July 16, 2021 Pt in bathroom at time of visit. Spoke with patients daughter who was at bedside. Discussed recommendation for outpatient cystoscopy given bladder wall thickening and inflammation as noted on CT. Patient's daughter agreeable and will discuss with patient. Will arrange outpatient follow-up with urology with tentative plan for a cystoscopy given pt is agreeable to proceeding. All questions were answered.
--- NOTE | 2021-07-16 12:09 | Discharge Summary ---
Date of Service July 18, 2021 Admission HPI Per Admitting Provider Desire Singleton is an 85yo female with multiple medical comorbidities to include AF on Apixaban, HTN, CKD, rectal adenocarcinoma [id number] s/p chemo/XRT and colostomy, DMII with insulin pump in place. Patient was recently admitted to [facility] 06/29 - 06/30/21 after an anaphylactic reaction to ferric derisomaltose infusion. Patient returns today with decreased stool output from her ostomy as well as decreased UOP. She reports diminished output since Friday with almost no output over the last two days. She has crampy lower abdominal pain as well. Reports she is unable to pass urine without pushing on her bladder and even then she produces only a small amount. She has persistent nausea. Unfortunately, CT imaging obtained in the ER is suggestive of metastatic disease - liver lesion as well as possible carcinomatos is Upon further hospitalization, she was started on stool softeners with good results. Her constipation resolved and her daughter wanted to take her to her outpatient PET scan appointment, after that she will be discharged to [facility] Principal Diagnosis constipation Discharge Exam The patient is awake, alert and oriented 3, well developed and well nourished, normocephalic and atraumatic, lying in bed and in no acute distress. HEENT--PERRL, EOMI, mucous membranes and oropharynx mildly dry Neck--supple. No JVD. No bruits. Thyroid normal, trachea midline, no adenopathy. Heart--normal S1 and S2. No murmurs, rubs or gallops. Lungs--clear bilaterally, no respiratory distress, no accessory muscle use. Abdomen--normal bowel sounds and soft. ostomy with stool Extremities--no cyanosis or clubbing. No edema. Dermatologic--normal skin turgor, normal color, no abnormal lymph nodes, no rash. Neurologic--cranial nerves II through XII grossly intact. Rheumatologic--normal range of motion. Psychiatric--normal affect. Discharge Data Allergies Allergy/AdvReac Type Severity Reaction Status Date / Time ferric derisomaltose Allergy Severe Shortness Verified 06/30/21 14:18 [From Monoferric] of breath,Nausea/vomiting,Fatigue exenatide Allergy Intermediate MYALGIA Verified 06/29/21 16:28 phenol Allergy Intermediate MYALGIA Verified 06/29/21 16:28 Rgzljpu-UJO-FkT Reductase Allergy Intermediate MYALGIA Verified 06/29/21 16:28 Inhibitor [Khaxwhd-Jfe-Bre Reductase Inhibitor] codeine AdvReac Mild Vomiting Verified 06/29/21 16:28 hydrocodone AdvReac Mild vomiting Verified 06/29/21 16:28 NSAIDS (Non-Steroidal AdvReac Mild TOLD NOT Verified 06/29/21 16:28 Anti-Inflamma TO TAKE Consultations 07/14/21 00:27 ED Decision to Admit Stat 07/14/21 18:35 Consult Urology Routine Ordered Studies 07/13/21 21:32 CT abd pelvis IV con only Stat Hospital Course (1) Abdominal pain: Has a history of metastatic rectal cancer, s/p radiation, chemo, now with colostomy Presents with lower abdominal pain and constipation and low output from colostomy She was recently discharged from the hospital on 07/01 and had just completed a 7-day course of Keflex for a Klebsiella UTI at that time CT abdomen/pelvis on arrival negative for bowel obstruction, but shows moderate fecal retention in the right colon, possible developing peritoneal carcinomatosis, possible hepatic metastatic disease, markedly thickened bladder wall and hyperemia with surrounding inflammation as well as markedly thickened vaginal wall possibly related to previous pelvic radiation. Also with enlarged and hyperemic right inguinal lymph node new from previous Abdominal pain better today after relief of constipation (2) Constipation: Now resolved after miralax (3) Rectal cancer: Unfortunately imaging suggests new metastatic disease She has had radiation and chemotherapy over the last 2 years and now has a colostomy as of 05/2021 -Oncology followup. Patient is scheduled to see Dr. Ramirez on 07/25/21 Was supposed to have a PET scan today 07/18/2021 (4) Hypertension, essential: Blood pressure well controlled -Continue Metoprolol -Monitor (5) Atrial fibrillation, persistent: Rate controlled. On anticoagulation -Continue Apixaban, Metoprolol, Digoxin (6) Stage 3 chronic kidney disease: Near baseline -Monitor -Avoid nephrotoxic agents (7) Controlled type 2 diabetes mellitus with kidney complication, with long-term current use of insulin: Chronic With basal and bolus insulin here Blood sugars are well controlled (8) S/P TAVR (transcatheter aortic valve replacement): Noted DVT prophylaxis-Eliquis Disposition-continued stay, PT/OT ordered, she plans [facility] here for rehab Discussed all care with her daughter at the bedside Total Time Total Time Spent Total Time Spent (In Minutes): 35 Discharge Plan Discharge Items Patient Disposition: [facility] Prison Reason For Visit: CONSTIPATION Discharge Diagnosis: constipation Condition on Discharge: Good Activity: Resume your previous activity Non-emergency contact: Primary Care Provider and Oncologist Call non-emergency contact if: you have any medication questions Follow-up/Referrals: Katja Clarke CRNP [Primary Care Provider] - Diet: Regular Addtl Attending Provider Instructions: please make appointment to follow up with your oncologist Pending Studies at Discharge: No Stand-Alone Forms: [employer], Smoking Cessation Skilled Items Patient informed of condition?: Yes DNR: No Discharge Level of Care: Acute rehab Communicable Disease: No Discharge Prognosis: Stable Lines: None Urinary Catheter: No Medications and DC Order Prescriptions: Continued digoxin [Digitek] 125 mcg (0.125 mg) tablet 125 mcg PO DAILY@1600 90 Days Qty: 90 RF: 3 Eliquis 5 mg tablet 5 mg PO BID Qty: 180 RF: 3 (DME) Ketostix Strip See Rx Instructions .ROUTE .MEDSUPPLY Qty: 25 RF: 3 Multivitamin 50 Plus tablet 1 tab PO DAILY RF: 0 folic acid 1 mg tablet 1 mg PO DAILY RF: 0 cholecalciferol (vitamin D3) 50 mcg (2,000 unit) tablet 3,000 unit PO DAILY RF: 0 sertraline 25 mg tablet 25 mg PO QAM RF: 0 gabapentin 300 mg capsule 300 mg PO TID RF: 0 cyanocobalamin (vitamin B-12) [Vitamin B-12] 1,000 mcg Tablet 1,000 mcg PO DAILY RF: 0 tramadol 50 mg Tablet 50 mg PO TID PRN (Reason: Pain) RF: 0 acetaminophen 650 mg Tablet Extended Release 650 mg PO TID RF: 0 ascorbic acid (vitamin C) [Vitamin C] 500 mg Tablet 1,000 mg PO DAILY RF: 0 insulin aspart U-100 [Novolog U-100 Insulin aspart] 100 unit/mL solution 6 unit subcut TIDWMEAL RF: 0 metoprolol succinate 25 mg tablet extended release 24 hr 75 mg PO DAILY RF: 0 furosemide 40 mg tablet 40 mg PO DAILY RF: 0 Lantus Solostar U-100 Insulin 100 unit/mL (3 mL) Insulin Pen 20 unit SUBCUT HS RF: 0 polyethylene glycol 3350 [Miralax] 17 gram Powder In Packet 17 g PO DAILY RF: 0 potassium chloride 20 mEq Tablet Extended Release 20 meq PO DAILY RF: 0 docusate sodium [Colace] 100 mg Capsule 100 mg PO DAILY RF: 0 bisacodyl [Dulcolax (bisacodyl)] 10 mg Suppository 10 mg [place] DAILY PRN (Reason: Constipation) RF: 0 Discharge Orders: Discharge Order (Routine); Ordered 07/18/21 Ordered By: Iain Gambino Admission Data Admit Date/Time: 07/14/21 12:22 Attending Provider: Iian Gambino Admit Provider: Shara Wilson Primary Care Provider: Katja Clarke Other Providers: Shara Wilson ; [facility] [place] ; Jass Garcia ; [facility] Coding Level of Care Code D/C DAY MANAGEMENT >30 MINS Diagnoses Abdominal pain R10.84 Abdominal location: generalized Constipation K59.00 Constipation type: unspecified constipation type Rectal cancer C20 Hypertension, essential I10 Atrial fibrillation, persistent I48.19 Stage 3 chronic kidney disease N18.3 Controlled type 2 diabetes mellitus with kidney complication, with long-term current use of insulin E11.29; Z79.4 S/P TAVR (transcatheter aortic valve replacement) Z95.2 Time Spent (min) 35
--- NOTE | 2021-07-16 15:22 | Hospitalist Progress Note ---
Date of Service July 16, 2021 Assessment & Plan (1) Abdominal pain: Plan: Has a history of metastatic rectal cancer, s/p radiation, chemo, now with colostomy Presents with lower abdominal pain and constipation and low output from colostomy She was recently discharged from the hospital on 07/01 and had just completed a 7-day course of Keflex for a Klebsiella UTI at that time CT abdomen/pelvis on arrival negative for bowel obstruction, but shows moderate fecal retention in the right colon, possible developing peritoneal carcinomatosis, possible hepatic metastatic disease, markedly thickened bladder wall and hyperemia with surrounding inflammation as well as markedly thickened vaginal wall possibly related to previous pelvic radiation. Also with enlarged and hyperemic right inguinal lymph node new from previous Abdominal pain has resolved after relief of constipation (2) Constipation: Plan: Now resolved after miralax (3) Rectal cancer: Plan: Unfortunately imaging suggests new metastatic disease She has had radiation and chemotherapy over the last 2 years and now has a colostomy as of 05/2021 -Oncology followup. Patient is scheduled to see Dr. Ramirez on 07/25/21 Was supposed to have a PET scan this coming Friday (4) Hypertension, essential: Plan: Blood pressure well controlled -Continue Metoprolol -Monitor (5) Atrial fibrillation, persistent: Plan: Rate controlled. On anticoagulation -Continue Apixaban, Metoprolol, Digoxin (6) Stage 3 chronic kidney disease: Plan: Near baseline -Monitor -Avoid nephrotoxic agents (7) Controlled type 2 diabetes mellitus with kidney complication, with long-term current use of insulin: Plan: Chronic With basal and bolus insulin here Blood sugars are well controlled (8) S/P TAVR (transcatheter aortic valve replacement): Plan: Noted Plan: discharge back to snf when authorization approved Admission and Anticipated Discharge Date Admission Date: July 14, 2021 Subjective Patient seen and examined today, daughter by her bedside Review of Systems Review of Systems: All systems reviewed are negative, apart from the ones contained in the history. Physical Exam Physical Exam: The patient is awake, alert and oriented 3, well developed and well nourished, normocephalic and atraumatic, lying in bed and in no acute distress. HEENT--PERRL, EOMI, mucous membranes and oropharynx mildly dry Neck--supple. No JVD. No bruits. Thyroid normal, trachea midline, no adenopathy. Heart--normal S1 and S2. No murmurs, rubs or gallops. Lungs--clear bilaterally, no respiratory distress, no accessory muscle use. Abdomen--normal bowel sounds and soft. ostomy with stool Extremities--no cyanosis or clubbing. No edema. Dermatologic--normal skin turgor, normal color, no abnormal lymph nodes, no rash. Neurologic--cranial nerves II through XII grossly intact. Rheumatologic--normal range of motion. Psychiatric--normal affect. Results & Data Results & Data ([facility]) Vital Signs (Past 12 Hours) Vital Signs Temp Pulse Resp BP Pulse Ox 07/16/21 07:20 97.2 F L 86 16 136/68 95 PG Care Time/CCT Total # of Minutes Spent Total Time Spent with Patient: Total time spent is greater than 50% in coordination of care (as documented) at patient's floor/unit and/or counseling patient: Coding Level of Care Code 58235 Subseq Hosp Care Lvl 2 Diagnoses Abdominal pain R10.84 Abdominal location: generalized Constipation K59.00 Constipation type: unspecified constipation type Rectal cancer C20 Hypertension, essential I10 Atrial fibrillation, persistent I48.19 Stage 3 chronic kidney disease N18.3 Controlled type 2 diabetes mellitus with kidney complication, with long-term current use of insulin E11.29; Z79.4 S/P TAVR (transcatheter aortic valve replacement) Z95.2 Time Spent (min) 35 (1) Abdominal pain Abdominal location: generalized Qualified Code(s): R10.84 - Generalized abdominal pain (2) Constipation Constipation type: unspecified constipation type Qualified Code(s): K59.00 - Constipation, unspecified
[2021-07-16] MEDS: DIGOXIN 0.125 MG TAB PO SCH (16:31)
[2021-07-16] MEDS: INSULIN GLARGINE SOLOSTAR 100 UNITS/ML 3 ML PEN SQ SCH (20:50)
--- NOTE | 2021-07-17 06:19 | Communication Note ---
Date of Service: July 17, 2021 Messaged about lack of colostomy output since 2340 on 07/15/21. No gas. No complaints of bloating. Patient has sensation of needing to urinate. Bladder scan 79mL. plan: give dose of Miralax. If lack of colostomy output persists, consider additional Miralax and KUB. Devan Go PGY2 night resident
[2021-07-17] MEDS: POLYETHYLENE (MIRALAX) 17 GM PACK PO PRN (06:33)
[2021-07-17] MEDS: CARBOHYDRATES FOR HYPOGLYCEMIA PO PRN (07:54)
[2021-07-17] MEDS: INSULIN ASPART PER UNIT SQ SCH ×4 (07:59→21:22)
[2021-07-17] MEDS: SERTRALINE HCL 50 MG TABLET PO SCH (08:10)
[2021-07-17] MEDS: traMADol HCL 50 MG TABLET PO PRN ×3 (08:10→23:52)
[2021-07-17] MEDS: DOCUSATE SODIUM 100 MG CAP PO SCH ×2 (08:11→21:21)
[2021-07-17] MEDS: GABAPENTIN 300 MG CAP PO SCH ×3 (08:11→21:21)
[2021-07-17] MEDS: METOPROLOL SUCC 25MG EXT REL TAB PO SCH (08:11)
[2021-07-17] MEDS: APIXABAN 5 MG TABLET PO SCH ×2 (08:12→21:21)
[2021-07-17] MEDS: SENNA 8.6 MG TAB PO SCH (08:12)
[2021-07-17] MEDS: POLYETHYLENE (MIRALAX) 17 GM PACK PO SCH (08:33)
--- NOTE | 2021-07-17 09:23 | XRay Report ---
KUB CLINICAL HISTORY: Constipation. FINDINGS: An AP supine abdominal radiograph is correlated with abdominal CT dated 07/13/2021. There is a nonobstructed abdominal bowel gas pattern. An ostomy is noted in the left lower quadrant. Mild to m oderate fecal retention is noted throughout the colon. No evidence of intraperitoneal free air is see n on this supine image. No abnormal abdominal calcifications are seen. The skeletal structures are os teopenic and appear intact. Lumbosacral spondylosis is observed and there is arthritic change in the hips. IMPRESSION: Nonobstructed abdominal bowel gas pattern. Electronically signed by: Andres Beckham M.D. 07/17/2021 9:20 AM
[2021-07-17] MEDS: ACETAMINOPHEN 325 MG TAB PO PRN ×2 (09:51→18:01)
--- NOTE | 2021-07-17 11:24 | Hospitalist Progress Note ---
Date of Service July 17, 2021 Assessment & Plan (1) Abdominal pain: Plan: Has a history of metastatic rectal cancer, s/p radiation, chemo, now with colostomy Presents with lower abdominal pain and constipation and low output from colostomy She was recently discharged from the hospital on 07/01 and had just completed a 7-day course of Keflex for a Klebsiella UTI at that time CT abdomen/pelvis on arrival negative for bowel obstruction, but shows moderate fecal retention in the right colon, possible developing peritoneal carcinomatosis, possible hepatic metastatic disease, markedly thickened bladder wall and hyperemia with surrounding inflammation as well as markedly thickened vaginal wall possibly related to previous pelvic radiation. Also with enlarged and hyperemic right inguinal lymph node new from previous Abdominal pain has recurred again today, but mangeable with pain meds (2) Constipation: Plan: Now resolved after miralax KUB done today did not show any evidence of obstruction (3) Rectal cancer: Plan: Unfortunately imaging suggests new metastatic disease She has had radiation and chemotherapy over the last 2 years and now has a colostomy as of 05/2021 -Oncology followup. Patient is scheduled to see Dr. Ramirez on 07/25/21 Was supposed to have a PET scan this coming Friday (4) Hypertension, essential: Plan: Blood pressure well controlled -Continue Metoprolol -Monitor (5) Atrial fibrillation, persistent: Plan: Rate controlled. On anticoagulation -Continue Apixaban, Metoprolol, Digoxin (6) Stage 3 chronic kidney disease: Plan: Near baseline -Monitor -Avoid nephrotoxic agents (7) Controlled type 2 diabetes mellitus with kidney complication, with long-term current use of insulin: Plan: Chronic With basal and bolus insulin here Blood sugars are well controlled (8) S/P TAVR (transcatheter aortic valve replacement): Plan: Noted Plan: discharge back to snf when authorization approved Admission and Anticipated Discharge Date Admission Date: July 14, 2021 Subjective Patient seen and examined today, reported Review of Systems Review of Systems: All systems reviewed are negative, apart from the ones contained in the history. Physical Exam Physical Exam: The patient is awake, alert and oriented 3, well developed and well nourished, normocephalic and atraumatic, lying in bed and in no acute distress. HEENT--PERRL, EOMI, mucous membranes and oropharynx mildly dry Neck--supple. No JVD. No bruits. Thyroid normal, trachea midline, no adenopathy. Heart--normal S1 and S2. No murmurs, rubs or gallops. Lungs--clear bilaterally, no respiratory distress, no accessory muscle use. Abdomen--normal bowel sounds and soft. ostomy with stool Extremities--no cyanosis or clubbing. No edema. Dermatologic--normal skin turgor, normal color, no abnormal lymph nodes, no rash. Neurologic--cranial nerves II through XII grossly intact. Rheumatologic--normal range of motion. Psychiatric--normal affect. Results & Data Results & Data ([facility]) Vital Signs (Past 12 Hours) Vital Signs Temp Pulse Resp BP Pulse Ox 07/17/21 07:27 98.4 F 81 16 161/78 H 90 PG Care Time/CCT Total # of Minutes Spent Total Time Spent with Patient: Total time spent is greater than 50% in coordination of care (as documented) at patient's floor/unit and/or counseling patient: Coding Level of Care Code 27878 Subseq Hosp Care Lvl 2 Diagnoses Abdominal pain R10.84 Abdominal location: generalized Constipation K59.00 Constipation type: unspecified constipation type Rectal cancer C20 Hypertension, essential I10 Atrial fibrillation, persistent I48.19 Stage 3 chronic kidney disease N18.3 Controlled type 2 diabetes mellitus with kidney complication, with long-term current use of insulin E11.29; Z79.4 S/P TAVR (transcatheter aortic valve replacement) Z95.2 Time Spent (min) 35 (1) Abdominal pain Abdominal location: generalized Qualified Code(s): R10.84 - Generalized abdominal pain (2) Constipation Constipation type: unspecified constipation type Qualified Code(s): K59.00 - Constipation, unspecified
[2021-07-17] MEDS: DIGOXIN 0.125 MG TAB PO SCH (15:31)
[2021-07-17] MEDS ORDERED: INSULIN GLARGINE SOLOSTAR 100 UNITS/ML 3 ML PEN SQ SCH (21:00)
[2021-07-17] MEDS ORDERED: DICLOFENAC SOD 1% GEL 100 GM TUBE EXT PRN (21:58)
[2021-07-18] MEDS: ACETAMINOPHEN 325 MG TAB PO PRN (06:31)
[2021-07-18 07:23] VITALS: PULSE 90; TEMP 97.9; O2SAT 94
[2021-07-18] MEDS: INSULIN ASPART PER UNIT SQ SCH ×2 (07:57→11:31)
[2021-07-18] MEDS: traMADol HCL 50 MG TABLET PO PRN (07:59)
[2021-07-18] MEDS: GABAPENTIN 300 MG CAP PO SCH (08:21)
[2021-07-18] MEDS: APIXABAN 5 MG TABLET PO SCH (08:21)
[2021-07-18] MEDS: DOCUSATE SODIUM 100 MG CAP PO SCH (08:21)
[2021-07-18] MEDS: METOPROLOL SUCC 25MG EXT REL TAB PO SCH (08:22)
[2021-07-18] MEDS: SENNA 8.6 MG TAB PO SCH (08:22)
[2021-07-18] MEDS: SERTRALINE HCL 50 MG TABLET PO SCH (08:22)
[2021-07-18] MEDS: POLYETHYLENE (MIRALAX) 17 GM PACK PO SCH (11:04)
[2021-07-18 11:42] VITALS: BP 133/72
== END 2021-07-18 12:46 | disposition home or self-care (01) | DRG 392 ==
LOC: 3N 21:06 → ED 21:06 → SUATTDRO 07-14 00:57 → 3N 07-14 02:10 → SUATTDRO 07-14 12:22